=== PATIENT | female | born 1935 | race Caucasian/White ===

== ENCOUNTER 2016-11-30 12:31 | Inpatient (IN) | payer OTHER ==
[2016-11-30] VITALS (16 sets, daily range): BP systolic 115–193; BP diastolic 38–90; PULSE 49–67; TEMP 36.6–37; O2SAT 91–98; Ht 162.6 cm; Wt 77.1 kg
[~2016-11-30] VITALS: Ht 162.6 cm; Wt 77.1 kg
[~2016-11-30 12:31] MED LIST: ASPI81TA28 PO; CARV6.25 PO; CARV6.252 PO; CTP/1 PO; ESCI10TA17 PO; HYDR-4717 PO; ISOS20TA4 PO; LOSA1TAB38 PO; LSX20 PO; MULT-190 PO; NXM/40 PO; OMEG10007 PO; OXGN; ROSU20TA PO; SALI0.6510 NAE; TERA1CAP PO; VITATAB11 PO
[2016-11-30] MEDS ORDERED: HydrALAZINE HCL 20 MG/ML VIAL IV. STA ×2 (12:58→14:57)
[2016-11-30 13:26] LABS: BASO % 0.2 %; BASO ABS # 0.01 K/uL (0-0.2); COMPLETE YES; EOS % 5.3 %; HEMATOCRIT 35.7 % (37-47); IG% 0.2 %; LYMPH % 29.2 %; LYMPH ABS # 1.76 K/uL (1.2-3.4); MEAN CELL VOLUME 89.5 fL (80-100); MEAN CORPUSCULAR HEMOGLOBIN 28.1 pg (25-34); MEAN CORPUSCULAR HGB CONC 31.4 g/dl (32-36); MONO % 6.1 %; PLATELET COUNT 148 K/uL (130-400); RED BLOOD COUNT 3.99 M/uL (4.2-5.4); WHITE BLOOD COUNT 6.03 K/uL (4.8-10.8)
--- NOTE | 2016-11-30 13:36 | DIAGNOSTIC IMAGING REPORT ---
CT HEAD WITHOUT CONTRAST (CT) CLINICAL HISTORY: Generalized Weakness MEMORY DIFFICULTIES, CONFUSION. COMPARISON STUDY: 10/01/2013 TECHNIQUE: Axial CT of the brain is performed from the vertex to the skull base. IV contrast was not administered for this examination. CT DOSE: 614.27 mGy.cm FINDINGS: There is a 27 mm left parietal hypodensity involving both mathur and white matter. This statistically represents an acute/subacute infarct. A follow-up CT scan, or MRI is recommended for confirmation. There is no acute hemorrhage. There is no significant mass effect. There are subtle white matter hypodensities likely on a small vessel basis. There is no evidence of pathologic ventricular dilatation. There is no evidence of acute sinusitis IMPRESSION: 27 mm left parietal hypodensity involving both mathur and white matter. This statistically represents an acute/subacute infarct. A follow-up CT scan or MRI is recommended for confirmation. There is no acute hemorrhage. Electronically signed by: Bryan Alcala M.D. 11/30/2016 1:34 PM Dictated Date/Time: 11/30/2016 1:30 PM
[2016-11-30 13:41] LABS: URINE APPEARANCE CLEAR (CLEAR); URINE BILIRUBIN NEG (NEG); URINE COLOR YELLOW; URINE NITRITE NEG (NEG); URINE SPECIFIC GRAVITY 1.006 (1.000-1.030); UROBILINOGEN NEG (NEG); ZZUR CULT IF INDIC CLEAN CATCH NO
--- NOTE | 2016-11-30 13:43 | DIAGNOSTIC IMAGING REPORT ---
CHEST ONE VIEW PORTABLE CLINICAL HISTORY: Generalized Weakness CONFUSION COMPARISON STUDY: 05/26/2015 FINDINGS: The heart is enlarged. There is no overt failure. There is no focal pulmonary consolidation. There are no pleural effusions. There is a stable area of linear scarring within the right midlung zone.[ IMPRESSION: Cardiomegaly. No acute findings. Electronically signed by: Bryan lAcala M.D. 11/30/2016 1:40 PM Dictated Date/Time: 11/30/2016 1:39 PM
[2016-11-30 13:45] LABS: MANUAL MICROSCOPIC REQUIRED? NO; REVIEW REQ? NO
[2016-11-30 13:56] LABS: BUN/CREATININE RATIO 17.7 (10-20); CALCIUM 8.6 mg/dl (8.5-10.1); CREATININE 0.79 mg/dl (0.60-1.20); MAGNESIUM 2.1 mg/dl (1.8-2.4); PARTIAL THROMBOPLASTIN RATIO 1.1; POTASSIUM 3.5 mmol/L (3.5-5.1); PROTHROMBIN TIME (PATIENT) 11.2 SECONDS (9.0-12.0)
[2016-11-30 14:13] LABS: CKMB/CK RATIO 3.7 (0-3.0); PHOSPHORUS 2.8 mg/dl (2.5-4.9)
[2016-11-30] MEDS ORDERED: MELO7.5T5 PO (14:55)
[2016-11-30] MEDS ORDERED: LXP10 PO (14:55)
[2016-11-30] MEDS ORDERED: NiCARDipine IV 25 MG in SODIUM CHLORIDE 0.9% 250ML 240 ML IV PRN (15:45)
[2016-11-30] MEDS ORDERED: ACETAMINOPHEN 325 MG TAB PO PRN (16:00)
[2016-11-30] MEDS ORDERED: PHARMACIST DISCHARGE MED REC CONSULT PRN (16:00)
[2016-11-30] MEDS ORDERED: ONDANSETRON INJ 2 MG/ML 2 ML VIAL IV PRN (16:00)
--- NOTE | 2016-11-30 16:03 | EMERGENCY ROOM VISIT NOTE ---
History Report prepared by Alex: Shannan Bustos Under the Supervision of: Dr. Kenneth Steiner M.D. 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 The patient's daughter and state that the patient has been very confused and was not able to remember her birthday today. The patient's daughter states that the patient has been disoriented since she had a bad episode of chest pain secondary to arthritis 2 days ago. The patient denies any chest pain currently. This morning, the patient developed pain in her left cheek radiating into her left church. The patient denies ear pain and throat pain. The patient's states that the patient took Aleve this morning because he thought the patient' s symptoms were due to sinus congestion. She denies any recent urinary symptoms , but her states that she has a history of UTIs. The patient denies any recent falls or injuries. The patient's states that the patient has not had any recent medication changes. Source of History: patient, family (daughter), spouse/significant other ( ) Onset: 2 days ago Position: head Quality: other (confusion) Associated Symptoms: No chest pain, No urinary symptoms Note: left cheek pain radiating to left church, no ear pain, no throat pain Review of Systems See HPI for pertinent positives & negatives. A total of 10 systems reviewed and were otherwise negative. Past Medical & Surgical Medical Problems: (1) Arthritis (2) CAD (coronary artery disease) (3) CVA (cerebral vascular accident) (4) Depression (5) Diastolic dysfunction (6) Dyslipidemia (7) GERD (gastroesophageal reflux disease) (8) HTN (hypertension) (9) Hypertensive emergency (10) Pulmonary HTN (11) Pulmonary hypertension (12) Right radial fracture Surgical Problems: (1) Cystocele with rectocele (2) History of hysterectomy (3) S/P cholecystectomy (4) Status post cardiac catheterization (5) Status post coronary artery stent placement Family History FHx: diabetes FHx: gallbladder disease FHx: heart disease FHx: hypertension FHx: lung disease Social History Smoking Status: Never Smoker Alcohol Use: occasionally Marital Status: Occupation Status: retired Current/Historical Medications Scheduled Aspirin (Aspirin Ec), 81 MG PO BID Carvedilol (Coreg), 6.25 MG PO QAM Carvedilol (Coreg), 3.125 MG PO BID Clonidine Hcl (Catapres), 0.1 MG PO TID Escitalopram (Lexapro), 20 MG PO EVENING MEAL Esomeprazole Magnesium (Nexium), 40 MG PO QAM Fish Oil ([place]-3), 1,200 MG PO BID Furosemide (Furosemide), 20 MG PO QAM Hydralazine Hcl (Apresoline), 75 MG PO QID Isosorbide Mononitrate (Isosorbide Mononitrate), 30 MG PO QPM Losartan Potassium (Cozaar), 100 MG PO QPM Meloxicam (Mobic), 1 TAB PO DAILY Ocuvite Preservision (Ocuvite Preservision), 1 TAB PO DAILY Oxygen (Oxygen), 2 LITERS NA PRN Terazosin Hcl (Hytrin), 1 MG PO HS Vitamins W/ Lipotropics (Lipoflavonoid), 1 TAB PO 3XWK Scheduled PRN Saline ([place] Nasal [place]), 2 SPRAYS [place] DAILY PRN for DRYNESS, CONGESTION Allergies Coded Allergies: Iodine (Verified Allergy, Intermediate, HIVES, 11/30/16) Ciprofloxacin (Verified Allergy, Unknown, ., 11/30/16) Tramadol (Verified Allergy, Unknown, 0, 11/30/16) Physical Exam Vital Signs Date Time Temp Pulse Resp B/P Pulse Ox O2 Delivery O2 Flow Rate FiO2 11/30/16 15:07 64 19 248/84 94 Room Air 11/30/16 14:11 56 18 202/68 90 Room Air 11/30/16 14:04 51 11/30/16 13:57 51 18 229/80 93 Room Air 11/30/16 12:39 36.7 52 18 247/78 93 Room Air Physical Exam GENERAL: Patient is pleasantly confused appearing and in no acute distress. HEENT: No acute trauma, normocephalic atraumatic, mucous membranes moist, no nasal congestion, no scleral icterus. NECK: No stridor, no adenopathy, no meningismus, trachea is midline. LUNGS: No dyspnea. Clear to auscultation and equal bilaterally. No wheeze, no rhonchi. HEART: Regular rate and rhythm. No murmurs, rubs, gallops appreciated. ABDOMEN: Soft, nontender, bowel sounds positive, no masses appreciated, no peritonitis. BACK: No midline tenderness, no CVA tenderness EXTREMITIES: Normal motion all extremities, no cyanosis, no edema. NEUROLOGIC: Awake, answering questions, does not remember place nor time, no acute motor or sensory deficits, no focal weakness, cranial nerves grossly intact. SKIN: No rash, no jaundice, no diaphoresis. Medical Decision & Procedures ER Provider Diagnostic Interpretation: Radiology results and stated below per my review and radiologist interpretation: CHEST ONE VIEW PORTABLE IMPRESSION: Cardiomegaly. No acute findings. Electronically signed by: Bryan Alcala M.D. 11/30/2016 1:40 PM Dictated Date/Time: 11/30/2016 1:[address] HEAD WITHOUT CONTRAST (CT) IMPRESSION: 27 mm left parietal hypodensity involving both mathur and white matter. This statistically represents an acute/subacute infarct. A follow-up CT scan or MRI is recommended for confirmation. There is no acute hemorrhage. Electronically signed by: Bryan Alcala M.D. 11/30/2016 1:34 PM Dictated Date/Time: 11/30/2016 1:30 PM Laboratory Results 11/30/16 13:00 Red Blood Count 3.99, Mean Corpuscular Volume 89.5, Mean Corpuscular Hemoglobin 28.1, Mean Corpuscular Hemoglobin Concent 31.4, Mean Platelet Volume 10.0, Neutrophils (%) (Auto) 59.0, Lymphocytes (%) (Auto) 29.2, Monocytes (%) (Auto) 6.1, Eosinophils (%) (Auto) 5.3, Basophils (%) (Auto) 0.2, Neutrophils # (Auto) 3.56, Lymphocytes # (Auto) 1.76, Monocytes # (Auto) 0.37, Eosinophils # (Auto) 0.32, Basophils # (Auto) 0.01 11/30/16 13:00 Test 11/30/16 13:00 11/30/16 15:48 White Blood Count 6.03 K/uL (4.8-10.8) Red Blood Count 3.99 M/uL (4.2-5.4) Hemoglobin 11.2 g/dL (12.0-16.0) Hematocrit 35.7 % (37-47) Mean Corpuscular Volume 89.5 fL (80-100) Mean Corpuscular Hemoglobin 28.1 pg (25-34) Mean Corpuscular Hemoglobin Concent 31.4 g/dl (32-36) Platelet Count 148 K/uL (130-400) Mean Platelet Volume 10.0 fL (7.4-10.4) Neutrophils (%) (Auto) 59.0 % Lymphocytes (%) (Auto) 29.2 % Monocytes (%) (Auto) 6.1 % Eosinophils (%) (Auto) 5.3 % Basophils (%) (Auto) 0.2 % Neutrophils # (Auto) 3.56 K/uL (1.4-6.5) Lymphocytes # (Auto) 1.76 K/uL (1.2-3.4) Monocytes # (Auto) 0.37 K/uL (0.11-0.59) Eosinophils # (Auto) 0.32 K/uL (0-0.5) Basophils # (Auto) 0.01 K/uL (0-0.2) RDW Standard Deviation 56.4 fL (36.4-46.3) RDW Coefficient of Variation 17.1 % (11.5-14.5) Immature Granulocyte % (Auto) 0.2 % Immature Granulocyte # (Auto) 0.01 K/uL (0.00-0.02) Erythrocyte Sedimentation Rate 12 mm/hr (0-21) Prothrombin Time 11.2 SECONDS (9.0-12.0) Prothromb Time International Ratio 1.0 (0.9-1.1) Activated Partial Thromboplast Time 27.7 SECONDS (21.0-31.0) Partial Thromboplastin Ratio 1.1 Urine Color YELLOW Urine Appearance CLEAR (CLEAR) Urine pH 5.0 (4.5-7.5) Urine Specific [place] 1.006 (1.000-1.030) Urine Protein NEG (NEG) Urine Glucose (UA) NEG (NEG) Urine Ketones NEG (NEG) Urine Occult Blood NEG (NEG) Urine Nitrite NEG (NEG) Urine Bilirubin NEG (NEG) Urine Urobilinogen NEG (NEG) Urine Leukocyte Esterase TRACE (NEG) Urine WBC (Auto) 1-5 /hpf (0-5) Urine RBC (Auto) 0-4 /hpf (0-4) Urine Hyaline Casts (Auto) 0 /lpf (0-5) Urine Epithelial Cells (Auto) 5-10 /lpf (0-5) Urine Bacteria (Auto) NEG (NEG) Anion Gap 3.0 mmol/L (3-11) Est Creatinine Clear Calc Drug Dose 58.2 ml/min Estimated GFR () 80.8 Estimated GFR (Non- 69.7 BUN/Creatinine Ratio 17.7 (10-20) Calcium Level 8.6 mg/dl (8.5-10.1) Phosphorus Level 2.8 mg/dl (2.5-4.9) Magnesium Level 2.1 mg/dl (1.8-2.4) Total Bilirubin 0.4 mg/dl (0.2-1) Direct Bilirubin 0.1 mg/dl (0-0.2) Aspartate Amino Transf (AST/SGOT) 14 U/L (15-37) Alanine Aminotransferase (ALT/SGPT) 16 U/L (12-78) Alkaline Phosphatase 88 U/L (45-117) Total Creatine Kinase 41 U/L (26-192) Creatine Kinase MB 1.5 ng/ml (0.5-3.6) Creatine Kinase MB Ratio 3.7 (0-3.0) Troponin I 0.121 ng/ml (0-0.045) Total Protein 7.2 gm/dl (6.4-8.2) Albumin 3.8 gm/dl (3.4-5.0) Lipase 84 U/L (73-393) Laboratory results as reviewed by me. Medications Administered Medications (Trade) Dose Ordered Sig/Devin Route Start Time Stop Time Status Last Admin Dose Admin Hydralazine HCl (HydrALAZINE INJ) 10 mg NOW STAT IV. 11/30/16 12:58 11/30/16 12:59 DC 11/30/16 14:00 10 MG Hydralazine HCl (HydrALAZINE INJ) 10 mg NOW STAT IV. 11/30/16 14:57 11/30/16 15:02 DC 11/30/16 15:05 10 MG ECG Indication: altered mental status Rate (beats per minute): 58 Rhythm: sinus bradycardia Findings: no acute ischemic change, no ectopy ED Course 1253: The patient was evaluated in room A10. A complete history and physical exam was performed. 1258: Ordered Hydralazine HCl 10 mg IV 1402: Upon reevaluation, the patient is resting comfortably. Discussed results and treatment plan with the patient. The patient and her verbalized understanding and agreement with the treatment plan. The patient will be evaluated for further management. 1405: Discussed the patient's case with [place]. The patient will be evaluated for further treatment and disposition. Medical Decision Differential: Toxicological, Infectious, Stroke, SAH, Trauma, Electrolyte Abnormality, Hypoglycemia, Alcohol Intoxication, Drug Intoxication, Cardiac Abnormality, Sepsis, Meningitis/Encephalitis, Trauma, Excited Delirium, Serotonin Syndrome, Psychiatric, amongst other pathologies entertained. 81 yr old female with memory issues last 24 hours arrives with family for evaluation along with complaint left face pain. No neuro deficits and she is in minimal distress here. Quite Hypertensive thus 10mg IV Hydralazine ordered after evaluating here which after given dropped SBP from 240 to 200 which I feel is good for initial approach as wish to avoid dropping too quickly. CT head with evidence of sub-acute stroke though without other deficits and symptoms ongoing for last 24 hours she would not be TPA candidate and stroke alert not indicated. BP started increasing but at this point hospitalist already involved and another dose hydralazine ordered given initial improvement. Continued HTN thus hospitalist will manage nicardipine gtt. She has elevated trop which she recalls some chest pain 2 days ago. EKG without STEMI and no active chest pain. Suspect stroke/hypertensive emergency as main culprits. Consults Time Called: 1404 Consulting Physician: [place] Returned Call: 1405 Discussed the patient's case with [place]. The patient will be evaluated for further treatment and disposition. Impression Primary Impression: CVA (cerebral vascular accident) Additional Impression: Hypertension Scribe Attestation The scribe's documentation has been prepared under my direction and personally reviewed by me in its entirety. I confirm that the note above accurately reflects all work, treatment, procedures, and medical decision making performed by me. Departure Information Dispostion Being Evaluated By Hospitalist Referrals Sulman,Dustin A., D.O. (PCP) Patient Instructions My [facility] Stroke History Time Last Known Well 2 days ago Stroke t-PA Criteria Reviewed Does NOT meet criteria for t-PA Reason t-PA Not Given Treatment not indicated Problem Qualifiers Primary Impression: CVA (cerebral vascular accident) CVA mechanism: unspecified Qualified Codes: I63.9 - Cerebral infarction, unspecified Additional Impression: Hypertension Hypertension type: unspecified secondary hypertension Qualified Codes: I15.9 - Secondary hypertension, unspecified
[2016-11-30] MEDS ORDERED: CRS20 PO (16:08)
[2016-11-30] MEDS ORDERED: VNTHFA/IN INH (16:08)
[2016-11-30] MEDS: NiCARDipine IV 25 MG in SODIUM CHLORIDE 0.9% 250ML 240 ML IV PRN ×2 (16:13→19:40)
[2016-11-30] MEDS ORDERED: SODIUM CHLORIDE 0.65% NA SOLN 45 ML (OCEAN) NAE PRN (16:15)
[2016-11-30] MEDS ORDERED: ALBUTEROL HFA 8 GM INHALER INH PRN (16:15)
[2016-11-30] MEDS ORDERED: ASPIRIN 81 MG ECTAB PO STA (16:58)
[2016-11-30] MEDS ORDERED: CLOPIDOGREL BISULFATE 75 MG TAB PO STA (16:59)
--- NOTE | 2016-11-30 16:59 | History and Physical ---
History & Physical Date & Time of Service: Nov 30, 2016 at 16:12 Chief Complaint: Confusion, Pain In Lt Cheek, Memory Issues Primary Care Physician: Dustin Pierce D.O. History of Present Illness Source: patient, hospital records This is an 81 year old female with PMH of CAD s/p PCI stent to RCA, labile hypertension, dyslipidemia, remote history of TIA, and other problems listed below who presents to the ED for confusion, memory loss, and expressive aphasia. states symptoms started yesterday afternoon at which time patient appeared confused, with expressive aphasia, and walked into her . He sat her down and she slept for a few hours, she awoke and seemed normal, then went to bed. Then this morning around 7:30 am she was c/o left maxillary area pain with radiation to left jaw and left oriental orthodox. It is worse with jaw movement. She took Mucinex and Advil without relief. When daughter arrived at 8:30 she noticed patient had confusion (unable to get into her phone) , memory loss, and expressive aphasia and therefore brought patient to ER. At baseline patient is oriented x 3 without any memory loss. She ambulates unassisted and is independent with ADLs. On my exam patient recognizes her family but is unable to name the date or location. She states she knows the location but can't think of the name. She is not able to describe recent events. Daughter states 2 days ago patient had chest pain non-exertional similar to prior episodes attributed to costochondritis. There was no diaphoresis or SOB. She took Aleve and Percocet with relief. Not having chest pain today. Patient had a UTI 1 week ago treated with unknown antibiotic after being seen at [facility] [employer]. Dysuria is resolved. The patient denies fever, chills , nasal congestion, sore throat, dizziness, syncope, vision change, facial droop , swallowing difficulty, focal weakness or numbness, ataxia, cough, SOB, palpitations, abdominal pain, N/V/D, urinary frequency or urgency, calf pain, edema, recent fall or injury. Denies h/o abnormal bleeding. Past Medical/Surgical History Medical Problems: (1) Arthritis Status: Chronic (2) CAD (coronary artery disease) Permanent Comment: hx PCI stent to RCI cath 2004 - % RCA stenosis s/p intervention, 50% LAD stenosis dobutamine stress 05/01/15 - negative for ischemia Status: Chronic (3) Depression Status: Chronic (4) Diastolic dysfunction Permanent Comment: echo 04/1815 - grade II diastolic dysfunction, mild valvular disease Status: Chronic (5) Dyslipidemia Status: Chronic (6) GERD (gastroesophageal reflux disease) Status: Chronic (7) HTN (hypertension) Status: Chronic (8) Pulmonary HTN Permanent Comment: echo 05/01/15 - severe pulmonary HTN measured at 68mm Hg Status: Chronic (9) Right radial fracture Permanent Comment: s/p ORIF Status: Chronic (10) TIA (transient ischemic attack) Permanent Comment: 1978 Status: Chronic Surgical Problems: (1) Cystocele with rectocele Permanent Comment: s/p repair Status: Chronic (2) History of hysterectomy Status: Chronic (3) S/P cholecystectomy Status: Chronic (4) Status post cardiac catheterization Status: Chronic (5) Status post coronary artery stent placement Status: Chronic Family History FHx: diabetes FHx: gallbladder disease FHx: heart disease FHx: hypertension FHx: lung disease Social History Smoking Status: Never Smoker Alcohol Use: occasionally (1-2 drinks per week) Marital Status: Housing status: lives with significant other Occupational Status: retired Immunizations History of Influenza Vaccine: Yes Influenza Vaccine Date: May 12, 2014 History of Tetanus Vaccine?: Yes Tetanus Immunization Date: Oct 15, 2007 History of Pneumococcal: Yes Pneumococcal Date: Apr 21, 2000 History of Hepatitis B Vaccine: Unknown Multi-Drug Resistant Organisms History of MDRO: No Allergies Coded Allergies: Iodine (Verified Allergy, Intermediate, HIVES, 11/30/16) Ciprofloxacin (Verified Allergy, Unknown, ., 11/30/16) Tramadol (Verified Allergy, Unknown, 0, 11/30/16) Home Medications Scheduled Aspirin (Aspirin Ec), 81 MG PO BID Carvedilol (Coreg), 3.125 MG PO BID Escitalopram (Lexapro), 20 MG PO EVENING MEAL Esomeprazole Magnesium (Nexium), 40 MG PO QAM Fish Oil ([place]-3), 1,200 MG PO BID Furosemide (Furosemide), 20 MG PO QAM Hydralazine Hcl (Apresoline), 75 MG PO QID Isosorbide Mononitrate (Isosorbide Mononitrate), 30 MG PO DAILY Losartan Potassium (Cozaar), 100 MG PO QAM Meloxicam (Mobic), 1 TAB PO DAILY Ocuvite Preservision (Ocuvite Preservision), 1 TAB PO DAILY Oxygen (Oxygen), 2 LITERS NA HS Rosuvastatin Calcium (Crestor), 20 MG PO DAILY Terazosin Hcl (Hytrin), 1 MG PO HS Vitamins W/ Lipotropics (Lipoflavonoid), 1 TAB PO 3XWK Scheduled PRN Albuterol Hfa (Ventolin Hfa), 2 PUFFS INH Q4 PRN for Wheezing Clonidine Hcl (Catapres), 0.1 MG PO TID PRN for SBP >180 Saline ([place] Nasal [place]), 2 SPRAYS MEAGAN DAILY PRN for DRYNESS, CONGESTION Review of Systems Ten point ROS performed with pertinent positives and negatives noted in HPI. Physical Exam Vital Signs Date Time Temp Pulse Resp B/P Pulse Ox O2 Delivery O2 Flow Rate FiO2 11/30/16 14:11 56 18 202/68 90 Room Air 11/30/16 14:04 51 11/30/16 13:57 51 18 229/80 93 Room Air 11/30/16 12:39 36.7 52 18 247/78 93 Room Air General Appearance: WD/WN, no apparent distress, + pertinent finding (pleasant alert 81 year old female) Head: normocephalic, atraumatic Eyes: normal inspection, PERRL, EOMI, sclerae normal ENT: normal ENT inspection, hearing grossly normal, TMs normal, pharynx normal , + pertinent finding (tender to palpation left maxillary, frontal, and temporal area and left angle of mandible) Neck: supple, no JVD, no carotid bruits, trachea midline Respiratory/Chest: lungs clear, normal breath sounds, no respiratory distress Cardiovascular: regular rate, rhythm, no murmur Abdomen/GI: normal bowel sounds, non tender, soft Extremities/Musculoskelatal: no calf tenderness, no pedal edema Neurologic/Psych: 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 unable to state the location or date. unable to recall recent events. expressive aphasia. slow to name objects. finger to nose intact. no pronator drift. gait not assessed) Skin: normal color, warm/dry Diagnostics Laboratory Results Results Past 24 Hours Test 4/19/17 13:00 Range/Units White Blood Count 6.03 4.8-10.8 K/uL Red Blood Count 3.99 4.2-5.4 M/uL Hemoglobin 11.2 12.0-16.0 g/dL Hematocrit 35.7 37-47 % Mean Corpuscular Volume 89.5 80-100 fL Mean Corpuscular Hemoglobin 28.1 25-34 pg Mean Corpuscular Hemoglobin Concent 31.4 32-36 g/dl Platelet Count 148 130-400 K/uL Mean Platelet Volume 10.0 7.4-10.4 fL Neutrophils (%) (Auto) 59.0 % Lymphocytes (%) (Auto) 29.2 % Monocytes (%) (Auto) 6.1 % Eosinophils (%) (Auto) 5.3 % Basophils (%) (Auto) 0.2 % Neutrophils # (Auto) 3.56 1.4-6.5 K/uL Lymphocytes # (Auto) 1.76 1.2-3.4 K/uL Monocytes # (Auto) 0.37 0.11-0.59 K/uL Eosinophils # (Auto) 0.32 0-0.5 K/uL Basophils # (Auto) 0.01 0-0.2 K/uL RDW Standard Deviation 56.4 36.4-46.3 fL RDW Coefficient of Variation 17.1 11.5-14.5 % Immature Granulocyte % (Auto) 0.2 % Immature Granulocyte # (Auto) 0.01 0.00-0.02 K/uL Erythrocyte Sedimentation Rate 12 0-21 mm/hr Prothrombin Time 11.2 9.0-12.0 SECONDS Prothromb Time International Ratio 1.0 0.9-1.1 Activated Partial Thromboplast Time 27.7 21.0-31.0 SECONDS Partial Thromboplastin Ratio 1.1 Urine Color YELLOW Urine Appearance CLEAR CLEAR Urine pH 5.0 4.5-7.5 Urine Specific [place] 1.006 1.000-1.030 Urine Protein NEG NEG Urine Glucose (UA) NEG NEG Urine Ketones NEG NEG Urine Occult Blood NEG NEG Urine Nitrite NEG NEG Urine Bilirubin NEG NEG Urine Urobilinogen NEG NEG Urine Leukocyte Esterase TRACE NEG Urine WBC (Auto) 1-5 0-5 /hpf Urine RBC (Auto) 0-4 0-4 /hpf Urine Hyaline Casts (Auto) 0 0-5 /lpf Urine Epithelial Cells (Auto) 5-10 0-5 /lpf Urine Bacteria (Auto) NEG NEG Sodium Level 143 136-145 mmol/L Potassium Level 3.5 3.5-5.1 mmol/L Chloride Level 105 98-107 mmol/L Carbon Dioxide Level 35 21-32 mmol/L Anion Gap 3.0 3-11 mmol/L Blood Urea Nitrogen 14 7-18 mg/dl Creatinine 0.79 0.60-1.20 mg/dl Est Creatinine Clear Calc Drug Dose 58.2 ml/min Estimated GFR () 80.8 Estimated GFR (Non- 69.7 BUN/Creatinine Ratio 17.7 10-20 Random Glucose 95 70-99 mg/dl Calcium Level 8.6 8.5-10.1 mg/dl Phosphorus Level 2.8 2.5-4.9 mg/dl Magnesium Level 2.1 1.8-2.4 mg/dl Total Bilirubin 0.4 0.2-1 mg/dl Direct Bilirubin 0.1 0-0.2 mg/dl Aspartate Amino Transf (AST/SGOT) 14 15-37 U/L Alanine Aminotransferase (ALT/SGPT) 16 12-78 U/L Alkaline Phosphatase 88 45-117 U/L Total Creatine Kinase 41 26-192 U/L Creatine Kinase MB 1.5 0.5-3.6 ng/ml Creatine Kinase MB Ratio 3.7 0-3.0 Troponin I 0.121 0-0.045 ng/ml Total Protein 7.2 6.4-8.2 gm/dl Albumin 3.8 3.4-5.0 gm/dl Lipase 84 73-393 U/L Diagnostic Radiology CT HEAD WITHOUT CONTRAST (CT) CLINICAL HISTORY: Generalized Weakness MEMORY DIFFICULTIES, CONFUSION. COMPARISON STUDY: 10/01/2013 TECHNIQUE: Axial CT of the brain is performed from the vertex to the skull base. IV contrast was not administered for this examination. CT DOSE: 614.27 mGy.cm FINDINGS: There is a 27 mm left parietal hypodensity involving both mathur and white matter. This statistically represents an acute/subacute infarct. A follow-up CT scan, or MRI is recommended for confirmation. There is no acute hemorrhage. There is no significant mass effect. There are subtle white matter hypodensities likely on a small vessel basis. There is no evidence of pathologic ventricular dilatation. There is no evidence of acute sinusitis IMPRESSION: 27 mm left parietal hypodensity involving both mathur and white matter. This statistically represents an acute/subacute infarct. A follow-up CT scan or MRI is recommended for confirmation. There is no acute hemorrhage. EKG sinus bradycardia, rate 58 bpm, nonspecific T wave inversion in aVL, no significant change from prior EKG in May 2015 Impression Assessment and Plan CVA Presents with confusion, memory loss, expressive aphasia CT head shows 27 mm L parietal acute/subacute infarct Risk factors include hypertension, dyslipidemia, remote hx TIA Monitor in telemetry to r/o arrhythmia Check MRI brain with and without contrast, which will also assess for PRES syndrome Check MRA head and neck, echo w/ bubble study, monitor in telemetry to r/o arrhythmia Check fasting lipid panel Neurology consulted- Dr. No aware, appreciate input- advises continue home aspirin, add Plavix, BP control with goal SBP 150-170 and DBP 80-90 PT, OT, speech evaluations HYPERTENSIVE EMERGENCY BP severely elevated (220's systolic) despite total of 10 mg IV hydralazine in ER History of labile hypertension, family states it is worse during hospitalizations, at home if takes meds BP generally runs Missed am anti-hypertensive meds today Start on nicardipine drip Continue Lasix, isosorbide, carvedilol (with holding parameters), terazosin, hydralazine, losartan Hold home clonidine (takes 0.1 mg TID prn sbp >180) Close monitoring in ICU; Dr. Cortés aware MILDLY ELEVATED TROPONIN Troponin is 0.121 Possibly due to elevated BP; rule out ACS Denies chest pain today; had episode atypical CP 2 days ago Hx of CAD s/p RCA stent Aug 2014 Trend serial cardiac enzymes Continue aspirin, statin, beta amando, isosorbide HX DIASTOLIC DYSFUNCTION/ PULMONARY HTN Appears euvolemic Continue Lasix LEFT JAW PAIN Likely due to TMJ ESR is normal Try PRN acetaminophen RECENT UTI Seen at [facility], finished unknown abx with resolution of symptoms UA does not look infected today- trace leuk esterase and 5-10 epithelial cells NOCTURNAL HYPOXEMIA Continue home supplemental O2 2 liters nasal cannula HS DEPRESSION Continue Lexapro GERD Continue PPI DVT PROPHYLAXIS Lovenox SQ CODE STATUS Full code per attending's conversation with the patient DISPOSITION Follows with Dr. Pierce for primary care Patient seen in collaboration with Dr. Multani. Please see her addendum. I have seen and examined the patient and agree with the assessment and plan as above. The patient was having some word finding difficulty on exam but otherwise neuro exam was nonfocal. CN 2-12 were checked and smile was symmetric (initially appeared to be some facial droop). Pt and family deny any difficulty swallowing or ambulating (she does not use an assistive device at baseline) and there was no reported drooling, visual changes or headache. She does report some temporal pain which began today and is localized in the L TMJ with radiation to the temporal area. Again no visual changes, and she reports having this pain in the past. 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 Agree with Cardene drip for better control of BP post-CVA. She uses clonidine intermittently, so we may be seeing refractory HTN 2/2 rebound vs physiologic response in acute stroke vs a reflection of her noncompliance with taking her BP meds this morning. Cont with workup and plan as stated above. Rangel, DO Level of Care Critical Care Resuscitation Status FULL RESUSCITATION VTE Prophylaxis VTE Risk Assessment Done? Y/N: Yes Risk Level: Moderate Given or contraindicated: Enoxaparin (Lovenox)SQ
--- NOTE | 2016-11-30 17:27 | Critical Care Consultation ---
Critical Care Consultation Date of Consultation: Nov 30, 2016. Attending Physician: Kristal Phillips M.D. Reason for Consultation: Hypertensive urgency History of Present Illness this is an 81 yo f that is presenting to us with new neuro like symptoms alongside hypertensive urgency. The patient has been suffering from an "inability to grasp what is going on and I can't explain things but I know what it is." This started this morning according to the patient and the and daughter were concerned and brought her to the ED for evaluation. According to the the left sided facial droop is new but when the patient is asked she states that it is actually not new but " I don't know when this started." She denies any weakness/ numbness/ tingling/ presyncope/ syncope but does state that she has a headache. She placed her hand over her eye stating she had a headache and stated " yes I have had one all day but no one will do anything for it." She was unable to describe the headache at all. She has a history of hypertensive urgency and has been hospitalized multiple times for this. The last was in May 2015 for hypoxia but was actually brought to the ICU for control of respiratory status as well as a nicardipine drip. She is on multiple antihypertensives and is compliant with these medications. They include Clonidine, hydralazine, losartan and isosorbide. She also states she has had a stroke "years ago" but on review of past CT head there was no indication of an old stroke on any of them. On review of previous admissions a facial droop was never mentioned in the patient's physical examination. She was evaluated for secondary htn in 2010 with a MRA abdomen and revealed patent bilat renal arteries. Past Medical/Surgical History HTN HPL Impaired fasting glucose Depression Cholecystectomy Hypertensive urgency Family History FHx: diabetes FHx: gallbladder disease FHx: heart disease FHx: hypertension FHx: lung disease Social History Smoking Status: Never Smoker Smokeless Tobacco Use: No Alcohol Use: occasionally (1-2 drinks per week) Drug Use: none Marital Status: Housing Status: lives with family Occupation Status: retired Allergies Coded Allergies: Iodine (Verified Allergy, Intermediate, HIVES, 11/30/16) Ciprofloxacin (Verified Allergy, Unknown, ., 11/30/16) Tramadol (Verified Allergy, Unknown, 0, 11/30/16) Home Medications Scheduled Aspirin (Aspirin Ec), 81 MG PO BID Carvedilol (Coreg), 3.125 MG PO BID Escitalopram (Lexapro), 20 MG PO EVENING MEAL Esomeprazole Magnesium (Nexium), 40 MG PO QAM Fish Oil ([place]-3), 1,200 MG PO BID Furosemide (Furosemide), 20 MG PO QAM Hydralazine Hcl (Apresoline), 75 MG PO QID Isosorbide Mononitrate (Isosorbide Mononitrate), 30 MG PO DAILY Losartan Potassium (Cozaar), 100 MG PO QAM Meloxicam (Mobic), 1 TAB PO DAILY Ocuvite Preservision (Ocuvite Preservision), 1 TAB PO DAILY Oxygen (Oxygen), 2 LITERS NA HS Rosuvastatin Calcium (Crestor), 20 MG PO DAILY Terazosin Hcl (Hytrin), 1 MG PO HS Vitamins W/ Lipotropics (Lipoflavonoid), 1 TAB PO 3XWK Scheduled PRN Albuterol Hfa (Ventolin Hfa), 2 PUFFS INH Q4 PRN for Wheezing Clonidine Hcl (Catapres), 0.1 MG PO TID PRN for SBP >180 Saline ([place] Nasal Benavides), 2 SPRAYS MEAGAN DAILY PRN for DRYNESS, CONGESTION Current Inpatient Medications Current Inpatient Medications Medications (Trade) Dose Ordered Sig/Devin Route Start Time Stop Time Status Last Admin Dose Admin Nicardipine HCl/ Sodium Chloride (Cardene Iv/Nss 250ml) 250 ml @ 0 mls/hr Q0M PRN IV 11/30/16 15:45 12/30/16 15:44 11/30/16 16:13 50 MLS/HR Miscellaneous Information (Pharmacist Discharge Med Rec Consult) 1 ea UD PRN N/A 11/30/16 16:00 12/30/16 15:59 UNV Enoxaparin Sodium (Lovenox Inj) 40 mg Q24H SQ 11/30/16 16:00 12/30/16 15:59 UNV Acetaminophen (Tylenol Tab) 650 mg Q4H PRN PO 11/30/16 16:00 12/30/16 15:59 UNV Ondansetron HCl (Zofran Inj) 4 mg Q6H PRN IV 11/30/16 16:00 12/30/16 15:59 UNV Albuterol (Ventolin Hfa Inhaler) 2 puffs Q4 PRN INH 11/30/16 16:15 12/30/16 16:14 UNV Aspirin (Ecotrin Tab) 81 mg BID PO 11/30/16 21:00 12/30/16 20:59 UNV Carvedilol (Coreg Tab) 3.125 mg BID PO 11/30/16 21:00 12/30/16 20:59 UNV Escitalopram Oxalate (Lexapro Tab) 20 mg QPM PO 11/30/16 21:00 12/30/16 20:59 UNV Fish Oil ([place]-3 (Purified Fish Oil) Cap) 1,200,000 gm BID PO 11/30/16 21:00 12/30/16 20:59 UNV Furosemide (Lasix Tab) 20 mg QAM PO 12/01/16 09:00 12/31/16 08:59 UNV Hydralazine HCl (Apresoline Tab) 75 mg QID PO 11/30/16 17:00 12/30/16 16:59 UNV Isosorbide Mononitrate (Ismo Tab) 30 mg DAILY PO 12/01/16 09:00 12/31/16 08:59 UNV Losartan Potassium (coZAAR TAB) 100 mg QAM PO 12/01/16 09:00 12/31/16 08:59 UNV Multivitamins/ Minerals (Multivitamin W/ Minerals Tab) 1 tab DAILY PO 12/01/16 09:00 12/31/16 08:59 UNV Rosuvastatin Calcium (Crestor Tab) 20 mg DAILY PO 12/01/16 09:00 12/31/16 08:59 UNV Sodium Chloride ([place] Nasal Benavides) 2 sprays DAILY PRN MEAGAN 11/30/16 16:15 12/30/16 16:14 UNV Terazosin HCl (Hytrin Cap) 1 mg HS PO 11/30/16 21:00 12/30/16 20:59 UNV Non-Formulary Medication (Vitamins W/ Lipotropics (Lipoflavonoid)) 1 tab 3XWK PO 11/30/16 16:15 12/30/16 16:14 UNV Pantoprazole Sodium (Protonix Tab) 40 mg QAM PO 12/01/16 09:00 12/31/16 08:59 UNV Clopidogrel Bisulfate (plAVix TAB) 75 mg QAM PO 12/01/16 09:00 12/31/16 08:59 UNV Review of Systems Limited ROS because of expressive aphasia, as noted above Physical Exam Date Time Temp Pulse Resp B/P Pulse Ox O2 Delivery O2 Flow Rate FiO2 11/30/16 16:22 63 20 220/78 94 Room Air 11/30/16 15:07 64 19 248/84 94 Room Air 11/30/16 14:11 56 18 202/68 90 Room Air 11/30/16 14:04 51 11/30/16 13:57 51 18 229/80 93 Room Air 11/30/16 12:39 36.7 52 18 247/78 93 Room Air General Appearance: well-appearing, no apparent distress Head: normocephalic, atraumatic Eyes: PERRLA, EOMI, sclerae normal, conjunctivae normal ENT: other (ent inspection WNL, dentures) Neck: normal range of motion, trachea midline, supple Respiratory: breath sounds normal, clear to auscultation, no respiratory distress Cardiovasular: regular rate/rhythm, no murmur Abdomen: non tender, normal bowel sounds, no masses Back: normal inspection Upper Extremities: no edema, normal ROM Lower Extremities: no edema, normal ROM Pulses: dorsalis pedis (R) (2+), dorsalis pedis (L) (2+) Neuro: alert, oriented x 3, normal motor exam (except for left sided weakness) , normal sensation, normal speech (expressive aphasia), normal memory (question if patient confused/ affected memory or related to expressive aphasia) Reflexes: patellar (R) (2+), patellar (L) (2+) Babinski Testing: right (downgoing), left (downgoing) Psychiatric: normal affect Laboratory Results Last 24 Hours Test 11/30/16 13:00 White Blood Count 6.03 K/uL Red Blood Count 3.99 M/uL Hemoglobin 11.2 g/dL Hematocrit 35.7 % Mean Corpuscular Volume 89.5 fL Mean Corpuscular Hemoglobin 28.1 pg Mean Corpuscular Hemoglobin Concent 31.4 g/dl Platelet Count 148 K/uL Mean Platelet Volume 10.0 fL Neutrophils (%) (Auto) 59.0 % Lymphocytes (%) (Auto) 29.2 % Monocytes (%) (Auto) 6.1 % Eosinophils (%) (Auto) 5.3 % Basophils (%) (Auto) 0.2 % Neutrophils # (Auto) 3.56 K/uL Lymphocytes # (Auto) 1.76 K/uL Monocytes # (Auto) 0.37 K/uL Eosinophils # (Auto) 0.32 K/uL Basophils # (Auto) 0.01 K/uL RDW Standard Deviation 56.4 fL RDW Coefficient of Variation 17.1 % Immature Granulocyte % (Auto) 0.2 % Immature Granulocyte # (Auto) 0.01 K/uL Erythrocyte Sedimentation Rate 12 mm/hr Prothrombin Time 11.2 SECONDS Prothromb Time International Ratio 1.0 Activated Partial Thromboplast Time 27.7 SECONDS Partial Thromboplastin Ratio 1.1 Urine Color YELLOW Urine Appearance CLEAR Urine pH 5.0 Urine Specific [place] 1.006 Urine Protein NEG Urine Glucose (UA) NEG Urine Ketones NEG Urine Occult Blood NEG Urine Nitrite NEG Urine Bilirubin NEG Urine Urobilinogen NEG Urine Leukocyte Esterase TRACE Urine WBC (Auto) 1-5 /hpf Urine RBC (Auto) 0-4 /hpf Urine Hyaline Casts (Auto) 0 /lpf Urine Epithelial Cells (Auto) 5-10 /lpf Urine Bacteria (Auto) NEG Sodium Level 143 mmol/L Potassium Level 3.5 mmol/L Chloride Level 105 mmol/L Carbon Dioxide Level 35 mmol/L Anion Gap 3.0 mmol/L Blood Urea Nitrogen 14 mg/dl Creatinine 0.79 mg/dl Est Creatinine Clear Calc Drug Dose 58.2 ml/min Estimated GFR () 80.8 Estimated GFR (Non- 69.7 BUN/Creatinine Ratio 17.7 Random Glucose 95 mg/dl Calcium Level 8.6 mg/dl Phosphorus Level 2.8 mg/dl Magnesium Level 2.1 mg/dl Total Bilirubin 0.4 mg/dl Direct Bilirubin 0.1 mg/dl Aspartate Amino Transf (AST/SGOT) 14 U/L Alanine Aminotransferase (ALT/SGPT) 16 U/L Alkaline Phosphatase 88 U/L Total Creatine Kinase 41 U/L Creatine Kinase MB 1.5 ng/ml Creatine Kinase MB Ratio 3.7 Troponin I 0.121 ng/ml Total Protein 7.2 gm/dl Albumin 3.8 gm/dl Lipase 84 U/L Diagnostic Results CHEST ONE VIEW PORTABLE CLINICAL HISTORY: Generalized Weakness CONFUSION COMPARISON STUDY: 05/26/2015 FINDINGS: The heart is enlarged. There is no overt failure. There is no focal pulmonary consolidation. There are no pleural effusions. There is a stable area of linear scarring within the right midlung zone.[ IMPRESSION: Cardiomegaly. No acute findings. CT HEAD WITHOUT CONTRAST (CT) CLINICAL HISTORY: Generalized Weakness MEMORY DIFFICULTIES, CONFUSION. COMPARISON STUDY: 10/01/2013 TECHNIQUE: Axial CT of the brain is performed from the vertex to the skull base. IV contrast was not administered for this examination. CT DOSE: 614.27 mGy.cm FINDINGS: There is a 27 mm left parietal hypodensity involving both mathur and white matter. This statistically represents an acute/subacute infarct. A follow-up CT scan, or MRI is recommended for confirmation. There is no acute hemorrhage. There is no significant mass effect. There are subtle white matter hypodensities likely on a small vessel basis. There is no evidence of pathologic ventricular dilatation. There is no evidence of acute sinusitis IMPRESSION: 27 mm left parietal hypodensity involving both mathur and white matter. This statistically represents an acute/subacute infarct. A follow-up CT scan or MRI is recommended for confirmation. There is no acute hemorrhage. Assessment & Plan 1. Acute/ Subacute infarct left parietal region 2. metabolic encephalopathy secondary to stroke 3. Hypertensive urgency 4. Elevated Troponin- supply and demand vs infarct 5. GERD 6. HPL 7. Depression NVS - neurochecks q2h per stroke protocol - MRI/MRA head and neck in am - Plavix started, cont ASA - cont lexapro once not NPO CVS - Echo - Nicardipine drip for bp control - goal is 150-170 - Hydrazline, carvedilol, losartan, clonidine, isosorbide - clonidine held by primary team - trend troponin - Continue Rosuvastatin 20 mg - currently on high dose statin RVS - O2 per nursing protocol GI - NPO until clear by swallow study Gu - monitor I&O, daily weights ENDO - Will follow BSG AC/Hs - will trend BSG before starting any insulin as patient is not currently on any medications for DM - HBA1C FEN - continue to trend BMP DVT prophylaxis Resident Physician Supervision Note/Pile Operator I interviewed and examined the patient. Discussed with Dr. Contreras and agree with findings and plan as documented in the note. I have also reviewed documentation in the chart, labs, VS and imaging reports. Any exceptions or clarifications to Dr. Contreras's note are listed here: This is a patient with a history of HTN, TIA, migraine and hyperlipidemia who presented with confusion, L facial pain, NICOLE and expressive aphasia and was found to have an acute or subacute L parietal infarct. She can answer yes or no questions but cannot tell me the year or her last name. She has a slight left facial droop, but tongue is midline, strength is normal throughout for her age and sensation is grossly intact. Hydralazine was not effective in controlling her hypertensive urgency in the ED and was place on Nicardipine once in the ICU with improvement - goal SBP 150-170. MRI/MRA brain and neck are pending and she has received ASA and plavix after the primary service discussed her care with Neurology via phone. Nearly all of her outpatient antihypertensives have been reordered, however, she is NPO until formal speech/ swallowing study. She has no trouble speaking and I think she would probably be fine taking pills if needed but will use the nicardipine for the time being. Could add a clonidine patch as she take clonidine PRN at home. I will order morphine for pain as well as IV acetaminophen and hydralazine PRN. Echo is pending along with MRI/MRA, ST,PT,OT. and son were updated in detail at the bedside. Documented By: Helena Cortés Additional Copies To Dustin Pierce D.O.
--- NOTE | 2016-11-30 17:57 | PROGRESS NOTE ---
DATE: 11/30/2016 SUBJECTIVE: Annie Santos is 81 years old, knows Dr. Dustin Pierce and I discussed her case with Brie Wills today while she was in the ER waiting admission to the hospital. She presents with a 24-hour history of what has been termed aphasia and probably is, confusion and some left-sided head pain. She has known coronary artery disease, depression, diastolic dysfunction, dyslipidemia, GERD, pulmonary hypertension, has had a right radial fracture and has over the years number of TIAs and possible migrainous events for which I have seen her. Surgically, she has had a cystocele, hysterectomy, cholecystectomy, post-cardiac catheterization and coronary artery stent placement. She has had some recent duplex studies of the carotids which have not shown any significant stenoses. Upon presentation to the ER, she was markedly hypertensive at least in terms of systolic blood pressure with relatively normal diastolics and has some speech issues consistent with an aphasia, although we have not seen her officially from a neurologic point of view. No other symptoms were reported or noted. I recommended Brie Wills that she have an MRI and MRA of the intracranial vessels and that Plavix be added to her regimen. I also recommend that the blood pressure be dropped at least in to 150-170 systolic range, keeping diastolics in the 80s. At this point, she has not had MR imaging studies done. I have reviewed the CT scan and agree that there is likely a subacute infarction in the left parietal subcortical zone extending likley into the cortex and some suggestion of chronic low grade leukoencephalopathy She is in transit tt floor and Lizzie Chang will be seeing her tomorrow for our service at a time when more diagnostic information is available. Dr. Merino will be on service tomorrow and she will be seeing her in conjunction with Lizzie Chang. [facility]ITAL[facility]os
[2016-11-30] MEDS ORDERED: MoRPHine SULFATE 2 MG/ML CARP ONE (18:53)
[2016-11-30] MEDS: ENOXAPARIN 40 MG/0.4 ML SYR SQ SCH (19:41)
[2016-11-30] MEDS: OMEGA-3 (PURIFIED FISH OIL) 1 GM CAP PO SCH (19:41)
[2016-11-30] MEDS: ESCITALOPRAM OXALATE 20 MG TAB PO SCH (19:42)
[2016-11-30] MEDS: ASPIRIN 81 MG ECTAB PO SCH (19:43)
[2016-11-30] MEDS: CARVEDILOL 3.125 MG TAB PO SCH (19:43)
[2016-11-30] MEDS ORDERED: HydrALAZINE HCL 20 MG/ML VIAL IV. PRN (20:00)
[2016-11-30] MEDS ORDERED: MoRPHine SULFATE 2 MG/ML CARP IV PRN ×2 (20:00)
[2016-11-30] MEDS ORDERED: ACETAMINOPHEN IV 650 MG in EMPTY BAG 0 ML IV PRN (20:00)
[2016-11-30 20:08] LABS: CKMB/CK RATIO 4.3 (0-3.0)
[2016-11-30] MEDS ORDERED: SODIUM CHLORIDE 0.9% IV PRN ×2 (21:00)
[2016-11-30] MEDS ORDERED: MoRPHine SULFATE 2 MG/ML CARP IV ONE (21:00)
[2016-11-30] MEDS ORDERED: NICARDIPINE IV PRN ×2 (21:00)
[2016-12-01] VITALS (25 sets, daily range): BP systolic 124–194; BP diastolic 51–80; PULSE 45–76; TEMP 36.7–36.9; O2SAT 91–96
[2016-12-01 06:12] LABS: BASO % 0.2 %; BASO ABS # 0.01 K/uL (0-0.2); COMPLETE YES; HEMATOCRIT 35.5 % (37-47); LYMPH % 23.4 %; LYMPH ABS # 1.54 K/uL (1.2-3.4); MEAN CELL VOLUME 90.3 fL (80-100); MEAN CORPUSCULAR HEMOGLOBIN 28.2 pg (25-34); MEAN CORPUSCULAR HGB CONC 31.3 g/dl (32-36); MEAN PLATELET VOLUME 9.7 fL (7.4-10.4); NEUT % 64.4 %; PLATELET COUNT 137 K/uL (130-400); RED BLOOD COUNT 3.93 M/uL (4.2-5.4); WHITE BLOOD COUNT 6.57 K/uL (4.8-10.8)
[2016-12-01 06:49] LABS: BUN/CREATININE RATIO 16.4 (10-20); CALCIUM 8.4 mg/dl (8.5-10.1); CREATININE 0.59 mg/dl (0.60-1.20); POTASSIUM 3.7 mmol/L (3.5-5.1)
[2016-12-01 06:51] LABS: CHOLESTEROL/HDL RATIO 1.9
--- NOTE | 2016-12-01 07:15 | Clinical Documentation Query ---
OMARI Jean : CLINICAL DOCUMENTATION QUERY Patient is an 81 year old female admitted for evaluation and treatment of confusion, memory loss, and expressive aphasia subsequently determined to have suffered a left parietal acute/subacute CVA. Documentation includes "diastolic dysfunction". This cannot be assumed by the professional physician intensivist to mean diastolic CHF. Historical EMR documentation includes a diagnosis of chronic LV diastolic CHF. Patient is maintained on home regimen including Coreg, Clonidine, Lasix, Hydralazine, Imdur, Hytrin, and Losartan. Please clarify as suggested below as clinically appropriate. In your clinical opinion is this patient being managed for: ( x) Chronic diastolic CHF ( ) Other explanation of clinical findings (Please Explain) ( ) Unable to determine (Please Define) ( ) Need to Discuss ( ) Not Agree The medical record reflects the following clinical findings, treatment, and risk factors. Clinical Indicators: As above Treatment:Patient is maintained on home regimen including Coreg, Clonidine, Lasix, Hydralazine, Imdur, Hytrin, and Losartan Risk Factors: Age, hypertension, pulmonary hypertension Please clarify and document your clinical opinion in the progress notes and discharge summary. Terms such as "probable", "suspected", "likely", "questionable", "possible", or "still to be ruled out" are acceptable. IF IN AGREEMENT, YOU MUST DOCUMENT ABOVE DIAGNOSTIC STATEMENT IN DAILY PROGRESS NOTES AND DISCHARGE SUMMARY. This document is not part of the patient's record. Thank You, Roni Stewart, NOBLE [phone]
--- NOTE | 2016-12-01 07:16 | DIAGNOSTIC IMAGING REPORT ---
MR ANGIOGRAM OF THE NECK COMBO CLINICAL HISTORY: Strokelike symptoms. COMPARISON STUDY: Carotid artery ultrasound dated 12/17/2010. TECHNIQUE: Axial 3-D [id number] MR angiography of the neck is performed. Subsequently, following the IV administration of 8 cc of Gadavist coronal MR angiogram of the neck was performed to corroborate the findings. 3-D reformats are created and assessed. All measurements were calculated based on NASCET criteria. Subtraction imaging was utilized. FINDINGS: Visualized portions of the thoracic aorta are normal in caliber. The arch demonstrates standard 3-vessel anatomy. The subclavian arteries are widely patent bilaterally. The right common carotid artery is patent, as are the right internal and external carotid arteries. The left common carotid artery is patent, as are the left internal and external carotid arteries. The vertebral arteries are widely patent and codominant. The partially visualized intracranial vessels at the skull base are within normal limits. IMPRESSION: Unremarkable MR angiogram of the neck. Electronically signed by: Jose Guadalupe Owen M.D. 12/01/2016 7:14 AM Dictated Date/Time: 12/01/2016 7:11 AM
--- NOTE | 2016-12-01 07:19 | DIAGNOSTIC IMAGING REPORT ---
MR ANGIOGRAM OF THE BRAIN CLINICAL HISTORY: Change in mental status. Stroke like symptoms. COMPARISON STUDY: MRI of the brain performed concurrently on 12/01/2016. TECHNIQUE: 3-D [id number] MR angiography of the intracranial circulation is performed. 3-D tumble views are created and assessed. IV contrast was not administered for this examination. The examination is modestly degraded by motion artifact. FINDINGS: There is origin of the right posterior cerebral artery. The internal carotid arteries are widely patent bilaterally, as are the anterior and middle cerebral arteries. Mild atherosclerotic irregularity is identified in the middle cerebral arteries. The vertebrobasilar system and posterior cerebral arteries are widely patent. The vertebral arteries are codominant. There is no aneurysm, high-grade stenosis, or focal vessel cutoff seen throughout the intracranial circulation. IMPRESSION: Unremarkable MR angiogram of the brain. Electronically signed by: Jose Guadalupe Owen M.D. 12/01/2016 7:17 AM Dictated Date/Time: 12/01/2016 7:14 AM
[2016-12-01 07:45] LABS: ESTIMATED AVERAGE GLUCOSE 128 mg/dl; HA1C FLAG Normal (Normal)
--- NOTE | 2016-12-01 07:53 | DIAGNOSTIC IMAGING REPORT ---
MRI OF THE BRAIN WITHOUT AND WITH IV CONTRAST CLINICAL HISTORY: Stroke mental status change COMPARISON STUDY: No previous studies for comparison. TECHNIQUE: Utilizing a 1.5 Alem magnet and dedicated coil, multiplanar, multiecho imaging of the brain was performed pre and postcontrast administration. IV administration of 9 mL of Gadavist contrast was uneventful. FINDINGS: Diffusion-weighted images demonstrate acute infarcts of the left parietal occipital lobe as well as a punctate cortical infarct left central parietal lobe. Moderate chronic small vessel change. Ventricular system is midline. IMPRESSION: 1. 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 Moderate chronic small vessel change. Electronically signed by: Harry Blanchard M.D. 12/01/2016 7:50 AM Dictated Date/Time: 12/01/2016 7:48 AM
[2016-12-01] MEDS ORDERED: CLONIDINE HCL 0.1 MG TAB PO PRN (08:15)
[2016-12-01] MEDS: CARVEDILOL 3.125 MG TAB PO SCH ×3 (09:00→20:29)
[2016-12-01] MEDS ORDERED: PANTOprazole SOD 40 MG TAB PO SCH (09:00)
[2016-12-01] MEDS: OMEGA-3 (PURIFIED FISH OIL) 1 GM CAP PO SCH ×2 (09:09→20:32)
[2016-12-01] MEDS: CEROVITE ADV FORMULA TAB PO SCH (09:10)
[2016-12-01] MEDS: LOSARTAN POTASSIUM 50 MG TAB PO SCH (09:10)
[2016-12-01] MEDS: CLOPIDOGREL BISULFATE 75 MG TAB PO SCH (09:10)
[2016-12-01] MEDS: ISOSORBIDE MONONITRATE 20 MG TAB PO SCH (09:10)
[2016-12-01] MEDS: ASPIRIN 81 MG ECTAB PO SCH ×2 (09:10→20:28)
[2016-12-01] MEDS: ROSUVASTATIN CALCIUM 20 MG TAB PO SCH (09:11)
[2016-12-01] MEDS: FUROSEMIDE 20 MG TAB PO SCH (09:12)
--- NOTE | 2016-12-01 09:29 | Critical Care Progress Note ---
Critical Care Progress Note Date of Service Dec 01, 2016. ICU Day ICU Day Number: [address] Cortés Subjective Patient has ongoing expressive aphasia, questions that were asked last night about orientation resulted in inability to state the answer Her headache has actually resolved Has been weaned from her Nicardipine drip She denies any chest pain, SOB, abdominal pain, numbness/ tingling When discussing her O2 requirement she actually has O2 at home. She had a sleep study in 2011 and the patient had apneic episodes as well as drops in her O2 Sat. Since then she has been using O2 at night only, 2.0 L. She does not need it during the day. Objective General: ambulatory, not in acute distress Skin: no rashes noted, no suspicious lesions, no areas of inflammations/ lacerations/ erythema noted CVS: S1/ S2 noted, RRR, no rubs/ murmurs noted, no cyanosis RVS: Clear throughout bilaterally, not in acute respiratory distress, no wheezing/ rales/ crackles noted ENT: no erythema/ injection/ ulcerations noted in the pharynx, no lymphadenopathy, tongue is midline Neck: inspection WNL, full ROM of neck, no bruits noted ABD: BSx4, no pain/ tenderness on palpation MSK: inspection of all limbs WNL, motor and sensation intact in all limbs, no swelling/ pain on palpation of joints NVS: CN ii-xii WNL except for ongoing left facial droop and expressive aphasia, PERRL, EOMI, sensation intact in all extremities, DTR +2 Lymph: No lymphadenopathy palpable Assessment & Plan 1. 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 Expressive aphasia secondary to stroke 3. Hypertensive urgency- improved control 4. Elevated Troponin- supply and demand 5. GERD 6. HPL 7. Depression 8 Sleep apnea requiring O2 overnight- 2.0L NVS - neurochecks per stroke protocol - MRA head and neck were unremarkable - MRI revealed infarcts in left occipitoparietal and high left parietal region - as questioning embolic nature possible ALEJANDRO? - Plavix started, cont ASA - cont lexapro - consult neuro CVS - Echo- pending results - Nicardipine drip for bp control - once bp controlled without nicardipine consider downgrade - goal is 150-170 - Hydrazline, carvedilol, losartan, clonidine, isosorbide - clonidine continued - trend troponin - peak reached- reflective of supply and demand - Continue Rosuvastatin 20 mg - currently on high dose statin RVS - O2 per nursing protocol GI - NPO until clear by swallow study Gu - monitor I&O, daily weights ENDO - Will follow BSG AC/Hs - will trend BSG before starting any insulin as patient is not currently on any medications for DM - HBA1C - 6.1% FEN - continue to trend BMP DVT prophylaxis Lovenox Resident Physician Supervision Note/Supervisor [employer]er[employer] Attending I interviewed and examined the patient. Discussed with Dr. Contreras and agree with findings and plan as documented in the note. Any exceptions or clarifications are listed here: The patient's care was discussed in detail on multidisciplinary rounds. I have reviewed the VS, I/O, notes, meds, labs, candice and imaging data as well as other reports. There were no acute events overnight. The pain over her L face is improved but not entirely resolved and the L facial droop remains. She is speaking more today than last evening but the expressive aphasia is unchanged. She is taking a diet after speech eval but was not interested in eating lunch. She is off the nicardipine and has PRN clonidine and hydralazine ordered. SBP acceptable range of 150-170. Echo with mild L atrial enlargement and no arrhythmia on monitor. Awaiting neurology evaluation and opinion in whether this parietal infarct could have been embolic and continuing ASA, plavix presently. She is stable for transfer to telemetry from my standpoint. Please call with any questions or concerns. Documented By: Helena Cortés Consults & Procedures Consultants: Neuro Procedures: NA Data Medications: Current Inpatient Medications Medications (Trade) Dose Ordered Sig/Devin Route Start Time Stop Time Status Last Admin Dose Admin Miscellaneous Information (Pharmacist Discharge Med Rec Consult) 1 ea UD PRN N/A 11/30/16 16:00 12/30/16 15:59 Enoxaparin Sodium (Lovenox Inj) 40 mg Q24H SQ 11/30/16 20:00 12/30/16 19:59 11/30/16 19:41 40 MG Acetaminophen (Tylenol Tab) 650 mg Q4H PRN PO 11/30/16 16:00 12/30/16 15:59 11/30/16 17:55 650 MG Ondansetron HCl (Zofran Inj) 4 mg Q6H PRN IV 11/30/16 16:00 12/30/16 15:59 Albuterol (Ventolin Hfa Inhaler) 2 puffs Q4 PRN INH 11/30/16 16:15 12/30/16 16:14 Aspirin (Ecotrin Tab) 81 mg BID PO 11/30/16 21:00 12/30/16 20:59 12/01/16 09:10 81 MG Carvedilol (Coreg Tab) 3.125 mg BID PO 11/30/16 21:00 12/30/16 20:59 12/01/16 09:10 3.125 MG Escitalopram Oxalate (Lexapro Tab) 20 mg QPM PO 11/30/16 21:00 12/30/16 20:59 11/30/16 19:42 20 MG Fish Oil ([place]-3 (Purified Fish Oil) Cap) 1 gm BID PO 11/30/16 21:00 12/30/16 20:59 12/01/16 09:09 1 GM Furosemide (Lasix Tab) 20 mg QAM PO 12/01/16 09:00 12/31/16 08:59 12/01/16 09:12 20 MG Hydralazine HCl (Apresoline Tab) 75 mg QID PO 11/30/16 21:00 12/30/16 20:59 12/01/16 09:12 75 MG Isosorbide Mononitrate (Ismo Tab) 30 mg DAILY PO 12/01/16 09:00 12/31/16 08:59 12/01/16 09:10 30 MG Losartan Potassium (coZAAR TAB) 100 mg QAM PO 12/01/16 09:00 12/31/16 08:59 12/01/16 09:10 100 MG Multivitamins/ Minerals (Multivitamin W/ Minerals Tab) 1 tab DAILY PO 12/01/16 09:00 12/31/16 08:59 12/01/16 09:10 1 TAB Rosuvastatin Calcium (Crestor Tab) 20 mg DAILY PO 12/01/16 09:00 12/31/16 08:59 12/01/16 09:11 20 MG Sodium Chloride ([place] Nasal [place]) 2 sprays DAILY PRN MEAGAN 11/30/16 16:15 12/30/16 16:14 Terazosin HCl (Hytrin Cap) 1 mg HS PO 11/30/16 21:00 12/30/16 20:59 11/30/16 21:00 1 MG Miscellaneous Information (Order Awaiting Action) 1 ea QS N/A 12/01/16 00:00 12/31/16 00:00 Pantoprazole Sodium (Protonix Tab) 40 mg QAM PO 12/01/16 09:00 12/31/16 08:59 12/01/16 09:11 40 MG Clopidogrel Bisulfate (plAVix TAB) 75 mg QAM PO 12/01/16 09:00 12/31/16 08:59 12/01/16 09:10 75 MG Morphine Sulfate (MoRPHine SULFATE INJ) 1 mg Q4H PRN IV 11/30/16 20:00 12/14/16 19:59 Morphine Sulfate 2 mg 2 mg Q4H PRN IV 11/30/16 20:00 12/14/16 19:59 12/01/16 00:49 2 MG Acetaminophen/ Empty Bag (Ofirmev Iv/ Empty Iv Bag 100ml) 65 ml @ 260 mls/hr Q6H PRN IV 11/30/16 20:00 12/30/16 19:59 Hydralazine HCl 10 mg 10 mg Q6H PRN IV. 11/30/16 20:00 12/30/16 19:59 Nicardipine HCl/ Sodium Chloride (Cardene Iv/Nss 500ml) 500 ml @ 0 mls/hr Q0M PRN IV 11/30/16 21:00 12/30/16 20:59 Clonidine HCl (Catapres Tab) 0.1 mg Q8 PRN PO 12/01/16 08:15 12/31/16 08:14 I & O: 24-Hour Column 12/01/16 08:00 Intake Total 742 ml Output Total 1650 ml Balance -908 ml Vital Signs: Date Time Temp Pulse Resp B/P Pulse Ox O2 Delivery O2 Flow Rate FiO2 12/01/16 06:00 66 13 169/75 96 Nasal Cannula 2.0 12/01/16 04:00 Nasal Cannula 2.0 12/01/16 04:00 36.9 64 15 162/68 95 Nasal Cannula 2.0 12/01/16 02:01 54 16 149/51 92 Nasal Cannula 2.0 12/01/16 01:02 45 124/54 93 Nasal Cannula 3.0 12/01/16 00:47 55 150/66 94 Nasal Cannula 3.0 12/01/16 00:42 55 144/61 94 Nasal Cannula 3.0 12/01/16 00:37 52 139/61 94 Nasal Cannula 3.0 12/01/16 00:32 54 141/63 93 Nasal Cannula 3.0 12/01/16 00:27 55 137/63 94 Nasal Cannula 3.0 12/01/16 00:22 57 147/65 94 Nasal Cannula 3.0 12/01/16 00:14 60 156/65 95 Nasal Cannula 3.0 11/30/16 23:59 Nasal Cannula 2.0 11/30/16 23:45 49 16 122/44 92 11/30/16 22:15 49 19 116/38 91 11/30/16 22:01 52 17 115/39 91 11/30/16 21:16 57 14 126/46 92 11/30/16 21:00 60 14 127/43 94 11/30/16 20:01 36.6 61 20 155/90 94 11/30/16 20:00 97 2.0 11/30/16 18:30 64 16 160/59 94 Nasal Cannula 2.0 11/30/16 18:18 96 Nasal Cannula 2.0 11/30/16 18:15 63 18 174/63 95 Nasal Cannula 2.0 11/30/16 18:00 65 18 172/63 94 Nasal Cannula 2.0 11/30/16 17:45 64 18 163/83 95 11/30/16 17:30 66 20 181/61 96 Nasal Cannula 2.0 11/30/16 17:15 66 18 184/69 95 Nasal Cannula 2.0 11/30/16 17:00 37.0 66 20 184/69 96 Nasal Cannula 2.0 11/30/16 17:00 67 18 193/61 95 Nasal Cannula 2.0 11/30/16 16:26 37.0 62 18 184/76 98 Nasal Cannula 2.0 11/30/16 16:22 63 20 220/78 94 Room Air 11/30/16 15:07 64 19 248/84 94 Room Air 11/30/16 14:11 56 18 202/68 90 Room Air 11/30/16 14:04 51 11/30/16 13:57 51 18 229/80 93 Room Air 11/30/16 12:39 36.7 52 18 247/78 93 Room Air Laboratory Results: Last 24 Hours Test 11/30/16 13:00 11/30/16 19:25 12/01/16 01:36 12/01/16 02:13 White Blood Count 6.03 K/uL Red Blood Count 3.99 M/uL Hemoglobin 11.2 g/dL Hematocrit 35.7 % Mean Corpuscular Volume 89.5 fL Mean Corpuscular Hemoglobin 28.1 pg Mean Corpuscular Hemoglobin Concent 31.4 g/dl Platelet Count 148 K/uL Mean Platelet Volume 10.0 fL Neutrophils (%) (Auto) 59.0 % Lymphocytes (%) (Auto) 29.2 % Monocytes (%) (Auto) 6.1 % Eosinophils (%) (Auto) 5.3 % Basophils (%) (Auto) 0.2 % Neutrophils # (Auto) 3.56 K/uL Lymphocytes # (Auto) 1.76 K/uL Monocytes # (Auto) 0.37 K/uL Eosinophils # (Auto) 0.32 K/uL Basophils # (Auto) 0.01 K/uL RDW Standard Deviation 56.4 fL RDW Coefficient of Variation 17.1 % Immature Granulocyte % (Auto) 0.2 % Immature Granulocyte # (Auto) 0.01 K/uL Erythrocyte Sedimentation Rate 12 mm/hr Prothrombin Time 11.2 SECONDS Prothromb Time International Ratio 1.0 Activated Partial Thromboplast Time 27.7 SECONDS Partial Thromboplastin Ratio 1.1 Urine Color YELLOW Urine Appearance CLEAR Urine pH 5.0 Urine Specific [place] 1.006 Urine Protein NEG Urine Glucose (UA) NEG Urine Ketones NEG Urine Occult Blood NEG Urine Nitrite NEG Urine Bilirubin NEG Urine Urobilinogen NEG Urine Leukocyte Esterase TRACE Urine WBC (Auto) 1-5 /hpf Urine RBC (Auto) 0-4 /hpf Urine Hyaline Casts (Auto) 0 /lpf Urine Epithelial Cells (Auto) 5-10 /lpf Urine Bacteria (Auto) NEG Sodium Level 143 mmol/L Potassium Level 3.5 mmol/L Chloride Level 105 mmol/L Carbon Dioxide Level 35 mmol/L Anion Gap 3.0 mmol/L Blood Urea Nitrogen 14 mg/dl Creatinine 0.79 mg/dl Est Creatinine Clear Calc Drug Dose 58.2 ml/min Estimated GFR () 80.8 Estimated GFR (Non- 69.7 BUN/Creatinine Ratio 17.7 Random Glucose 95 mg/dl Estimated Average Glucose 128 mg/dl Hemoglobin A1c 6.1 % Calcium Level 8.6 mg/dl Phosphorus Level 2.8 mg/dl Magnesium Level 2.1 mg/dl Total Bilirubin 0.4 mg/dl Direct Bilirubin 0.1 mg/dl Aspartate Amino Transf (AST/SGOT) 14 U/L Alanine Aminotransferase (ALT/SGPT) 16 U/L Alkaline Phosphatase 88 U/L Total Creatine Kinase 41 U/L 35 U/L 34 U/L Creatine Kinase MB 1.5 ng/ml 1.5 ng/ml 1.7 ng/ml Creatine Kinase MB Ratio 3.7 4.3 5.0 Troponin I 0.121 ng/ml 0.160 ng/ml 0.112 ng/ml Total Protein 7.2 gm/dl Albumin 3.8 gm/dl Lipase 84 U/L Bedside Glucose 132 mg/dl Test 12/01/16 05:35 12/01/16 05:51 White Blood Count 6.57 K/uL Red Blood Count 3.93 M/uL Hemoglobin 11.1 g/dL Hematocrit 35.5 % Mean Corpuscular Volume 90.3 fL Mean Corpuscular Hemoglobin 28.2 pg Mean Corpuscular Hemoglobin Concent 31.3 g/dl Platelet Count 137 K/uL Mean Platelet Volume 9.7 fL Neutrophils (%) (Auto) 64.4 % Lymphocytes (%) (Auto) 23.4 % Monocytes (%) (Auto) 7.0 % Eosinophils (%) (Auto) 5.0 % Basophils (%) (Auto) 0.2 % Neutrophils # (Auto) 4.23 K/uL Lymphocytes # (Auto) 1.54 K/uL Monocytes # (Auto) 0.46 K/uL Eosinophils # (Auto) 0.33 K/uL Basophils # (Auto) 0.01 K/uL RDW Standard Deviation 57.5 fL RDW Coefficient of Variation 17.3 % Immature Granulocyte % (Auto) 0.0 % Immature Granulocyte # (Auto) 0.00 K/uL Sodium Level 148 mmol/L Potassium Level 3.7 mmol/L Chloride Level 108 mmol/L Carbon Dioxide Level 36 mmol/L Anion Gap 4.0 mmol/L Blood Urea Nitrogen 10 mg/dl Creatinine 0.59 mg/dl Est Creatinine Clear Calc Drug Dose 73.9 ml/min Estimated GFR () 98.9 Estimated GFR (Non- 85.4 BUN/Creatinine Ratio 16.4 Random Glucose 116 mg/dl Calcium Level 8.4 mg/dl Triglycerides Level 80 mg/dl Cholesterol Level 103 mg/dl HDL Cholesterol 53 mg/dl LDL Cholesterol, Calculated 34 mg/dl VLDL Cholesterol, Calculated 16 mg/dl Cholesterol/HDL Ratio 1.9 Bedside Glucose 107 mg/dl
--- NOTE | 2016-12-01 11:27 | ECHOCARDIOGRAM REPORT ---
*NOTICE TO RECEIVING [employer] AGENCY This information is strictly Confidential and protected under [place] law. [place] law prohibits you from making any further disclosure of this information unless further disclosure is expressly permitted by the written consent of the person to whom it pertains or is authorized by law. A general authorization for the release of medical or other information is not sufficient for this purpose. Hospital accepts no responsibility if the information is made available to any other person, INCLUDING THE PATIENT. Interpretation Summary * Name: CAT MARTINEZ Study Date: 12/01/2016 06:24 AM BP: 162/68 mmHg * Patient Location: [facility] HR: 64 * : 1935 (M/d/yyyy) Gender: Female Height: 66 in * Age: 81 yrs Ethnicity: CA Weight: 174 lb * Ordering Physician: Brie Wills * Performed By: Jael Lakhani * * Reason For Study: STROKE * BSA: 1.9 m2 * -- Conclusions -- * The left ventricle is grossly normal size. * There is severe concentric left ventricular hypertrophy. * Ejection Fraction = >70 %. * The right ventricular systolic function is normal. * The left atrium is moderately dilated. * The right atrium is moderately dilated. * Grade I diastolic dysfunction, (abnormal relaxation pattern). * There is mild to moderate mitral regurgitation. Procedure Details * A complete two-dimensional transthoracic echocardiogram was performed (2D, M-mode, Doppler and color flow Doppler). Left Ventricle * The left ventricle is grossly normal size. * There is severe concentric left ventricular hypertrophy. * Ejection Fraction = >70 %. * The left ventricular wall motion is normal. Right Ventricle * The right ventricle is not well visualized. * The right ventricle is grossly normal size. * The right ventricular systolic function is normal. Atria * The left atrium is moderately dilated. * The right atrium is moderately dilated. Mitral Valve * The mitral valve is grossly normal. * There is mild to moderate mitral regurgitation. Tricuspid Valve * The tricuspid valve is not well visualized. * Significant tricuspid regurgitation is absent. Aortic Valve * The aortic valve is normal in structure and function. Pulmonic Valve * The pulmonic valve is not well visualized. Great Vessels * The aortic root and proximal ascending aorta are normal sized. Pericardium/Pleural * There is no pericardial effusion. Left Ventricular Diastolic Function * Grade I diastolic dysfunction, (abnormal relaxation pattern). MMode 2D Measurements and Calculations IVSd 2.0 cm IVSs 2.7 cm LVIDd 4.5 cm LVIDs 2.4 cm LVPWd 1.8 cm LVPWs 2.7 cm IVS/LVPW 1.1 FS 45.9 % EDV(Teich) 93.4 ml ESV(Teich) 21.1 ml EF(Teich) 77.4 % EDV(cubed) 92.3 ml ESV(cubed) 14.6 ml EF(cubed) 84.2 % % IVS thick 39.0 % % LVPW thick 55.4 % LV mass(C)d 388.7 grams LV mass(C)dI 206.2 grams/m\S\2 LV mass(C)s 398.4 grams LV mass(C)sI 211.4 grams/m\S\2 SV(Teich) 72.3 ml SI(Teich) 38.3 ml/m\S\2 SV(cubed) 77.7 ml SI(cubed) 41.2 ml/m\S\2 ACS 1.9 cm LA dimension 4.3 cm asc Aorta Diam 3.3 cm LVOT diam 1.6 cm LVOT area 2.0 cm\S\2 LVAd ap4 22.9 cm\S\2 LVLd ap4 7.7 cm EDV(MOD-sp4) 57.4 ml EDV(sp4-el) 58.4 ml LVAs ap4 9.4 cm\S\2 LVLs ap4 6.1 cm ESV(MOD-sp4) 13.2 ml ESV(sp4-el) 12.1 ml EF(MOD-sp4) 77.0 % EF(sp4-el) 79.2 % LVAd ap2 23.0 cm\S\2 LVLd ap2 7.3 cm EDV(MOD-sp2) 63.9 ml EDV(sp2-el) 61.5 ml LVAs ap2 10.8 cm\S\2 LVLs ap2 6.5 cm ESV(MOD-sp2) 15.0 ml ESV(sp2-el) 15.4 ml EF(MOD-sp2) 76.5 % EF(sp2-el) 74.9 % LVLd %diff -4.96 % EDV(MOD-bp) 61.6 ml LVLs %diff 5.1 % ESV(MOD-bp) 14.2 ml EF(MOD-bp) 77.0 % SV(MOD-sp4) 44.1 ml SI(MOD-sp4) 23.4 ml/m\S\2 SV(MOD-sp2) 48.9 ml SI(MOD-sp2) 25.9 ml/m\S\2 SV(MOD-bp) 47.4 ml SI(MOD-bp) 25.2 ml/m\S\2 SV(sp4-el) 46.2 ml SI(sp4-el) 24.5 ml/m\S\2 SV(sp2-el) 46.1 ml SI(sp2-el) 24.4 ml/m\S\2 Doppler Measurements and Calculations MV E max higinio 101.9 cm/sec MV A max higinio 104.1 cm/sec MV E/A 0.98 MV dec time 0.31 sec Ao V2 max 170.8 cm/sec Ao max PG 11.7 mmHg Ao max PG (full) 4.0 mmHg LUIS A(V,A) 1.6 cm\S\2 LUIS A(V,D) 1.6 cm\S\2 LV V1 max PG 7.7 mmHg LV V1 max 138.6 cm/sec MR max higinio 542.0 cm/sec MR max PG 117.5 mmHg PA V2 max 112.7 cm/sec PA max PG 5.1 mmHg PI end-d higinio 153.0 cm/sec TR max higinio 334.3 cm/sec
--- NOTE | 2016-12-01 14:52 | Neurology Consultation ---
Neurology Consultation Date of Consultation: Dec 01, 2016. Attending Physician: Kristal Phillips M.D. Primary Care Physician: Dustin Pierce D.O. Reason for Consultation: confusion, pain in L cheek, expressive aphasia History of Present Illness Source: patient Annie is an 81 year old female who has a PMH of CAD s/p PCI stent to RCA, labile HTN, DL, previous TIA. She was brought to the ED after an episode of confusion, and expressive aphasia. Her states she was confused an she sat down for a few hours and he thought she seems normal. She took Mucinex and advil for some jaw pain. Her daughter arroved and notice she was confused and she was then brought to the ED for evaluation. She had no memory of the events. She is still unable to verbalize the name of the hospital or where she is. She knows she has high blood pressure but can't state any of the medications or if it has been controlled. She states her jaw is still different than the other side but she can't really say why but denies pain or numbness. denies CP, SOB, abdominal pain, weakness, one sided numbness tingling, N, V, swallowing difficulties, vision changes. Past Medical/Surgical History Medical Problems: (1) Hypertension Status: Acute Social History Smoking Status: Never smoker Smokeless Tobacco Use: No Alcohol Use: occasionally (1-2 drinks per week) Drug Use: none Marital Status: Housing Status: lives with family Occupation Status: retired Allergies Coded Allergies: Iodine (Verified Allergy, Intermediate, HIVES, 11/30/16) Ciprofloxacin (Verified Allergy, Unknown, ., 11/30/16) Tramadol (Verified Allergy, Unknown, 0, 11/30/16) Current Inpatient Medications Current Inpatient Medications Medications (Trade) Dose Ordered Sig/Devin Route Start Time Stop Time Status Last Admin Dose Admin Miscellaneous Information (Pharmacist Discharge Med Rec Consult) 1 ea UD PRN N/A 11/30/16 16:00 12/30/16 15:59 Enoxaparin Sodium (Lovenox Inj) 40 mg Q24H SQ 11/30/16 20:00 12/30/16 19:59 11/30/16 19:41 40 MG Acetaminophen (Tylenol Tab) 650 mg Q4H PRN PO 4/19/17 16:00 12/30/16 15:59 11/30/16 17:55 650 MG Ondansetron HCl (Zofran Inj) 4 mg Q6H PRN IV 11/30/16 16:00 12/30/16 15:59 Albuterol (Ventolin Hfa Inhaler) 2 puffs Q4 PRN INH 11/30/16 16:15 12/30/16 16:14 Aspirin (Ecotrin Tab) 81 mg BID PO 11/30/16 21:00 12/30/16 20:59 12/01/16 09:10 81 MG Carvedilol (Coreg Tab) 3.125 mg BID PO 11/30/16 21:00 12/30/16 20:59 11/30/16 19:43 3.125 MG Escitalopram Oxalate (Lexapro Tab) 20 mg QPM PO 11/30/16 21:00 12/30/16 20:59 11/30/16 19:42 20 MG Fish Oil (Brothers-3 (Purified Fish Oil) Cap) 1 gm BID PO 11/30/16 21:00 12/30/16 20:59 12/01/16 09:09 1 GM Furosemide (Lasix Tab) 20 mg QAM PO 12/01/16 09:00 12/31/16 08:59 12/01/16 09:12 20 MG Hydralazine HCl (Apresoline Tab) 75 mg QID PO 11/30/16 21:00 12/30/16 20:59 12/01/16 12:12 75 MG Isosorbide Mononitrate (Ismo Tab) 30 mg DAILY PO 12/01/16 09:00 12/31/16 08:59 12/01/16 09:10 30 MG Losartan Potassium (coZAAR TAB) 100 mg QAM PO 12/01/16 09:00 12/31/16 08:59 12/01/16 09:10 100 MG Multivitamins/ Minerals (Multivitamin W/ Minerals Tab) 1 tab DAILY PO 12/01/16 09:00 12/31/16 08:59 12/01/16 09:10 1 TAB Rosuvastatin Calcium (Crestor Tab) 20 mg DAILY PO 12/01/16 09:00 12/31/16 08:59 12/01/16 09:11 20 MG Sodium Chloride ([place] Nasal [place]) 2 sprays DAILY PRN MEAGAN 11/30/16 16:15 12/30/16 16:14 Terazosin HCl (Hytrin Cap) 1 mg HS PO 11/30/16 21:00 12/30/16 20:59 11/30/16 21:00 1 MG Miscellaneous Information (Order Awaiting Action) 1 ea QS N/A 12/01/16 00:00 12/31/16 00:00 Pantoprazole Sodium (Protonix Tab) 40 mg QAM PO 12/01/16 09:00 12/31/16 08:59 12/01/16 09:11 40 MG Clopidogrel Bisulfate (plAVix TAB) 75 mg QAM PO 12/01/16 09:00 12/31/16 08:59 12/01/16 09:10 75 MG Morphine Sulfate (MoRPHine SULFATE INJ) 1 mg Q4H PRN IV 11/30/16 20:00 12/14/16 19:59 Morphine Sulfate 2 mg 2 mg Q4H PRN IV 11/30/16 20:00 12/14/16 19:59 12/01/16 00:49 2 MG Acetaminophen/ Empty Bag (Ofirmev Iv/ Empty Iv Bag 100ml) 65 ml @ 260 mls/hr Q6H PRN IV 11/30/16 20:00 12/30/16 19:59 Hydralazine HCl 10 mg 10 mg Q6H PRN IV. 11/30/16 20:00 12/30/16 19:59 Nicardipine HCl/ Sodium Chloride (Cardene Iv/Nss 500ml) 500 ml @ 0 mls/hr Q0M PRN IV 11/30/16 21:00 12/30/16 20:59 Clonidine HCl (Catapres Tab) 0.1 mg Q8 PRN PO 12/01/16 08:15 12/31/16 08:14 Physical Exam Vital Signs (Past 24 Hrs): Date Time Temp Pulse Resp B/P Pulse Ox O2 Delivery O2 Flow Rate FiO2 12/01/16 14:00 65 19 177/57 94 Nasal Cannula 2.0 12/01/16 12:00 Nasal Cannula 2.0 12/01/16 12:00 36.8 70 20 169/57 93 Nasal Cannula 2.0 12/01/16 10:00 66 15 143/52 91 Nasal Cannula 2.0 12/01/16 08:02 63 18 188/61 96 Nasal Cannula 2.0 12/01/16 08:00 Nasal Cannula 2.0 12/01/16 08:00 61 19 183/63 95 Nasal Cannula 2.0 12/01/16 07:46 36.7 63 18 187/57 96 Nasal Cannula 2.0 12/01/16 06:00 66 13 169/75 96 Nasal Cannula 2.0 12/01/16 04:00 Nasal Cannula 2.0 12/01/16 04:00 36.9 64 15 162/68 95 Nasal Cannula 2.0 12/01/16 02:01 54 16 149/51 92 Nasal Cannula 2.0 12/01/16 01:02 45 124/54 93 Nasal Cannula 3.0 12/01/16 00:47 55 150/66 94 Nasal Cannula 3.0 12/01/16 00:42 55 144/61 94 Nasal Cannula 3.0 12/01/16 00:37 52 139/61 94 Nasal Cannula 3.0 12/01/16 00:32 54 141/63 93 Nasal Cannula 3.0 12/01/16 00:27 55 137/63 94 Nasal Cannula 3.0 12/01/16 00:22 57 147/65 94 Nasal Cannula 3.0 12/01/16 00:14 60 156/65 95 Nasal Cannula 3.0 11/30/16 23:59 Nasal Cannula 2.0 11/30/16 23:45 49 16 122/44 92 11/30/16 22:15 49 19 116/38 91 11/30/16 22:01 52 17 115/39 91 11/30/16 21:16 57 14 126/46 92 11/30/16 21:00 60 14 127/43 94 11/30/16 20:01 36.6 61 20 155/90 94 11/30/16 20:00 97 2.0 11/30/16 18:30 64 16 160/59 94 Nasal Cannula 2.0 11/30/16 18:18 96 Nasal Cannula 2.0 11/30/16 18:15 63 18 174/63 95 Nasal Cannula 2.0 11/30/16 18:00 65 18 172/63 94 Nasal Cannula 2.0 11/30/16 17:45 64 18 163/83 95 11/30/16 17:30 66 20 181/61 96 Nasal Cannula 2.0 11/30/16 17:15 66 18 184/69 95 Nasal Cannula 2.0 11/30/16 17:00 37.0 66 20 184/69 96 Nasal Cannula 2.0 11/30/16 17:00 67 18 193/61 95 Nasal Cannula 2.0 11/30/16 16:26 37.0 62 18 184/76 98 Nasal Cannula 2.0 11/30/16 16:22 63 20 220/78 94 Room Air 11/30/16 15:07 64 19 248/84 94 Room Air Physical Exam: Constitutional:appearance nourished, healthy and normal Ears, Nose, Mouth and Throat: mucous membranes moist, no injection and skin normal, eyes normal Cardiovascular: normal S-1 and S-2 and regular rate and rhythm Respiratory: clear to auscultation (CTA) and no rales, rhonchi or wheeze Musculoskeletal: no peripheral edema and good distal pulses Skin: no stigmata of neurocutaneous disease noted and normal and intact Eyes: extraocular muscles intact (EOMI) and pupils equal, round and reactive to light (PERRL),miotic NEUROLOGIC EXAMINATION: Mental status: Alert and interactive Oriented to person Speech will answer correctly if given choice of words such as where are you [facility] or hospital she will answer hospital, she is unable to stick out tongue, close eyes and point to the ceiling with her left hand. unable to repeat no ifs , ands or buts. she is unable to states any pain unless given choices. She does follow most commands correctly Cranial Nerves smile symmetric, tongue midline eye brow raise equal Reflexes: Deep tendon reflexes were symmetrical and graded 2/5. Plantar responses were flexor. Sensory: light touch, vibration, GT proprioception-all intact Coordination: finger to nose without bipass Gait/Stance: lying in bed but has been out of bed to the bathroom according to nursing was stable Motor: Negative for pronator drift of out stretched arms with eyes closed. 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, 5/5 bilaterally, hip flex patellar flex ext, plantar flex ext 5/5 bilaterally Laboratory Results Past 24 Hours: 12/01/16 05:35 Red Blood Count 3.93, Mean Corpuscular Volume 90.3, Mean Corpuscular Hemoglobin 28.2, Mean Corpuscular Hemoglobin Concent 31.3, Mean Platelet Volume 9.7, Neutrophils (%) (Auto) 64.4, Lymphocytes (%) (Auto) 23.4, Monocytes (%) (Auto) 7.0, Eosinophils (%) (Auto) 5.0, Basophils (%) (Auto) 0.2, Neutrophils # (Auto) 4.23, Lymphocytes # (Auto) 1.54, Monocytes # (Auto) 0.46, Eosinophils # (Auto) 0.33, Basophils # (Auto) 0.01 12/01/16 05:35 Test 12/01/16 01:36 12/01/16 05:35 12/01/16 05:51 Total Creatine Kinase 34 U/L (26-192) Creatine Kinase MB 1.7 ng/ml (0.5-3.6) Creatine Kinase MB Ratio 5.0 (0-3.0) Troponin I 0.112 ng/ml (0-0.045) White Blood Count 6.57 K/uL (4.8-10.8) Red Blood Count 3.93 M/uL (4.2-5.4) Hemoglobin 11.1 g/dL (12.0-16.0) Hematocrit 35.5 % (37-47) Mean Corpuscular Volume 90.3 fL (80-100) Mean Corpuscular Hemoglobin 28.2 pg (25-34) Mean Corpuscular Hemoglobin Concent 31.3 g/dl (32-36) Platelet Count 137 K/uL (130-400) Mean Platelet Volume 9.7 fL (7.4-10.4) Neutrophils (%) (Auto) 64.4 % Lymphocytes (%) (Auto) 23.4 % Monocytes (%) (Auto) 7.0 % Eosinophils (%) (Auto) 5.0 % Basophils (%) (Auto) 0.2 % Neutrophils # (Auto) 4.23 K/uL (1.4-6.5) Lymphocytes # (Auto) 1.54 K/uL (1.2-3.4) Monocytes # (Auto) 0.46 K/uL (0.11-0.59) Eosinophils # (Auto) 0.33 K/uL (0-0.5) Basophils # (Auto) 0.01 K/uL (0-0.2) RDW Standard Deviation 57.5 fL (36.4-46.3) RDW Coefficient of Variation 17.3 % (11.5-14.5) Immature Granulocyte % (Auto) 0.0 % Immature Granulocyte # (Auto) 0.00 K/uL (0.00-0.02) Anion Gap 4.0 mmol/L (3-11) Est Creatinine Clear Calc Drug Dose 73.9 ml/min Estimated GFR () 98.9 Estimated GFR (Non- 85.4 BUN/Creatinine Ratio 16.4 (10-20) Calcium Level 8.4 mg/dl (8.5-10.1) Triglycerides Level 80 mg/dl (0-150) Cholesterol Level 103 mg/dl (0-200) HDL Cholesterol 53 mg/dl LDL Cholesterol, Calculated 34 mg/dl VLDL Cholesterol, Calculated 16 mg/dl Cholesterol/HDL Ratio 1.9 Bedside Glucose 107 mg/dl (70-90) Date/Time Source Procedure Growth Status 11/30/16 16:55 Nasal MRSA DNA Surveillance Screen - Final Specimen Negative for MRSA by DNA Probe Complete Imaging CT head-: 27 mm left parietal hypodensity involving both mathur and white matter. This statistically represents an acute/subacute infarct. A follow-up CT scan or MRI is recommended for confirmation. There is no acute hemorrhage. TTE- * Ejection Fraction = >70 %. * The right ventricular systolic function is normal. * The left atrium is moderately dilated. * The right atrium is moderately dilated. * Grade I diastolic dysfunction, (abnormal relaxation pattern). * There is mild to moderate mitral regurgitation. * no bubble study done MRI brain with and without contrast- . 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 Moderate chronic small vessel change. MRA brain- Unremarkable MR angiogram of the brain. MRA neck- Unremarkable MR angiogram of the neck. 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 plavix 75 mg started and continue aspirin 81 mg will continue for 3 months and then stop aspirin continue plavix for a lifetime 2. TTE was not ordered with bubble study A ALEJANDRO was done 03/06/2014 and there was no ASD noted 3. blood pressure 150-170 systolic for now 4. optimize blood pressure control and cholesterol control 5. PT/OT speech for discharge needs 6. will likely need a ZIO or cardio net as outpatient to r/o arrhythmia 7. avoid severe drops in blood pressure if possible 8. further recommendations to follow I have seen and discussed above patient with Dr Lizzie Merino, neurology Pt seen and examined,. Sudden exp aphasia, MRI/A echo reviewed. Exam CN unremark , no field cut, facial is symmetrica, no dysarthria, symm strenghth. Mild exp aphasia. Gradual reduction in bp, risk mod. Asa and plavix. Cardionet as outpt AVILA Merino MD
--- NOTE | 2016-12-01 17:39 | Progress Note ---
Internal Med Progress Note Date of Service: Dec 01, 2016. Provider Documentation: SUBJECTIVE: has expressive aphasia , able to speak sentences with mild difficulty in articulation no weakness or paresthesia no headache or visual symptoms OBJECTIVE: Vital Signs-as noted below Exam: General-no sign of distress Eyes-sclera non icteric ENT-NAD Lungs-CTA Heart-regular S1/S2 Abdomen-soft, non tender Extremities-no lower ext edema Neuro-expressive aphasia , normal strength and sensation Lab data as noted below. ASSESSMENT & PLAN: ACUTE /SUBACUTE LEFT PARIETAL CVA Presents with confusion, memory loss, expressive aphasia CT head shows 27 mm L parietal acute/subacute infarct MRI brain with and without contrast: 1. 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 Moderate chronic small vessel change. MRA head and neck -Normal study Neurology consulted- appreciate input- pt is continued with aspirin, added Plavix, on statin BP control with goal SBP 150-170 and DBP 80-90 PT/OT, speech evaluations requested as Per PT/OT -can return home with home PT /home health appreciate input form speech therapy : recommend 1. Regular diet 2. Aspiration precautions, straws OK. Fully upright for meald and for 30 minutes after meals. 3. Would benefit from continued speech therapy upon discharge for aphasia. HYPERTENSIVE EMERGENCY on presentation BP wsa severely elevated (220's systolic) despite total of 10 mg IV hydralazine in ER History of labile hypertension, required ICU admission with IV nicardipine drip pt is continued Lasix, isosorbide, carvedilol (with holding parameters), terazosin, hydralazine, losartan BP improved weaned off Nicardipine gtt stable to be transferred out of ICU appreciate input form Dr. Cortés/ICU team MILDLY ELEVATED TROPONIN Troponin is 0.121 Possibly due to elevated BP/accelerated HTN /ACUTE vs sub acute CVA Denies chest pain today; had episode atypical CP 2 days ago Hx of CAD s/p RCA stent Aug 2014 ECHO shows no new wall motion abnormality The left ventricle is grossly normal size. There is severe concentric left ventricular hypertrophy. Ejection Fraction = >70 %. The right ventricular systolic function is normal. The left atrium is moderately dilated. The right atrium is moderately dilated. Grade I diastolic dysfunction, (abnormal relaxation pattern). Continue aspirin, statin, beta amando, isosorbide CHRONIC DIASTOLIC CHF Appears euvolemic; Cxray -normal study , stable cardiomegaly ECHO grade 1 diastolic dysfunction Pt is continued with home regimen of Lasix, Coreg, Losartan , Hytrin , Imdur , Hydralazine NOCTURNAL HYPOXEMIA Continue home supplemental O2 2 liters nasal cannula HS DEPRESSION Continue Lexapro GERD Continue PPI DVT PROPHYLAXIS Lovenox SQ CODE STATUS Full code DISPOSITION stable to transfer to PCU PT /OT eval prior to discharge Medicine follow up with Dr Dustin Pierce Vital Signs: Date Time Temp Pulse Resp B/P Pulse Ox O2 Delivery O2 Flow Rate FiO2 12/01/16 23:31 36.7 52 17 143/52 95 Nasal Cannula 2.0 12/01/16 19:23 36.9 62 18 166/61 96 Nasal Cannula 2.0 12/01/16 19:09 36.7 65 22 95 2.0 12/01/16 18:00 65 22 161/66 12/01/16 17:00 70 28 186/73 95 12/01/16 16:00 36.7 76 20 194/80 94 Nasal Cannula 2.0 12/01/16 16:00 Nasal Cannula 2.0 12/01/16 15:08 74 96 12/01/16 14:00 65 19 177/57 94 Nasal Cannula 2.0 12/01/16 12:00 Nasal Cannula 2.0 12/01/16 12:00 36.8 70 20 169/57 93 Nasal Cannula 2.0 12/01/16 10:00 66 15 143/52 91 Nasal Cannula 2.0 12/01/16 08:02 63 18 188/61 96 Nasal Cannula 2.0 12/01/16 08:00 Nasal Cannula 2.0 12/01/16 08:00 61 19 183/63 95 Nasal Cannula 2.0 12/01/16 07:46 36.7 63 18 187/57 96 Nasal Cannula 2.0 12/01/16 06:00 66 13 169/75 96 Nasal Cannula 2.0 12/01/16 04:00 Nasal Cannula 2.0 12/01/16 04:00 36.9 64 15 162/68 95 Nasal Cannula 2.0 Lab Results: Results Past 24 Hours Test 12/01/16 05:35 12/01/16 05:51 Range/Units White Blood Count 6.57 4.8-10.8 K/uL Red Blood Count 3.93 4.2-5.4 M/uL Hemoglobin 11.1 12.0-16.0 g/dL Hematocrit 35.5 37-47 % Mean Corpuscular Volume 90.3 80-100 fL Mean Corpuscular Hemoglobin 28.2 25-34 pg Mean Corpuscular Hemoglobin Concent 31.3 32-36 g/dl Platelet Count 137 130-400 K/uL Mean Platelet Volume 9.7 7.4-10.4 fL Neutrophils (%) (Auto) 64.4 % Lymphocytes (%) (Auto) 23.4 % Monocytes (%) (Auto) 7.0 % Eosinophils (%) (Auto) 5.0 % Basophils (%) (Auto) 0.2 % Neutrophils # (Auto) 4.23 1.4-6.5 K/uL Lymphocytes # (Auto) 1.54 1.2-3.4 K/uL Monocytes # (Auto) 0.46 0.11-0.59 K/uL Eosinophils # (Auto) 0.33 0-0.5 K/uL Basophils # (Auto) 0.01 0-0.2 K/uL RDW Standard Deviation 57.5 36.4-46.3 fL RDW Coefficient of Variation 17.3 11.5-14.5 % Immature Granulocyte % (Auto) 0.0 % Immature Granulocyte # (Auto) 0.00 0.00-0.02 K/uL Sodium Level 148 136-145 mmol/L Potassium Level 3.7 3.5-5.1 mmol/L Chloride Level 108 98-107 mmol/L Carbon Dioxide Level 36 21-32 mmol/L Anion Gap 4.0 3-11 mmol/L Blood Urea Nitrogen 10 7-18 mg/dl Creatinine 0.59 0.60-1.20 mg/dl Est Creatinine Clear Calc Drug Dose 73.9 ml/min Estimated GFR () 98.9 Estimated GFR (Non- 85.4 BUN/Creatinine Ratio 16.4 10-20 Random Glucose 116 70-99 mg/dl Calcium Level 8.4 8.5-10.1 mg/dl Triglycerides Level 80 0-150 mg/dl Cholesterol Level 103 0-200 mg/dl HDL Cholesterol 53 mg/dl LDL Cholesterol, Calculated 34 mg/dl VLDL Cholesterol, Calculated 16 mg/dl Cholesterol/HDL Ratio 1.9 Bedside Glucose 107 70-90 mg/dl
[2016-12-01] MEDS ORDERED: HydrALAZINE HCL 20 MG/ML VIAL IV. PRN (20:00)
[2016-12-01] MEDS: ENOXAPARIN 40 MG/0.4 ML SYR SQ SCH (20:27)
[2016-12-01] MEDS: ESCITALOPRAM OXALATE 20 MG TAB PO SCH (20:28)
[2016-12-02 04:18] VITALS: BP 172/61; PULSE 67; TEMP 36.9; O2SAT 93
[2016-12-02 06:44] LABS: BASO % 0.2 %; BASO ABS # 0.01 K/uL (0-0.2); COMPLETE YES; EOS % 5.4 %; HEMATOCRIT 36.1 % (37-47); IG% 0.2 %; LYMPH % 27.9 %; LYMPH ABS # 1.59 K/uL (1.2-3.4); MEAN CELL VOLUME 89.1 fL (80-100); MEAN CORPUSCULAR HEMOGLOBIN 27.7 pg (25-34); MEAN PLATELET VOLUME 9.7 fL (7.4-10.4); MONO % 8.2 %; NEUT % 58.1 %; PLATELET COUNT 149 K/uL (130-400); RED BLOOD COUNT 4.05 M/uL (4.2-5.4)
[2016-12-02 07:54] LABS: BLOOD UREA NITROGEN 15 mg/dl (7-18); BUN/CREATININE RATIO 19.1 (10-20); CALCIUM 8.8 mg/dl (8.5-10.1); CARBON DIOXIDE 32 mmol/L (21-32); CHLORIDE 106 mmol/L (98-107); CREATININE 0.76 mg/dl (0.60-1.20); GLUCOSE 97 mg/dl (70-99); SODIUM 144 mmol/L (136-145)
[2016-12-02 08:00] VITALS: BP 196/65; PULSE 63; TEMP 36.9; O2SAT 90
[2016-12-02] MEDS: LOSARTAN POTASSIUM 50 MG TAB PO SCH (08:27)
[2016-12-02] MEDS: CARVEDILOL 3.125 MG TAB PO SCH (08:28)
[2016-12-02] MEDS: FUROSEMIDE 20 MG TAB PO SCH (08:28)
[2016-12-02] MEDS: OMEGA-3 (PURIFIED FISH OIL) 1 GM CAP PO SCH (08:28)
[2016-12-02] MEDS: CEROVITE ADV FORMULA TAB PO SCH (08:29)
[2016-12-02] MEDS: ROSUVASTATIN CALCIUM 20 MG TAB PO SCH (08:29)
[2016-12-02] MEDS: ISOSORBIDE MONONITRATE 20 MG TAB PO SCH (08:29)
[2016-12-02] MEDS: CLOPIDOGREL BISULFATE 75 MG TAB PO SCH (08:29)
[2016-12-02] MEDS: ASPIRIN 81 MG ECTAB PO SCH (08:29)
[2016-12-02] MEDS ORDERED: PANTOprazole SOD 40 MG TAB PO SCH (09:00)
[2016-12-02] MEDS ORDERED: POTASSIUM CHLR 10 MEQ / WTR 10 MEQ in PREMIXED WATER 100 ML IV SCH (11:15)
[2016-12-02] MEDS ORDERED: CLONIDINE HCL 0.1 MG TAB PO ONE (12:00)
--- NOTE | 2016-12-02 12:10 | Progress Note ---
Subjective Date of Service: Dec 02, 2016. Subjective Pt evaluation today including: conversation w/ patient, conversation w/ family , physical exam, lab review, review of studies, review of inpatient medication list Saw/examined the patient in room 239-2 She is doing well, speaking appropriately At times has trouble finding words, but improving as per family No motor dysfunction/no sensory issues Problem List Medical Problems: (1) Hypertension Status: Acute Review of Systems Constitutional: No weakness Respiratory: No shortness of breath Cardiac: No chest pain Neurologic: + problem reported (aphasia), No balance problems, No memory loss, No numbness/tingling, No paralysis, No vertigo, No weakness Heme: No abnormal bleeding/bruising Medications Current Inpatient Medications Medications (Trade) Dose Ordered Sig/Devin Route Start Time Stop Time Status Last Admin Dose Admin Miscellaneous Information (Pharmacist Discharge Med Rec Consult) 1 ea UD PRN N/A 11/30/16 16:00 12/30/16 15:59 Enoxaparin Sodium (Lovenox Inj) 40 mg Q24H SQ 11/30/16 20:00 12/30/16 19:59 12/01/16 20:27 40 MG Acetaminophen (Tylenol Tab) 650 mg Q4H PRN PO 11/30/16 16:00 12/30/16 15:59 11/30/16 17:55 650 MG Ondansetron HCl (Zofran Inj) 4 mg Q6H PRN IV 11/30/16 16:00 12/30/16 15:59 Albuterol (Ventolin Hfa Inhaler) 2 puffs Q4 PRN INH 11/30/16 16:15 12/30/16 16:14 Aspirin (Ecotrin Tab) 81 mg BID PO 11/30/16 21:00 12/30/16 20:59 12/02/16 08:29 81 MG Carvedilol (Coreg Tab) 3.125 mg BID PO 11/30/16 21:00 12/30/16 20:59 12/02/16 08:28 3.125 MG Escitalopram Oxalate (Lexapro Tab) 20 mg QPM PO 11/30/16 21:00 12/30/16 20:59 12/01/16 20:28 20 MG Fish Oil ([place]-3 (Purified Fish Oil) Cap) 1 gm BID PO 11/30/16 21:00 12/30/16 20:59 12/02/16 08:28 1 GM Furosemide (Lasix Tab) 20 mg QAM PO 12/01/16 09:00 12/31/16 08:59 12/02/16 08:28 20 MG Hydralazine HCl (Apresoline Tab) 75 mg QID PO 11/30/16 21:00 12/30/16 20:59 12/02/16 08:28 75 MG Isosorbide Mononitrate (Ismo Tab) 30 mg DAILY PO 12/01/16 09:00 12/31/16 08:59 12/02/16 08:29 30 MG Losartan Potassium (coZAAR TAB) 100 mg QAM PO 12/01/16 09:00 12/31/16 08:59 12/02/16 08:27 100 MG Multivitamins/ Minerals (Multivitamin W/ Minerals Tab) 1 tab DAILY PO 12/01/16 09:00 12/31/16 08:59 12/02/16 08:29 1 TAB Rosuvastatin Calcium (Crestor Tab) 20 mg DAILY PO 12/01/16 09:00 12/31/16 08:59 12/02/16 08:29 20 MG Sodium Chloride ([place] Nasal [place]) 2 sprays DAILY PRN MEAGAN 11/30/16 16:15 12/30/16 16:14 Terazosin HCl (Hytrin Cap) 1 mg HS PO 11/30/16 21:00 12/30/16 20:59 12/01/16 20:33 1 MG Miscellaneous Information (Order Awaiting Action) 1 ea QS N/A 12/01/16 00:00 12/31/16 00:00 Clopidogrel Bisulfate (plAVix TAB) 75 mg QAM PO 12/01/16 09:00 12/31/16 08:59 12/02/16 08:29 75 MG Morphine Sulfate (MoRPHine SULFATE INJ) 1 mg Q4H PRN IV 11/30/16 20:00 12/14/16 19:59 Morphine Sulfate 2 mg 2 mg Q4H PRN IV 11/30/16 20:00 12/14/16 19:59 12/01/16 00:49 2 MG Nicardipine HCl/ Sodium Chloride (Cardene Iv/Nss 500ml) 500 ml @ 0 mls/hr Q0M PRN IV 11/30/16 21:00 12/30/16 20:59 Clonidine HCl (Catapres Tab) 0.1 mg Q8 PRN PO 12/01/16 08:15 12/01/16 17:14 0.1 MG Hydralazine HCl (HydrALAZINE INJ) 5 mg Q6H PRN IV. 12/01/16 20:00 12/31/16 19:59 12/02/16 05:09 5 MG Pantoprazole Sodium 40 mg 40 mg QAM PO 12/02/16 09:00 01/01/17 08:59 12/02/16 08:29 40 MG Potassium Chloride/Prmx (Kcl 10 Meq / Wtr/Premixed Water) 100 ml @ 100 mls/hr Q1H IV 12/02/16 11:15 12/02/16 15:14 Clonidine HCl (Catapres Tab) 0.1 mg NOW ONCE PO 12/02/16 11:15 12/02/16 11:16 UNV Objective Vital Signs Date Time Temp Pulse Resp B/P Pulse Ox O2 Delivery O2 Flow Rate FiO2 12/02/16 08:00 Room Air 12/02/16 08:00 36.9 63 18 196/65 90 Room Air 12/02/16 04:18 36.9 67 18 172/61 93 Nasal Cannula 2.0 12/01/16 23:31 36.7 52 17 143/52 95 Nasal Cannula 2.0 12/01/16 20:00 96 Nasal Cannula 2.0 12/01/16 19:23 36.9 62 18 166/61 96 Nasal Cannula 2.0 12/01/16 19:09 36.7 65 22 95 2.0 12/01/16 18:00 65 22 161/66 12/01/16 17:00 70 28 186/73 95 12/01/16 16:00 36.7 76 20 194/80 94 Nasal Cannula 2.0 12/01/16 16:00 Nasal Cannula 2.0 12/01/16 15:08 74 96 12/01/16 14:00 65 19 177/57 94 Nasal Cannula 2.0 12/01/16 12:00 Nasal Cannula 2.0 12/01/16 12:00 36.8 70 20 169/57 93 Nasal Cannula 2.0 Physical Exam General Appearance: no apparent distress Respiratory/Chest: lungs clear, normal breath sounds, no respiratory distress, no accessory muscle use Cardiovascular: regular rate, rhythm, no edema, no murmur Extremities: normal inspection, no pedal edema Neurologic/Psychiatric: oil sprayer II-XII nml as tested, no motor/sensory deficits, alert, normal mood/affect, oriented x 3, + aphasia (mild residual aphasia) Laboratory Results Last 24 Hours Test 12/02/16 06:15 12/02/16 08:10 12/02/16 08:50 White Blood Count 5.70 K/uL Red Blood Count 4.05 M/uL Hemoglobin 11.2 g/dL Hematocrit 36.1 % Mean Corpuscular Volume 89.1 fL Mean Corpuscular Hemoglobin 27.7 pg Mean Corpuscular Hemoglobin Concent 31.0 g/dl Platelet Count 149 K/uL Mean Platelet Volume 9.7 fL Neutrophils (%) (Auto) 58.1 % Lymphocytes (%) (Auto) 27.9 % Monocytes (%) (Auto) 8.2 % Eosinophils (%) (Auto) 5.4 % Basophils (%) (Auto) 0.2 % Neutrophils # (Auto) 3.31 K/uL Lymphocytes # (Auto) 1.59 K/uL Monocytes # (Auto) 0.47 K/uL Eosinophils # (Auto) 0.31 K/uL Basophils # (Auto) 0.01 K/uL RDW Standard Deviation 56.9 fL RDW Coefficient of Variation 17.3 % Immature Granulocyte % (Auto) 0.2 % Immature Granulocyte # (Auto) 0.01 K/uL Sodium Level 144 mmol/L Potassium Level mmol/L mmol/L 3.1 mmol/L Chloride Level 106 mmol/L Carbon Dioxide Level 32 mmol/L Anion Gap 6.0 mmol/L Blood Urea Nitrogen 15 mg/dl Creatinine 0.76 mg/dl Est Creatinine Clear Calc Drug Dose 57.4 ml/min Estimated GFR () 84.7 Estimated GFR (Non- 73.1 BUN/Creatinine Ratio 19.1 Random Glucose 97 mg/dl Calcium Level 8.8 mg/dl Assessment and Plan This is an 81 year old female with PMH of CAD s/p stenting, long-standing labile hypertension, HLD, possible hx. 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 appreciate neurology input patient started on aspirin, Plavix was added - continue dual antiplatelets for three months and then d/c aspirin will increase Crestor dose to 40mg blood pressure will be an issue due to her long-standing labile hypertension - for now, continue current medications outpatient Zio patch as per neurology - moderate dilatation of left atrium on echo PT/OT - home health speech therapy - continued therapy as outpatient for her expressive aphasia Hypertensive Emergency patient presented with SBP > 200 She was admitted to the ICU and was on a nicardipine drip this has been weaned off Her BP remains labile Echo = severe LVH, likely from long-standing uncontrolled HTN No renal artery stenosis as worked up in the past for now, her regimen includes: * Coreg - which we cannot increase due to bradycardia episodes * Hydralazine - max dose of 300mg/daily * Losartan - max dose of 100mg * Terazosin, Imdur, Lasix * Clonidine 0.1mg TID as needed May need to add CCB if it has not been added in the past? Clonidine patch may be needed if it can be covered If BP around 150-170, can discharge and have primary care adjust these medications as needed Elevated Troponin in the setting of CAD this elevation of her troponin levels is probably related to her hypertensive emergency as above she denies chest pain currently she has a hx. of stenting to the RCA will continue aspirin, Plavix for three months, then d/c aspirin, and continue Plavix for lifetime increase Crestor continue b-amando and ARB outpatient cardiology f/u outpatient Zio patch cardiac monitoring Chronic Diastolic CHF echo from today shows a grade 1 diastolic dysfunction currently euvolemic continue diuretics as home regimen Nocturnal Hypoxia nocturnal supplemental O2 Depression Continue Lexapro GERD Continue PPI DVT ppx Lovenox FULL CODE d/c home today (12/02) with home health if okay with neurology
[2016-12-02] MEDS ORDERED: PLV75 PO (12:12)
[2016-12-02] MEDS ORDERED: ROSU40TA PO (12:12)
[2016-12-02] MEDS ORDERED: POTASSIUM CHLORIDE 10 MEQ TABCR PO STA (12:26)
--- NOTE | 2016-12-02 13:04 | Neurology Progress Notes ---
Neurology Progress Note Date of Service Dec 02, 2016. Markus Valencia is an 81 year old female who has a PMH of CAD s/p PCI stent to RCA, labile HTN, DL, previous TIA. She was brought to the ED after an episode of confusion, and expressive aphasia. Her states she was confused an she sat down for a few hours and he thought she seems normal. She took Mucinex and advil for some jaw pain. Her daughter arroved and notice she was confused and she was then brought to the ED for evaluation. She had no memory of the events. She is still unable to verbalize the name of the hospital or where she is. She knows she has high blood pressure but can't state any of the medications or if it has been controlled. She states her jaw is still different than the other side but she can't really say why but denies pain or numbness. Today she is standing and walking to the bathroom. and daughters are in the room and they are anxious to take her home. They feel she is much improved since the initial event. denies CP, SOB, abdominal pain, weakness, one sided numbness tingling, N, V, swallowing difficulties, vision changes. Objective Date Time Temp Pulse Resp B/P Pulse Ox O2 Delivery O2 Flow Rate FiO2 12/02/16 08:00 Room Air 12/02/16 08:00 36.9 63 18 196/65 90 Room Air 12/02/16 04:18 36.9 67 18 172/61 93 Nasal Cannula 2.0 12/01/16 23:31 36.7 52 17 143/52 95 Nasal Cannula 2.0 12/01/16 20:00 96 Nasal Cannula 2.0 12/01/16 19:23 36.9 62 18 166/61 96 Nasal Cannula 2.0 12/01/16 19:09 36.7 65 22 95 2.0 12/01/16 18:00 65 22 161/66 12/01/16 17:00 70 28 186/73 95 12/01/16 16:00 36.7 76 20 194/80 94 Nasal Cannula 2.0 12/01/16 16:00 Nasal Cannula 2.0 12/01/16 15:08 74 96 12/01/16 14:00 65 19 177/57 94 Nasal Cannula 2.0 Last 24 Hours Test 12/02/16 06:15 12/02/16 08:10 12/02/16 08:50 White Blood Count 5.70 K/uL Red Blood Count 4.05 M/uL Hemoglobin 11.2 g/dL Hematocrit 36.1 % Mean Corpuscular Volume 89.1 fL Mean Corpuscular Hemoglobin 27.7 pg Mean Corpuscular Hemoglobin Concent 31.0 g/dl Platelet Count 149 K/uL Mean Platelet Volume 9.7 fL Neutrophils (%) (Auto) 58.1 % Lymphocytes (%) (Auto) 27.9 % Monocytes (%) (Auto) 8.2 % Eosinophils (%) (Auto) 5.4 % Basophils (%) (Auto) 0.2 % Neutrophils # (Auto) 3.31 K/uL Lymphocytes # (Auto) 1.59 K/uL Monocytes # (Auto) 0.47 K/uL Eosinophils # (Auto) 0.31 K/uL Basophils # (Auto) 0.01 K/uL RDW Standard Deviation 56.9 fL RDW Coefficient of Variation 17.3 % Immature Granulocyte % (Auto) 0.2 % Immature Granulocyte # (Auto) 0.01 K/uL Sodium Level 144 mmol/L Potassium Level mmol/L mmol/L 3.1 mmol/L Chloride Level 106 mmol/L Carbon Dioxide Level 32 mmol/L Anion Gap 6.0 mmol/L Blood Urea Nitrogen 15 mg/dl Creatinine 0.76 mg/dl Est Creatinine Clear Calc Drug Dose 57.4 ml/min Estimated GFR () 84.7 Estimated GFR (Non- 73.1 BUN/Creatinine Ratio 19.1 Random Glucose 97 mg/dl Calcium Level 8.8 mg/dl Imaging: no new imaging Exam: Physical Exam: Constitutional: appearance nourished, healthy and normal Ears, Nose, Mouth and Throat: mucous membranes moist, no injection and skin normal, eyes normal Cardiovascular: normal S-1 and S-2 and regular rate and rhythm Respiratory: clear to auscultation (CTA) and no rales, rhonchi or wheeze Musculoskeletal: no peripheral edema Skin: no stigmata of neurocutaneous disease noted and normal and intact Eyes: extraocular muscles intact (EOMI) and pupils equal, round and reactive to light (PERRL) NEUROLOGIC EXAMINATION: Mental status: Alert and interactive Oriented unable to say she is in the hospital but able to give correct answer if given [facility] and [facility] as options, knows both of her daughters name and husbands name. She is able to identify pen and write with it but unable to say phone when shown her cell phone but can say it is pink and given choose can give correct answer Oriented to person Speech fluent with no evidence of aphasia Cranial Nerves smile eye brow raise symmetric, tongue midline Sensory: light touch in tact Coordination: finger to nose without bi pass or tremor Gait/Stance: Posture normal. Gait normal: with steady with steps, base, turning, tandem gait. Motor: Negative for pronator drift of out stretched arms with eyes closed. Strength: hand non cdl driver biceps triceps deltoids bilaterally 5/5, hip flex plantar flex ext 5/ 5 bilaterally Current Inpatient Medications Medications (Trade) Dose Ordered Sig/Devin Route Start Time Stop Time Status Last Admin Dose Admin Miscellaneous Information (Pharmacist Discharge Med Rec Consult) 1 ea UD PRN N/A 11/30/16 16:00 12/30/16 15:59 Enoxaparin Sodium (Lovenox Inj) 40 mg Q24H SQ 11/30/16 20:00 12/30/16 19:59 12/01/16 20:27 40 MG Acetaminophen (Tylenol Tab) 650 mg Q4H PRN PO 11/30/16 16:00 12/30/16 15:59 11/30/16 17:55 650 MG Ondansetron HCl (Zofran Inj) 4 mg Q6H PRN IV 11/30/16 16:00 12/30/16 15:59 Albuterol (Ventolin Hfa Inhaler) 2 puffs Q4 PRN INH 11/30/16 16:15 12/30/16 16:14 Aspirin (Ecotrin Tab) 81 mg BID PO 11/30/16 21:00 12/30/16 20:59 12/02/16 08:29 81 MG Carvedilol (Coreg Tab) 3.125 mg BID PO 11/30/16 21:00 12/30/16 20:59 12/02/16 08:28 3.125 MG Escitalopram Oxalate (Lexapro Tab) 20 mg QPM PO 11/30/16 21:00 12/30/16 20:59 12/01/16 20:28 20 MG Fish Oil ([place]-3 (Purified Fish Oil) Cap) 1 gm BID PO 11/30/16 21:00 12/30/16 20:59 12/02/16 08:28 1 GM Furosemide (Lasix Tab) 20 mg QAM PO 12/01/16 09:00 12/31/16 08:59 12/02/16 08:28 20 MG Hydralazine HCl (Apresoline Tab) 75 mg QID PO 11/30/16 21:00 12/30/16 20:59 12/02/16 08:28 75 MG Isosorbide Mononitrate (Ismo Tab) 30 mg DAILY PO 12/01/16 09:00 12/31/16 08:59 12/02/16 08:29 30 MG Losartan Potassium (coZAAR TAB) 100 mg QAM PO 12/01/16 09:00 12/31/16 08:59 12/02/16 08:27 100 MG Multivitamins/ Minerals (Multivitamin W/ Minerals Tab) 1 tab DAILY PO 12/01/16 09:00 12/31/16 08:59 12/02/16 08:29 1 TAB Rosuvastatin Calcium (Crestor Tab) 20 mg DAILY PO 12/01/16 09:00 12/31/16 08:59 12/02/16 08:29 20 MG Sodium Chloride ([place] Nasal [place]) 2 sprays DAILY PRN MEAGAN 11/30/16 16:15 12/30/16 16:14 Terazosin HCl (Hytrin Cap) 1 mg HS PO 11/30/16 21:00 12/30/16 20:59 12/01/16 20:33 1 MG Miscellaneous Information (Order Awaiting Action) 1 ea QS N/A 12/01/16 00:00 12/31/16 00:00 Clopidogrel Bisulfate (plAVix TAB) 75 mg QAM PO 12/01/16 09:00 12/31/16 08:59 12/02/16 08:29 75 MG Morphine Sulfate (MoRPHine SULFATE INJ) 1 mg Q4H PRN IV 11/30/16 20:00 12/14/16 19:59 Morphine Sulfate 2 mg 2 mg Q4H PRN IV 11/30/16 20:00 12/14/16 19:59 12/01/16 00:49 2 MG Nicardipine HCl/ Sodium Chloride (Cardene Iv/Nss 500ml) 500 ml @ 0 mls/hr Q0M PRN IV 11/30/16:00 12/30/16 20:59 Clonidine HCl (Catapres Tab) 0.1 mg Q8 PRN PO 12/01/16 08:15 12/31/16 08:14 12/01/16 17:14 0.1 MG Hydralazine HCl (HydrALAZINE INJ) 5 mg Q6H PRN IV. 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 plavix 75 mg started and continue aspirin 81 mg will continue for 3 months and then stop aspirin continue plavix for a lifetime 2. TTE was not ordered with bubble study A ALEJANDRO was done 03/06/2014 and there was no ASD noted 3. blood pressure 150-170 systolic for now 4. optimize blood pressure control and cholesterol control 5. PT/OT speech for discharge needs 6. will need a cardio net for 4 weeks as outpatient to r/o arrhythmia 7. follow with neurology in 2-3 week Lizzie Chang PAC schedule 8. OK to discharge from neurology perspective I have seen and discussed above patient with Dr Lizzie Merino, neurology. Pt seen and examined with DEBBIE Longoria. Cardionet as outpt to eval for occult atrial fibrillation
[2016-12-02 13:28] VITALS: BP 182/63; PULSE 69
--- NOTE | 2016-12-02 14:45 | Discharge Instructions ---
Discharge Instructions Date of Service Dec 02, 2016. Admission Reason for Admission: Cva, Hypertensive Emergency Discharge Discharge Diagnosis / Problem: Acute CVA, Hypertensive Emergency Discharge Goals Goal(s): Decrease discomfort, Improve function, Diagnostic testing, Therapeutic intervention, Prevent Disease Progression Activity Recommendations Activity Limitations: resume your previous activity . Instructions / Follow-Up Instructions / Follow-Up Please follow-up with Dr. Pierce on December 06 @ 2:45PM Your dose of Crestor is changed from 20mg to 40mg You will be started on Plavix - continue aspirin + Plavix for three months, then you will be asked to stop aspirin and continue just Plavix Continue current blood pressure medications and adjust as outpatient for tighter control Due to drug-drug interaction - will stop Nexium - started on low dose Protonix - PCP should discuss possibly stopping this altogether Risk Factors for Stroke: You can reduce your chances of stroke by working with your medical provider to adopt a healthy lifestyle. Some specific ways to lower your chance of stroke are: * If you are a smoker, now is the time to stop smoking cigarettes * If you are diabetic, improve the control of your blood sugars * Avoid excessive amounts of alcohol * Control high blood pressure * Lose weight if you are overweight * Be sure to lead an active lifestyle * Eat a healthy diet low in salt, cholesterol and fat You should know about other risk factors for stroke that you are unable to control. These include: * Age 55 years or older * Male gender * Certain racial groups: , or / * Family History of Stroke, Mini stroke or Heart Attack * Sickle Cell Disease Follow Up: It is important for you to keep your follow up appointments with your medical provider. Current Hospital Diet Patient's current hospital diet: AHA Diet (Heart Healthy) Discharge Diet Recommended Diet: AHA Diet (Heart Healthy) Pending Studies Studies pending at discharge: no Laboratory Results Hemoglobin A1c Test 11/30/16 13:00 Range/Units Estimated Average Glucose 128 mg/dl Hemoglobin A1c 6.1 H 4.5-5.6 % Lipid Panel Test 12/01/16 05:35 Range/Units Triglycerides Level 80 0-150 mg/dl Cholesterol Level 103 0-200 mg/dl HDL Cholesterol 53 mg/dl Cholesterol/HDL Ratio 1.9 LDL Cholesterol, Calculated 34 mg/dl Medical Emergencies . Who to Call and When: Medical Emergencies: Call 911 immediately if you experience any of the following warning signs and symptoms of Stroke: * Sudden numbness or weakness of the face, arm or leg, especially on one side of the body * Sudden confusion, trouble speaking or understanding * Sudden trouble seeing in one or both eyes * Sudden trouble walking, dizziness, loss of balance or coordination * Sudden severe headache with no cause Do not delay calling 911 if you experience any warning signs or symptoms of a stroke. Delay in seeking medical attention may affect what treatments can be given to you. . Non-Emergent Contact Non-Emergency issues call your: Primary Care Provider, Neurologist . . "Provider Documentation" section prepared by Ludmila Everett. . Stroke Core Measures Reason no t-PA for Stroke: Treatment not indicated Reason no antithrom by day 2: Treatment provided - N/A Reason no antithrom at D/C: Treatment provided - N/A Reason no statin at D/C: Treatment provided - N/A Reason no anticoag w/a fib: Treatment not indicated VTE Core Measure Inpt VTE Proph given/why not?: Enoxaparin (Lovenox)SQ
--- NOTE | 2016-12-02 15:34 | Discharge Summary ---
Discharge Summary Date of Service Dec 02, 2016. Discharge Summary Admission Date: Nov 30, 2016 at 15:48 Discharge Date: Dec 02, 2016 Discharge Disposition: Home with services Principal Diagnosis: Acute Cortical Infarct Hypertensive Emergency Medication Reconciliation New Medications: Clopidogrel Bisulfate (Clopidogrel) 75 Mg Tab 75 MG PO QAM for 30 Days, #30 TAB 2 Refills Changed Medications: Rosuvastatin Calcium (Crestor) 40 Mg Tab 1 TAB PO DAILY for 30 Days, #30 TAB 5 Refills (Changed from: Rosuvastatin Calcium (Crestor) 20 Mg Tab 20 Mg PO DAILY) Continued Medications: Albuterol Hfa (Ventolin Hfa) 200 Puffs/58868 Mcg Aers 2 PUFFS INH Q4 PRN for Wheezing, #1 INHALER Aspirin (Aspirin Ec) 81 Mg Tab 81 MG PO BID Carvedilol (Coreg) 6.25 Mg Tab 3.125 MG PO BID, TAB Clonidine Hcl (Catapres) 0.1 Mg Tab 0.1 MG PO TID PRN for SBP >180, TAB Escitalopram (Lexapro) 10 Mg Tab 20 MG PO EVENING MEAL, TAB TAKE TWO 10MG TABLETS Esomeprazole Magnesium (Nexium) 40 Mg Cap 40 MG PO QAM, CAP TAKE ONE HOUR BEFORE THE FIRST MEAL OF THE DAY. Fish Oil ([place]-3) 1 Ea Cap 1200 MG PO BID, CAP Furosemide (Furosemide) 20 Mg Tab 20 MG PO QAM, #30 TAB 5 Refills Hydralazine Hcl (Apresoline) 50 Mg Tab 75 MG PO QID, TAB TAKE ONE AND A HALF OF A 50MG TABLET Isosorbide Mononitrate (Isosorbide Mononitrate) 20 Mg Tab 30 MG PO DAILY Losartan Potassium (Cozaar) 100 Mg Tab 100 MG PO QAM, TAB Meloxicam (Mobic) 7.5 Mg Tab 1 TAB PO DAILY, #30 Ocuvite Preservision (Ocuvite Preservision) 1 Tab Tab 1 TAB PO DAILY, TAB Oxygen (Oxygen) Gas 2 LITERS NA HS Saline ([place] Nasal [place]) 0.65 % Spr 2 SPRAYS MEAGAN DAILY PRN for DRYNESS, CONGESTION Terazosin Hcl (Hytrin) 1 Mg Cap 1 MG PO HS, CAP Vitamins W/ Lipotropics (Lipoflavonoid) 1 Tab Tab 1 TAB PO 3XWK Admission Information HPI (per Admitting provider): This is an 81 year old female with PMH of CAD s/p PCI stent to RCA, labile hypertension, dyslipidemia, remote history of TIA, and other problems listed below who presents to the ED for confusion, memory loss, and expressive aphasia. states symptoms started yesterday afternoon at which time patient appeared confused, with expressive aphasia, and walked into her . He sat her down and she slept for a few hours, she awoke and seemed normal, then went to bed. Then this morning around 7:30 am she was c/o left maxillary area pain with radiation to left jaw and left congregation. It is worse with jaw movement. She took Mucinex and Advil without relief. When daughter arrived at 8:30 she noticed patient had confusion (unable to get into her phone) , memory loss, and expressive aphasia and therefore brought patient to ER. At baseline patient is oriented x 3 without any memory loss. She ambulates unassisted and is independent with ADLs. On my exam patient recognizes her family but is unable to name the date or location. She states she knows the location but can't think of the name. She is not able to describe recent events. Daughter states 2 days ago patient had chest pain non-exertional similar to prior episodes attributed to costochondritis. There was no diaphoresis or SOB. She took Aleve and Percocet with relief. Not having chest pain today. Patient had a UTI 1 week ago treated with unknown antibiotic after being seen at [facility] [employer]. Dysuria is resolved. The patient denies fever, chills , nasal congestion, sore throat, dizziness, syncope, vision change, facial droop , swallowing difficulty, focal weakness or numbness, ataxia, cough, SOB, palpitations, abdominal pain, N/V/D, urinary frequency or urgency, calf pain, edema, recent fall or injury. Denies h/o abnormal bleeding. Physical Exam (per Admitting): General Appearance: WD/WN, no apparent distress, + pertinent finding ( pleasant alert 81 year old female) Head: normocephalic, atraumatic Eyes: normal inspection, PERRL, EOMI, sclerae normal ENT: normal ENT inspection, hearing grossly normal, TMs normal, pharynx normal, + pertinent finding (tender to palpation left maxillary, frontal, and temporal area and left angle of mandible) Neck: supple, no JVD, no carotid bruits, trachea midline Respiratory/Chest: lungs clear, normal breath sounds, no respiratory distress Cardiovascular: regular rate, rhythm, no murmur Abdomen/GI: normal bowel sounds, non tender, soft Extremities/Musculoskelatal: no calf tenderness, no pedal edema Neurologic/Psych: manufacturing technologist II-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 unable to state the location or date. unable to recall recent events. expressive aphasia. slow to name objects. finger to nose intact. no pronator drift. gait not assessed) Skin: normal color, warm/dry Hospital Course This is an 81 year old female with PMH of CAD s/p stenting, long-standing labile hypertension, HLD, possible hx. 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 appreciate neurology input patient started on aspirin, Plavix was added - continue dual antiplatelets for three months and then d/c aspirin will increase Crestor dose to 40mg blood pressure will be an issue due to her long-standing labile hypertension - for now, continue current medications outpatient Zio patch as per neurology - moderate dilatation of left atrium on echo PT/OT - home health speech therapy - continued therapy as outpatient for her expressive aphasia Hypertensive Emergency patient presented with SBP > 200 She was admitted to the ICU and was on a nicardipine drip this has been weaned off Her BP remains labile Echo = severe LVH, likely from long-standing uncontrolled HTN No renal artery stenosis as worked up in the past for now, her regimen includes: * Coreg - which we cannot increase due to bradycardia episodes * Hydralazine - max dose of 300mg/daily * Losartan - max dose of 100mg * Terazosin, Imdur, Lasix * Clonidine 0.1mg TID as needed May need to add CCB if it has not been added in the past? Clonidine patch may be needed if it can be covered If BP around 150-170, can discharge and have primary care adjust these medications as needed Elevated Troponin in the setting of CAD this elevation of her troponin levels is probably related to her hypertensive emergency as above she denies chest pain currently she has a hx. of stenting to the RCA will continue aspirin, Plavix for three months, then d/c aspirin, and continue Plavix for lifetime increase Crestor continue b-amando and ARB outpatient cardiology f/u outpatient Zio patch cardiac monitoring Chronic Diastolic CHF echo from today shows a grade 1 diastolic dysfunction currently euvolemic continue diuretics as home regimen Nocturnal Hypoxia nocturnal supplemental O2 Depression Continue Lexapro GERD Continue PPI DVT ppx Lovenox FULL CODE d/c home today (12/02) with home health if okay with neurology Total time spent on discharge = 45 minutes This includes examination of the patient, discharge planning, medication reconciliation, and communication with other providers. Discharge Instructions Please follow-up with Dr. Pierce on December 06 @ 2:45PM Your dose of Crestor is changed from 20mg to 40mg You will be started on Plavix - continue aspirin + Plavix for three months, then you will be asked to stop aspirin and continue just Plavix Continue current blood pressure medications and adjust as outpatient for tighter control Due to drug-drug interaction - will stop Nexium - started on low dose Protonix - PCP should discuss possibly stopping this altogether
[2016-12-02] MEDS ORDERED: PRT/20 PO (15:52)
[2016-12-02 15:58] VITALS: BP 154/66; PULSE 59; TEMP 36.7; O2SAT 92
[2016-12-02 16:01] VITALS: BP 154/66; PULSE 59; TEMP 36.7; O2SAT 92
--- NOTE | 2016-12-02 16:34 | Pharmacy Progress Note ---
Pharmacist Stroke Counseling Date of Service Dec 02, 2016. Scope Pharmacy has been consulted to provide medication discharge counseling for this patient admitted with ischemic stroke as per the Pharmacist Discharge Counseling for Stroke Patients Protocol. Medications on Discharge New Medications: Pantoprazole (Protonix) 20 Mg Tab 20 MG PO DAILY, #30 TAB Clopidogrel Bisulfate (Clopidogrel) 75 Mg Tab 75 MG PO QAM for 30 Days, #30 TAB 2 Refills Changed Medications: Rosuvastatin Calcium (Crestor) 40 Mg Tab 1 TAB PO DAILY for 30 Days, #30 TAB 5 Refills (Changed from: Rosuvastatin Calcium (Crestor) 20 Mg Tab 20 Mg PO DAILY) Continued Medications: Albuterol Hfa (Ventolin Hfa) 200 Puffs/08753 Mcg Aers 2 PUFFS INH Q4 PRN for Wheezing, #1 INHALER Aspirin (Aspirin Ec) 81 Mg Tab 81 MG PO BID Carvedilol (Coreg) 6.25 Mg Tab 3.125 MG PO BID, TAB Clonidine Hcl (Catapres) 0.1 Mg Tab 0.1 MG PO TID PRN for SBP >180, TAB Escitalopram (Lexapro) 10 Mg Tab 20 MG PO EVENING MEAL, TAB TAKE TWO 10MG TABLETS Fish Oil ([place]-3) 1 Ea Cap 1200 MG PO BID, CAP Furosemide (Furosemide) 20 Mg Tab 20 MG PO QAM, #30 TAB 5 Refills Hydralazine Hcl (Apresoline) 50 Mg Tab 75 MG PO QID, TAB TAKE ONE AND A HALF OF A 50MG TABLET Isosorbide Mononitrate (Isosorbide Mononitrate) 20 Mg Tab 30 MG PO DAILY Losartan Potassium (Cozaar) 100 Mg Tab 100 MG PO QAM, TAB Meloxicam (Mobic) 7.5 Mg Tab 1 TAB PO DAILY, #30 Ocuvite Preservision (Ocuvite Preservision) 1 Tab Tab 1 TAB PO DAILY, TAB Oxygen (Oxygen) Gas 2 LITERS NA HS Saline ([place] Nasal [place]) 0.65 % Spr 2 SPRAYS MEAGAN DAILY PRN for DRYNESS, CONGESTION Terazosin Hcl (Hytrin) 1 Mg Cap 1 MG PO HS, CAP Vitamins W/ Lipotropics (Lipoflavonoid) 1 Tab Tab 1 TAB PO 3XWK I spoke with patient, and daughter(?). Patient and are both knowledgeable about their medications, and patient sets up and takes own meds. Emphasized she will be on both Plavix and ASA for at least a few months, then her physician will decide which (or both) will be needed mcfp. She was on Protonix in hospital, but had been taking Nexium before. Dr. Everett changed back to Protonix due to drug interaction of clopidogrel with Nexium. Action The above medications, specifically ones for stroke treatment/prophylaxis, have been reviewed in detail with the patient and patient representatives prior to discharge. This includes indication, common adverse reactions, drug interactions, and medication administration. Medication counseling has been employed using the teach-back method to ensure understanding. Outcome The patient and patient representatives have demonstrated understanding of the medications. Please note, they are aware that the pharmacist will call them within 72 hours post-discharge to confirm that the appropriate medications are being taken and answer any further medication related questions the patient might have at that time. Contact information Individual to be contacted: Annie Santos Relationship to patient (if applicable):self Phone number: [phone] Best time to call: anytime Thank you for allowing pharmacy to be involved in the care of this patient. Please call [phone] or [phone] with any additional questions
--- NOTE | 2016-12-07 13:41 | Pharmacy Progress Note ---
Pharmacist Post D/C Phone Note The patient and/or patient delivery representative(s) were unable to be reached for a follow-up phone call within the 72 hour time frame. Discharge counseling pharmacist contact information has already been provided to the patient should questions arise. Thank you for allowing us to be involved in the care of this patient.
== END 2016-12-02 16:39 | disposition home health service (06) | DRG 65 ==
LOC: ENRESERVDT → ENRESERVTM → CANRESERV → C.EDB 12:34 → C.MSICU 15:48 → C.2T 12-01 19:11
PROVIDERS: ADMIT Hospitalist; ATTEND Family Medicine
DX: I63.9 Cerebral infarction, unspecified (principal); I16.1 Hypertensive emergency; I50.32 Chronic diastolic (congestive) heart failure; R47.01 Aphasia; G47.30 Sleep apnea, unspecified; I25.10 Atherosclerotic heart disease of native coronary artery without angina pectoris; E78.5 Hyperlipidemia, unspecified; F32.9 Major depressive disorder, single episode, unspecified; K21.9 Gastro-esophageal reflux disease without esophagitis; I51.89 Other ill-defined heart diseases; I27.2 Other secondary pulmonary hypertension; M26.622 Arthralgia of left temporomandibular joint; Z86.73 Personal history of transient ischemic attack (TIA), and cerebral infarction without residual deficits; Z87.440 Personal history of urinary (tract) infections; Z98.61 Coronary angioplasty status; Z99.81 Dependence on supplemental oxygen; Z79.1 Long term (current) use of non-steroidal anti-inflammatories (NSAID); Z79.82 Long term (current) use of aspirin; Z79.899 Other long term (current) drug therapy; Z88.1 Allergy status to other antibiotic agents; Z88.5 Allergy status to narcotic agent; Z83.3 Family history of diabetes mellitus; Z82.49 Family history of ischemic heart disease and other diseases of the circulatory system; Z83.6 Family history of other diseases of the respiratory system

== ENCOUNTER 2018-04-02 14:57 | Inpatient (IN) | payer OTHER ==
[~2018-04-02] VITALS: Ht 167.6 cm; Wt 77.7 kg
[~2018-04-02 14:57] MED LIST changes: -CARV6.25 PO; +MELO7.5T5 PO; -NXM/40 PO; +PLV75 PO; -ROSU20TA PO; +ROSU40TA PO; +VNTHFA/IN INH
[2018-04-02] MEDS ORDERED: ASPIRIN 324 MG CHEW PO STA (15:17)
--- NOTE | 2018-04-02 15:31 | EMERGENCY ROOM VISIT NOTE ---
History Report prepared by Alex: Kd Mcgill Under the Supervision of: Dr. Nitish Méndez M.D. First contact with patient: 15:10 Chief Complaint: CHEST PAIN Stated Complaint: CHEST PAIN, REFERRED BY DR. PIERCE History of Present Illness The patient is a 82 year old female who presents to the Emergency Room with complaints of intermittent SOB and constant burning chest pain beginning yesterday. The patient reports that her SOB is worsened with exertion. She states that her pain is located on both sides of the chest with no radiation to surrounding areas. She notes new swelling in her legs. The patient denies hematochezia, melena, sweating or nausea, but notes a dry cough and chills. She states that she missed a dose of hydralazine at noon today. She reports that she is also on Plavix. She denies a history of kidney or liver problems, lung disease, or blood clots. She denies a history of smoking. She notes that her currently symptoms do not feel like when she needed a stent. Source of History: patient Onset: yesterday Position: chest, other (lungs) Quality: burning (chest pain), other (SOB) Timing: constant (chest pain), intermittent (SOB) Modifying Factors (Worsening): exertion Associated Symptoms: + chills, + cough, No diaphoresis, No nausea, No melena , No hematochezia Review of Systems See HPI for pertinent positives and negatives. A total of ten systems were reviewed and were otherwise negative. Past Medical & Surgical Medical Problems: (1) Arthritis (2) CAD (coronary artery disease) (3) Chest pain (4) CVA (cerebral vascular accident) (5) Depression (6) Diastolic dysfunction (7) Dyslipidemia (8) GERD (gastroesophageal reflux disease) (9) HTN (hypertension) (10) Hypertensive emergency (11) Pulmonary HTN (12) Right radial fracture (13) TIA (transient ischemic attack) Surgical Problems: (1) Cystocele with rectocele (2) History of hysterectomy (3) S/P cholecystectomy (4) Status post cardiac catheterization (5) Status post coronary artery stent placement Family History FHx: diabetes FHx: gallbladder disease FHx: heart disease FHx: hypertension FHx: lung disease Social History Smoking Status: Never Smoker Alcohol Use: occasionally Drug Use: none Marital Status: Housing Status: lives with family Occupation Status: retired Current/Historical Medications Scheduled Aspirin (Aspirin Ec), 81 MG PO DAILY Carvedilol (Coreg), 3.125 MG PO BID Clopidogrel (Plavix), 75 MG PO DAILY Escitalopram (Lexapro), 20 MG PO EVENING MEAL Furosemide (Lasix), 20 MG PO DAILY Home O2 Therapy (Oxygen), 2 LITERS NA HS Hydralazine Hcl (Apresoline), 75 MG PO QID Isosorbide Mononitrate Ext Rel (Imdur Ext Rel), 30 MG PO QAM Losartan Potassium (Cozaar), 100 MG PO QAM Ocuvite Preservision (Ocuvite Preservision), 1 TAB PO DAILY Pantoprazole (Protonix), 40 MG PO DAILY Rosuvastatin Calcium (Crestor), 40 MG PO DAILY Terazosin Hcl (Hytrin), 1 MG PO HS Vitamins W/ Lipotropics (Lipoflavonoid), 1 TAB PO 3XWK Scheduled PRN Albuterol Hfa (Ventolin Hfa), 2 PUFFS INH Q4 PRN for Wheezing Clonidine Hcl (Catapres), 0.1 MG PO TID PRN for SBP >180 Meloxicam (Mobic), 7.5 MG PO DAILY PRN for Pain Allergies Coded Allergies: Iodine (Verified Allergy, Intermediate, HIVES, 11/30/16) Ciprofloxacin (Verified Allergy, Unknown, ., 11/30/16) Tramadol (Verified Allergy, Unknown, 0, 11/30/16) Physical Exam Vital Signs Date Time Temp Pulse Resp B/P (MAP) Pulse Ox O2 Delivery O2 Flow Rate FiO2 04/02/18 18:05 67 20 200/70 98 BiPAP 04/02/18 17:31 61 21 224/73 96 BiPAP 04/02/18 17:16 68 96 30 04/02/18 16:33 Nasal Cannula 3.0 04/02/18 16:13 65 22 220/103 93 Nasal Cannula 3.0 04/02/18 16:08 69 22 233/93 95 Nasal Cannula 3.0 04/02/18 15:23 73 04/02/18 15:22 92 Nasal Cannula 2.0 04/02/18 15:22 92 Nasal Cannula 2.0 04/02/18 15:07 36.7 83 18 239/72 87 Room Air Physical Exam GENERAL: Awake, alert, well-appearing, NAD HENT: Normocephalic, atraumatic. EYES: Normal conjunctiva. Sclera non-icteric. PERRL. No anisocoria. NECK: Supple. No nuchal rigidity. FROM. RESPIRATORY: Mild decreased BS throughout, associated crackles CARDIAC: RRR, no MRG ABDOMEN: Soft, NTND, BS+ MSK: No chest wall TTP, no LE edema. No calf pain. Negative Homans's sign. NEURO: GCS 15, CN 2-12 intact, moves all 4s on command SKIN: No rash or jaundice noted. Medical Decision & Procedures ER Provider Diagnostic Interpretation: Radiology results as stated below per my review and radiologist interpretation: CHEST ONE VIEW PORTABLE CLINICAL HISTORY: 82 years-old Female presenting with CHEST PAIN. TECHNIQUE: Portable upright AP view of the chest was obtained. COMPARISON: 11/30/2016. FINDINGS: Atherosclerosis of the aortic arch. Cardiac silhouette enlarged. Prominence of the bilateral rosetta. Pulmonary vascular prominence. Coarsened lung markings. Central and bibasilar predominant added density of the lungs. Trace bilateral pleural effusions not excluded. No pneumothorax. Degenerative changes of the thoracic spine. IMPRESSION: 1. Cardiomegaly with volume overload and possible developing pulmonary edema. 2. Prominence of the bilateral rosetta may be vascular in etiology though underlying lymphadenopathy is not excluded. Electronically signed by: Rupesh Huertas M.D. 04/02/2018 3:35 PM Laboratory Results Test 04/02/18 16:00 Immature Granulocyte % (Auto) 0.1 % White Blood Count 6.98 K/uL (4.8-10.8) Red Blood Count 3.80 M/uL (4.2-5.4) Hemoglobin 11.6 g/dL (12.0-16.0) Hematocrit 35.8 % (37-47) Mean Corpuscular Volume 94.2 fL (80-100) Mean Corpuscular Hemoglobin 30.5 pg (25-34) Mean Corpuscular Hemoglobin Concent 32.4 g/dl (32-36) Platelet Count 144 K/uL (130-400) Mean Platelet Volume 10.7 fL (7.4-10.4) Neutrophils (%) (Auto) 62.6 % Lymphocytes (%) (Auto) 21.3 % Monocytes (%) (Auto) 8.7 % Eosinophils (%) (Auto) 6.9 % Basophils (%) (Auto) 0.4 % Neutrophils # (Auto) 4.36 K/uL (1.4-6.5) Lymphocytes # (Auto) 1.49 K/uL (1.2-3.4) Monocytes # (Auto) 0.61 K/uL (0.11-0.59) Eosinophils # (Auto) 0.48 K/uL (0-0.5) Basophils # (Auto) 0.03 K/uL (0-0.2) Immature Granulocyte # (Auto) 0.01 K/uL (0.00-0.02) Prothrombin Time 11.4 SECONDS (9.0-12.0) Prothromb Time International Ratio 1.1 (0.9-1.1) Activated Partial Thromboplast Time 31.3 SECONDS (21.0-31.0) Partial Thromboplastin Ratio 1.2 Total Bilirubin 0.6 mg/dl (0.2-1) Direct Bilirubin 0.2 mg/dl (0-0.2) Aspartate Amino Transf (AST/SGOT) 25 U/L (15-37) Alanine Aminotransferase (ALT/SGPT) 19 U/L (12-78) Alkaline Phosphatase 81 U/L (45-117) Pro-B-Type Natriuretic Peptide 921 pg/ml (0-1800) Total Protein 8.1 gm/dl (6.4-8.2) Albumin 3.5 gm/dl (3.4-5.0) Lipase 81 U/L (73-393) Laboratory results reviewed by me Medications Administered Medications (Trade) Dose Ordered Sig/Devin Route Start Time Stop Time Status Last Admin Dose Admin Nitroglycerin (Nitrostat Tab) 0.4 mg Q5M PRN SL 04/02/18 15:30 04/02/18 20:14 DC 04/02/18 16:21 0.4 MG Aspirin (Aspirin Chew) 243 mg NOW STAT PO 04/02/18 15:17 04/02/18 15:19 DC 04/02/18 16:07 243 MG Hydralazine HCl (Apresoline Tab) 75 mg NOW STAT PO 04/02/18 15:17 04/02/18 15:19 DC 04/02/18 16:07 75 MG Clonidine HCl (Catapres Tab) 0.1 mg NOW ONCE PO 04/02/18 16:30 04/02/18 16:31 DC 04/02/18 16:22 0.1 MG Hydralazine HCl (HydrALAZINE INJ) 10 mg NOW STAT IV. 04/02/18 17:04 04/02/18 17:06 DC 04/02/18 17:27 10 MG Furosemide 20 mg/ Syringe 2 ml @ 4 mls/min ONE ONCE IV 04/02/18 17:15 04/02/18 17:16 DC 04/02/18 17:15 4 MLS/MIN Polyethylene (Miralax Powder Packet) 17 gm DAILY PRN PO 04/02/18 18:30 05/02/18 18:29 04/03/18 07:29 17 GM ECG Per My Interpretation Indication: chest pain, SOB/dyspnea Rate (beats per minute): 83 Rhythm: normal sinus Findings: other (normal interval and axis. Mild depression in lateral leads with possible TWI.) ED Course 151: The patient was evaluated in room B10. A complete history and physical exam was performed. 1704: I updated with the patient. She states her chest pain is currently improved, but still feels short of breath. A bedside ultrasound was performed, showing: Decreased EF. Enlarged heart. No pericardial effusion. IVC is flat. B- lines noted. 1718: I consulted Court Fuentes PA-C: [facility] Hospitalist. She will reevaluate the patient for hospitalization. Medical Decision Nursing notes reviewed. Ancillary studies and prior records reviewed. The patient is a 82 year old WF w/ PMHx CVA, HTN, pulm HTN who presents to the Emergency Room with complaints of intermittent SOB and constant burning chest pain beginning yesterday. Differential diagnosis: Etiologies such as cardiac ischemia, aortic dissection, pulmonary embolism, pneumonia, pneumothorax, musculoskeletal, infections, pericarditis, myocarditis , esophageal rupture, gastrointestinal, as well as others were entertained. Patient was seen and evaluated the bedside. Patient was complaining of some shortness of breath and associated chest pain. The patient does have exertional dyspnea. The patient does have significant hypertension. The patient did not take her midday dose of hydralazine. Patient does have some mild decreased breath sounds but no overt lower extremity edema. Patient did blood work completed along with a chest x-ray BNP troponin EKG. Patient's EKG does show some lateral depressions. The patient's troponin is not elevated but detectable. BNP is not very elevated. I did do a bedside ultrasound which shows that the patient does have B-lines enlarged heart slightly depressed EF without any pericardial effusion. The patient's IVC is fairly flat. The patient had already received p.o. hydralazine and nitroglycerin. She also did receive her home dose of clonidine. Patient's chest pain much improved but still short of breath. I believe that she will likely requires additional afterload reduction. Patient was given a dose of IV Lasix as well as IV hydralazine. The patient was also placed on BiPAP but I believe this will significantly improve her shortness of breath. This may also help with her blood pressure. I did speak with the on-call hospitalist who agreed to further evaluate and treat the patient. The patient was not placed on a drip at this time. I did convey that the patient also seem to have a flat IVC and this may not have true volume overload but the majority of this is likely related to her hypertension which requires further maintenance and titration. Medication Reconcilliation Current Medication List: was personally reviewed by me Blood Pressure Screening Patient's blood pressure: Elevated blood pressure referred to hospitalist Consults Time Called: 1711 Consulting Physician: Court Fuentes PA-C: [facility] Hospitalist Returned Call: [phone] I consulted Court Fuentes PA-C: [facility] Hospitalist. She will reevaluate the patient for hospitalization. Impression Primary Impression: Hypertensive emergency Additional Impressions: Chest pain SOB (shortness of breath) CHF (congestive heart failure) Critical Care I have personally spent greater than 56 minutes of critical care time in the direct management of this patient. This includes bedside care, interpretation of diagnostic studies, and testing, discussion with consultants, patient, and family members, and other required patient management activities. This 56 minutes is in excess of all separately billable procedures. Scribe Attestation The scribe's documentation has been prepared under my direction and personally reviewed by me in its entirety. I confirm that the note above accurately reflects all work, treatment, procedures, and medical decision making performed by me. Departure Information Dispostion Being Evaluated By Hospitalist Referrals Dustin Pierce D.O. (PCP) Patient Instructions My [facility] Problem Qualifiers Additional Impressions: Chest pain Chest pain type: unspecified Qualified Codes: R07.9 - Chest pain, unspecified CHF (congestive heart failure) Heart failure type: unspecified Heart failure chronicity: acute on chronic Qualified Codes: I50.9 - Heart failure, unspecified
--- NOTE | 2018-04-02 15:37 | DIAGNOSTIC IMAGING REPORT ---
CHEST ONE VIEW PORTABLE CLINICAL HISTORY: 82 years-old Female presenting with CHEST PAIN. TECHNIQUE: Portable upright AP view of the chest was obtained. COMPARISON: 11/30/2016. FINDINGS: Atherosclerosis of the aortic arch. Cardiac silhouette enlarged. Prominence of the bilateral rosetta. Pulmonary vascular prominence. Coarsened lung markings. Central and bibasilar predominant added density of the lungs. Trace bilateral pleural effusions not excluded. No pneumothorax. Degenerative changes of the thoracic spine. IMPRESSION: 1. Cardiomegaly with volume overload and possible developing pulmonary edema. 2. Prominence of the bilateral rosetta may be vascular in etiology though underlying lymphadenopathy is not excluded. Electronically signed by: Rupesh Huertas M.D. 04/02/2018 3:35 PM Dictated Date/Time: 04/02/2018 3:34 PM
[2018-04-02] MEDS: NITROGLYCERIN 0.4 MG SL PER TAB CHARGE SL PRN ×3 (16:06→16:21)
[2018-04-02 16:15] LABS: BASO % 0.4 %; BASO ABS # 0.03 K/uL (0-0.2); EOS % 6.9 %; EOS ABS # 0.48 K/uL (0-0.5); HEMATOCRIT 35.8 % (37-47); HEMOGLOBIN 11.6 g/dL (12.0-16.0); IG# 0.01 K/uL (0.00-0.02); LYMPH % 21.3 %; LYMPH ABS # 1.49 K/uL (1.2-3.4); MEAN CELL VOLUME 94.2 fL (80-100); MEAN CORPUSCULAR HEMOGLOBIN 30.5 pg (25-34); MEAN CORPUSCULAR HGB CONC 32.4 g/dl (32-36); MEAN PLATELET VOLUME 10.7 fL (7.4-10.4); MONO % 8.7 %; MONO ABS # 0.61 K/uL (0.11-0.59); NEUT % 62.6 %; NEUT ABS # 4.36 K/uL (1.4-6.5); PLATELET COUNT 144 K/uL (130-400); RED CELL DISTRIBUTION WIDTH CV 14.6 % (11.5-14.5); RED CELL DISTRIBUTION WIDTH SD 49.7 fL (36.4-46.3); WHITE BLOOD COUNT 6.98 K/uL (4.8-10.8)
[2018-04-02 16:25] LABS: INR 1.1 (0.9-1.1); PTT PATIENT 31.3 SECONDS (21.0-31.0)
[2018-04-02] MEDS ORDERED: CLOP1TAB15 PO (16:25)
[2018-04-02] MEDS ORDERED: FURO-85 PO (16:27)
[2018-04-02] MEDS ORDERED: CLONIDINE HCL 0.1 MG TAB PO ONE (16:30)
[2018-04-02] MEDS ORDERED: ISOS30TA3 PO (16:35)
[2018-04-02] MEDS ORDERED: ROSU40TA PO (16:40)
[2018-04-02 16:57] LABS: POTASSIUM 3.7 mmol/L (3.5-5.1)
[2018-04-02] MEDS ORDERED: HydrALAZINE HCL 20 MG/ML VIAL IV. STA (17:04)
[2018-04-02 17:09] LABS: ALBUMIN 3.5 gm/dl (3.4-5.0); CALCIUM 8.9 mg/dl (8.5-10.1); CREATININE 0.76 mg/dl (0.60-1.20); TOTAL PROTEIN 8.1 gm/dl (6.4-8.2)
[2018-04-02] MEDS ORDERED: FUROSEMIDE INJ 20 MG in SYRINGE 0 ML IV ONE (17:15)
[2018-04-02 17:16] VITALS: PULSE 68; O2SAT 96
[2018-04-02] MEDS ORDERED: FUROSEMIDE 40 MG/4 ML VIAL ONE (17:25)
[2018-04-02] MEDS ORDERED: PANT40TA PO (18:11)
[2018-04-02] MEDS ORDERED: ACETAMINOPHEN 325 MG TAB PO PRN (18:30)
[2018-04-02] MEDS ORDERED: ALBUTEROL HFA 8 GM INHALER INH PRN (18:45)
[2018-04-02 19:45] VITALS: BP_SYST 205; BP_SYST 213; BP_DIAS 65; BP_DIAS 67; PULSE 77; TEMP 36.7; O2SAT 93; Ht 167.6 cm; Wt 77.7 kg
[2018-04-02 20:20] VITALS: BP 168/85; PULSE 55
--- NOTE | 2018-04-02 20:51 | History and Physical ---
History & Physical Date & Time of Service: Apr 02, 2018 at 18:22 Chief Complaint: Chest Pain, Referred By Dr. Pierce Primary Care Physician: Dustin Pierce D.O. History of Present Illness Source: patient, spouse, clinic records, hospital records Pt is 82 y/o F with PMH labile hypertension, CAD s/p stent RCA in 2004, HLD, chronic diastolic CHF, CVA in 2017, GERD, IBS, depression presented to ER with complaint of constant aching chest pain and exertional shortness of breath x 3 days. Becoming SOB with few steps with palpations, then improves with sitting. Patient states last week noticed increased lower extremity edema, she since has been trying to keep legs elevated and wearing compression stockings and taking her 20 mg Lasix daily and reports noticed some improvement of edema over the weekend. Patient states sleeps chronically elevated has not noticed increased orthopnea. She reports that she weighs herself daily and has not noticed any significant weight changes. Today missed her noon dose of hydralazine. Otherwise denies any missed medications. She takes her BP at least once a day, reports morning SBP 110-120's and increases throughout the day to SBP 170's. Patient reports uses oxygen 2 L at at bedtime. Reports chronic upper and low back pain and denies any recent worsening. Denies fever/chills, diaphoresis, N/V /D/C, NICOLE, dizziness, syncope, vision changes, neck pain, cough, sore throat, choking, rhinorrhea, abdominal pain, paresthesias, increased weakness, extremity weakness, rashes, urinary symptoms. Today in ER her BP R arm: 200/70. BP L arm: 199/77 Past Medical/Surgical History Medical Problems: (1) Arthritis Status: Chronic (2) CAD (coronary artery disease) Permanent Comment: hx PCI stent to RCI cath 2004 - % RCA stenosis s/p intervention, 50% LAD stenosis dobutamine stress 05/01/15 - negative for ischemia Status: Chronic (3) CVA (cerebral vascular accident) Status: Chronic (4) Depression Status: Chronic (5) Diastolic dysfunction Permanent Comment: echo 04/1815 - grade II diastolic dysfunction, mild valvular disease Status: Chronic (6) Dyslipidemia Status: Chronic (7) GERD (gastroesophageal reflux disease) Status: Chronic (8) HTN (hypertension) Status: Chronic (9) Pulmonary HTN Permanent Comment: echo 05/01/15 - severe pulmonary HTN measured at 68mm Hg Status: Chronic (10) Right radial fracture Permanent Comment: s/p ORIF Status: Chronic (11) TIA (transient ischemic attack) Permanent Comment: 1977 Status: Chronic Surgical Problems: (1) Cystocele with rectocele Permanent Comment: s/p repair Status: Chronic (2) History of hysterectomy Status: Chronic (3) S/P cholecystectomy Status: Chronic (4) Status post cardiac catheterization Status: Chronic (5) Status post coronary artery stent placement Status: Chronic Family History FHx: diabetes FHx: gallbladder disease FHx: heart disease FHx: hypertension FHx: lung disease Social History Smoking Status: Never Smoker Smokeless Tobacco Use: No Alcohol Use: none Drug Use: none Marital Status: Housing status: lives with significant other Occupational Status: retired Immunizations History of Influenza Vaccine: Yes Influenza Vaccine Date: May 12, 2014 History of Tetanus Vaccine?: Yes Tetanus Immunization Date: Oct 15, 2007 History of Pneumococcal: Yes Pneumococcal Date: Apr 21, 2000 History of Hepatitis B Vaccine: Unknown Allergies Coded Allergies: Iodine (Verified Allergy, Intermediate, HIVES, 11/30/16) Ciprofloxacin (Verified Allergy, Unknown, ., 11/30/16) Tramadol (Verified Allergy, Unknown, 0, 11/30/16) Home Medications Scheduled Aspirin (Aspirin Ec), 81 MG PO DAILY Carvedilol (Coreg), 3.125 MG PO BID Clopidogrel (Plavix), 75 MG PO DAILY Escitalopram (Lexapro), 20 MG PO EVENING MEAL Furosemide (Lasix), 20 MG PO DAILY Home O2 Therapy (Oxygen), 2 LITERS NA HS Hydralazine Hcl (Apresoline), 75 MG PO QID Isosorbide Mononitrate Ext Rel (Imdur Ext Rel), 30 MG PO QAM Losartan Potassium (Cozaar), 100 MG PO QAM Ocuvite Preservision (Ocuvite Preservision), 1 TAB PO DAILY Pantoprazole (Protonix), 40 MG PO DAILY Rosuvastatin Calcium (Crestor), 40 MG PO DAILY Terazosin Hcl (Hytrin), 1 MG PO HS Vitamins W/ Lipotropics (Lipoflavonoid), 1 TAB PO 3XWK Scheduled PRN Albuterol Hfa (Ventolin Hfa), 2 PUFFS INH Q4 PRN for Wheezing Clonidine Hcl (Catapres), 0.1 MG PO TID PRN for SBP >180 Meloxicam (Mobic), 7.5 MG PO DAILY PRN for Pain Review of Systems See HPI for pertinent positives & negatives. All other systems reviewed and were otherwise negative Physical Exam Vital Signs Date Time Temp Pulse Resp B/P (MAP) Pulse Ox O2 Delivery O2 Flow Rate FiO2 04/02/18 17:31 61 21 224/73 96 BiPAP 04/02/18 17:16 68 96 30 04/02/18 16:33 Nasal Cannula 3.0 04/02/18 16:13 65 22 220/103 93 Nasal Cannula 3.0 04/02/18 16:08 69 22 233/93 95 Nasal Cannula 3.0 04/02/18 15:23 73 04/02/18 15:22 92 Nasal Cannula 2.0 04/02/18 15:22 92 Nasal Cannula 2.0 04/02/18 15:07 36.7 83 18 239/72 87 Room Air General Appearance: WD/WN, + pertinent finding (currently with bipap on and does not appear to be in any respiratory distress) Head: normocephalic, atraumatic Eyes: normal inspection, sclerae normal ENT: hearing grossly normal, + pertinent finding (mucous membranes moist) Neck: supple, trachea midline Respiratory/Chest: + crackles (bases), + pertinent finding (currently with bipap on and does not appear to be in any respiratory distress, no accessory muscle use) Cardiovascular: regular rate, rhythm, + systolic murmur Abdomen/GI: normal bowel sounds, non tender, soft Extremities/Musculoskelatal: normal capillary refill, non-tender, + pedal edema (2+ pretibial pitting edema BLE) Neurologic/Psych: alert, normal mood/affect, oriented x 3 Skin: warm/dry Diagnostics Laboratory Results Results Past 24 Hours Test 04/02/18 16:00 Range/Units White Blood Count 6.98 4.8-10.8 K/uL Red Blood Count 3.80 4.2-5.4 M/uL Hemoglobin 11.6 12.0-16.0 g/dL Hematocrit 35.8 37-47 % Mean Corpuscular Volume 94.2 80-100 fL Mean Corpuscular Hemoglobin 30.5 25-34 pg Mean Corpuscular Hemoglobin Concent 32.4 32-36 g/dl Platelet Count 144 130-400 K/uL Mean Platelet Volume 10.7 7.4-10.4 fL Neutrophils (%) (Auto) 62.6 % Lymphocytes (%) (Auto) 21.3 % Monocytes (%) (Auto) 8.7 % Eosinophils (%) (Auto) 6.9 % Basophils (%) (Auto) 0.4 % Neutrophils # (Auto) 4.36 1.4-6.5 K/uL Lymphocytes # (Auto) 1.49 1.2-3.4 K/uL Monocytes # (Auto) 0.61 0.11-0.59 K/uL Eosinophils # (Auto) 0.48 0-0.5 K/uL Basophils # (Auto) 0.03 0-0.2 K/uL RDW Standard Deviation 49.7 36.4-46.3 fL RDW Coefficient of Variation 14.6 11.5-14.5 % Immature Granulocyte % (Auto) 0.1 % Immature Granulocyte # (Auto) 0.01 0.00-0.02 K/uL Prothrombin Time 11.4 9.0-12.0 SECONDS Prothromb Time International Ratio 1.1 0.9-1.1 Activated Partial Thromboplast Time 31.3 21.0-31.0 SECONDS Partial Thromboplastin Ratio 1.2 Sodium Level 141 136-145 mmol/L Potassium Level 3.7 3.5-5.1 mmol/L Chloride Level 103 98-107 mmol/L Carbon Dioxide Level 30 21-32 mmol/L Anion Gap 8.0 3-11 mmol/L Blood Urea Nitrogen 14 7-18 mg/dl Creatinine 0.76 0.60-1.20 mg/dl Est Creatinine Clear Calc Drug Dose 59.5 ml/min Estimated GFR () 84.1 Estimated GFR (Non- 72.5 BUN/Creatinine Ratio 18.5 10-20 Random Glucose 114 70-99 mg/dl Calcium Level 8.9 8.5-10.1 mg/dl Total Bilirubin 0.6 0.2-1 mg/dl Direct Bilirubin 0.2 0-0.2 mg/dl Aspartate Amino Transf (AST/SGOT) 25 15-37 U/L Alanine Aminotransferase (ALT/SGPT) 19 12-78 U/L Alkaline Phosphatase 81 45-117 U/L Troponin I 0.028 0-0.045 ng/ml Pro-B-Type Natriuretic Peptide 921 0-1800 pg/ml Total Protein 8.1 6.4-8.2 gm/dl Albumin 3.5 3.4-5.0 gm/dl Lipase 81 73-393 U/L Diagnostic Radiology CXR: IMPRESSION: 1. Cardiomegaly with volume overload and possible developing pulmonary edema. 2. Prominence of the bilateral rosetta may be vascular in etiology though underlying lymphadenopathy is not excluded. EKG EKG: sinus rhythm, rate 83, t wave flattening V1, ST depression lateral Impression Assessment and Plan Pt is 82 y/o F with PMH labile hypertension, CAD s/p stent RCA in 2004, HLD, chronic diastolic CHF, CVA in 2016, GERD, IBS, depression presented to ER with complaint of constant aching chest pain and exertional shortness of breath x 3 days HTN EMERGENCY CHEST PAIN R/O ACS - risk factors: hx CAD, HTN, HLD FLUID OVERLOAD/HYPOXIA H/O LABILE HTN In ER patient given her routine dose hydralazine 75 mg p.o., aspirin 325 mg, metronidazole 3, clonidine, hydralazine 10 mg IV, Lasix 20 mg IV and BP went from 239/72 down to 200/70 in right arm and 199/77 and left arm. Initial pulse 83 down to 60. Patient was hypoxic at 87% on room air, up to 93% on 3 L NC and then was placed on BiPAP. After nitro patient with resolution of CP. After Lasix patient starting to diurese and is having less shortness of breath. Initial troponin: 0.028. BNP: 921, CXR: Cardiomegaly with volume overload -Hx echo 09/2017: EF: 55-59%, grade 1 diastolic dysfunction, moderate mitral regurgitation, mild tricuspid regurgitation, mild pulmonary regurgitation -BP down to 186/75 -Patient off BiPAP and sating well on room air at 95% -Admit telemetry -monitor I&O's, daily weight -Nitro paste, and hold pt's imdur for now -Lasix 20 mg IV twice daily -Supplemental oxygen per protocol -Continue patient's home carvedilol, clonidine, hydralazine, losartan, terazosin -trend troponin -Continue statin, Plavix, aspirin -Cardiology consult -Defer echo at this time to cardiology recommendations -monitor electrolytes H/O NOCTURNAL HYPOXIA -Continue oxygen 2 L at bedtime H/O CVA No residual effects. Denies headache, dizziness, vision changes, weakness. No focal deficits on exam -Continue aspirin, Plavix HLD -Continue statin GERD -Continue PPI DEPRESSION -Continue escitalopram DVT Prophylaxis -heparin SQ Admit tele Full Code as per discussion with pt Follows with Dr Pierce for routine care Pt was seen with Dr Moreira. See addendum Resuscitation Status VTE Prophylaxis Will order VTE Prophylaxis: Yes Note ATTENDING ADDENDUM Record reviewed. Patient interviewed and examined. Care coordinated with Court Rose PA-C. Please refer to her documentation for patient's history. Briefly, 82 YO F with history of CAD, labile hypertension, and other problems. Presented to ED with CP, SOB, elevated BP's. EXAM: General- no distress Lungs- clear to auscultation; no respiratory distress Cardiovascular- RRR; III/ systolic murmur at base and LSB; + S4, no S3; + JVD ; 1+ pretibial edema Abdomen- + bowel sounds, soft, nontender Extremities- no cyanosis; no calf tenderness Neuro- alert, oriented Skin- warm & dry DATA: Troponin 0.028. Other lab studies as noted. Chest x-ray reviewed and demonstrated cardiomegaly, pulmonary edema. EKG performed at 15:05 reviewed and demonstrated NSR at 80 / minute, LVH, NSSTTWA's. ASSESSMENT AND PLAN: CHEST PAIN Known CAD. Check serial cardiac markers. Continue aspirin, clopidogrel, carvedilol, nitrates, statin. HYPERTENSIVE URGENCY History labile hypertension. BP's improved. Continue carvedilol, losartan, hydralazine, nitrates, terazosin, clonidine. Follow and titrate Rx. CHF Last echo Sep 2017 demonstrated LVEF 55-59%, grade I diastolic dysfunction. Probable acute on chronic left ventricular diastolic heart failure. Received IV furosemide in ED. Continue furosemide 20 mg IV BID. ? recheck echo- will defer to Cardiology. Please refer to DEBBIE Fuentes's documentation for discussion of other issues. Quirino Moreira MD . Additional Copies To Dustin Pierce D.O.
[2018-04-02] MEDS: CARVEDILOL 3.125 MG TAB PO SCH (21:00)
[2018-04-02] MEDS: NITROGLYCERIN 2% OINTMENT 30GM TUBE EXT SCH (21:09)
[2018-04-02] MEDS: OXYCODONE/ACETAMINOPHEN 5-325 TAB PO PRN (21:09)
[2018-04-02] MEDS: ESCITALOPRAM OXALATE 10 MG TAB PO SCH (21:10)
[2018-04-02] MEDS: HEPARIN SOD 5000 UNIT/0.5 ML CARP SQ SCH (21:15)
[2018-04-02 23:14] VITALS: BP 158/64; PULSE 63; TEMP 36.8; O2SAT 93
[2018-04-03] VITALS (8 sets, daily range): BP systolic 111–194; BP diastolic 49–68; PULSE 52–67; TEMP 36.6–36.9; O2SAT 90–96
[2018-04-03] MEDS: NITROGLYCERIN 2% OINTMENT 30GM TUBE EXT SCH ×4 (04:08→22:21)
[2018-04-03 04:38] LABS: HEMOGLOBIN 10.8 g/dL (12.0-16.0); MEAN CELL VOLUME 94.4 fL (80-100); MEAN CORPUSCULAR HGB CONC 31.8 g/dl (32-36); MEAN PLATELET VOLUME 10.2 fL (7.4-10.4); PLATELET COUNT 132 K/uL (130-400); RED CELL DISTRIBUTION WIDTH CV 14.7 % (11.5-14.5); RED CELL DISTRIBUTION WIDTH SD 50.5 fL (36.4-46.3); WHITE BLOOD COUNT 6.41 K/uL (4.8-10.8)
[2018-04-03 04:57] LABS: CALCIUM 8.5 mg/dl (8.5-10.1); CREATININE 0.68 mg/dl (0.60-1.20); POTASSIUM 3.6 mmol/L (3.5-5.1)
[2018-04-03] MEDS: HEPARIN SOD 5000 UNIT/0.5 ML CARP SQ SCH ×3 (06:06→22:00)
[2018-04-03] MEDS: OXYCODONE/ACETAMINOPHEN 5-325 TAB PO PRN ×3 (07:28→21:01)
[2018-04-03] MEDS: POLYETHYLENE (MIRALAX) 17 GM PACK PO PRN (07:29)
[2018-04-03] MEDS: CLONIDINE HCL 0.1 MG TAB PO PRN ×2 (07:29→15:44)
[2018-04-03] MEDS: ASPIRIN 81 MG ECTAB PO SCH (07:31)
[2018-04-03] MEDS: CARVEDILOL 3.125 MG TAB PO SCH ×2 (07:32→19:46)
[2018-04-03] MEDS: POTASSIUM CHLORIDE 20 MEQ TABCR PO SCH (07:32)
[2018-04-03] MEDS: CLOPIDOGREL BISULFATE 75 MG TAB PO SCH (07:33)
[2018-04-03] MEDS: ISOSORBIDE MONONITRATE 30 MG TABCR PO SCH (07:33)
[2018-04-03] MEDS: LOSARTAN POTASSIUM 50 MG TAB PO SCH (07:34)
[2018-04-03] MEDS: PANTOprazole SOD 40 MG TAB PO SCH (07:34)
[2018-04-03] MEDS: CEROVITE ADV FORMULA TAB PO SCH (07:34)
[2018-04-03] MEDS: FUROSEMIDE INJ 20 MG in SYRINGE 0 ML IV SCH ×2 (07:35→15:44)
[2018-04-03] MEDS: ROSUVASTATIN CALCIUM 20 MG TAB PO SCH (07:35)
--- NOTE | 2018-04-03 10:28 | Clinical Documentation Query ---
CLINICAL DOCUMENTATION QUERY Dr. GOMEZ, In your clinical opinion is this patient being managed for: ( X) Chronic kidney disease, stage 2 ( ) Not Agree ( ) Other explanation of clinical findings (No explanation is considered a No Response) ( ) Unable to determine ( ) Need to Discuss (Phone CDS or qliq) (No discussion is considered a No Response) The medical record reflects the following clinical findings, treatment, and risk factors. Clinical Indicators: 82 yo female presenting with probable acute on chronic diastolic CHF. Review of historical GFR revealed a range of 69.7-84.6. Treatment: Monitor PRP's, treat comorbid conditions Risk Factors: age, CAD, CVA, HTN, pulmonary HTN, chronic diastolic CHF Please clarify and document your clinical opinion in the progress notes and discharge summary. Terms such as "probable", "suspected", "likely", "questionable", "possible", or "still to be ruled out" are acceptable. IF IN AGREEMENT, YOU MUST DOCUMENT ABOVE DIAGNOSTIC STATEMENT IN DAILY PROGRESS NOTES AND DISCHARGE SUMMARY. This document is not part of the patient's record. Thank You, Dionna Darby RN [phone]
--- NOTE | 2018-04-03 11:21 | Cardiology Consultation ---
Cardiology Consultation Date of Consultation: Apr 03, 2018 Requesting Physician: Court Fuentes PA-C/Dr. Moreira Attending [employer] Consultant: Fan (Harry Johnson PA-C) History of Present Illness Mrs. Santos is a very pleasant yet medically complex 82 year old female who is being seen at the request of Court Fuentes PA-C/Dr. Moreira. Reasons for consultation include hypertension and chest pain. The patient was in her usual state of health until . She notes making peach preserves. During this event, and more so after said activity, she experienced acute on chronic back and acute on chronic chest pain then observed uncontrolled blood pressure readings on home monitoring. She also notes ongoing postherpetic neuralgia pain and increased stressors at home, Adriel with his own extensive medical issues. She eventually presented to the ER with chest pain, back pain, increased dyspnea x 3 days and increased lower extremity edema. The chest pain is substernal and radiates outwards bilaterally; it is definitely reproduced with palpation of the chest. Blood pressure on presentation to the ER was 239/ 72. She was given 75 mg of oral hydralazine as she missed her normal dose of said medication, 10 mg of IV hydralazine, nitro paste, 0.1 mg of Clonodine, 20 mg of IV furosemide, and 81 mg of Aspirin. EKG on presentation revealed normal sinus rhythm at 83 bpm with no acute changes. Troponin negative 3. Pro-B- Natriuretic Peptide was normal at 921 pg/mL. Follow-up EKG performed this morning reveals sinus bradycardia with premature atrial complexes and left ventricular hypertrophy. Continuous telemetry monitoring reveals sinus/sinus bradycardia in the 50's and 60's with occasional premature ectopic beats. This morning she feels improved in regards to dyspnea and fluid retention. She received a Percocet at 07:28 this morning; there has been significant improvement in her blood pressure thereafrer, down to 111/49 at 09:23 AM. (Harry Johnson PA-C) Past Medical/Surgical History Problem List: Ischemic heart disease S/P PCI stent to RCA. August 2004 cardiac catheterization demonstrating a 90% RCA stenosis status post intervention and a 50% LAD stenosis Normal renal arteries at the time of August 2004 cardiac catheterization. Recurrent chest and jaw discomfort, non cardiac, possibly related to cervical arthritis and discogenic disease. Hyperlipidemia. Longstanding labile hypertension. Diastolic congestive heart failure History of TIA, CVA in November 2016 Mitral regurgitation GERD. Gastritis. History of GI bleeding. Polyarteritis. Depression Cholecystectomy. Total hysterectomy. Cystocele and vaginal repair. (Haryr Johnson PA-C) Family History Mother with bladder cancer. Father with NV at 52. Sister had a brain tumor. Another sister had lung CVA. Brother with CVA, CHF. (Harry Johnson PA-C) FHx: diabetes FHx: gallbladder disease FHx: heart disease FHx: hypertension FHx: lung disease (Riccardo Chavira D.O.) Social History Nonsmoker. No alcohol. No drugs. to Adriel, 3 grown children (one local) . Retired. (Harry Johnson PA-C) Review Of Systems Complete Review of Systems is as stated above, negative, or noncontributory. (Harry Johnson PA-C) Allergies Coded Allergies: Iodine (Verified Allergy, Intermediate, HIVES, 11/30/16) Ciprofloxacin (Verified Allergy, Unknown, ., 11/30/16) Tramadol (Verified Allergy, Unknown, 0, 11/30/16) Medications Reported Home Medications Medications Dose Route/Sig Max Daily Dose Days Date Category Dose Instructions Protonix (Pantoprazole Sodium) 40 Mg Tab 40 Mg PO DAILY 04/02/18 Reported Crestor (Rosuvastatin Calcium) 40 Mg Tab 40 Mg PO DAILY 04/02/18 Reported Imdur Ext Rel (Isosorbide Mononitrate) 30 Mg Ertab 30 Mg PO QAM 04/02/18 Reported Lasix (Furosemide) 20 Mg Tab 20 Mg PO DAILY 04/02/18 Reported Plavix (Clopidogrel Bisulfate) 75 Mg Tab 75 Mg PO DAILY 04/02/18 Reported Ventolin Hfa (Albuterol) 200 Puffs/97376 Mcg Aers 2 Puffs INH Q4 PRN 11/30/16 Reported Mobic (Meloxicam) 7.5 Mg Tab 7.5 Mg PO DAILY PRN 11/30/16 Reported Lipoflavonoid (Vitamins W/ Lipotropics) 1 Tab Tab 1 Tab PO 3XWK 05/26/15 Reported TAKE ON MONDAY/MONDAY/MONDAY. Coreg (Carvedilol) 6.25 Mg Tab 3.125 Mg PO BID 05/26/15 Reported Hytrin (Terazosin Hcl) 1 Mg Cap 1 Mg PO HS 05/26/15 Reported Cozaar (Losartan Potassium) 100 Mg Tab 100 Mg PO QAM 10/01/13 Reported Lexapro (Escitalopram Oxalate) 10 Mg Tab 20 Mg PO EVENING MEAL 09/27/13 Reported TAKE TWO 10MG TABLETS Aspirin Ec (Aspirin) 81 Mg Tab 81 Mg PO DAILY 09/27/13 Reported Oxygen Gas 2 Liters NA HS 09/23/13 Reported Catapres (Clonidine Hcl) 0.1 Mg Tab 0.1 Mg PO TID PRN 09/23/13 Reported pt takes TID Ocuvite Preservision (Multivitamins/Minerals) 1 Tab Tab 1 Tab PO DAILY 09/23/13 Reported Apresoline (Hydralazine Hcl) 50 Mg Tab 75 Mg PO QID 09/23/13 Reported TAKE ONE AND A HALF OF A 50MG TABLET (Harry Johnson PA-C) Physical Exam Vital Signs (Last 8hrs): Last 8 Hrs Date Time Temp Pulse Resp B/P (MAP) Pulse Ox O2 Delivery O2 Flow Rate FiO2 04/03/18 09:23 66 111/49 (69) 94 04/03/18 08:00 Nasal Cannula 2.0 04/03/18 07:08 36.9 67 20 186/68 (107) 93 Nasal Cannula 2.0 194/64 (107) 04/03/18 03:58 36.7 64 17 166/64 (98) 95 Nasal Cannula 2.0 General: Alert and Oriented x3. NAD. HEENT: Normocephalic Atraumatic. PER, EOMI, conjunctiva and sclera clear Neck: No JVD. No HJD. Bilateral carotid bruits. Respiratory: Breath sounds clear to auscultation bilaterally. No w/r/r. Cardiovascular: Regular at 52 bpm. Soft apical systolic murmur. No diastolic murmur. No rub. Chest: Chest discomfort is reproduced with palpation of the chest. Abdomen: +BS. No abdominal bruits. Soft. Nontender. Extremities: Trace edema. No clubbing. No cyanosis. Distal pulses 1-2/4 bilaterally. Neuro: No focal deficits. Psychiatric: Normal affect. (Harry Johnson PA-C) Data Last 24 Hours Test 04/02/18 16:00 04/02/18 22:01 04/03/18 04:09 White Blood Count 6.98 K/uL 6.41 K/uL Red Blood Count 3.80 M/uL 3.60 M/uL Hemoglobin 11.6 g/dL 10.8 g/dL Hematocrit 35.8 % 34.0 % Mean Corpuscular Volume 94.2 fL 94.4 fL Mean Corpuscular Hemoglobin 30.5 pg 30.0 pg Mean Corpuscular Hemoglobin Concent 32.4 g/dl 31.8 g/dl Platelet Count 144 K/uL 132 K/uL Mean Platelet Volume 10.7 fL 10.2 fL Neutrophils (%) (Auto) 62.6 % Lymphocytes (%) (Auto) 21.3 % Monocytes (%) (Auto) 8.7 % Eosinophils (%) (Auto) 6.9 % Basophils (%) (Auto) 0.4 % Neutrophils # (Auto) 4.36 K/uL Lymphocytes # (Auto) 1.49 K/uL Monocytes # (Auto) 0.61 K/uL Eosinophils # (Auto) 0.48 K/uL Basophils # (Auto) 0.03 K/uL RDW Standard Deviation 49.7 fL 50.5 fL RDW Coefficient of Variation 14.6 % 14.7 % Immature Granulocyte % (Auto) 0.1 % Immature Granulocyte # (Auto) 0.01 K/uL Prothrombin Time 11.4 SECONDS Prothromb Time International Ratio 1.1 Activated Partial Thromboplast Time 31.3 SECONDS Partial Thromboplastin Ratio 1.2 Sodium Level 141 mmol/L 140 mmol/L Potassium Level 3.7 mmol/L 3.6 mmol/L Chloride Level 103 mmol/L 104 mmol/L Carbon Dioxide Level 30 mmol/L 31 mmol/L Anion Gap 8.0 mmol/L 5.0 mmol/L Blood Urea Nitrogen 14 mg/dl 14 mg/dl Creatinine 0.76 mg/dl 0.68 mg/dl Est Creatinine Clear Calc Drug Dose 59.5 ml/min 65.9 ml/min Estimated GFR () 84.1 93.8 Estimated GFR (Non- 72.5 80.9 BUN/Creatinine Ratio 18.5 21.4 Random Glucose 114 mg/dl 105 mg/dl Calcium Level 8.9 mg/dl 8.5 mg/dl Total Bilirubin 0.6 mg/dl Direct Bilirubin 0.2 mg/dl Aspartate Amino Transf (AST/SGOT) 25 U/L Alanine Aminotransferase (ALT/SGPT) 19 U/L Alkaline Phosphatase 81 U/L Troponin I 0.028 ng/ml 0.042 ng/ml 0.040 ng/ml Pro-B-Type Natriuretic Peptide 921 pg/ml Total Protein 8.1 gm/dl Albumin 3.5 gm/dl Lipase 81 U/L Nucleated RBC Absolute Count (auto) 0.00 K/uL Nucleated Red Blood Cells % 0.0 % Magnesium Level 2.0 mg/dl Admission CXR, as per Dr. Huertas, revealed cardiomegaly with volume overload and possible developing pulmonary edema. Prominence of the bilateral rosetta noted with underlying lymphadenopathy not excluded. EKG's: See above. Telemetry: See above. (Harry Johnson PA-C) Assessment & Plan ASSESSMENT: 1. Presentation with chest discomfort and acute on chronic dyspnea felt to be multifactorial in etiology 2. Hypertensive emergency. Blood pressure has significantly improved, down to 111/49 this morning, after diuresis and two hours after administration of Percocet. 3. Musculoskeletal chest discomfort seemingly aggravated by making peach preserves. Reproducible with palpation of the chest pain. EKG's without acute change. Troponin negative. 4. Acute decompensated diastolic congestive heart failure. Considerably improved following two doses of 20 mg IV furosemide. RECOMMENDATIONS: 1. Update resting echocardiography to assess LV systolic function and current valvular status. 2. Hold IV furosemide AFTER the second dose today. 3. There is room to increase isosorbide and terazosin if needed for additional blood pressure control 4. Note: Bradycardia will not allow for titration of Carvedilol. (Harry Johnson PA-C) Cardiology attending: Pt seen and examined, agree with findings and assessment as per Harry Shukla. BP now normalized with pain control. Chest pain appears to be musculoskeletal, would cont pain control. Cont outpatient antihypertensives, may increase as outlined for elevated BP. Echo pending. (Riccardo Chavira D.O.)
--- NOTE | 2018-04-03 13:55 | Progress Note ---
Medicine Progress Note Date & Time of Visit: Apr 03, 2018 at 13:49. Subjective seen resting in bed, comfortable states she feels improved compared to yesterday chest pain free no active dyspnea, headache, dizziness no other symptoms Objective Last 8 Hrs Date Time Temp Pulse Resp B/P (MAP) Pulse Ox O2 Delivery O2 Flow Rate FiO2 04/03/18 11:42 36.6 52 18 130/50 (76) 96 04/03/18 09:23 66 111/49 (69) 94 04/03/18 08:00 Nasal Cannula 2.0 04/03/18 07:08 36.9 67 20 186/68 (107) 93 Nasal Cannula 2.0 194/64 (107) Physical Exam: General- oriented x 3, not in distress, speaks in sentences with no effort Head- atraumatic Eyes- anicteric ENT- oropharynx clear Neck- no JVD Lungs- clear breath sounds bilaterally, no rales/wheezes Heart- regular rhythm; no murmur, normal rate Abdomen- normal bowel sounds, soft, nontender Extremities- no pretibial edema, no calf tenderness; peripheral pulses intact Neuro- alert, oriented x 3; no gross focal deficits Skin- warm & dry Laboratory Results: Last 24 Hours Test 04/02/18 16:00 04/02/18 22:01 04/03/18 04:09 White Blood Count 6.98 K/uL 6.41 K/uL Red Blood Count 3.80 M/uL 3.60 M/uL Hemoglobin 11.6 g/dL 10.8 g/dL Hematocrit 35.8 % 34.0 % Mean Corpuscular Volume 94.2 fL 94.4 fL Mean Corpuscular Hemoglobin 30.5 pg 30.0 pg Mean Corpuscular Hemoglobin Concent 32.4 g/dl 31.8 g/dl Platelet Count 144 K/uL 132 K/uL Mean Platelet Volume 10.7 fL 10.2 fL Neutrophils (%) (Auto) 62.6 % Lymphocytes (%) (Auto) 21.3 % Monocytes (%) (Auto) 8.7 % Eosinophils (%) (Auto) 6.9 % Basophils (%) (Auto) 0.4 % Neutrophils # (Auto) 4.36 K/uL Lymphocytes # (Auto) 1.49 K/uL Monocytes # (Auto) 0.61 K/uL Eosinophils # (Auto) 0.48 K/uL Basophils # (Auto) 0.03 K/uL RDW Standard Deviation 49.7 fL 50.5 fL RDW Coefficient of Variation 14.6 % 14.7 % Immature Granulocyte % (Auto) 0.1 % Immature Granulocyte # (Auto) 0.01 K/uL Prothrombin Time 11.4 SECONDS Prothromb Time International Ratio 1.1 Activated Partial Thromboplast Time 31.3 SECONDS Partial Thromboplastin Ratio 1.2 Sodium Level 141 mmol/L 140 mmol/L Potassium Level 3.7 mmol/L 3.6 mmol/L Chloride Level 103 mmol/L 104 mmol/L Carbon Dioxide Level 30 mmol/L 31 mmol/L Anion Gap 8.0 mmol/L 5.0 mmol/L Blood Urea Nitrogen 14 mg/dl 14 mg/dl Creatinine 0.76 mg/dl 0.68 mg/dl Est Creatinine Clear Calc Drug Dose 59.5 ml/min 65.9 ml/min Estimated GFR () 84.1 93.8 Estimated GFR (Non- 72.5 80.9 BUN/Creatinine Ratio 18.5 21.4 Random Glucose 114 mg/dl 105 mg/dl Calcium Level 8.9 mg/dl 8.5 mg/dl Total Bilirubin 0.6 mg/dl Direct Bilirubin 0.2 mg/dl Aspartate Amino Transf (AST/SGOT) 25 U/L Alanine Aminotransferase (ALT/SGPT) 19 U/L Alkaline Phosphatase 81 U/L Troponin I 0.028 ng/ml 0.042 ng/ml 0.040 ng/ml Pro-B-Type Natriuretic Peptide 921 pg/ml Total Protein 8.1 gm/dl Albumin 3.5 gm/dl Lipase 81 U/L Nucleated RBC Absolute Count (auto) 0.00 K/uL Nucleated Red Blood Cells % 0.0 % Magnesium Level 2.0 mg/dl Assessment & Plan Pt is 82 y/o F with PMH labile hypertension, CAD s/p stent RCA in 2004, HLD, chronic diastolic CHF, CVA in 2017, GERD, IBS, depression presented to ER with complaint of constant aching chest pain and exertional shortness of breath x 3 days CHEST PAIN, ACUTE CORONARY SYNDROME RULED OUT HISTORY OF CORONARY ARTERY DISEASE troponin x 3: negative EKG: no acute ischemia Echo: pending Cardiology consulted likely secondary to Hypertensive Urgency HYPERTENSIVE URGENCY ACUTE ON CHRONIC DIASTOLIC CONGESTIVE HEARTY FAILURE - currently on Lasix 20mg IV BID diuresing well -Continue patient's home carvedilol, clonidine, hydralazine, losartan, terazosin - Cardiology consulted may increase ISMN or Terazosin as needed H/O NOCTURNAL HYPOXIA -Continue oxygen 2 L at bedtime H/O CVA No residual effects. Denies headache, dizziness, vision changes, weakness. No focal deficits on exam -Continue aspirin, Plavix HLD -Continue statin GERD -Continue PPI DEPRESSION -Continue escitalopram DVT Prophylaxis -heparin SQ Disposition lives at home with anticipate d/c home when medically stable Current Inpatient Medications: Current Inpatient Medications Medications (Trade) Dose Ordered Sig/Devin Route Start Time Stop Time Status Last Admin Dose Admin Nitroglycerin (Nitroglycerin 2% Oint) 1 inch Q6H EXT 04/02/18 22:00 05/02/18 21:59 04/03/18 09:24 1 INCH Heparin Sodium (Porcine) (Heparin Sq 5000 Unit/0.5ml) 5,000 unit Q8 SQ 04/02/18 22:00 05/02/18 21:59 04/03/18 06:06 5,000 UNIT Acetaminophen (Tylenol Tab) 650 mg Q4H PRN PO 04/02/18 18:30 05/02/18 18:29 Polyethylene (Miralax Powder Packet) 17 gm DAILY PRN PO 04/02/18 18:30 05/02/18 18:29 04/03/18 07:29 17 GM Albuterol (Ventolin Hfa Inhaler) 2 puffs Q4H PRN INH 04/02/18 18:45 05/02/18 18:44 Aspirin (Ecotrin Tab) 81 mg DAILY PO 04/03/18 09:00 05/03/18 08:59 04/03/18 07:31 81 MG Carvedilol (Coreg Tab) 3.125 mg BID PO 04/02/18 21:00 05/02/18 20:59 04/03/18 07:32 3.125 MG Clonidine HCl (Catapres Tab) 0.1 mg TID PRN PO 04/02/18 20:30 05/02/18 20:29 04/03/18 07:29 0.1 MG Clopidogrel Bisulfate (plAVix TAB) 75 mg DAILY PO 04/03/18 09:00 05/03/18 08:59 04/03/18 07:33 75 MG Escitalopram Oxalate (Lexapro Tab) 20 mg PM PO 04/02/18 21:00 05/02/18 20:59 04/02/18 21:10 20 MG Hydralazine HCl (Apresoline Tab) 75 mg QID PO 04/02/18 21:00 05/02/18 20:59 04/03/18 13:29 75 MG Isosorbide Mononitrate (Imdur Ext Rel Tab) 30 mg QAM PO 04/03/18 09:00 05/03/18 08:59 04/03/18 07:33 30 MG Losartan Potassium (coZAAR TAB) 100 mg QAM PO 04/03/18 09:00 05/03/18 08:59 04/03/18 07:34 100 MG Multivitamins/ Minerals (Multivitamin W/ Minerals Tab) 1 tab DAILY PO 04/03/18 09:00 05/03/18 08:59 04/03/18 07:34 1 TAB Pantoprazole Sodium (Protonix Tab) 40 mg DAILY PO 04/03/18 09:00 05/03/18 08:59 04/03/18 07:34 40 MG Rosuvastatin Calcium (Crestor Tab) 40 mg DAILY PO 04/03/18 09:00 05/03/18 08:59 04/03/18 07:35 40 MG Terazosin HCl (Hytrin Cap) 1 mg HS PO 04/02/18 21:00 05/02/18 20:59 04/02/18 21:12 1 MG Furosemide 20 mg/ Syringe 2 ml @ 4 mls/min BID17 IV 04/03/18 09:00 05/03/18 08:59 Future Hold 04/03/18 07:35 4 MLS/MIN Oxycodone/ Acetaminophen (Percocet 5-325mg Tab) 1 tab Q6H PRN PO 04/02/18 20:30 04/16/18 20:29 04/03/18 07:28 1 TAB Potassium Chloride (Klor-Con Tab) 20 meq QAM PO 04/03/18 09:00 05/03/18 08:59 04/03/18 07:32 20 MEQ
--- NOTE | 2018-04-03 15:56 | ECHOCARDIOGRAM REPORT ---
*NOTICE TO RECEIVING REPUBLICAN AGENCY This information is strictly Confidential and protected under [place] law. [place] law prohibits you from making any further disclosure of this information unless further disclosure is expressly permitted by the written consent of the person to whom it pertains or is authorized by law. A general authorization for the release of medical or other information is not sufficient for this purpose. Hospital accepts no responsibility if the information is made available to any other person, INCLUDING THE PATIENT. Interpretation Summary * Name: CAT MARTINEZ Study Date: 04/03/2018 12:44 PM BP: 130/50 mmHg * Patient Location: C.2T\S\S230\S\1 HR: 47 * : 1935 (M/d/yyyy) Gender: Female Height: 65 in * Age: 82 yrs Ethnicity: [place] Weight: 169 lb * Ordering Physician: Harry Johnson * Referring Physician: Dustin Pierce D.O. * Performed By: Otilia David RDCS * * Reason For Study: Chest Pain * BSA: 1.8 m2 * -- Conclusions -- * No significant change compared to previous study of 12/01/16. * Normal LV chamber size with severe concentric LVH. * Hyperdynamic LV systolic function, EF >70%. * No segmental left ventricular wall motion abnormalities are noted. * Grade III diastolic dysfunction. * Moderate mitral regurgitation. * Mild tricuspid regurgitation. * Moderate biatrial enlargement. Procedure Details * A complete two-dimensional transthoracic echocardiogram was performed (2D, M-mode, Doppler and color flow Doppler). Left Ventricle * The left ventricle is normal in size. * There is severe concentric left ventricular hypertrophy. * Ejection Fraction = 65-70%. * Left ventricular systolic function is normal. * No segmental left ventricular wall motion abnormalities are noted. * The left ventricular wall motion is normal. Right Ventricle * The right ventricular cavity size is normal (basal dimension <4.2 cm in right ventricular apical 4-chamber view). * The right ventricular systolic function is normal as assessed by tricuspid annular plane systolic excursion (TAPSE) (normal >1.5 cm). Atria * The left atrium is moderately dilated. * The right atrium is moderately dilated. * No ASD detected; PFO is not assessed. * The interatrial septum bows toward right atrium consistent with elevated left atrial pressure. Mitral Valve * The mitral valve anatomy is normal. * There is no mitral valve stenosis. * There is moderate mitral regurgitation. Tricuspid Valve * The tricuspid valve anatomy is normal. * There is no tricuspid stenosis. * There is mild tricuspid regurgitation. Aortic Valve * The aortic valve is normal in structure and function. Pulmonic Valve * The pulmonary valve is not well seen, but the Doppler examination is normal without significant regurgitation or stenosis. Great Vessels * The aortic root is normal size. Pericardium/Pleural * There is no pericardial effusion. Left Ventricular Diastolic Function * Diastolic dysfunction, Grade III (restrictive pattern), consistent with markedly increased left atrial pressure. MMode 2D Measurements and Calculations IVSd 1.7 cm IVSs 2.3 cm LVIDd 4.8 cm LVIDs 2.9 cm LVPWd 1.7 cm LVPWs 2.2 cm IVS/LVPW 0.99 FS 40.3 % EDV(Teich) 106.7 ml ESV(Teich) 31.0 ml EF(Teich) 70.9 % EDV(cubed) 109.5 ml ESV(cubed) 23.3 ml EF(cubed) 78.7 % % IVS thick 37.5 % % LVPW thick 30.5 % LV mass(C)d 353.2 grams LV mass(C)dI 191.8 grams/m\S\2 LV mass(C)s 306.5 grams LV mass(C)sI 166.5 grams/m\S\2 SV(Teich) 75.6 ml SI(Teich) 41.1 ml/m\S\2 SV(cubed) 86.2 ml SI(cubed) 46.8 ml/m\S\2 Ao root diam 3.2 cm Ao root area 8.1 cm\S\2 ACS 2.0 cm LA dimension 4.7 cm LA/Ao 1.5 LVAd ap4 30.1 cm\S\2 LVLd ap4 8.6 cm EDV(MOD-sp4) 94.0 ml EDV(sp4-el) 89.0 ml LVAs ap4 16.9 cm\S\2 LVLs ap4 6.9 cm ESV(MOD-sp4) 38.3 ml ESV(sp4-el) 35.2 ml EF(MOD-sp4) 59.2 % EF(sp4-el) 60.5 % LVAd ap2 28.2 cm\S\2 LVLd ap2 8.3 cm EDV(MOD-sp2) 85.3 ml EDV(sp2-el) 80.9 ml LVAs ap2 12.3 cm\S\2 LVLs ap2 6.5 cm ESV(MOD-sp2) 23.0 ml ESV(sp2-el) 19.8 ml EF(MOD-sp2) 73.1 % EF(sp2-el) 75.5 % LVLd %diff -3.43 % EDV(MOD-bp) 90.9 ml LVLs %diff -6.66 % ESV(MOD-bp) 29.5 ml EF(MOD-bp) 67.5 % SV(MOD-sp4) 55.7 ml SI(MOD-sp4) 30.2 ml/m\S\2 SV(MOD-sp2) 62.3 ml SI(MOD-sp2) 33.9 ml/m\S\2 SV(MOD-bp) 61.4 ml SI(MOD-bp) 33.3 ml/m\S\2 SV(sp4-el) 53.8 ml SI(sp4-el) 29.2 ml/m\S\2 SV(sp2-el) 61.1 ml SI(sp2-el) 33.2 ml/m\S\2 Doppler Measurements and Calculations MV E max higinio 142.1 cm/sec MV A max higinio 56.8 cm/sec MV E/A 2.5 MV dec time 0.22 sec Ao V2 max 168.9 cm/sec Ao max PG 11.4 mmHg Ao max PG (full) 2.0 mmHg LV V1 max PG 9.4 mmHg LV V1 max 153.7 cm/sec MR max higinio 558.2 cm/sec MR max PG 124.7 mmHg MR mean higinio 398.6 cm/sec MR mean PG 73.0 mmHg MR VTI 168.4 cm MR PISA 3.2 cm\S\2 MR PISA radius 0.72 cm PA V2 max 115.3 cm/sec PA max PG 5.3 mmHg PI max higinio 257.3 cm/sec PI max PG 26.5 mmHg PI dec slope 388.7 cm/sec\S\2 PI P1/2t 193.9 msec TR max higinio 322.6 cm/sec
[2018-04-03] MEDS: ESCITALOPRAM OXALATE 10 MG TAB PO SCH (19:48)
[2018-04-04 03:28] VITALS: BP 158/56; PULSE 65; TEMP 36.7; O2SAT 93
[2018-04-04] MEDS: NITROGLYCERIN 2% OINTMENT 30GM TUBE EXT SCH ×2 (05:33→10:00)
[2018-04-04] MEDS: HEPARIN SOD 5000 UNIT/0.5 ML CARP SQ SCH ×2 (05:33→14:00)
[2018-04-04 06:53] VITALS: BP 183/50; PULSE 65; TEMP 36.8; O2SAT 91
[2018-04-04] MEDS: OXYCODONE/ACETAMINOPHEN 5-325 TAB PO PRN (08:15)
[2018-04-04] MEDS: CARVEDILOL 3.125 MG TAB PO SCH (08:25)
[2018-04-04] MEDS: CLOPIDOGREL BISULFATE 75 MG TAB PO SCH (08:25)
[2018-04-04] MEDS: PANTOprazole SOD 40 MG TAB PO SCH (08:25)
[2018-04-04] MEDS: ASPIRIN 81 MG ECTAB PO SCH (08:25)
[2018-04-04] MEDS: POLYETHYLENE (MIRALAX) 17 GM PACK PO PRN (08:25)
[2018-04-04] MEDS: POTASSIUM CHLORIDE 20 MEQ TABCR PO SCH (08:25)
[2018-04-04] MEDS: ROSUVASTATIN CALCIUM 20 MG TAB PO SCH (08:26)
[2018-04-04] MEDS: CEROVITE ADV FORMULA TAB PO SCH (08:26)
[2018-04-04] MEDS: ISOSORBIDE MONONITRATE 30 MG TABCR PO SCH (08:26)
[2018-04-04] MEDS: LOSARTAN POTASSIUM 50 MG TAB PO SCH (08:26)
--- NOTE | 2018-04-04 09:28 | Cardiology Follow-Up ---
Subjective General Date of Service: Apr 04, 2018. Chief Complaint: Hypertensive urgency Pt evaluation today including: conversation w/ patient, physical exam, chart review, lab review, review of studies, review of inpatient medication list History of Present Illness Patient seen and examined. Feeling better overall. Blood pressure remains elevated. Typically takes Clonidine 0.1 mg in the morning, at supper, and bedtime. EKG this morning reveals sinus rhythm at 64 bpm with marked sinus arrhythmia, LVH, possible old anterior infarct. Telemetry: Currently sinus at 66 bpm. Atrial ectopy noted with short runs of atrial tachycardia. Bradycardia into the 40's overnight. April 03, 2018 TTE Interpretation Summary ([facility], Dr. Chavira): No significant change compared to previous study of 12/01/16. Normal LV chamber size with severe concentric LVH. Hyperdynamic LV systolic function, EF >70%. No segmental left ventricular wall motion abnormalities are noted. Grade III diastolic dysfunction. Moderate mitral regurgitation. Mild tricuspid regurgitation. Moderate biatrial enlargement. Allergies Coded Allergies: Iodine (Verified Allergy, Intermediate, HIVES, 11/30/16) Ciprofloxacin (Verified Allergy, Unknown, ., 11/30/16) Tramadol (Verified Allergy, Unknown, 0, 11/30/16) Social History Hx Tobacco Use In Past Year?: No Hx Alcohol Use - Type And Amou: No Hx Substance Use - Type And Am: Yes Problem List Medical Problems: (1) Hypertension Status: Acute Physical Exam Vital Signs Last Vital Signs Documentation Date Time Temp Pulse Resp B/P (MAP) Pulse Ox O2 Delivery O2 Flow Rate FiO2 04/04/18 06:53 36.8 65 20 183/50 (94) 91 Nasal Cannula 2.0 04/02/18 17:16 30 Physical Exam Constitutional: Level of Distress: NAD Psychiatric: Mental Status: active & alert Orientation: to time, to place, to person Memory: recent memory normal, remote memory normal Head: normocephalic, atraumatic Eyes: Pupils: PERRLA Neck: pertinent finding (No overt JVD) Lungs: Auscultation: no wheezing, no rhonchi, deminished air movement, decreased breath sounds, rales/crackles on the left Cardiovascular: Heart Auscultation: no rubs, II/ YAMIL, irregular rate rhythm Abdomen: Bowel Sounds: normal Inspection & Palpation: soft Liver: non-tender Extremities: no cyanosis, no edema, no clubbing Neurologic: Cranial Nerves: grossly intact Assessment and Plan Assessment and Plan Hypertensive urgency. Rebound hypertension. BP remains uncontrolled. Atypical, musculoskeletal, chest discomfort. Resolved. Acute decompensated diastolic congestive heart failure. Resolved. RECOMMENDATIONS: 1. Resume home dose of Clonidine, 0.1 mg three times per day. 2. Discontinue IV furosemide 3. Resume oral furosemide at 20 mg/day 4. Basic metabolic panel and chest x-ray this morning. 5. Bradycardia will not allow for titration of Carvedilol. 6. There is room to increase isosorbide and terazosin if needed down the road. Cardiology attending: Pt seen and examined, agree with findings and assessment as per Harry Shukla. Musculoskeletal chest pain now resolved and bp well controlled with resumption of home regimen. Ok to d/c to home from cardiac standpoint.
[2018-04-04] MEDS: CLONIDINE HCL 0.1 MG TAB PO SCH ×2 (09:49→12:57)
[2018-04-04 09:51] VITALS: BP 157/54; PULSE 64; O2SAT 91
[2018-04-04] MEDS ORDERED: FUROSEMIDE 20 MG TAB PO SCH (10:00)
[2018-04-04 10:15] LABS: CREATININE 0.83 mg/dl (0.60-1.20); POTASSIUM 3.9 mmol/L (3.5-5.1)
--- NOTE | 2018-04-04 10:25 | DIAGNOSTIC IMAGING REPORT ---
CHEST 2 VIEWS ROUTINE CLINICAL HISTORY: left basilar rales COMPARISON STUDY: April 02, 2018 FINDINGS: The heart remains enlarged. There is improving pulmonary vascular congestion. There is no focal pulmonary consolidation. No significant pleural effusions are visualized.[ IMPRESSION: Cardiomegaly and improving pulmonary vascular congestion. No evidence of focal pulmonary consolidation Electronically signed by: Bryan Alcala M.D. 04/04/2018 10:23 AM Dictated Date/Time: 04/04/2018 10:23 AM
[2018-04-04 10:39] VITALS: BP 157/54; PULSE 69
[2018-04-04 11:34] VITALS: BP 123/64; PULSE 59; TEMP 36.4; O2SAT 97
--- NOTE | 2018-04-04 12:11 | Progress Note ---
Medicine Progress Note Date & Time of Visit: Apr 04, 2018 at 12:01. Subjective seen resting in bed, sitting up comfortable states she feels much better overall denies chest pain, dyspnea, dizziness, palpitations no other symptoms Objective Last 8 Hrs Date Time Temp Pulse Resp B/P (MAP) Pulse Ox O2 Delivery O2 Flow Rate FiO2 04/04/18 10:39 69 04/04/18 09:51 64 16 157/54 (88) 91 Room Air 04/04/18 08:00 Nasal Cannula 2.0 04/04/18 06:53 36.8 65 20 183/50 (94) 91 Nasal Cannula 2.0 Physical Exam: General- oriented x 3, not in distress, speaks in sentences with no effort Lungs- clear breath sounds bilaterally Heart- regular rhythm; no murmur, normal rate Abdomen- normal bowel sounds, soft, nontender Extremities- no pretibial edema, no calf tenderness Neuro- alert, oriented x 3; no gross focal deficits Skin- warm & dry Laboratory Results: Last 24 Hours Test 04/04/18 09:42 Sodium Level 137 mmol/L Potassium Level 3.9 mmol/L Chloride Level 101 mmol/L Carbon Dioxide Level 32 mmol/L Anion Gap 4.0 mmol/L Blood Urea Nitrogen 18 mg/dl Creatinine 0.83 mg/dl Est Creatinine Clear Calc Drug Dose 54.0 ml/min Estimated GFR () 75.6 Estimated GFR (Non- 65.2 BUN/Creatinine Ratio 21.2 Random Glucose 168 mg/dl Calcium Level 9.0 mg/dl Assessment & Plan Pt is 82 y/o F with PMH labile hypertension, CAD s/p stent RCA in 2004, HLD, chronic diastolic CHF, CVA in 2017, GERD, IBS, depression presented to ER with complaint of constant aching chest pain and exertional shortness of breath x 3 days CHEST PAIN, ACUTE CORONARY SYNDROME RULED OUT HISTORY OF CORONARY ARTERY DISEASE troponin x 3: negative EKG: no acute ischemia Echo: -- Conclusions -- * No significant change compared to previous study of 12/01/16. * Normal LV chamber size with severe concentric LVH. * Hyperdynamic LV systolic function, EF >70%. * No segmental left ventricular wall motion abnormalities are noted. * Grade III diastolic dysfunction. * Moderate mitral regurgitation. * Mild tricuspid regurgitation. * Moderate biatrial enlargement. Cardiology consulted- Dr. Chavira and DEBBIE Acuñao felt to be Musculoskeletal follow up with [facility] [employer] as scheduled HYPERTENSIVE URGENCY ACUTE ON CHRONIC DIASTOLIC CONGESTIVE HEARTY FAILURE - given Lasix 20mg IV BID diuresed well -Continue patient's home carvedilol, clonidine, hydralazine, losartan, terazosin - Cardiology consulted may increase ISMN or Terazosin as needed H/O NOCTURNAL HYPOXIA -Continue oxygen 2 L at bedtime H/O CVA No residual effects. Denies headache, dizziness, vision changes, weakness. No focal deficits on exam -Continue aspirin, Plavix HLD -Continue statin GERD -Continue PPI DEPRESSION -Continue escitalopram DVT Prophylaxis -heparin SQ Disposition d/c home ff up with PCP Dr. Abreu Monday04/09/18 at 1045 am. ff up with Cardio as scheduled Current Inpatient Medications: Current Inpatient Medications Medications (Trade) Dose Ordered Sig/Devin Route Start Time Stop Time Status Last Admin Dose Admin Nitroglycerin (Nitroglycerin 2% Oint) 1 inch Q6H EXT 04/02/18 22:00 05/02/18 21:59 04/04/18 05:33 1 INCH Heparin Sodium (Porcine) (Heparin Sq 5000 Unit/0.5ml) 5,000 unit Q8 SQ 04/02/18 22:00 05/02/18 21:59 04/03/18 06:06 5,000 UNIT Acetaminophen (Tylenol Tab) 650 mg Q4H PRN PO 04/02/18 18:30 05/02/18 18:29 Polyethylene (Miralax Powder Packet) 17 gm DAILY PRN PO 04/02/18 18:30 05/02/18 18:29 04/04/18 08:25 17 GM Albuterol (Ventolin Hfa Inhaler) 2 puffs Q4H PRN INH 04/02/18 18:45 05/02/18 18:44 Aspirin (Ecotrin Tab) 81 mg DAILY PO 04/03/18 09:00 05/03/18 08:59 04/04/18 08:25 81 MG Carvedilol (Coreg Tab) 3.125 mg BID PO 04/02/18 21:00 05/02/18 20:59 04/04/18 08:25 3.125 MG Clopidogrel Bisulfate (plAVix TAB) 75 mg DAILY PO 04/03/18 09:00 05/03/18 08:59 04/04/18 08:25 75 MG Escitalopram Oxalate (Lexapro Tab) 20 mg PM PO 04/02/18 21:00 05/02/18 20:59 04/03/18 19:48 20 MG Hydralazine HCl (Apresoline Tab) 75 mg QID PO 04/02/18 21:00 05/02/18 20:59 04/04/18 08:26 75 MG Isosorbide Mononitrate (Imdur Ext Rel Tab) 30 mg QAM PO 04/03/18 09:00 05/03/18 08:59 04/04/18 08:26 30 MG Losartan Potassium (coZAAR TAB) 100 mg QAM PO 04/03/18 09:00 05/03/18 08:59 04/04/18 08:26 100 MG Multivitamins/ Minerals (Multivitamin W/ Minerals Tab) 1 tab DAILY PO 04/03/18 09:00 05/03/18 08:59 04/04/18 08:26 1 TAB Pantoprazole Sodium (Protonix Tab) 40 mg DAILY PO 04/03/18 09:00 05/03/18 08:59 04/04/18 08:25 40 MG Rosuvastatin Calcium (Crestor Tab) 40 mg DAILY PO 04/03/18 09:00 05/03/18 08:59 04/04/18 08:26 40 MG Terazosin HCl (Hytrin Cap) 1 mg HS PO 04/02/18 21:00 05/02/18 20:59 04/03/18 19:48 1 MG Oxycodone/ Acetaminophen (Percocet 5-325mg Tab) 1 tab Q6H PRN PO 04/02/18 20:30 04/16/18 20:29 04/04/18 08:15 1 TAB Potassium Chloride (Klor-Con Tab) 20 meq QAM PO 04/03/18 09:00 05/03/18 08:59 04/04/18 08:25 20 MEQ Clonidine HCl (Catapres Tab) 0.1 mg TID PO 04/04/18 10:00 05/02/18 20:29 04/04/18 09:49 0.1 MG Furosemide (Lasix Tab) 20 mg QAM PO 04/04/18 10:00 05/04/18 09:59 04/04/18 09:48 20 MG
--- NOTE | 2018-04-04 12:20 | Discharge Instructions ---
Discharge Instructions Date of Service Apr 04, 2018. Admission Reason for Admission: Chest Pain Discharge Discharge Diagnosis / Problem: CHEST PAIN Discharge Goals Goal(s): Diagnostic testing, Therapeutic intervention Activity Recommendations Activity Limitations: as noted below (NO HEAVY EXERTION UNTIL RE-EVALUATE BY PRIMARY CARE PHYSICIAN) Lifting Limitations: until after follow-up appointment Exercise/Sports Limitations: until after follow-up appointment Driving or Machine Use: NO DRIVING UNTIL RE-EVALUATED BY PRIMARY CARE PHYSICIAN . Instructions / Follow-Up Instructions / Follow-Up CONTINUE YOUR USUAL MEDICATIONS. LIMIT YOUR TOTAL FLUID INTAKE TO NOT MORE THAN 2 LITERS/DAY AND SALT INTAKE TO NOT MORE THAN 2G/DAY. CALL PRIMARY CARE PHYSICIAN OR RETURN TO ER IMMEDIATELY IF WITH RECURRENCE OF SYMPTOMS. FOLLOW UP WITH PRIMARY CARE PHYSICIAN DR. LEWIS (ASSOCIATE OF DR. WIGGINS) ON MONDAY APRIL 09, 2018 AT 1045 AM. FOLLOW UP WITH BED LASTER SCHEDULED. Call your Primary Care doctor if any of the following symptoms or problems start or get worse: * Shortness of breath or difficulty breathing * Wake up at night short of breath * Chest pain * Cough * Swelling of your hands, feet, or legs * More fatigued or tired with your normal activity * Palpitations - sudden fast heart beats WEIGHT * Weigh yourself every morning after using the bathroom. * Use the same scale. * Wear the same amount of clothing. * Write your weight down on a chart. * Call your Primary Care doctor if you gain more than 2-3 pounds in 1-2 days. MEDICATIONS * Use this discharge instruction sheet for medication instructions. * Take your medications at the time your doctor ordered. * Do not skip a dose of your medicines. * If you miss a dose of medicine, take it as soon as possible, but DO NOT DOUBLE A DOSE. * Read your medicine information when you get home. * Know all of the side effects of your medicine. If in doubt, ask your pharmacist * Call your Primary Care doctor's office if you have any side effects. * Be sure all of your doctors know what medicine and herbs you take (including cold, flu, and herbal medicine). Take the following with you to your follow-up doctor appointments: * Weight Chart * Medication List * List of questions Do not drink excessive alcohol, beer or wine. Current Hospital Diet Patient's current hospital diet: AHA Diet (Heart Healthy), Low Sodium Diet (2gm Na) Discharge Diet Recommended Diet: AHA Diet (Heart Healthy), Low Sodium Diet (2gm Na) Fluid Restriction: 2000 ml (8 cups) Procedures Procedures Performed: ECHOCARDIOGRAM Pending Studies Studies pending at discharge: no Medical Emergencies . Who to Call and When: Call 911 or go to the Emergency Room if: * If at any time you feel your situation is an emergency * You have tightness or pain in your chest that does not go away with rest or Nitroglycerin * You are very short of breath even with rest . Non-Emergent Contact Non-Emergency issues call your: Primary Care Provider, Transformer Assembler Call Non-Emergent contact if: you have a fever, your pain is not controlled, you have any medication questions . . "Provider Documentation" section prepared by Nilesh Noel. .
--- NOTE | 2018-04-04 12:37 | Discharge Summary ---
Discharge Summary Date of Service Apr 04, 2018. Discharge Summary Admission Date: Apr 02, 2018 at 18:30 Discharge Date: Apr 04, 2018 Discharge Disposition: Home Principal Diagnosis: CHEST PAIN, ACUTE CORONARY SYNDROME RULED OUT; HYPERTENSIVE URGENCY Secondary Diagnoses/Problems: Please refer to hospital course below. Procedures: ECHOCARDIOGRAM: -- Conclusions -- * No significant change compared to previous study of 12/01/16. * Normal LV chamber size with severe concentric LVH. * Hyperdynamic LV systolic function, EF >70%. * No segmental left ventricular wall motion abnormalities are noted. * Grade III diastolic dysfunction. * Moderate mitral regurgitation. * Mild tricuspid regurgitation. * Moderate biatrial enlargement. CXR: CHEST 2 VIEWS ROUTINE CLINICAL HISTORY: left basilar rales COMPARISON STUDY: April 02, 2018 FINDINGS: The heart remains enlarged. There is improving pulmonary vascular congestion. There is no focal pulmonary consolidation. No significant pleural effusions are visualized.[ IMPRESSION: Cardiomegaly and improving pulmonary vascular congestion. No evidence of focal pulmonary consolidation Electronically signed by: Bryan Alcala M.D. 04/04/2018 10:23 AM Consultations: ASSEMBLY MANAGER DR. DE LEON/DEBBIE NAIR Pending Studies/Follow-Up: PLEASE REFER TO HOSPITAL COURSE BELOW. Medication Reconciliation Continued Medications: Albuterol Hfa (Ventolin Hfa) 200 Puffs/90227 Mcg Aers 2 PUFFS INH Q4 PRN for Wheezing, #1 INHALER Aspirin (Aspirin Ec) 81 Mg Tab 81 MG PO DAILY Carvedilol (Coreg) 6.25 Mg Tab 3.125 MG PO BID, TAB Clonidine Hcl (Catapres) 0.1 Mg Tab 0.1 MG PO TID PRN for SBP >180, TAB pt takes TID Clopidogrel (Plavix) 75 Mg Tab 75 MG PO DAILY, TAB Escitalopram (Lexapro) 10 Mg Tab 20 MG PO EVENING MEAL, TAB TAKE TWO 10MG TABLETS Furosemide (Lasix) 20 Mg Tab 20 MG PO DAILY, TAB Home O2 Therapy (Oxygen) Gas 2 LITERS NA HS Hydralazine Hcl (Apresoline) 50 Mg Tab 75 MG PO QID, TAB TAKE ONE AND A HALF OF A 50MG TABLET Isosorbide Mononitrate Ext Rel (Imdur Ext Rel) 30 Mg Ertab 30 MG PO QAM, TAB Losartan Potassium (Cozaar) 100 Mg Tab 100 MG PO QAM, TAB Meloxicam (Mobic) 7.5 Mg Tab 7.5 MG PO DAILY PRN for Pain Ocuvite Preservision (Ocuvite Preservision) 1 Tab Tab 1 TAB PO DAILY, TAB Pantoprazole (Protonix) 40 Mg Tab 40 MG PO DAILY, #30 TAB Rosuvastatin Calcium (Crestor) 40 Mg Tab 40 MG PO DAILY, TAB Terazosin Hcl (Hytrin) 1 Mg Cap 1 MG PO HS, CAP Vitamins W/ Lipotropics (Lipoflavonoid) 1 Tab Tab 1 TAB PO 3XWK TAKE ON MONDAY/MONDAY/MONDAY. Admission Information HPI (per Admitting provider): Pt is 82 y/o F with PMH labile hypertension, CAD s/p stent RCA in 2004, HLD, chronic diastolic CHF, CVA in 2017, GERD, IBS, depression presented to ER with complaint of constant aching chest pain and exertional shortness of breath x 3 days. Becoming SOB with few steps with palpations, then improves with sitting. Patient states last week noticed increased lower extremity edema, she since has been trying to keep legs elevated and wearing compression stockings and taking her 20 mg Lasix daily and reports noticed some improvement of edema over the weekend. Patient states sleeps chronically elevated has not noticed increased orthopnea. She reports that she weighs herself daily and has not noticed any significant weight changes. Today missed her noon dose of hydralazine. Otherwise denies any missed medications. She takes her BP at least once a day, reports morning SBP 110-120's and increases throughout the day to SBP 170's. Patient reports uses oxygen 2 L at at bedtime. Reports chronic upper and low back pain and denies any recent worsening. Denies fever/chills, diaphoresis, N/V /D/C, NICOLE, dizziness, syncope, vision changes, neck pain, cough, sore throat, choking, rhinorrhea, abdominal pain, paresthesias, increased weakness, extremity weakness, rashes, urinary symptoms. Today in ER her BP R arm: 200/70. BP L arm: 199/77 Physical Exam (per Admitting): General Appearance: WD/WN, + pertinent finding (currently with bipap on and does not appear to be in any respiratory distress) Head: normocephalic, atraumatic Eyes: normal inspection, sclerae normal ENT: hearing grossly normal, + pertinent finding (mucous membranes moist) Neck: supple, trachea midline Respiratory/Chest: + crackles (bases), + pertinent finding (currently with bipap on and does not appear to be in any respiratory distress, no accessory muscle use) Cardiovascular: regular rate, rhythm, + systolic murmur Abdomen/GI: normal bowel sounds, non tender, soft Extremities/Musculoskelatal: normal capillary refill, non-tender, + pedal edema (2+ pretibial pitting edema BLE) Neurologic/Psych: alert, normal mood/affect, oriented x 3 Skin: warm/dry Hospital Course Pt is 82 y/o F with PMH labile hypertension, CAD s/p stent RCA in 2004, HLD, chronic diastolic CHF, CVA in 2017, GERD, IBS, depression presented to ER with complaint of constant aching chest pain and exertional shortness of breath x 3 days CHEST PAIN, ACUTE CORONARY SYNDROME RULED OUT HISTORY OF CORONARY ARTERY DISEASE troponin x 3: negative EKG: no acute ischemia Echo: -- Conclusions -- * No significant change compared to previous study of 12/01/16. * Normal LV chamber size with severe concentric LVH. * Hyperdynamic LV systolic function, EF >70%. * No segmental left ventricular wall motion abnormalities are noted. * Grade III diastolic dysfunction. * Moderate mitral regurgitation. * Mild tricuspid regurgitation. * Moderate biatrial enlargement. Cardiology consulted- Dr. De Leon and DEBBIE Nair felt to be Musculoskeletal follow up with [employer] as scheduled HYPERTENSIVE URGENCY ACUTE ON CHRONIC DIASTOLIC CONGESTIVE HEARTY FAILURE - given Lasix 20mg IV BID diuresed well -Continue patient's home carvedilol, clonidine, hydralazine, losartan, terazosin - Cardiology consulted may increase ISMN or Terazosin as needed H/O NOCTURNAL HYPOXIA -Continue oxygen 2 L at bedtime H/O CVA No residual effects. Denies headache, dizziness, vision changes, weakness. No focal deficits on exam -Continue aspirin, Plavix HLD -Continue statin GERD -Continue PPI DEPRESSION -Continue escitalopram CKD 2 outpatient ff up Disposition d/c home ff up with PCP Dr. Lewis Monday04/09/18 at 1045 am. ff up with Cardio as scheduled Total time spent on discharge = 30 MINUTES This includes examination of the patient, discharge planning, medication reconciliation, and communication with other providers. Discharge Instructions Discharge Instructions Date of Service Apr 04, 2018. Admission Reason for Admission: Chest Pain Discharge Discharge Diagnosis / Problem: CHEST PAIN Discharge Goals Goal(s): Diagnostic testing, Therapeutic intervention Activity Recommendations Activity Limitations: as noted below (NO HEAVY EXERTION UNTIL RE-EVALUATE BY PRIMARY CARE PHYSICIAN) Lifting Limitations: until after follow-up appointment Exercise/Sports Limitations: until after follow-up appointment Driving or Machine Use: NO DRIVING UNTIL RE-EVALUATED BY PRIMARY CARE PHYSICIAN . Instructions / Follow-Up Instructions / Follow-Up CONTINUE YOUR USUAL MEDICATIONS. LIMIT YOUR TOTAL FLUID INTAKE TO NOT MORE THAN 2 LITERS/DAY AND SALT INTAKE TO NOT MORE THAN 2G/DAY. CALL PRIMARY CARE PHYSICIAN OR RETURN TO ER IMMEDIATELY IF WITH RECURRENCE OF SYMPTOMS. FOLLOW UP WITH PRIMARY CARE PHYSICIAN DR. LEWIS (ASSOCIATE OF DR. WIGGINS) ON MONDAY APRIL 09, 2018 AT 1045 AM. FOLLOW UP WITH ASSEMBLY MANAGER SCHEDULED. Call your Primary Care doctor if any of the following symptoms or problems start or get worse: * Shortness of breath or difficulty breathing * Wake up at night short of breath * Chest pain * Cough * Swelling of your hands, feet, or legs * More fatigued or tired with your normal activity * Palpitations - sudden fast heart beats WEIGHT * Weigh yourself every morning after using the bathroom. * Use the same scale. * Wear the same amount of clothing. * Write your weight down on a chart. * Call your Primary Care doctor if you gain more than 2-3 pounds in 1-2 days. MEDICATIONS * Use this discharge instruction sheet for medication instructions. * Take your medications at the time your doctor ordered. * Do not skip a dose of your medicines. * If you miss a dose of medicine, take it as soon as possible, but DO NOT DOUBLE A DOSE. * Read your medicine information when you get home. * Know all of the side effects of your medicine. If in doubt, ask your pharmacist * Call your Primary Care doctor's office if you have any side effects. * Be sure all of your doctors know what medicine and herbs you take (including cold, flu, and herbal medicine). Take the following with you to your follow-up doctor appointments: * Weight Chart * Medication List * List of questions Do not drink excessive alcohol, beer or wine. Current Hospital Diet Patient's current hospital diet: AHA Diet (Heart Healthy), Low Sodium Diet (2gm Na) Discharge Diet Recommended Diet: AHA Diet (Heart Healthy), Low Sodium Diet (2gm Na) Fluid Restriction: 2000 ml (8 cups) Procedures Procedures Performed: ECHOCARDIOGRAM Pending Studies Studies pending at discharge: no Medical Emergencies . Who to Call and When: Call 911 or go to the Emergency Room if: * If at any time you feel your situation is an emergency * You have tightness or pain in your chest that does not go away with rest or Nitroglycerin * You are very short of breath even with rest . Non-Emergent Contact Non-Emergency issues call your: Primary Care Provider, [employer] Call Non-Emergent contact if: you have a fever, your pain is not controlled, you have any medication questions . . "Provider Documentation" section prepared by Nilesh Noel.
[2018-04-04 13:02] VITALS: BP 123/64; PULSE 59; TEMP 36.4; O2SAT 97
== END 2018-04-04 14:50 | disposition home or self-care (01) | DRG 291 ==
LOC: C.EDB 14:58 → C.2T 18:30 → ENRESERV 18:47
PROVIDERS: ADMIT Hospitalist; ATTEND Internal Medicine
DX: I13.0 Hypertensive heart and chronic kidney disease with heart failure and stage 1 through stage 4 chronic kidney disease, or unspecified chronic kidney disease (principal); I50.33 Acute on chronic diastolic (congestive) heart failure; I16.0 Hypertensive urgency; N18.2 Chronic kidney disease, stage 2 (mild); R07.89 Other chest pain; I25.10 Atherosclerotic heart disease of native coronary artery without angina pectoris; I27.20 Pulmonary hypertension, unspecified; E87.5 Hyperkalemia; K21.9 Gastro-esophageal reflux disease without esophagitis; F32.9 Major depressive disorder, single episode, unspecified; Z51.81 Encounter for therapeutic drug level monitoring; Z79.899 Other long term (current) drug therapy; Z79.02 Long term (current) use of antithrombotics/antiplatelets; Z95.5 Presence of coronary angioplasty implant and graft; Z86.73 Personal history of transient ischemic attack (TIA), and cerebral infarction without residual deficits; Z88.1 Allergy status to other antibiotic agents; Z88.5 Allergy status to narcotic agent; Z88.8 Allergy status to other drugs, medicaments and biological substances; Z82.49 Family history of ischemic heart disease and other diseases of the circulatory system; Z83.3 Family history of diabetes mellitus; Z80.52 Family history of malignant neoplasm of bladder

== ENCOUNTER 2021-10-01 12:30 | Inpatient (IN) ==
--- NOTE | 2021-10-01 14:19 | Emergency Department Note ---
Impression & Plan Acute hypoxemic respiratory failure, Acute exacerbation of chronic obstructive pulmonary disease ED Provider Note NAME: CAT MARTINEZ AGE: 86 SEX: F : 1935 ARRIVES VIA: Walk-In INFORMANT: Patient, ED PROVIDER(S): Nitish Méndez MD Chief Complaint: Shortness of breath HPI: Patient presents due to concern for shortness of breath and hypoxemia as referral from urgent care as they noted her oxygen to be low. The patient has been known history of PCI with a MATEUSZ to the mid LAD. Patient also does have associated hypertension hyperlipidemia diastolic CHF and pulmonary hypertension. Patient typically does wear 2 L of O2 at nighttime but not during the day. The patient has had progressively worsening shortness of breath. Patient does have a history of A. fib Eliquis was held back in 2018 secondary to a GI bleed. Patient is on aspirin and Plavix. Patient has had a cough but it is nonproductive. The patient does have chronic leg swelling and does take a diuretic. The patient does follow with Harry Johnson with cardiology. The patient is vaccinated for COVID-19 including booster. The patient does have shortness of breath at rest which she states is relatively chronic in nature. The patient does use a Ventolin inhaler as needed and has had increasing frequency use. Patient is a non-smoker. ROS: See HPI for pertinent positives and negatives. A total of 10 systems were reviewed and otherwise negative. Past medical history: See below Surgical history: See below Social history: See below Physical Exam: GENERAL: NAD, wearing glasses, wearing a mask, non-toxic. EYE EXAM: Normal conjunctiva. PERRL, no anisocoria and EOM's grossly intact w/o pain. OROPHARYNX: Moist mucus membranes. Grossly normal dentition. NECK: Supple, no nuchal rigidity, no adenopathy, non-tender. No signs of meningismus. LUNGS: Wheezes throughout with occasional crackles. Normal chest wall mechanics. HEART: NSR, no MRG. ABDOMEN: Abdomen soft, non-tender, normo-active bowel sounds, no masses, no rebound or guarding. BACK: No CVA TTP. SKIN: No rashes and no bruising. UPPER EXTREMITIES: Upper extremities are grossly normal. LOWER EXTREMITIES: Grossly normal, no edema. NEURO EXAM: A&O x3, cranial nerves II-XII grossly intact, normal speech, moves all 4 extremities on command w/o issue. Good finger to nose, no drift, no sensory deficits. Differential diagnoses: Reactive airway disease, pneumonia, pneumothorax, COPD, CHF, infections, cardiac ischemia, pulmonary embolism, musculoskeletal, gastroin testinal, as well as other pathologies. Course: Patient was seen and evaluated the bedside. Full history physical exam was performed. EKG interpreted by me Normal sinus rhythm, rate of 72, normal intervals, normal axis, no obvious ST elevations. Imaging Studies: See Below Cardiac monitoring: An order was placed for continuous cardiac monitoring. The monitor shows a rate of 67 with sinus rhythm. MDM: Patient seen due to concern for shortness of breath and progressively worsening dyspnea on exertion. The patient does have diffuse wheezing throughout with associated crackles. Blood work was obtained and the patient was treated symptomatically with nebs, steroids, and magnesium. BulbPatient's blood work shows a normal white count of 5 with mild anemia 10.6. Patient's platelet count is unremarkable. Kidney function mild hypokalemia. The patient does have mild hypercarbia with a PCO2 of 57. Given the patient's new oxygen requirement as the patient does not wear oxygen at all times and the associated COPD exacerbation believe the patient would benefit from treatment and admission at this time. I did speak with the on-call hospitalist Dr. Chaudhry and the patient was admitted to the medicine service. Critical Care: I have personally spent 35 minutes of critical care time in direct management of this patient. This includes bedside care, interpretation of diagnostic studies, and testing, discussion with consultants, patient, and family members, and other require inpatient management activities. This 35 minutes is in excess of all separately billable procedures. Past Med/Surg History Medical History (Updated 10/01/21 @ 17:40 by Troy Chaudhry MD) Anxiety Arthritis Atrial fibrillation pt unsure of diagnosis CAD (coronary artery disease) "hx PCI stent to RCI cath 2004 - 90% RCA stenosis s/p intervention, 50% LAD stenosis Cath 04/2018 with PCI MATEUSZ to Mid LAD -Dr. Darby CHF (congestive heart failure) Chronic diastolic CHF (congestive heart failure) Echo 09/2017 The qualitative LV ejection fraction is 55-59% (normal). The LV wall thickness is moderately increased (concentric). The left atrium is severely enlarged. The left ventricular diastolic function is mildly abnormal (grade I). Moderate mitral regurgitation is present. Mild tricuspid regurgitation is present. There is mild pulmonary regurgitation. Normal IVC size and collapsability with sniff indicates a normal right atrial pressure of 3 mmHg. The estimated pulmonary artery systolic pressure is 55mm Hg. COPD (chronic obstructive pulmonary disease) CVA (cerebral vascular accident) 2015--no deficits Depression Diastolic dysfunction "echo 04/1815 - grade II diastolic dysfunction, mild valvular disease" Echo 09/2017 The qualitative LV ejection fraction is 55-59% (normal). The LV wall thickness is moderately increased (concentric). The left atrium is severely enlarged. The left ventricular diastolic function is mildly abnormal (grade I). Moderate mitral regurgitation is present. Mild tricuspid regurgitation is present. There is mild pulmonary regurgitation. Normal IVC size and collapsability with sniff indicates a normal right atrial pressure of 3 mmHg. The estimated pulmonary artery systolic pressure is 55mm Hg. Dyslipidemia Exertional dyspnea GERD (gastroesophageal reflux disease) High cholesterol History of bleeding ulcers History of gastric ulcer HTN (hypertension) Hypoxia On home oxygen therapy 2L N/C at night Pulmonary HTN "echo 05/01/15 - severe pulmonary HTN measured at 68mm Hg " TIA (transient ischemic attack) "1977" Surgical History Cystocele with rectocele "s/p repair" History of breast biopsy History of colonoscopy History of esophagogastroduodenoscopy (EGD) 06/2019 [facility] History of hysterectomy ANIL BSO History of open reduction and internal fixation (ORIF) procedure Right radial fx History of tooth extraction all teeth removed S/P cholecystectomy Status post cardiac catheterization Status post coronary artery stent placement 05/04/[address] [facility] follows with Dr. Johnson Family History Brother Family history of diabetes mellitus Sister Family history of diabetes mellitus Social History Smoking Status: Never smoker Second Hand Exposure: Yes ( smoked); Hx Alcohol Use: Yes Alcohol type: hard liquor Hx Substance Use: No Preferred Language: Emirati Communication Ability: Effective Financial Center Manager Required: No Beliefs That Will Affect Care: None marital status: Current Living Situation: Alone current occupational status: retired How many Children do You have: 1 Feels Safe at Home: Yes Assistive Devices: Denture - Upper, Denture - Lower, Glasses and Oxygen - at Night Allergies Allergies Allergy/AdvReac Type Severity Reaction Status Date / Time iodine Allergy Intermediate HIVES Verified 10/01/21 17:28 shellfish derived Allergy Intermediate Hives Verified 10/01/21 17:28 CHALO Inhibitors Allergy Mild Cough Verified 10/01/21 17:28 hydrochlorothiazide Allergy Mild gout Verified 10/01/21 17:28 tramadol Allergy Mild Rash Verified 10/01/21 17:28 Cipro Allergy Unknown . Verified 11/30/16 14:56 ciprofloxacin Allergy Unknown . Verified 10/01/21 17:28 Home Meds Home Medications Medication Instructions Recorded Confirmed albuterol sulfate 90 mcg/actuation 2 puff INHALATION Q4H PRN 05/02/18 10/01/21 aerosol inhaler aspirin 81 mg tablet,delayed 81 mg PO QAM 05/02/18 10/01/21 release carvedilol 3.125 mg tablet 3.125 mg PO DAILY 05/02/18 10/01/21 clonidine HCl 0.1 mg tablet 0.1 mg PO TID PRN 05/02/18 10/01/21 (Catapres) clopidogrel 75 mg tablet (Plavix) 1 tab PO QAM 05/02/18 10/01/21 escitalopram oxalate 10 mg tablet 10 mg PO QPM 05/02/18 10/01/21 (Lexapro) hydralazine 50 mg tablet 75 mg PO QID 05/02/18 10/01/21 losartan 100 mg tablet 100 mg PO QAM 05/02/18 10/01/21 rosuvastatin 40 mg tablet 40 mg PO QAM 05/02/18 10/01/21 vit C,E,zinc,copper-ihbez9e 250 1 cap PO QAM 05/02/18 10/01/21 mg-lutein 5 mg-zeaxanthin 1 mg capsule (Ocuvite Adult 50 Plus) acetaminophen 500 mg tablet 500 mg PO Q6H PRN 05/21/18 10/01/21 (Tylenol Extra Strength) amlodipine 2.5 mg tablet 2.5 mg PO QAM 18 10/01/21 polyethylene glycol 3350 17 gram 17 g PO QAM PRN 05/21/18 10/01/21 oral powder packet (Miralax) guaifenesin 600 mg tablet, 600 mg PO Q12H PRN 07/10/18 10/01/21 extended release 12 hr (Mucinex) potassium chloride 10 mEq 20 meq PO Q OTHER DAY 07/10/18 10/01/21 tablet,extended release azelastine 137 mcg (0.1 %) nasal 1 spray INTRANASAL BID 10/01/21 10/01/21 spray aerosol denosumab 60 mg/mL subcutaneous 0 mg SUBCUT YEARLY 10/01/21 10/01/21 syringe (Prolia) dicyclomine 10 mg capsule 10 mg PO DIRECTED PRN 10/01/21 10/01/21 docusate sodium 100 mg capsule 200 mg PO HS 10/01/21 10/01/21 (Colace) furosemide 40 mg tablet 40 mg PO DAILY 10/01/21 10/01/21 isosorbide mononitrate 30 mg 30 mg PO DAILY 10/01/21 10/01/21 tablet,extended release 24 hr potassium chloride 10 mEq 30 meq PO Q OTHER DAY 10/01/21 10/01/21 tablet,extended release Results & Data (ED) Vital Signs Vital Signs - 24 hr 10/01/21 12:43 10/01/21 12:46 10/01/21 14:54 Temperature 36.6 C Temperature Source Temporal Artery Scan Pulse Rate 72 Pulse Rate [Finger] 66 Respiratory Rate 22 20 Respiratory Effort / Characteristics Non-Labored Non-Labored Spontaneous Respiratory Depth Normal Blood Pressure 161/63 H Blood Pressure Mean 95 Pulse Oximetry 87 L 95 Oxygen Delivery Method Room Air Nasal Cannula Nasal Cannula Oxygen Flow Rate 2 Sepsis Recent Fever Within 48 Hours No Sepsis New/Unexplained Change in Mental Status No Sepsis Action Taken by Nursing No Action Required Oxygen Flow Rate - Titration 3 Pulse Oximetry Post Tiitration 92 10/01/21 15:01 Temperature Temperature Source Pulse Rate Pulse Rate [Finger] Respiratory Rate Respiratory Effort / Characteristics Respiratory Depth Blood Pressure Blood Pressure Mean Pulse Oximetry 95 Oxygen Delivery Method Nasal Cannula Oxygen Flow Rate 2 Sepsis Recent Fever Within 48 Hours Sepsis New/Unexplained Change in Mental Status Sepsis Action Taken by Nursing Oxygen Flow Rate - Titration Pulse Oximetry Post Tiitration Home Medications Current Medication List: was personally reviewed by me Laboratory Data Attestation: I reviewed the patient's lab results. Result diagrams: 10/01/21 15:02 10/01/21 15:02 Lab Results 10/01/21 10/01/21 10/01/21 Range/Units 15:02 15:02 15:02 WBC 5.82 (4.8-10.8) K/uL RBC 3.58 L (4.2-5.4) M/uL Hgb 10.6 L (12.0-16.0) g/dL Hct 34.1 L (37-47) % MCV 95.3 (80-100) fL MCH 29.6 (25-34) pg MCHC 31.1 L (32-36) g/dL RDW Std Deviation 59.3 H (36.4-46.3) fL RDW Coeff of Luz 17.0 H (11.5-14.5) % Plt Count 155 (130-400) K/uL MPV 10.1 (7.4-10.4) fL Immature Gran % (Auto) 0.2 % Neut % (Auto) 72.0 % Lymph % (Auto) 19.2 % [place] % (Auto) 5.8 % Eos % (Auto) 2.6 % Baso % (Auto) 0.2 % Neut # (Auto) 4.19 (1.4-6.5) K/uL Lymph # (Auto) 1.12 L (1.2-3.4) K/uL [place] # (Auto) 0.34 (0.11-0.59) K/uL Eos # (Auto) 0.15 (0-0.5) K/uL Baso # (Auto) 0.01 (0-0.2) K/uL Immature Gran # (Auto) 0.01 (0.00-0.02) K/uL PT 10.5 (9.0-12.0) Seconds INR 1.0 (0.9-1.1) APTT 30.3 (21.0-31.0) Seconds PTT Ratio 1.2 VBG pH (7.36-7.41) VBG pCO2 (38-50) mmHg VBG pO2 mmHg VBG HCO3 mmol/L VBG O2 Saturation % VBG Base Excess mEq/L Barometric Pressure mm/Hg Sodium 139 (136-145) mmol/L Potassium 3.4 L (3.5-5.1) mmol/L Chloride 103 (98-107) mmol/L Carbon Dioxide 29 (21-32) mmol/L Anion Gap 7 (3-11) BUN 16 (6-23) mg/dl Creatinine 1.15 (0.6-1.2) mg/dl Est Cr Clr Drug Dosing 36.0 ml/min Est GFR ( Amer) 49.5 ml/min Est GFR (Non-Af Amer) 42.7 ml/min BUN/Creatinine Ratio 13.9 (10-20) Glucose 96 (70-99(Fasting)) mg/dl Calcium 8.8 (8.5-10.1) mg/dl Magnesium 2.1 (1.7-2.4) mg/dl Total Bilirubin 0.5 (0.2-1.0) mg/dl AST 25 (13-39) U/L ALT 13 (7-52) U/L Alkaline Phosphatase 70 (34-104) U/L Total Protein 7.5 (6.0-8.3) gm/dl Albumin 3.9 (3.4-5.0) gm/dl Globulin 3.6 (2.5-4.0) gm/dl Albumin/Globulin Ratio 1.1 (0.9-2) Influ A Molecular Assay (Negative) Influ B Molecular Assay (Negative) SARS-CoV-2, RNA, NAAT (NEGATIVE) 10/01/21 10/01/21 10/01/21 Range/Units 15:02 15:02 15:46 WBC (4.8-10.8) K/uL RBC (4.2-5.4) M/uL Hgb (12.0-16.0) g/dL Hct (37-47) % MCV (80-100) fL MCH (25-34) pg MCHC (32-36) g/dL RDW Std Deviation (36.4-46.3) fL RDW Coeff of Luz (11.5-14.5) % Plt Count (130-400) K/uL MPV (7.4-10.4) fL Immature Gran % (Auto) % Neut % (Auto) % Lymph % (Auto) % [place] % (Auto) % Eos % (Auto) % Baso % (Auto) % Neut # (Auto) (1.4-6.5) K/uL Lymph # (Auto) (1.2-3.4) K/uL [place] # (Auto) (0.11-0.59) K/uL Eos # (Auto) (0-0.5) K/uL Baso # (Auto) (0-0.2) K/uL Immature Gran # (Auto) (0.00-0.02) K/uL PT (9.0-12.0) Seconds INR (0.9-1.1) APTT (21.0-31.0) Seconds PTT Ratio VBG pH 7.34 L (7.36-7.41) VBG pCO2 57 H (38-50) mmHg VBG pO2 34 mmHg VBG HCO3 30 mmol/L VBG O2 Saturation < 60.0 % VBG Base Excess 3.2 mEq/L Barometric Pressure 731.9 mm/Hg Sodium (136-145) mmol/L Potassium (3.5-5.1) mmol/L Chloride (98-107) mmol/L Carbon Dioxide (21-32) mmol/L Anion Gap (3-11) BUN (6-23) mg/dl Creatinine (0.6-1.2) mg/dl Est Cr Clr Drug Dosing ml/min Est GFR ( Amer) ml/min Est GFR (Non-Af Amer) ml/min BUN/Creatinine Ratio (10-20) Glucose (70-99(Fasting)) mg/dl Calcium (8.5-10.1) mg/dl Magnesium (1.7-2.4) mg/dl Total Bilirubin (0.2-1.0) mg/dl AST (13-39) U/L ALT (7-52) U/L Alkaline Phosphatase (34-104) U/L Total Protein (6.0-8.3) gm/dl Albumin (3.4-5.0) gm/dl Globulin (2.5-4.0) gm/dl Albumin/Globulin Ratio (0.9-2) Influ A Molecular Assay Negative (Negative) Influ B Molecular Assay Negative (Negative) SARS-CoV-2, RNA, NAAT NEGATIVE (NEGATIVE) Administered Medications Discontinued Medications Albuterol (Albut/Ipratrop 3mg/0.5mg Neb 3 Ml Vial) 12 ml INH ONE STA Stop: 10/01/21 14:32 Last Admin: 10/01/21 14:51 Dose: 12 ml Documented by: [id number] Magnesium Sulfate/Dextrose (Magnesium Sulfate / D5w) 1 gm in 100 mls @ 100 mls/hr IV NOW STA Stop: 10/01/21 15:31 Last Admin: 10/01/21 15:18 Dose: 100 mls/hr Documented by: [id number] Methylprednisolone (Methylprednisolone 125 Mg/2 Ml Vial) 60 mg IV NOW STA Stop: 10/01/21 14:32 Last Admin: 10/01/21 15:18 Dose: 60 mg Documented by: [id number] Imaging Data Radiologist's Impression: Chest X-Ray 10/01/21 12:46 XR chest 1V portable CLINICAL HISTORY: SOB TECHNIQUE: Single frontal radiograph of the chest was obtained. Comparison: Comparison is made to chest one view 05/22/2018 FINDINGS: No lines and tubes are seen. Cardiomegaly is noted. There is prominence and cephalization of the vasculature with Navid B lines seen. No evidence of pleural effusion or pneumothorax. IMPRESSION: Moderate pulmonary edema. ACT 112: Negative or not required by law. Electronically signed by: Stalin Champion M.D. 10/01/2021 2:54 PM Discharge Plan Visit Data Chief Complaint: Shortness of Breath/Dyspnea Stated Complaint: COUGH, TROUBLE BREATHING ED Provider: Nitish Méndez Discharge Problem: Acute hypoxemic respiratory failure, Acute exacerbation of chronic obstructive pulmonary disease Forms Stand Alone Forms: My [facility] Agent [employer] Prescriptions Prescriptions: No Action potassium chloride 10 mEq Tablet Extended Release 20 meq PO Q OTHER DAY RF: 0 guaifenesin [Mucinex] 600 mg Tablet Extended Release 12hr 600 mg PO Q12H PRN (Reason: Cold Symptoms) RF: 0 clonidine HCl [Catapres] 0.1 mg Tablet 0.1 mg PO TID PRN (Reason: Hypertension) RF: 0 clopidogrel [Plavix] 75 mg Tablet 1 tab PO QAM RF: 0 aspirin 81 mg Tablet,Delayed Release (Dr/Ec) 81 mg PO QAM RF: 0 carvedilol 3.125 mg Tablet 3.125 mg PO DAILY RF: 0 hydralazine 50 mg Tablet 75 mg PO QID RF: 0 albuterol sulfate 90 mcg/actuation Hfa Aerosol Inhaler 2 puff INHALATION Q4H PRN (Reason: Shortness Of Breath Or Wheezing) RF: 0 losartan 100 mg Tablet 100 mg PO QAM RF: 0 escitalopram oxalate [Lexapro] 10 mg Tablet 10 mg PO QPM RF: 0 rosuvastatin 40 mg Tablet 40 mg PO QAM RF: 0 Ocuvite Adult 50 Plus 250-5-1 mg Capsule 1 cap PO QAM RF: 0 polyethylene glycol 3350 [Miralax] 17 gram Powder In Packet 17 g PO QAM PRN (Reason: Constipation) RF: 0 acetaminophen [Tylenol Extra Strength] 500 mg Tablet 500 mg PO Q6H PRN (Reason: Pain) RF: 0 amlodipine 2.5 mg Tablet 2.5 mg PO QAM RF: 0 azelastine 137 mcg (0.1 %) aerosol,spray 1 spray INTRANASAL BID RF: 0 dicyclomine 10 mg capsule 10 mg PO DIRECTED PRN (Reason: abd cramps) RF: 0 furosemide 40 mg tablet 40 mg PO DAILY RF: 0 isosorbide mononitrate 30 mg tablet extended release 24 hr 30 mg PO DAILY RF: 0 potassium chloride 10 mEq tablet extended release 30 meq PO Q OTHER DAY RF: 0 docusate sodium [Colace] 100 mg Capsule 200 mg PO HS RF: 0 Prolia 60 mg/mL Syringe 0 mg SUBCUT YEARLY RF: 0 Referrals Referrals: Josh Kuhn DO [Primary Care Provider] -
[2021-10-01] MEDS ORDERED: methylPREDNISolone 125 MG/2 ML VIAL IV STA (14:31)
[2021-10-01] MEDS ORDERED: ALBUT/IPRATROP 3MG/0.5MG NEB 3 ML VIAL INH STA (14:31)
[2021-10-01] MEDS ORDERED: MAGNESIUM SULFATE / D5W 1 GM/100 ML BAG IV STA (14:32)
--- NOTE | 2021-10-01 14:56 | XRay Report ---
XR chest 1V portable CLINICAL HISTORY: SOB TECHNIQUE: Single frontal radiograph of the chest was obtained. Comparison: Comparison is made to chest one view 05/22/2018 FINDINGS: No lines and tubes are seen. Cardiomegaly is noted. There is prominence and cephalization of the vasc ulature with Navid B lines seen. No evidence of pleural effusion or pneumothorax. IMPRESSION: Moderate pulmonary edema. ACT 112: Negative or not required by law. Electronically signed by: Stalin Champion M.D. 10/01/2021 2:54 PM
[2021-10-01 15:32] LABS: Basophils # (auto) 0.01 K/uL (0-0.2); Basophils % (auto) 0.2 %; Eosinophils # (auto) 0.15 K/uL (0-0.5); Eosinophils % (auto) 2.6 %; Hematocrit (blood only) 34.1 % (37-47); Hemoglobin 10.6 g/dL (12.0-16.0); Immature Granulocytes # (auto) 0.01 K/uL (0.00-0.02); Immature Granulocytes % (auto) 0.2 %; Lymphocytes # (auto) 1.12 K/uL (1.2-3.4); Lymphocytes % (auto) 19.2 %; Mean Corpuscular Hemoglobin 29.6 pg (25-34); Mean Corpuscular Hgb Conc 31.1 g/dL (32-36); Mean Corpuscular Volume 95.3 fL (80-100); Mean Platelet Volume 10.1 fL (7.4-10.4); Monocytes # (auto) 0.34 K/uL (0.11-0.59); Monocytes % (auto) 5.8 %; Neutrophils # (auto) 4.19 K/uL (1.4-6.5); Platelet Count 155 K/uL (130-400); RDW Standard Deviation 59.3 fL (36.4-46.3); Red Blood Count 3.58 M/uL (4.2-5.4); White Blood Count 5.82 K/uL (4.8-10.8)
[2021-10-01 15:42] LABS: Partial Thromboplastin Ratio 1.2; Partial Thromboplastin Time 30.3 Seconds (21.0-31.0); Prothrombin Time 10.5 Seconds (9.0-12.0)
[2021-10-01 15:49] LABS: Influenza A virus by PCR Negative (Negative); Influenza B virus by PCR Negative (Negative)
[2021-10-01 15:55] LABS: Alanine Aminotransferase 13 U/L (7-52); Albumin Globulin Ratio 1.1 (0.9-2); Albumin Level 3.9 gm/dl (3.4-5.0); Alkaline Phosphatase 70 U/L (34-104); Anion Gap 7 (3-11); Aspartate Aminotransferase 25 U/L (13-39); BUN Creatinine Ratio 13.9 (10-20); Bilirubin,Total 0.5 mg/dl (0.2-1.0); Blood Urea Nitrogen 16 mg/dl (6-23); Calcium 8.8 mg/dl (8.5-10.1); Carbon Dioxide 29 mmol/L (21-32); Chloride 103 mmol/L (98-107); Est GFR (African American) 49.5 ml/min; Est GFR (Non-African American) 42.7 ml/min; Globulin 3.6 gm/dl (2.5-4.0); Glucose 96 mg/dl (70-99(Fasting)); Magnesium 2.1 mg/dl (1.7-2.4); Potassium 3.4 mmol/L (3.5-5.1); Sodium 139 mmol/L (136-145); Total Protein 7.5 gm/dl (6.0-8.3)
[2021-10-01 16:16] LABS: Base Excess VBG 3.2 mEq/L; HCO3 VBG 30 mmol/L; PCO2 VBG 57 mmHg (38-50); PO2 VBG 34 mmHg; pH VBG 7.34 (7.36-7.41)
[2021-10-01 16:25] LABS: Oxygen Saturation VBG < 60.0 %
[2021-10-01] MEDS ORDERED: POTASSIUM CHLORIDE CRTAB 20 MEQ TABCR PO STA (16:41)
--- NOTE | 2021-10-01 17:13 | Electrocardiogram Report ---
Test Reason : Blood Pressure : / mmHG Vent. Rate : 072 BPM Atrial Rate : 072 BPM P-R Int : 168 ms QRS Dur : 104 ms QT Int : 418 ms P-R-T Axes : 119 024 096 degrees QTc Int : 457 ms Poor data quality, interpretation may be adversely affected Normal sinus rhythm Septal infarct , age undetermined Abnormal ECG When compared with ECG of 23-MAY-2018 06:44, Premature ventricular complexes are no longer Present Premature atrial complexes are no longer Present T wave inversion no longer evident in Anterior leads Confirmed by Reggie Jimenez ([id number]) on 10/01/2021 5:13:05 PM Referred By: Confirmed By:Reggie Jimenez
[2021-10-01 17:37] LABS: Troponin I < 0.03 ng/ml (0-0.04)
--- NOTE | 2021-10-01 17:52 | History & Physical Report ---
Date of Service October 01, 2021 Assessment & Plan (1) COPD with exacerbation: (2) Diastolic CHF, acute on chronic: (3) Hypokalemia: (4) Valvular heart disease: (5) Severe pulmonary hypertension: Plan: 86 year old female with COPD, diastolic CHF, severe pulmonary hypertension and valvular heart disease presented to the ED for convenient care for hypoxia, shortness of breath and dysuria. Acute exacerbation of COPD- mild. bilateral faint wheezes and basilar crackles. on 2L NC in ED. feeling better after nebs and steroids in the ED. Will start on duonebs, pulmicort/formeterol, prednisone and doxycycline. Wean down oxygen. She only uses 2 L of NC at night at home. Ambulatory pulse oximetry prior to discharge. Acute on chronic mild exacerbation of diastolic CHF with valvular regurgitation and severe pulmonary hypertension- CXR with central vascular congestion but no reported weight gain, edema, orthopnea or PND. BNP elevated to 396. will give 1 dose of lasix today. Follow up on urine output, I and Os and daily weight. Consider additional iv lasix in am if needed. Potassium repleted. Recheck in am. Echo with E% 65-69% with grade 1 diastolic function with moderate MR, moderate TR and severe pulmonary HTN. less utility of repeating echo at this point. Follows up with OP cardiology Hypokalemia- repleted. recheck in am. continue supplementation with ongoing diuresis. H/o ischemic CAD s/p remote PCI of RCA and PCI of LAD 2017- no chest pain or tightness. EKG with no acute changes. UTI- Dysuria +, UA with positive nitrate and bacteria but normal WBC. No leucocytosis. Will start on rocephin D1/3 pending urine culture results. DVT prophyalxis: sc lovenox Disposition: Medsurg. Contact:Updated friend at bedside History of Present Illness Chief Complaint: shortness of breath, urinary symptoms Primary Care Provider: Josh Kuhn DO 86 year old female with history of COPD, chronic diastolic CHF with valvular regurgitation, severe pulmonary hypertension and other medical problems as below presented to the ED for [facility] for hypoxia at room air (84%). Patient thought she had UTI and hence went there where she was hypoxic at room air and sent to ED for evaluation. She says she has been having shortness of breath for the past week along with wheezing and dry cough and had required more of her rescue inhaler. Denies any orthopnea, PND or weight gain. Uses 1 pillow at night. No fever, chills, nausea, vomiting. No sick contacts. Also has dysuria for past week. Uses 2 L NC at night regularly but does not require during day time. In the ED, she was hypoxic to 87% and placed on 2 L NC. she was given nebs and steroid with improvement in her symptoms. She was feeling better during my encounter. Allergies Allergy/AdvReac Type Severity Reaction Status Date / Time iodine Allergy Intermediate HIVES Verified 10/01/21 17:28 shellfish derived Allergy Intermediate Hives Verified 10/01/21 17:28 CHALO Inhibitors Allergy Mild Cough Verified 10/01/21 17:28 hydrochlorothiazide Allergy Mild gout Verified 10/01/21 17:28 tramadol Allergy Mild Rash Verified 10/01/21 17:28 Cipro Allergy Unknown . Verified 11/30/16 14:56 ciprofloxacin Allergy Unknown . Verified 10/01/21 17:28 Home Medications Medication Instructions Recorded Confirmed Type albuterol sulfate 90 mcg/actuation 2 puff INHALATION Q4H PRN 05/02/18 10/01/21 History aerosol inhaler aspirin 81 mg tablet,delayed 81 mg PO QAM 05/02/18 10/01/21 History release carvedilol 3.125 mg tablet 3.125 mg PO DAILY 05/02/18 10/01/21 History clonidine HCl 0.1 mg tablet 0.1 mg PO TID PRN 05/02/18 10/01/21 History (Catapres) clopidogrel 75 mg tablet (Plavix) 1 tab PO QAM 05/02/18 10/01/21 History escitalopram oxalate 10 mg tablet 10 mg PO QPM 05/02/18 10/01/21 History (Lexapro) hydralazine 50 mg tablet 75 mg PO QID 05/02/18 10/01/21 History losartan 100 mg tablet 100 mg PO QAM 05/02/18 10/01/21 History rosuvastatin 40 mg tablet 40 mg PO QAM 05/02/18 10/01/21 History vit C,E,zinc,copper-izfcu4t 250 1 cap PO QAM 05/02/18 10/01/21 History mg-lutein 5 mg-zeaxanthin 1 mg capsule (Ocuvite Adult 50 Plus) acetaminophen 500 mg tablet 500 mg PO Q6H PRN 05/21/18 10/01/21 History (Tylenol Extra Strength) amlodipine 2.5 mg tablet 2.5 mg PO QAM 05/21/18 10/01/21 History polyethylene glycol 3350 17 gram 17 g PO QAM PRN 05/21/18 10/01/21 History oral powder packet (Miralax) guaifenesin 600 mg tablet, 600 mg PO Q12H PRN 07/10/18 10/01/21 History extended release 12 hr (Mucinex) potassium chloride 10 mEq 20 meq PO Q OTHER DAY 07/10/18 10/01/21 History tablet,extended release azelastine 137 mcg (0.1 %) nasal 1 spray INTRANASAL BID 10/01/21 10/01/21 History spray aerosol denosumab 60 mg/mL subcutaneous 0 mg SUBCUT YEARLY 10/01/21 10/01/21 History syringe (Prolia) dicyclomine 10 mg capsule 10 mg PO DIRECTED PRN 10/01/21 10/01/21 History docusate sodium 100 mg capsule 200 mg PO HS 10/01/21 10/01/21 History (Colace) furosemide 40 mg tablet 40 mg PO DAILY 10/01/21 10/01/21 History isosorbide mononitrate 30 mg 30 mg PO DAILY 10/01/21 10/01/21 History tablet,extended release 24 hr potassium chloride 10 mEq 30 meq PO Q OTHER DAY 10/01/21 10/01/21 History tablet,extended release Past Med/Surg History Medical History (Updated 10/01/21 @ 17:40 by Troy Chaudhry MD) Anxiety Arthritis Atrial fibrillation pt unsure of diagnosis CAD (coronary artery disease) "hx PCI stent to RCI cath 2004 - 90% RCA stenosis s/p intervention, 50% LAD stenosis Cath 04/2018 with PCI MATEUSZ to Mid LAD -Dr. Darby CHF (congestive heart failure) Chronic diastolic CHF (congestive heart failure) Echo 09/2017 The qualitative LV ejection fraction is 55-59% (normal). The LV wall thickness is moderately increased (concentric). The left atrium is severely enlarged. The left ventricular diastolic function is mildly abnormal (grade I). Moderate mitral regurgitation is present. Mild tricuspid regurgitation is present. There is mild pulmonary regurgitation. Normal IVC size and collapsability with sniff indicates a normal right atrial pressure of 3 mmHg. The estimated pulmonary artery systolic pressure is 55mm Hg. COPD (chronic obstructive pulmonary disease) CVA (cerebral vascular accident) 2015--no deficits Depression Diastolic dysfunction "echo 04/1815 - grade II diastolic dysfunction, mild valvular disease" Echo 09/2017 The qualitative LV ejection fraction is 55-59% (normal). The LV wall thickness is moderately increased (concentric). The left atrium is severely enlarged. The left ventricular diastolic function is mildly abnormal (grade I). Moderate mitral regurgitation is present. Mild tricuspid regurgitation is present. There is mild pulmonary regurgitation. Normal IVC size and collapsability with sniff indicates a normal right atrial pressure of 3 mmHg. The estimated pulmonary artery systolic pressure is 55mm Hg. Dyslipidemia Exertional dyspnea GERD (gastroesophageal reflux disease) High cholesterol History of bleeding ulcers History of gastric ulcer HTN (hypertension) Hypoxia On home oxygen therapy 2L N/C at night Pulmonary HTN "echo 05/01/15 - severe pulmonary HTN measured at 68mm Hg " TIA (transient ischemic attack) "1977" Surgical History Cystocele with rectocele "s/p repair" History of breast biopsy History of colonoscopy History of esophagogastroduodenoscopy (EGD) 06/2019 [facility] History of hysterectomy ANIL BSO History of open reduction and internal fixation (ORIF) procedure Right radial fx History of tooth extraction all teeth removed S/P cholecystectomy Status post cardiac catheterization Status post coronary artery stent placement 05/04/18 @ [facility] follows with Dr. Johnson Family History Brother Family history of diabetes mellitus Sister Family history of diabetes mellitus Social History Smoking Status: Never smoker Second Hand Exposure: Yes ( smoked); Hx Alcohol Use: Yes Alcohol type: hard liquor Hx Substance Use: No Preferred Language: Italian Communication Ability: Effective Daycare Manager Required: No Beliefs That Will Affect Care: None marital status: Current Living Situation: Alone current occupational status: retired How many Children do You have: 1 Feels Safe at Home: Yes Assistive Devices: Denture - Upper, Denture - Lower, Glasses and Oxygen - at Night Review of Systems Review of Systems: All systems reviewed & are unremarkable except as noted in HPI & below Physical Exam Physical Exam: General: Lying comfortably in bed, not in acute distress, on 2L NC HEENT: EOMI, ARLEEN, MMM Chest: Fair breath sounds bilaterally with bilateral faint wheezes and basilar crackles CVS: Regular rate and rhythm, normal heart sounds, no murmur Abdomen: Soft, non tender, not distended, normal bowel sounds Neuro: Awake, alert, oriented, conversing well, non focal Extremities: No cyanosis, clubbing or edema Results & Data Results & Data ([facility]) Vital Signs (Past 12 Hours) Vital Signs Temp Pulse Pulse Resp BP Pulse Ox 10/01/21 15:01 95 10/01/21 14:54 66 20 95 10/01/21 12:43 36.6 C 72 22 161/63 H 87 L Code Status & VTE Plan VTE Prophylaxis Plan VTE Prophylaxis will be ordered: Yes
[2021-10-01 19:02] LABS: Appearance Urine Clear (Clear); Bacteria Urine Automated 3+ (Negative); Bilirubin Urine Negative (Negative); Blood Urine Negative (Negative); Cast Urine Automated 0 /lpf (0-5); Color Urine Yellow; Glucose Urine UA Negative (Negative); Ketones Urine Negative (Negative); Leukocyte Esterase Urine Negative (Negative); Nitrite Urine Positive (Negative); Protein Urine Trace (Negative); RBC Urine Automated 0-4 /hpf (0-4); Specific Gravity Urine 1.008 (1.000-1.030); Urobilinogen Urine Negative (Negative)
[2021-10-01] MEDS ORDERED: FUROSEMIDE 40 MG/4 ML VIAL IV ONE ×2 (19:52→22:57)
[2021-10-01] MEDS ORDERED: ALBUT/IPRATROP 3MG/0.5MG NEB 3 ML VIAL NEB PRN (19:52)
[2021-10-01] MEDS ORDERED: cloNIDine HCL 0.1 MG TAB PO PRN (19:52)
[2021-10-01] MEDS: BUDESONIDE 0.5 MG/2 ML VIAL (PULMICORT) NEB SCH (20:38)
[2021-10-01] MEDS: ALBUT/IPRATROP 3MG/0.5MG NEB 3 ML VIAL INH SCH (20:38)
[2021-10-01] MEDS: FORMOTEROL 20 MCG/2 ML VIAL NEB SCH (20:38)
[2021-10-01] MEDS: POTASSIUM CHLORIDE 10 MEQ TABCR PO SCH (21:13)
[2021-10-01] MEDS: hydrALAZINE HCL 25 MG TAB PO SCH (21:14)
[2021-10-01] MEDS: ESCITALOPRAM OXALATE 10 MG TAB PO SCH (21:14)
[2021-10-01] MEDS: ENOXAPARIN INJ 40 MG/0.4 ML SYR SQ SCH (21:14)
[2021-10-01] MEDS: cefTRIAXone SODIUM 1,000 MG in DEXTROSE 5% 50 ML IV SCH (21:15)
[2021-10-01] MEDS: DOXYCYCLINE HYCLATE 100 MG CAP PO SCH (21:48)
[2021-10-02] MEDS: ALBUT/IPRATROP 3MG/0.5MG NEB 3 ML VIAL INH SCH ×2 (01:24→07:31)
[2021-10-02 06:00] LABS: Eosinophils # (auto) 0.01 K/uL (0-0.5); Eosinophils % (auto) 0.2 %; Hematocrit (blood only) 31.5 % (37-47); Immature Granulocytes # (auto) 0.02 K/uL (0.00-0.02); Immature Granulocytes % (auto) 0.3 %; Lymphocytes # (auto) 0.69 K/uL (1.2-3.4); Lymphocytes % (auto) 10.7 %; Mean Corpuscular Hemoglobin 30.1 pg (25-34); Mean Corpuscular Hgb Conc 31.7 g/dL (32-36); Mean Corpuscular Volume 94.9 fL (80-100); Mean Platelet Volume 10.2 fL (7.4-10.4); Monocytes # (auto) 0.28 K/uL (0.11-0.59); Monocytes % (auto) 4.3 %; Neutrophils # (auto) 5.44 K/uL (1.4-6.5); Neutrophils % (auto) 84.5 %; Platelet Count 155 K/uL (130-400); RDW Standard Deviation 58.4 fL (36.4-46.3); Red Blood Count 3.32 M/uL (4.2-5.4); White Blood Count 6.44 K/uL (4.8-10.8)
[2021-10-02 06:31] LABS: BUN Creatinine Ratio 15.6 (10-20); Calcium 8.1 mg/dl (8.5-10.1); Creatinine Clr Calc Pharmacy 37.9 ml/min; Est GFR (African American) 52.9 ml/min; Est GFR (Non-African American) 45.6 ml/min; Magnesium 2.2 mg/dl (1.7-2.4); Potassium 3.7 mmol/L (3.5-5.1)
[2021-10-02] MEDS: FORMOTEROL 20 MCG/2 ML VIAL NEB SCH ×2 (07:31→19:30)
[2021-10-02] MEDS: BUDESONIDE 0.5 MG/2 ML VIAL (PULMICORT) NEB SCH ×2 (07:31→19:30)
[2021-10-02] MEDS: hydrALAZINE HCL 25 MG TAB PO SCH ×4 (08:49→19:48)
[2021-10-02] MEDS: predniSONE 20 MG TAB PO SCH (08:50)
[2021-10-02] MEDS: ROSUVASTATIN CALCIUM 20 MG TAB PO SCH (08:50)
[2021-10-02] MEDS: carvediloL 3.125 MG TAB PO SCH (08:51)
[2021-10-02] MEDS: FUROSEMIDE 40 MG TAB PO SCH (08:51)
[2021-10-02] MEDS: LOSARTAN POTASSIUM 50 MG TAB PO SCH (08:51)
[2021-10-02] MEDS: CLOPIDOGREL BISULFATE 75 MG TAB PO SCH (08:52)
[2021-10-02] MEDS: POTASSIUM CHLORIDE 10 MEQ TABCR PO SCH (08:52)
[2021-10-02] MEDS: CEROVITE ADV FORMULA TAB PO SCH (08:52)
[2021-10-02] MEDS: DOXYCYCLINE HYCLATE 100 MG CAP PO SCH ×2 (08:52→19:48)
[2021-10-02] MEDS: ASPIRIN 81 MG ECTAB PO SCH (08:53)
[2021-10-02] MEDS ORDERED: ALBUT/IPRATROP 3MG/0.5MG NEB 3 ML VIAL INH PRN (09:44)
--- NOTE | 2021-10-02 12:04 | XRay Report ---
SINGLE VIEW CHEST CLINICAL HISTORY: Follow-up congestive heart failure. FINDINGS: An AP, portable, upright chest radiograph is compared to study dated 10/01/2021. The heart i s enlarged noting atherosclerotic calcification of the thoracic aorta. There is mild pulmonary vascul ar congestion. Atelectasis is noted at the lung bases. No large pleural effusion or pneumothorax is s een. The skeletal structures are osteopenic. The bony thorax is grossly intact. IMPRESSION: 1. Cardiomegaly with mild pulmonary vascular congestion. 2. No airspace consolidation or large pleural effusion is identified. ACT 112: Negative or not required by law. Electronically signed by: Jose Guadalupe Owen M.D. 10/02/2021 12:03 PM
[2021-10-02] MEDS ORDERED: FUROSEMIDE 40 MG/4 ML VIAL IV ONE (16:00)
--- NOTE | 2021-10-02 19:01 | Hospitalist Progress Note ---
Date of Service October 02, 2021 Assessment & Plan (1) COPD with exacerbation: (2) Diastolic CHF, acute on chronic: (3) Hypokalemia: (4) Valvular heart disease: (5) Severe pulmonary hypertension: Plan: Per admitting physician's notes with addendum: 86 year old female with COPD, diastolic CHF, severe pulmonary hypertension and valvular heart disease presented to the ED for convenient care for hypoxia, shortness of breath and dysuria. Acute exacerbation of COPD- mild. bilateral faint wheezes and basilar crackles. on 2L NC in ED. feeling better after nebs and steroids in the ED. Will start on duonebs, pulmicort/formeterol, prednisone and doxycycline. Wean down oxygen. She only uses 2 L of NC at night at home. Ambulatory pulse oximetry prior to discharge. 10/02 Weaned off oxygen Continue nebs, prednisone, doxycycline Acute on chronic mild exacerbation of diastolic CHF with valvular regurgitation and severe pulmonary hypertension- CXR with central vascular congestion but no reported weight gain, edema, orthopnea or PND. BNP elevated to 396. will give 1 dose of lasix today. Follow up on urine output, I and Os and daily weight. Consider additional iv lasix in am if needed. Potassium repleted. Recheck in am. Echo with E% 65-69% with grade 1 diastolic function with moderate MR, moderate TR and severe pulmonary HTN. less utility of repeating echo at this point. Follows up with OP cardiology 10/02 Lasix 40 mg IV ordered for today Monitor diuresis Hypokalemia- Resolved H/o ischemic CAD s/p remote PCI of RCA and PCI of LAD 2017 - no chest pain or tightness. EKG with no acute changes. UTI - Dysuria +, UA with positive nitrate and bacteria but normal WBC. No leucocytosis. -Urine culture: Gram-negative bacilli Continue ceftriaxone DVT prophylaxis: sc lovenox Disposition: Pending Anticipate discharge to home when medically stable Admission and Anticipated Discharge Date Admission Date: October 01, 2021 Subjective Follow-up for acute bronchitis, COPD exacerbation,acute CHF exacerbation, etc. Seen resting in bed, comfortable, on room air States she feels improved compared to yesterday Breathing is better, less cough No chest pain, dizziness, nausea, palpitations No leg pain No fevers or chills No other symptoms Review of Systems Review of Systems: all noted and negative except for above Physical Exam Physical Exam: General- oriented x 3, not in distress, speaks in sentences with no effort or accessory muscle use Head- atraumatic Eyes- PERRL, EOMI, anicteric ENT- oropharynx clear Neck- supple, no JVD, no adenopathy, no thyromegaly; carotids +2/2, no bruits appreciated Lungs-mild rales at the bases, no wheezing Heart- normal rate, regular rhythm; no murmur, no gallop, no rub appreciated Abdomen- normal bowel sounds, nondistended, soft, nontender, no masses or hepatosplenomegaly Extremities- no pretibial edema, no calf tenderness; peripheral pulses intact Neuro- alert, oriented x 3; CN 2-12 grossly intact; motor 5/5 bilaterally;sensation 100% on all extremities; no other gross focal neurologic deficits Skin- warm & dry Results & Data Results & Data ([facility]) Vital Signs (Past 12 Hours) Vital Signs Temp Pulse Resp BP Pulse Ox 10/02/21 15:51 36.8 C 70 16 132/60 91 10/02/21 12:19 130/65 10/02/21 08:54 73 156/67 H 10/02/21 07:34 71 17 96 all noted and reviewed including below
[2021-10-02] MEDS: ENOXAPARIN INJ 40 MG/0.4 ML SYR SQ SCH (19:48)
[2021-10-02] MEDS: cefTRIAXone SODIUM 1,000 MG in DEXTROSE 5% 50 ML IV SCH (19:48)
[2021-10-02] MEDS: ESCITALOPRAM OXALATE 10 MG TAB PO SCH (19:48)
[2021-10-03] MEDS: BUDESONIDE 0.5 MG/2 ML VIAL (PULMICORT) NEB SCH (07:16)
[2021-10-03] MEDS: FORMOTEROL 20 MCG/2 ML VIAL NEB SCH (07:16)
[2021-10-03] MEDS: ROSUVASTATIN CALCIUM 20 MG TAB PO SCH (09:10)
[2021-10-03] MEDS: ASPIRIN 81 MG ECTAB PO SCH (09:10)
[2021-10-03] MEDS: LOSARTAN POTASSIUM 50 MG TAB PO SCH (09:10)
[2021-10-03] MEDS: predniSONE 20 MG TAB PO SCH (09:10)
[2021-10-03] MEDS: DOXYCYCLINE HYCLATE 100 MG CAP PO SCH (09:10)
[2021-10-03] MEDS: CLOPIDOGREL BISULFATE 75 MG TAB PO SCH (09:11)
[2021-10-03] MEDS: CEROVITE ADV FORMULA TAB PO SCH (09:11)
[2021-10-03] MEDS: FUROSEMIDE 40 MG TAB PO SCH (09:11)
[2021-10-03] MEDS: hydrALAZINE HCL 25 MG TAB PO SCH ×2 (09:12→13:43)
[2021-10-03] MEDS: carvediloL 3.125 MG TAB PO SCH (09:13)
[2021-10-03] MEDS: POTASSIUM CHLORIDE 10 MEQ TABCR PO SCH (09:20)
[2021-10-03 09:21] LABS: BUN Creatinine Ratio 19.8 (10-20); Calcium 8.4 mg/dl (8.5-10.1); Creatinine Clr Calc Pharmacy 34.2 ml/min; Est GFR (African American) 46.6 ml/min; Est GFR (Non-African American) 40.2 ml/min; Magnesium 2.2 mg/dl (1.7-2.4); Potassium 3.2 mmol/L (3.5-5.1)
--- NOTE | 2021-10-03 14:45 | Hospitalist Progress Note ---
Date of Service October 03, 2021 Assessment & Plan (1) COPD with exacerbation: (2) Diastolic CHF, acute on chronic: (3) Hypokalemia: (4) Valvular heart disease: (5) Severe pulmonary hypertension: Plan: Per admitting physician's notes with addendum: 86 year old female with COPD, diastolic CHF, severe pulmonary hypertension and valvular heart disease presented to the ED for convenient care for hypoxia, shortness of breath and dysuria. Acute exacerbation of COPD, secondary to Acute Bronchitis admission notes: "mild. bilateral faint wheezes and basilar crackles. on 2L NC in ED. feeling better after nebs and steroids in the ED. Will start on duonebs, pulmicort/formeterol, prednisone and doxycycline. Wean down oxygen. She only uses 2 L of NC at night at home." 10/03 Weaned off oxygen states she feels better overall given nebs q6h, prednisone, doxycycline discharge plan: Doxycycline 100mg BID x 5 more days Prednisone 20mg x 2 days, then 10mg x 2 days then STOP will require 2 L of O2 while ambulating per 2 step exercise test Acute on chronic mild exacerbation of diastolic CHF with valvular regurgitation and severe pulmonary hypertension- CXR with central vascular congestion but no reported weight gain, edema, orthopnea or PND. BNP elevated to 396. will give 1 dose of lasix today. Follow up on urine output, I and Os and daily weight. Consider additional iv lasix in am if needed. Potassium repleted. Recheck in am. Echo with E% 65-69% with grade 1 diastolic function with moderate MR, moderate TR and severe pulmonary HTN. less utility of repeating echo at this point. Follows up with OP cardiology 10/03 given IV Lasix improved repeat CXR: improving, mild pulmonary vascular congestion discharge plan: increase Lasix 40mg BID x 2 days then resume usual Lasix 40mg po daily repeat basic metabolic profile on ff up with PCP this week Hypokalemia 3.2 continue usual PO K at home repeat basic metabolic profile on ff up with PCP this week H/o ischemic CAD s/p remote PCI of RCA and PCI of LAD 2017 - no chest pain or tightness. EKG with no acute changes. UTI- E coli - Dysuria +, UA with positive nitrate and bacteria but normal WBC. No leucocytosis. -Urine culture: E coli given Ceftriaxone IV x 2 days, finish Cefdinir x 1 day upon discharge no urinary symptoms on discharge Disposition d/c home patient declined home health services ff up with PCP this coming week Admission and Anticipated Discharge Date Admission Date: October 01, 2021 Subjective ff up for acute bronchitis, CHF exacerbation, etc seen resting in bed, comfortable her daughter Tiffany is at the bedside visiting on room air in good spirits states she feels much better overall breathing much improved has intermittent cough no chest pain, palpitations, dizziness no other symptoms states she is ready and would like to be discharged today Review of Systems Review of Systems: all noted and negative except for above Physical Exam Physical Exam: General- oriented x 3, not in distress, speaks in sentences with no effort or accessory muscle use Eyes- anicteric Neck- no JVD Lungs- faint rales at the bases no wheezing good air entry bilaterally Heart- normal rate, regular rhythm; no murmurs Abdomen- normal bowel sounds, nondistended, soft, nontender Extremities- trace pretibial edema, no calf tenderness Neuro- alert, oriented x 3; no gross focal neurologic deficits Skin- warm & dry Results & Data Results & Data ([facility]) Vital Signs (Past 12 Hours) Vital Signs Temp Pulse Resp BP Pulse Ox 10/03/21 10:49 93 10/03/21 08:19 36.6 C 51 L 16 159/71 H 100 10/03/21 07:19 67 18 91 all noted and reviewed including below
--- NOTE | 2021-10-03 15:27 | Discharge Summary ---
Date of Service October 03, 2021 Admission HPI Per Admitting Provider 86 year old female with history of COPD, chronic diastolic CHF with valvular regurgitation, severe pulmonary hypertension and other medical problems as below presented to the ED for [facility] for hypoxia at room air (84%). Patient thought she had UTI and hence went there where she was hypoxic at room air and sent to ED for evaluation. She says she has been having shortness of breath for the past week along with wheezing and dry cough and had required more of her rescue inhaler. Denies any orthopnea, PND or weight gain. Uses 1 pillow at night. No fever, chills, nausea, vomiting. No sick contacts. Also has dysuria for past week. Uses 2 L NC at night regularly but does not require during day time. In the ED, she was hypoxic to 87% and placed on 2 L NC. she was given nebs and steroid with improvement in her symptoms. She was feeling better during my encounter. Admission Exam (Per Admitting) Constitutional General: Lying comfortably in bed, not in acute distress, on 2L NC HEENT: EOMI, ARLEEN, MMM Chest: Fair breath sounds bilaterally with bilateral faint wheezes and basilar crackles CVS: Regular rate and rhythm, normal heart sounds, no murmur Abdomen: Soft, non tender, not distended, normal bowel sounds Neuro: Awake, alert, oriented, conversing well, non focal Extremities: No cyanosis, clubbing or edema Discharge Data Consultations 10/01/21 16:31 ED Decision to Admit Stat Procedures Performed XR chest 1V portable CLINICAL HISTORY: SOB TECHNIQUE: Single frontal radiograph of the chest was obtained. Comparison: Comparison is made to chest one view 05/22/2018 FINDINGS: No lines and tubes are seen. Cardiomegaly is noted. There is prominence and cephalization of the vasculature with Navid B lines seen. No evidence of pleural effusion or pneumothorax. IMPRESSION: Moderate pulmonary edema. ACT 112: Negative or not required by law. Electronically signed by: Stalin Champion M.D. 10/01/2021 2:54 PM SINGLE VIEW CHEST CLINICAL HISTORY: Follow-up congestive heart failure. FINDINGS: An AP, portable, upright chest radiograph is compared to study dated 10/01/2021. The heart is enlarged noting atherosclerotic calcification of the thoracic aorta. There is mild pulmonary vascular congestion. Atelectasis is noted at the lung bases. No large pleural effusion or pneumothorax is seen. The skeletal structures are osteopenic. The bony thorax is grossly intact. IMPRESSION: 1. Cardiomegaly with mild pulmonary vascular congestion. 2. No airspace consolidation or large pleural effusion is identified. ACT 112: Negative or not required by law. Electronically signed by: Jose Guadalupe Owen M.D. 10/02/2021 12:03 PM Hospital Course (1) COPD with exacerbation: (2) Diastolic CHF, acute on chronic: (3) Hypokalemia: (4) Valvular heart disease: (5) Severe pulmonary hypertension: Per admitting physician's notes with addendum: 86 year old female with COPD, diastolic CHF, severe pulmonary hypertension and valvular heart disease presented to the ED for convenient care for hypoxia, shortness of breath and dysuria. Acute exacerbation of COPD, secondary to Acute Bronchitis admission notes: "mild. bilateral faint wheezes and basilar crackles. on 2L NC in ED. feeling better after nebs and steroids in the ED. Will start on duonebs, pulmicort/formeterol, prednisone and doxycycline. Wean down oxygen. She only uses 2 L of NC at night at home." 10/03 given nebs q6h, prednisone, doxycycline Weaned off oxygen states she feels better overall discharge plan: Doxycycline 100mg BID x 5 more days Prednisone 20mg x 2 days, then 10mg x 2 days then STOP will require 2 L of O2 while ambulating per 2 step exercise test Acute on chronic mild exacerbation of diastolic CHF with valvular regurgitation and severe pulmonary hypertension - admission notes: CXR with central vascular congestion but no reported weight gain, edema, orthopnea or PND. BNP elevated to 396. will give 1 dose of lasix today. Follow up on urine output, I and Os and daily weight. Consider additional iv lasix in am if needed. Potassium repleted. Recheck in am. Echo with E% 65-69% with grade 1 diastolic function with moderate MR, moderate TR and severe pulmonary HTN. less utility of repeating echo at this point. 10/03 given IV Lasix improved repeat CXR: improving, mild pulmonary vascular congestion discharge plan: increase Lasix 40mg BID x 2 days then resume usual Lasix 40mg po daily repeat basic metabolic profile on ff up with PCP this week Hypokalemia 3.2 continue usual PO K at home repeat basic metabolic profile on ff up with PCP this week H/o ischemic CAD s/p remote PCI of RCA and PCI of LAD 2017 - no chest pain or tightness. EKG with no acute changes. UTI- E coli - Dysuria +, UA with positive nitrate and bacteria but normal WBC. No leucocytosis. -Urine culture: E coli given Ceftriaxone IV x 2 days, finish Cefdinir x 1 day upon discharge no urinary symptoms on discharge Disposition d/c home patient declined home health services ff up with PCP this coming week
[2021-10-03] MEDS ORDERED: CEFDINIR 300 MG CAP PO SCH (21:00)
== END 2021-10-03 16:17 | disposition home or self-care (01) | DRG 291 ==
LOC: ED 12:30 → SUATTDRO 17:14 → EDINP 17:14 → 3N 21:07

== ENCOUNTER 2022-01-14 15:24 | Inpatient (IN) ==
[2022-01-14 16:54] LABS: INR 1.1 (0.9-1.1); Partial Thromboplastin Ratio 0.9; Partial Thromboplastin Time 23.4 Seconds (21.0-31.0); Prothrombin Time 11.2 Seconds (9.0-12.0)
[2022-01-14] MEDS ORDERED: METOPROLOL TARTRATE 1 MG/ML VIAL IV STA (17:02)
--- NOTE | 2022-01-14 17:04 | XRay Report ---
SINGLE VIEW CHEST CLINICAL HISTORY: Fatigue. FINDINGS: An AP, portable, upright chest radiograph is compared to study dated 10/02/2021. Correlation is made with chest CT dated 05/02/2018. The examination is degraded by portable technique and patient rotation. The heart is enlarged noting atherosclerotic calcification of the thoracic aorta. A pearce ry artery stent is noted. The pulmonary vasculature is noncongested. Chronic interstitial thickening is similar to previous. Atelectasis is noted at the lung bases. The lungs and pleural spaces are othe rwise clear. No pneumothorax is seen. The skeletal structures are osteopenic. The bony thorax is loyda sly intact. IMPRESSION: Cardiomegaly with no acute cardiopulmonary abnormality. ACT 112: Negative or not required by law. Electronically signed by: Jose Guadalupe Owen M.D. 01/14/2022 5:02 PM
[2022-01-14 17:05] LABS: Albumin Globulin Ratio 1.4 (0.9-2); Bilirubin,Total 0.5 mg/dl (0.2-1.0); Calcium 9.3 mg/dl (8.5-10.1); Creatinine Clr Calc Pharmacy 24.6 ml/min; Est GFR (African American) 30.7 ml/min; Est GFR (Non-African American) 26.5 ml/min; Globulin 2.9 gm/dl (2.5-4.0); Total Protein 6.9 gm/dl (6.0-8.3)
[2022-01-14 17:14] LABS: Troponin I High Sensitivity 11.7 pg/ml (0-14)
[2022-01-14 17:36] LABS: Hematocrit (blood only) 31.6 % (37-47); Hemoglobin 9.8 g/dL (12.0-16.0); Mean Corpuscular Hemoglobin 29.4 pg (25-34); Mean Corpuscular Volume 94.9 fL (80-100); RDW Coefficient of Variation 16.5 % (11.5-14.5); RDW Standard Deviation 57.7 fL (36.4-46.3); Red Blood Count 3.33 M/uL (4.2-5.4); White Blood Count 12.75 K/uL (4.8-10.8)
[2022-01-14 17:40] LABS: Mean Platelet Volume 9.3 fL (7.4-10.4); Platelet Count 190 K/uL (130-400)
[2022-01-14 17:41] LABS: Basophils # (auto) 0.01 K/uL (0-0.2); Basophils % (auto) 0.1 %; Immature Granulocytes # (auto) 0.06 K/uL (0.00-0.02); Immature Granulocytes % (auto) 0.5 %; Lymphocytes # (auto) 1.19 K/uL (1.2-3.4); Lymphocytes % (auto) 9.3 %; Monocytes # (auto) 0.31 K/uL (0.11-0.59); Monocytes % (auto) 2.4 %; Neutrophils # (auto) 11.18 K/uL (1.4-6.5); Neutrophils % (auto) 87.7 %; Platelet Estimate Normal (Normal)
--- NOTE | 2022-01-14 17:41 | Emergency Department Note ---
Impression & Plan Exertional dyspnea, Diastolic CHF, acute on chronic, FANY (acute kidney injury), Weakness, Atrial fibrillation with rapid ventricular response ED Provider Note Provider: Edwin Cisneros MD DATE OF SERVICE: 01/14/2022 CHIEF COMPLAINT: Her by his doctor for fatigue and left chest pain HISTORY OF PRESENT ILLNESS: Patient is a 86-year-old female history of COPD, diastolic CHF with valvular regurgitation, pulmonary hypertension presenting here referred by her doctor for evaluation of some increased fatigue as well some left chest pain radiating to her back on specific questioning. States has been a bit unsteady but has not fallen. States a little bit of swelling in the legs. States has had some palpitations at times. Not on blood thinners due to history of GI bleed. Denies any dark or bloody stools. Evidently referred from sports coordinator office as about 3 weeks ago had a hemoglobin of 8 that was downtrending and has not followed up on. Denies any abdominal pain. Patient does endorse some dyspnea on exertion walking around. REVIEW OF SYSTEMS: A total of 10 review of systems was obtained and negative except as stated above in the HPI. PAST MEDICAL HISTORY: As noted above MEDICATIONS: Reviewed home medication list SOCIAL HISTORY: Lives at home by herself PHYSICAL EXAM: GENERAL: alert and oriented in no acute distress on stretcher although slightly fatigued appearing Head: normocephalic and atraumatic EYES: No injection, discharge or icterus. NECK: Trachea midline. ENT: Mucous membranes pink and moist. LUNGS: Airway patent. No retractions. Breath sounds clear with diminished bases HEART: Irregular regular tachycardic rate and rhythm. No chest wall tenderness ABDOMEN: Soft and non-tender, without guarding or rebound. SKIN: Acyanotic, warm, dry, without rashes EXTREMITIES: Without significant tenderness 1+ lower extremity edema NEUROLOGICAL: No focal deficits. No aphasia. No facial droop or slurred speech. Normal strength and tone in the extremities. Sensation to gross touch normal. EK bpm atrial fibrillation with rapid ventricular response. No acute ST segment elevation with some questionable lateral ST changes. QTc 387. CONTINUOUS CARDIAC MONITORING: was ordered and showed a heart rate of 80s-110s bpm in atrial fibrillation Patient's laboratory studies and imaging reviewed. Differential includes Infection, dehydration, metabolic abnormality, hypo/hyperglycemia, electrolyte disturbance, anemia, hypoxia, cardiac sources, intracerebral event, toxicologic, neurologic, as well as other pathologies. IMPRESSION/MEDICAL DECISION MAKING: EKG shows some rapid A. fib. When getting into the room on the monitor her heart rates been in the 90s to 1 teens and given a small dose of metoprolol. X- ray without significant fluid edema noted although she has some mild swelling of the legs. Given her extensive history question if the A. fib is causing some increased fatigue and weakness. Today she was actually slightly improved hemoglobin 9.8 but a mild leukocytosis of 12.7. Renal function worse today at 1.71. No troponin elevation. Again patient does not really complain significantly of chest discomfort unless directly asked multiple times. Leave likely she is suffering from weakness and fatigue related to the A. fib. On anticoagulated due to her history of GI bleed. No evidence of significant liver dysfunction or thyroid abnormality. Some mild fluid overload given a dose of Lasix. Did take Lasix earlier today. Some perhaps mild FANY again. Discussed with patient and given this we will monitor overnight in the hospital. Hospitalist contacted. DIAGNOSIS: Atrial fibrillation with rapid ventricular response, weakness, fluid overload, FANY DISPOSITION: Hospitalist will evaluate Patient was agreeable with this plan. Past Med/Surg History Medical History (Updated 01/14/22 @ 23:14 by Edwin Cisneros M.D.) Anxiety Arthritis Atrial fibrillation CAD (coronary artery disease) "hx PCI stent to RCI cath 2004 - 90% RCA stenosis s/p intervention, 50% LAD stenosis Cath 04/2018 with PCI MATEUSZ to Mid LAD -Dr. Darby CHF (congestive heart failure) Chronic diastolic CHF (congestive heart failure) Echo 09/2017 The qualitative LV ejection fraction is 55-59% (normal). The LV wall thickness is moderately increased (concentric). The left atrium is severely enlarged. The left ventricular diastolic function is mildly abnormal (grade I). Moderate mitral regurgitation is present. Mild tricuspid regurgitation is present. There is mild pulmonary regurgitation. Normal IVC size and collapsability with sniff indicates a normal right atrial pressure of 3 mmHg. The estimated pulmonary artery systolic pressure is 55mm Hg. COPD (chronic obstructive pulmonary disease) CVA (cerebral vascular accident) 2015--no deficits Depression Diastolic dysfunction "echo 04/1815 - grade II diastolic dysfunction, mild valvular disease" Echo 09/2017 The qualitative LV ejection fraction is 55-59% (normal). The LV wall thickness is moderately increased (concentric). The left atrium is severely enlarged. The left ventricular diastolic function is mildly abnormal (grade I). Moderate mitral regurgitation is present. Mild tricuspid regurgitation is present. There is mild pulmonary regurgitation. Normal IVC size and collapsability with sniff indicates a normal right atrial pressure of 3 mmHg. The estimated pulmonary artery systolic pressure is 55mm Hg. Dyslipidemia Exertional dyspnea GERD (gastroesophageal reflux disease) High cholesterol History of bleeding ulcers History of gastric ulcer HTN (hypertension) Hypoxia Nocturnal hypoxia On home oxygen therapy 2L N/C at night Pulmonary HTN "echo 05/01/15 - severe pulmonary HTN measured at 68mm Hg " TIA (transient ischemic attack) "1977" Surgical History Cystocele with rectocele "s/p repair" History of breast biopsy History of colonoscopy History of esophagogastroduodenoscopy (EGD) 06/2019 [facility] History of hysterectomy ANIL BSO History of open reduction and internal fixation (ORIF) procedure Right radial fx History of tooth extraction all teeth removed S/P cholecystectomy Status post cardiac catheterization Status post coronary artery stent placement 05/04/18 @ [facility] follows with Dr. Johnson Family History Brother Family history of diabetes mellitus Sister Family history of diabetes mellitus Social History Smoking Status: Never smoker Second Hand Exposure: Yes; Hx Alcohol Use: Yes Alcohol type: wine and hard liquor Alcohol Intake Frequency: 2-4 x/Month Hx Substance Use: No Preferred Language: [place] Communication Ability: Effective Legal Executive Required: No Beliefs That Will Affect Care: Voodoo Voodoo Beliefs: Religious marital status: Current Living Situation: Alone current occupational status: retired How many Children do You have: 1 Other Information That Helps Us Care for You: No Feels Safe at Home: Yes Safety Concerns: Feels Safe At This Time Assistive Devices: Denture - Upper, Denture - Lower and Glasses Allergies Allergies Allergy/AdvReac Type Severity Reaction Status Date / Time iodine Allergy Intermediate HIVES Verified 01/14/22 18:38 shellfish derived Allergy Intermediate Hives Verified 06/03/22 18:38 CHALO Inhibitors Allergy Mild Cough Verified 01/14/22 18:38 hydrochlorothiazide Allergy Mild gout Verified 01/14/22 18:38 tramadol Allergy Mild Rash Verified 01/14/22 18:38 Cipro Allergy Unknown . Verified 11/30/16 14:56 ciprofloxacin Allergy Unknown . Verified 01/14/22 18:38 Home Meds Home Medications Medication Instructions Recorded Confirmed albuterol sulfate 90 mcg/actuation 2 puff INHALATION Q4H PRN 05/02/18 01/14/22 aerosol inhaler aspirin 81 mg tablet,delayed 81 mg PO PM 05/02/18 01/14/22 release carvedilol 3.125 mg tablet 3.125 mg PO DAILY 05/02/18 01/14/22 escitalopram oxalate 10 mg tablet 10 mg PO QPM 05/02/18 01/14/22 (Lexapro) hydralazine 50 mg tablet 75 mg PO QID 05/02/18 01/14/22 losartan 100 mg tablet 100 mg PO QAM 05/02/18 01/14/22 rosuvastatin 40 mg tablet 40 mg PO QAM 05/02/18 01/14/22 vit C,E,zinc,copper-qgakn4l 250 1 cap PO QAM 05/02/18 01/14/22 mg-lutein 5 mg-zeaxanthin 1 mg capsule (Ocuvite Adult 50 Plus) acetaminophen 500 mg tablet 500 mg PO Q6H PRN 05/21/18 01/14/22 (Tylenol Extra Strength) amlodipine 2.5 mg tablet 2.5 mg PO QAM 05/21/18 01/14/22 polyethylene glycol 3350 17 gram 17 g PO QAM PRN 05/21/18 01/14/22 oral powder packet (Miralax) potassium chloride 10 mEq 20 meq PO DAILY 07/10/18 01/14/22 tablet,extended release azelastine 137 mcg (0.1 %) nasal 1 spray INTRANASAL BID 10/01/21 01/14/22 spray aerosol denosumab 60 mg/mL subcutaneous 0 mg SUBCUT YEARLY 10/01/21 01/14/22 syringe (Prolia) docusate sodium 100 mg capsule 200 mg PO HS 10/01/21 01/14/22 (Colace) isosorbide mononitrate 30 mg 30 mg PO DAILY 10/01/21 01/14/22 tablet,extended release 24 hr cetirizine 5 mg tablet 5 mg PO DAILY PRN 01/14/22 01/14/22 clonidine HCl 0.1 mg tablet 0.1 mg PO TID PRN 01/14/22 01/14/22 clopidogrel 75 mg tablet 75 mg PO DAILY 01/14/22 01/14/22 furosemide 40 mg tablet 40 mg PO DAILY 01/14/22 01/14/22 nitroglycerin 0.4 mg sublingual 0.4 mg SUBLINGUAL UD 01/14/22 01/14/22 tablet pantoprazole 40 mg tablet,delayed 40 mg PO DAILY 01/14/22 01/14/22 release prednisone 20 mg tablet 60 mg PO DAILY 01/14/22 01/14/22 tiotropium bromide 2.5 2 puff INHALATION QAM 01/14/22 01/14/22 mcg/actuation mist for inhalation (Spiriva Respimat) Previous Rx's Medication Instructions Recorded guaifenesin 600 mg tablet, 600 mg PO Q12H 5 Days #10 tab 10/03/21 extended release 12 hr (Mucinex) Results & Data (ED) Vital Signs Vital Signs - 24 hr 01/14/22 15:31 01/14/22 17:18 01/14/22 17:21 Temperature 36.7 C Temperature Source Oral Pulse Rate 102 H Pulse Rate [Apical] 91 H Pulse Rhythm [Apical] Irregular Respiratory Rate 20 22 Respiratory Effort / Characteristics Non-Labored Non-Labored Respiratory Depth Normal Blood Pressure 139/54 L Blood Pressure [Left Arm] 111/52 L Blood Pressure Mean 82 Blood Pressure Mean [Left Arm] 71 Pulse Oximetry 95 95 93 Oxygen Delivery Method Room Air Room Air Room Air Sepsis Recent Fever Within 48 Hours No Sepsis New/Unexplained Change in Mental Status N/A Sepsis Action Taken by Nursing No Action Required 01/14/22 17:23 01/14/22 18:02 Temperature Temperature Source Pulse Rate 90 Pulse Rate [Apical] 75 Pulse Rhythm [Apical] Irregular Respiratory Rate 17 Respiratory Effort / Characteristics Non-Labored Respiratory Depth Blood Pressure Blood Pressure [Left Arm] 103/65 Blood Pressure Mean Blood Pressure Mean [Left Arm] 77 Pulse Oximetry 97 Oxygen Delivery Method Room Air Sepsis Recent Fever Within 48 Hours Sepsis New/Unexplained Change in Mental Status Sepsis Action Taken by Nursing Laboratory Data Result diagrams: 01/14/22 16:06 01/14/22 16:06 Lab Results 01/14/22 01/14/22 01/14/22 Range/Units 16:06 16:06 16:06 WBC 12.75 H (4.8-10.8) K/uL RBC 3.33 L (4.2-5.4) M/uL Hgb 9.8 L (12.0-16.0) g/dL Hct 31.6 L (37-47) % MCV 94.9 (80-100) fL MCH 29.4 (25-34) pg MCHC 31.0 L (32-36) g/dL RDW Std Deviation 57.7 H (36.4-46.3) fL RDW Coeff of Luz 16.5 H (11.5-14.5) % Plt Count 190 (130-400) K/uL MPV 9.3 (7.4-10.4) fL Immature Gran % (Auto) 0.5 % Neut % (Auto) 87.7 % Lymph % (Auto) 9.3 % Coos % (Auto) 2.4 % Eos % (Auto) 0.0 % Baso % (Auto) 0.1 % Neut # (Auto) 11.18 H (1.4-6.5) K/uL Lymph # (Auto) 1.19 L (1.2-3.4) K/uL Coos # (Auto) 0.31 (0.11-0.59) K/uL Eos # (Auto) 0.00 (0-0.5) K/uL Baso # (Auto) 0.01 (0-0.2) K/uL Immature Gran # (Auto) 0.06 H (0.00-0.02) K/uL Platelet Estimate Normal (Normal) PT 11.2 (9.0-12.0) Seconds INR 1.1 (0.9-1.1) APTT 23.4 (21.0-31.0) Seconds PTT Ratio 0.9 Sodium 137 (136-145) mmol/L Potassium 4.0 (3.5-5.1) mmol/L Chloride 97 L (98-107) mmol/L Carbon Dioxide 28 (21-32) mmol/L Anion Gap 12 H (3-11) BUN 53 H (6-23) mg/dl Creatinine 1.71 H (0.6-1.2) mg/dl Est Cr Clr Drug Dosing 24.6 ml/min Est GFR ( Amer) 30.7 ml/min Est GFR (Non-Af Amer) 26.5 ml/min BUN/Creatinine Ratio 31.0 H (10-20) Glucose 298 H (70-99(Fasting)) mg/dl Calcium 9.3 (8.5-10.1) mg/dl Magnesium (1.7-2.4) mg/dl Total Bilirubin 0.5 (0.2-1.0) mg/dl AST 19 (13-39) U/L ALT 18 (7-52) U/L Alkaline Phosphatase 79 (34-104) U/L Troponin I High Sens 11.7 (0-14) pg/ml B-Natriuretic Peptide (0-100) pg/ml Total Protein 6.9 (6.0-8.3) gm/dl Albumin 4.0 (3.4-5.0) gm/dl Globulin 2.9 (2.5-4.0) gm/dl Albumin/Globulin Ratio 1.4 (0.9-2) TSH (0.300-4.500) uIu/ml SARS-CoV-2, RNA, NAAT (NEGATIVE) 01/14/22 01/14/22 01/14/22 Range/Units 16:06 16:06 16:07 WBC (4.8-10.8) K/uL RBC (4.2-5.4) M/uL Hgb (12.0-16.0) g/dL Hct (37-47) % MCV (80-100) fL MCH (25-34) pg MCHC (32-36) g/dL RDW Std Deviation (36.4-46.3) fL RDW Coeff of Luz (11.5-14.5) % Plt Count (130-400) K/uL MPV (7.4-10.4) fL Immature Gran % (Auto) % Neut % (Auto) % Lymph % (Auto) % Coos % (Auto) % Eos % (Auto) % Baso % (Auto) % Neut # (Auto) (1.4-6.5) K/uL Lymph # (Auto) (1.2-3.4) K/uL Coos # (Auto) (0.11-0.59) K/uL Eos # (Auto) (0-0.5) K/uL Baso # (Auto) (0-0.2) K/uL Immature Gran # (Auto) (0.00-0.02) K/uL Platelet Estimate (Normal) PT (9.0-12.0) Seconds INR (0.9-1.1) APTT (21.0-31.0) Seconds PTT Ratio Sodium (136-145) mmol/L Potassium (3.5-5.1) mmol/L Chloride (98-107) mmol/L Carbon Dioxide (21-32) mmol/L Anion Gap (3-11) BUN (6-23) mg/dl Creatinine (0.6-1.2) mg/dl Est Cr Clr Drug Dosing ml/min Est GFR ( Amer) ml/min Est GFR (Non-Af Amer) ml/min BUN/Creatinine Ratio (10-20) Glucose (70-99(Fasting)) mg/dl Calcium (8.5-10.1) mg/dl Magnesium 2.3 (1.7-2.4) mg/dl Total Bilirubin (0.2-1.0) mg/dl AST (13-39) U/L ALT (7-52) U/L Alkaline Phosphatase (34-104) U/L Troponin I High Sens (0-14) pg/ml B-Natriuretic Peptide 811 H (0-100) pg/ml Total Protein (6.0-8.3) gm/dl Albumin (3.4-5.0) gm/dl Globulin (2.5-4.0) gm/dl Albumin/Globulin Ratio (0.9-2) TSH 0.667 (0.300-4.500) uIu/ml SARS-CoV-2, RNA, NAAT (NEGATIVE) 01/14/22 Range/Units 17:28 WBC (4.8-10.8) K/uL RBC (4.2-5.4) M/uL Hgb (12.0-16.0) g/dL Hct (37-47) % MCV (80-100) fL MCH (25-34) pg MCHC (32-36) g/dL RDW Std Deviation (36.4-46.3) fL RDW Coeff of Luz (11.5-14.5) % Plt Count (130-400) K/uL MPV (7.4-10.4) fL Immature Gran % (Auto) % Neut % (Auto) % Lymph % (Auto) % Coos % (Auto) % Eos % (Auto) % Baso % (Auto) % Neut # (Auto) (1.4-6.5) K/uL Lymph # (Auto) (1.2-3.4) K/uL Coos # (Auto) (0.11-0.59) K/uL Eos # (Auto) (0-0.5) K/uL Baso # (Auto) (0-0.2) K/uL Immature Gran # (Auto) (0.00-0.02) K/uL Platelet Estimate (Normal) PT (9.0-12.0) Seconds INR (0.9-1.1) APTT (21.0-31.0) Seconds PTT Ratio Sodium (136-145) mmol/L Potassium (3.5-5.1) mmol/L Chloride (98-107) mmol/L Carbon Dioxide (21-32) mmol/L Anion Gap (3-11) BUN (6-23) mg/dl Creatinine (0.6-1.2) mg/dl Est Cr Clr Drug Dosing ml/min Est GFR ( Amer) ml/min Est GFR (Non-Af Amer) ml/min BUN/Creatinine Ratio (10-20) Glucose (70-99(Fasting)) mg/dl Calcium (8.5-10.1) mg/dl Magnesium (1.7-2.4) mg/dl Total Bilirubin (0.2-1.0) mg/dl AST (13-39) U/L ALT (7-52) U/L Alkaline Phosphatase (34-104) U/L Troponin I High Sens (0-14) pg/ml B-Natriuretic Peptide (0-100) pg/ml Total Protein (6.0-8.3) gm/dl Albumin (3.4-5.0) gm/dl Globulin (2.5-4.0) gm/dl Albumin/Globulin Ratio (0.9-2) TSH (0.300-4.500) uIu/ml SARS-CoV-2, RNA, NAAT NEGATIVE (NEGATIVE) Administered Medications Aspirin (Aspirin 81 Mg Ectab) 81 mg PO PM JEIMY Stop: 02/13/22 20:59 Last Admin: 01/14/22 21:51 Dose: 81 mg Documented by: [id number] Azelastine HCl (Azelastine Hcl 0.1% Nasal 200 Sprays/27,400 Mcg Btl) 1 sprays MEAGAN BID JEIMY Stop: 02/13/22 20:59 Last Admin: 01/14/22 21:50 Dose: Not Given Documented by: [id number] Docusate Sodium (Docusate Sodium 100 Mg Cap) 200 mg PO HS JEIMY Stop: 02/13/22 20:59 Last Admin: 01/14/22 21:50 Dose: Not Given Documented by: [id number] Escitalopram Oxalate (Escitalopram Oxalate 10 Mg Tab) 10 mg PO QPM JEIMY Stop: 02/13/22 20:59 Last Admin: 01/14/22 21:51 Dose: 10 mg Documented by: [id number] Furosemide (Furosemide 40 Mg/4 Ml Vial) 40 mg IV DAILY JEIMY Stop: 02/13/22 20:49 Last Admin: 01/14/22 21:49 Dose: 40 mg Documented by: [id number] Heparin Sodium (Porcine) (Heparin Sod 5,000 Unit/0.5 Ml Vial) 5,000 units SQ Q12 JEIMY Stop: 02/13/22 20:59 Last Admin: 01/14/22 21:49 Dose: 5,000 units Documented by: [id number] Hydralazine HCl (Hydralazine Hcl 25 Mg Tab) 75 mg PO QID JEIMY Stop: 02/13/22 20:59 Last Admin: 01/14/22 21:50 Dose: 75 mg Documented by: [id number] Insulin Aspart (Insulin Aspart Per Unit) 0 units SC ACHS JEIMY Stop: 02/13/22 20:59 Last Admin: 01/14/22 21:52 Dose: 6 units Documented by: [id number] Cosigned by: [id number] Discontinued Medications Furosemide (Furosemide 20 Mg Tab) 20 mg PO ONCE ONE Stop: 01/14/22 18:17 Last Admin: 01/14/22 19:01 Dose: 20 mg Documented by: [id number] Metoprolol Tartrate (Metoprolol Tartrate 1 Mg/Ml Vial) 5 mg IV NOW STA Stop: 01/14/22 17:03 Last Admin: 01/14/22 17:23 Dose: 5 mg Documented by: [id number] Imaging Data Radiologist's Impression: Chest X-Ray 01/14/22 16:03 SINGLE VIEW CHEST CLINICAL HISTORY: Fatigue. FINDINGS: An AP, portable, upright chest radiograph is compared to study dated 10/02/2021. Correlation is made with chest CT dated 05/02/2018. The examination is degraded by portable technique and patient rotation. The heart is enlarged noting atherosclerotic calcification of the thoracic aorta. A coronary artery s tent is noted. The pulmonary vasculature is noncongested. Chronic interstitial thickening is similar to previous. Atelectasis is noted at the lung bases. The lungs and pleural spaces are otherwise clear. No pneumothorax is seen. The skeletal structures are osteopenic. The bony thorax is grossly intact. IMPRESSION: Cardiomegaly with no acute cardiopulmonary abnormality. ACT 112: Negative or not required by law. Electronically signed by: Jose Guadalupe Owen M.D. 01/14/2022 5:02 PM Discharge Plan Visit Data Chief Complaint: Cardiac Assessment Stated Complaint: HEART ASSESSMENT ED Provider: Edwin Cisneros Discharge Problem: Exertional dyspnea, Diastolic CHF, acute on chronic, FANY (acute kidney injury), Weakness, Atrial fibrillation with rapid ventricular response Patient Disposition: Admitted As Inpatient Discharge Instructions Interventions: ED Discharge Assessment Last Done: 01/14/22 20:28
[2022-01-14] MEDS ORDERED: FUROSEMIDE 20 MG TAB PO ONE (18:16)
--- NOTE | 2022-01-14 19:16 | History & Physical Report ---
Date of Service January 14, 2022 Assessment & Plan (1) Atrial fibrillation: Plan: Patient is 86 y/o F with PMH CAD, HTN, dyslipidemia, atrial fibrillation not on anticoagulation, COPD, nocturnal hypoxia, chronic diastolic heart failure, chronic anemia presented to ER from cardiology office for exertional SOB x several weeks, increased BLE edema. Denies palpitations, chest pain In ER found to be in afib RVR rate 106 and given 5mg IV Lopressor with rate down in 80's.. TSH: 0.6. Initial troponin: 11.7 Continue carvedilol Lopressor as needed tachycardia Trend troponin Cardiology consult (2) Acute on chronic diastolic (congestive) heart failure: Plan: Increased exertional shortness of breath, increased BLE edema past several weeks. Outpatient notes 10 pound weight gain in the past 5 weeks History echo 2018: EF >70%, severe concentric LVH, grade 3 diastolic dysfunction In ER given Lasix 20 mg p.o. BNP pending Monitor I's and O's, daily weight, low-sodium diet Lasix 40 mg IV daily Monitor BMP Continue home potassium supplement Echo Cardiology consult (3) Hyperglycemia: Plan: Random glucose 298. No known history of diabetes. Patient has been on prednisone A1c in a.m. NovoLog sliding scale per protocol (4) FANY (acute kidney injury): Plan: Cr: 1.7. Baseline~1.3 Monitor renal functions Avoid nephrotoxic agents when possible If no improvement consider nephrology consult (5) Weakness: Plan: Generalized weakness May be secondary to acute on chronic CHF, afib rvr. Anemia at baseline Denies urinary symptoms, UA pending PT/OT eval fall precautions (6) Temporal arteritis: Plan: Left temporal region discomfort has been ongoing. Being treated outpatient for temporal arteritis for the past 6 weeks with prednisone 60 mg daily Continue prednisone Has temporal artery biopsy planned for general surgery outpatient (7) CAD (coronary artery disease): Plan: Continue aspirin, Plavix, rosuvastatin, carvedilol, isosorbide (8) HTN (hypertension): Plan: Continue amlodipine, hydralazine, losartan, isosorbide Hold as needed clonidine and monitor BP (9) Chronic anemia: Plan: Hgb: 9.8. Baseline~10 Monitor H&H (10) COPD (chronic obstructive pulmonary disease): Plan: No signs acute exacerbation Continue home inhalers (11) Nocturnal hypoxia: Plan: Continue 2 L O2 at bedtime DVT Prophylaxis Heparin SQ Full Code as per discussion with pt Follows with Dr Kuhn for routine care Pt was seen and care coordinated with Dr Gates. See addendum History of Present Illness Chief Complaint: Weakness Primary Care Provider: Josh Kuhn DO Patient is 86 y/o F with PMH CAD, HTN, dyslipidemia, atrial fibrillation not on anticoagulation, COPD, nocturnal hypoxia, chronic diastolic heart failure, chronic anemia presented to ER from cardiology office for exertional SOB. Patient reports for past several weeks has been having generalized weakness and fatigue. Also having increased SOB with walking past couple of weeks as well as increased bilateral leg swelling. Denies chest pain. Reports has been on predn isone 60mg daily for 1.5 months for temporal arteritis. Is to have upcoming biopsy. Still having discomfort over left temporal area. She reports been eating a lot since on prednisone and thinks gained some weight. Outpatient cardiology note reports 10 pound weight gain over past 5 weeks. She reports some nonproductive cough that she feels is baseline for her and chronic COPD. Sleeps reclined chronically, denies PND. Denies falls, fever/chills, diaphoresis, N/V/D/C, other NICOLE, dizziness, syncope, vision changes, neck pain, palpitations, sore throat, choking, otalgia, rhinorrhea, abdominal pain, paresthesias, extremity erythema, rashes, urinary symptoms. In ER found to be in afib RVR rate 106 and given 5mg IV Lopressor with rate down in 80's. Also given lasix 20mg po. Allergies Allergy/AdvReac Type Severity Reaction Status Date / Time iodine Allergy Intermediate HIVES Verified 01/14/22 18:38 shellfish derived Allergy Intermediate Hives Verified 01/14/22 18:38 CHALO Inhibitors Allergy Mild Cough Verified 01/14/22 18:38 hydrochlorothiazide Allergy Mild gout Verified 01/14/22 18:38 tramadol Allergy Mild Rash Verified 01/14/22 18:38 Cipro Allergy Unknown . Verified 11/30/16 14:56 ciprofloxacin Allergy Unknown . Verified 01/14/22 18:38 Home Medications Medication Instructions Recorded Confirmed Type albuterol sulfate 90 mcg/actuation 2 puff INHALATION Q4H PRN 05/02/18 01/14/22 History aerosol inhaler aspirin 81 mg tablet,delayed 81 mg PO PM 05/02/18 01/14/22 History release carvedilol 3.125 mg tablet 3.125 mg PO DAILY 05/02/18 01/14/22 History escitalopram oxalate 10 mg tablet 10 mg PO QPM 05/02/18 01/14/22 History (Lexapro) hydralazine 50 mg tablet 75 mg PO QID 05/02/18 01/14/22 History losartan 100 mg tablet 100 mg PO QAM 05/02/18 01/14/22 History rosuvastatin 40 mg tablet 40 mg PO QAM 05/02/18 01/14/22 History vit C,E,zinc,copper-gpxrb6s 250 1 cap PO QAM 05/02/18 01/14/22 History mg-lutein 5 mg-zeaxanthin 1 mg capsule (Ocuvite Adult 50 Plus) acetaminophen 500 mg tablet 500 mg PO Q6H PRN 05/21/18 01/14/22 History (Tylenol Extra Strength) amlodipine 2.5 mg tablet 2.5 mg PO QAM 05/21/18 01/14/22 History polyethylene glycol 3350 17 gram 17 g PO QAM PRN 05/21/18 01/14/22 History oral powder packet (Miralax) potassium chloride 10 mEq 20 meq PO DAILY 07/10/18 01/14/22 History tablet,extended release azelastine 137 mcg (0.1 %) nasal 1 spray INTRANASAL BID 10/01/21 01/14/22 History spray aerosol denosumab 60 mg/mL subcutaneous 0 mg SUBCUT YEARLY 10/01/21 01/14/22 History syringe (Prolia) docusate sodium 100 mg capsule 200 mg PO HS 10/01/21 01/14/22 History (Colace) isosorbide mononitrate 30 mg 30 mg PO DAILY 10/01/21 01/14/22 History tablet,extended release 24 hr guaifenesin 600 mg tablet, 600 mg PO Q12H 5 Days #10 tab 10/03/21 01/14/22 Rx extended release 12 hr (Mucinex) cetirizine 5 mg tablet 5 mg PO DAILY PRN 01/14/22 01/14/22 History clonidine HCl 0.1 mg tablet 0.1 mg PO TID PRN 01/14/22 01/14/22 History clopidogrel 75 mg tablet 75 mg PO DAILY 01/14/22 01/14/22 History furosemide 40 mg tablet 40 mg PO DAILY 01/14/22 01/14/22 History nitroglycerin 0.4 mg sublingual 0.4 mg SUBLINGUAL UD 01/14/22 01/14/22 History tablet pantoprazole 40 mg tablet,delayed 40 mg PO DAILY 01/14/22 01/14/22 History release prednisone 20 mg tablet 60 mg PO DAILY 01/14/22 01/14/22 History tiotropium bromide 2.5 2 puff INHALATION QAM 01/14/22 01/14/22 History mcg/actuation mist for inhalation (Spiriva Respimat) Past Med/Surg History Medical History (Updated 01/14/22 @ 20:13 by Court Fuentes PA-C) Anxiety Arthritis Atrial fibrillation CAD (coronary artery disease) "hx PCI stent to RCI cath 2004 - 90% RCA stenosis s/p intervention, 50% LAD stenosis Cath 04/2018 with PCI MATEUSZ to Mid LAD -Dr. Darby CHF (congestive heart failure) Chronic diastolic CHF (congestive heart failure) Echo 09/2017 The qualitative LV ejection fraction is 55-59% (normal). The LV wall thickness is moderately increased (concentric). The left atrium is severely enlarged. The left ventricular diastolic function is mildly abnormal (grade I). Moderate mitral regurgitation is present. Mild tricuspid regurgitation is present. There is mild pulmonary regurgitation. Normal IVC size and collapsability with sniff indicates a normal right atrial pressure of 3 mmHg. The estimated pulmonary artery systolic pressure is 55mm Hg. COPD (chronic obstructive pulmonary disease) CVA (cerebral vascular accident) 2015--no deficits Depression Diastolic dysfunction "echo 04/1815 - grade II diastolic dysfunction, mild valvular disease" Echo 09/2017 The qualitative LV ejection fraction is 55-59% (normal). The LV wall thickness is moderately increased (concentric). The left atrium is severely enlarged. The left ventricular diastolic function is mildly abnormal (grade I). Moderate mitral regurgitation is present. Mild tricuspid regurgitation is present. There is mild pulmonary regurgitation. Normal IVC size and collapsability with sniff indicates a normal right atrial pressure of 3 mmHg. The estimated pulmonary artery systolic pressure is 55mm Hg. Dyslipidemia Exertional dyspnea GERD (gastroesophageal reflux disease) High cholesterol History of bleeding ulcers History of gastric ulcer HTN (hypertension) Hypoxia Nocturnal hypoxia On home oxygen therapy 2L N/C at night Pulmonary HTN "echo 05/01/15 - severe pulmonary HTN measured at 68mm Hg " TIA (transient ischemic attack) "1977" Surgical History Cystocele with rectocele "s/p repair" History of breast biopsy History of colonoscopy History of esophagogastroduodenoscopy (EGD) 06/2019 [facility] History of hysterectomy ANIL BSO History of open reduction and internal fixation (ORIF) procedure Right radial fx History of tooth extraction all teeth removed S/P cholecystectomy Status post cardiac catheterization Status post coronary artery stent placement 05/04/18 @ [facility] follows with Dr. Johnson Family History Brother Family history of diabetes mellitus Sister Family history of diabetes mellitus Social History Smoking Status: Never smoker Second Hand Exposure: Yes; Hx Alcohol Use: Yes Alcohol type: hard liquor Alcohol Intake Frequency: 2-4 x/Month Hx Substance Use: No Preferred Language: Azeri Communication Ability: Effective Boss Dyer Required: No Beliefs That Will Affect Care: None marital status: Current Living Situation: Alone current occupational status: retired How many Children do You have: 1 Feels Safe at Home: Yes Assistive Devices: Oxygen - at Night and Walker Review of Systems Review of Systems: All systems reviewed & are unremarkable except as noted in HPI & below Physical Exam Physical Exam: Per Dr Gates Results & Data Results & Data ([facility]) Vital Signs (Past 12 Hours) Vital Signs Temp Pulse Pulse Resp BP BP Pulse Ox 01/14/22 18:02 75 17 103/65 97 01/14/22 17:23 90 01/14/22 17:21 91 H 22 111/52 L 93 01/14/22 17:18 95 01/14/22 15:31 36.7 C 102 H 20 139/54 L 95 Laboratory Results Short CBC 01/14/22 Range/Units 16:06 WBC 12.75 H (4.8-10.8) K/uL Hgb 9.8 L (12.0-16.0) g/dL Hct 31.6 L (37-47) % Plt Count 190 (130-400) K/uL BMP 01/14/22 16:06 Sodium 137 Potassium 4.0 Chloride 97 L Carbon Dioxide 28 BUN 53 H Creatinine 1.71 H Glucose 298 H Calcium 9.3 Liver Function 01/14/22 Range/Units 16:06 Total Bilirubin 0.5 (0.2-1.0) mg/dl AST 19 (13-39) U/L ALT 18 (7-52) U/L Alkaline Phosphatase 79 (34-104) U/L Albumin 4.0 (3.4-5.0) gm/dl Diagnostic Findings Chest X-Ray 01/14/22 16:03 SINGLE VIEW CHEST CLINICAL HISTORY: Fatigue. FINDINGS: An AP, portable, upright chest radiograph is compared to study dated 10/02/2021. Correlation is made with chest CT dated 05/02/2018. The examination is degraded by portable technique and patient rotation. The heart is enlarged noting atherosclerotic calcification of the thoracic aorta. A coronary artery stent is noted. The pulmonary vasculature is noncongested. Chronic interstitial thickening is similar to previous. Atelectasis is noted at the lung bases. The lungs and pleural spaces are otherwise clear. No pneumothorax is seen. The skeletal structures are osteopenic. The bony thorax is grossly intact. IMPRESSION: Cardiomegaly with no acute cardiopulmonary abnormality. ACT 112: Negative or not required by law. Electronically signed by: Jose Guadalupe Owen M.D. 01/14/2022 5:02 PM Supervising Physician Co-Signing Physician Notes Date of Service: January 14, 2022 History and physical exam performed by me. History notable for 86-year-old woman with history of diastolic heart failure, COPD, CKD 3, paroxysmal A. fib who was sent in from cardiology office where she went for evaluation. Reports increasing weakness, worsening dyspnea especially with exertion, orthopnea, leg swelling reports some weight gain. Reports left-sided temporal pain for which she was being on prednisone and being evaluated for possible temporal arteritis. Denies chest pain On exam, General: Well nourished, well hydrated, no acute distress and not ill appearing Eyes: PERRL, conjunctivae normal, not pale, anicteric sclerae, EOM intact bilaterally ENMT: External ear and nose normal, oropharynx normal Respiratory: Normal respiratory effort, no respiratory distress, lungs clear to auscultation, no crackles and no wheezes Cardiovascular: Pulse is irregularly irregular, S1 S2 Gastrointestinal (Abdomen): Abdomen is not distended, soft, non-tender to palpation, no guarding, no palpable hepatosplenomegaly, normal bowel sounds Musculoskeletal: No cyanosis or clubbing, all extremities motor strength 5/5, +bilateral pedal edema Neurologic: Alert and oriented x 3, No focal weakness, sensation grossly intact Psychiatric: Alert and oriented x 3, euthymic affect, no depressed affect Labs notable for WBC of 12,000, hemoglobin of 9.8, creatinine of 1.71, glucose of 298. Acute on chronic diastolic heart failure A. fib with RVR. Heart rate was in the 100-110ss on presentation he got a dose of Lopressor IV IV Lasix Cardiology consult Old echo reviewed. Defer to cardiology if another echo is needed. Continue prednisone. Hyperglycemia likely due to prednisone Monitor blood glucose and manage appropriately Check A1c. ISS Has chronic anemia. Hb is at baseline Cr has been 1.3-1.5 in the past 3 months. Cr is 1.7 today. Monitor Agree with other plans as detailed by Court Fuentes PA-C
--- NOTE | 2022-01-14 19:46 | Communication Note ---
Date of Service: January 14, 2022 History and physical exam performed by me. History notable for 86-year-old woman with history of diastolic heart failure, COPD, CKD 3, paroxysmal A. fib who was sent in from cardiology office where she went for evaluation. Reports increasing weakness, worsening dyspnea especially with exertion, orthopnea, leg swelling reports some weight gain. Reports left-sided temporal pain for which she was being on prednisone and being evaluated for possible temporal arteritis. Denies chest pain On exam, General: Well nourished, well hydrated, no acute distress and not ill appearing Eyes: PERRL, conjunctivae normal, not pale, anicteric sclerae, EOM intact bilaterally ENMT: External ear and nose normal, oropharynx normal Respiratory: Normal respiratory effort, no respiratory distress, lungs clear to auscultation, no crackles and no wheezes Cardiovascular: Pulse is irregularly irregular, S1 S2 Gastrointestinal (Abdomen): Abdomen is not distended, soft, non-tender to palpation, no guarding, no palpable hepatosplenomegaly, normal bowel sounds Musculoskeletal: No cyanosis or clubbing, all extremities motor strength 5/5, +bilateral pedal edema Neurologic: Alert and oriented x 3, No focal weakness, sensation grossly intact Psychiatric: Alert and oriented x 3, euthymic affect, no depressed affect Labs notable for WBC of 12,000, hemoglobin of 9.8, creatinine of 1.71, glucose of 298. Acute on chronic diastolic heart failure A. fib with RVR. Heart rate was in the 100-110ss on presentation he got a dose of Lopressor IV IV Lasix Cardiology consult Old echo reviewed. Defer to cardiology if another echo is needed. Continue prednisone. Hyperglycemia likely due to prednisone Monitor blood glucose and manage appropriately Check A1c. ISS Has chronic anemia. Hb is at baseline Cr has been 1.3-1.5 in the past 3 months. Cr is 1.7 today. Monitor Agree with other plans as detailed by Court Fuentes PA-C
[2022-01-14 20:33] LABS: Appearance Urine Clear (Clear); Bacteria Urine Automated 4+ (Negative); Bilirubin Urine Negative (Negative); Blood Urine Negative (Negative); Color Urine Yellow; Epithelial Cell Urine Auto 0-5 /lpf (0-5); Glucose Urine UA Trace (Negative); Ketones Urine Negative (Negative); Leukocyte Esterase Urine Negative (Negative); Nitrite Urine Negative (Negative); Protein Urine 1+ (Negative); RBC Urine Automated 0-4 /hpf (0-4); Specific Gravity Urine 1.012 (1.000-1.030); Urobilinogen Urine Negative (Negative); pH Urine 5.5 (4.5-7.5)
[2022-01-14] MEDS ORDERED: POLYETHYLENE (MIRALAX) 17 GM PACK PO PRN (20:50)
[2022-01-14] MEDS ORDERED: METOPROLOL TARTRATE 1 MG/ML VIAL IV PRN (20:50)
[2022-01-14] MEDS ORDERED: ALBUTEROL HFA 8 GM INHALER INH PRN (20:50)
[2022-01-14] MEDS ORDERED: ACETAMINOPHEN 325 MG TAB PO PRN (20:50)
[2022-01-14] MEDS ORDERED: GLUCAGON FOR INJ 1 MG VIAL SQ PRN (20:50)
[2022-01-14] MEDS ORDERED: GLUCOSE 40% GEL 15 GM TUBE PO PRN (20:50)
[2022-01-14] MEDS ORDERED: DEXTROSE 50% 50 ML SYRINGE IV PRN (20:50)
[2022-01-14] MEDS ORDERED: NITROGLYCERIN SL 0.4 MG/TAB TAB SL PRN (20:50)
[2022-01-14] MEDS ORDERED: GLUCOSE 10 TABS/TUBE PO PRN (20:50)
[2022-01-14] MEDS ORDERED: CETIRIZINE HCL 10 MG TABLET PO PRN (20:50)
[2022-01-14] MEDS ORDERED: CARBOHYDRATES FOR HYPOGLYCEMIA PO PRN (20:50)
[2022-01-14] MEDS: HEPARIN SOD 5,000 UNIT/0.5 ML VIAL SQ SCH (21:49)
[2022-01-14] MEDS: FUROSEMIDE 40 MG/4 ML VIAL IV SCH (21:49)
[2022-01-14] MEDS: hydrALAZINE HCL 25 MG TAB PO SCH (21:50)
[2022-01-14] MEDS: DOCUSATE SODIUM 100 MG CAP PO SCH (21:50)
[2022-01-14] MEDS: AZELASTINE HCL 0.1% NASAL 200 SPRAYS/27,400 MCG BTL NAE SCH (21:50)
[2022-01-14] MEDS: ESCITALOPRAM OXALATE 10 MG TAB PO SCH (21:51)
[2022-01-14] MEDS: ASPIRIN 81 MG ECTAB PO SCH (21:51)
[2022-01-14] MEDS: INSULIN ASPART PER UNIT SC SCH (21:52)
[2022-01-15 04:30] LABS: Hematocrit (blood only) 31.6 % (37-47); Mean Corpuscular Hemoglobin 29.9 pg (25-34); Mean Corpuscular Hgb Conc 31.6 g/dL (32-36); Mean Corpuscular Volume 94.6 fL (80-100); Mean Platelet Volume 9.4 fL (7.4-10.4); Platelet Count 172 K/uL (130-400); RDW Coefficient of Variation 16.4 % (11.5-14.5); RDW Standard Deviation 56.4 fL (36.4-46.3); Red Blood Count 3.34 M/uL (4.2-5.4); White Blood Count 10.11 K/uL (4.8-10.8)
[2022-01-15 04:58] LABS: Troponin I High Sensitivity 13.5 pg/ml (0-14)
[2022-01-15 04:59] LABS: BUN Creatinine Ratio 35.2 (10-20); Calcium 9.1 mg/dl (8.5-10.1); Creatinine Clr Calc Pharmacy 25.9 ml/min; Est GFR (African American) 32.7 ml/min; Est GFR (Non-African American) 28.2 ml/min; Potassium 4.1 mmol/L (3.5-5.1)
[2022-01-15 07:05] LABS: Estimated Average Glucose 151 mg/dl; Hemoglobin A1C 6.9 % (4.5-5.6)
--- NOTE | 2022-01-15 07:55 | Cardiology Consultation ---
Date of Consultation January 15, 2022 Assessment & Plan (1) Weakness: (2) Acute on chronic diastolic (congestive) heart failure: (3) Atrial fibrillation with rapid ventricular response: (4) COPD (chronic obstructive pulmonary disease): (5) Chronic anemia: (6) CKD (chronic kidney disease): 86-year-old female presents with weakness and lack of stamina. Acute on chronic diastolic heart failure noted on admission which has improved with IV diuretic therapy. Recurrent atrial fibrillation with rapid ventricular response noted. She is not anticoagulated due to history of GI bleeding and chronic anemia. Heart rates appear reasonable at this time. Volume status improved overnight with 1600 cc diuresis. Creatinine trending upward to 1.67, however, near baseline of 1.5. I suspect symptoms including volume overload, recurrent A. fib, and elevated blood pressure related to prescription of high-dose corticosteroid for treatment of temporal arteritis. Recommend titration of carvedilol to 6.25 mg twice daily. Hold amlodipine to allow for titration of beta-amando therapy. Rate control strategy recommended at this time. Hold diuretic therapy with repeat BMP in a.m. 01/16/2022. Chronic anemia appears stable. No indication for transfusion currently. History of Present Illness Reason for Consultation: Atrial fibrillation, CHF Requesting Physician: Court Fuentes PA-C Attending Physician: Gael Matthews MD History of Present Illness Complex 86-year-old female admitted from the cardiology clinic due to progressive fatigue, symptomatic anemia, and congestive heart failure.Preserved LV systolic function per most recent echocardiogram. Chronically treated with 40 mg Lasix daily in addition to Aldactone in the outpatient setting. Received 20 mg of intravenous furosemide in the ER with 1600 cc diuresis.Baseline serum creatinine 1.5, creatinine 1.62 today. Feeling better this morning. Edema markedly improved. Hemoglobin near baseline. Denies orthopnea or PND. Generally feels fatigued with lack of stamina. No chest discomfort or heaviness. 10lb weight gain over the past 5 weeks. Patient treated with high-dose prednisone for temporal arteritis over the past 6 weeks. Telemetry reveals atrial fibrillation in the 70s-80s. Cardiovascular problem list copied from the [employer] medical record: 1. Ischemic heart disease 1. Status post remote PCI of the RCA, 2. Status post May 04, 2018 PCI the mid LAD with a 3.5 x 22 Lorton drug- eluting stent and plain old balloon angioplasty of the ostium of the 2nd diagonal branch. FFR of the ramus was noted to be moderate, nonobstructive (0.85). 2. Paroxysmal atrial fibrillation. Risks of anticoagulation greater than the benefit. 3. Hospitalization in May 2018 with bright red blood per rectum, probable lower GI bleeding. Status post transfusion of 3 units pRBC's. Colonoscopy not performed. EGD with a gastric ulcer with no stigmata of acute bleeding and erosive gastropathy. Eliquis discontinued. 4. Longstanding labile hypertension. 5. Chronic resting bradycardia. 6. Mitral regurgitation 7. Diastolic congestive heart failure 8. Hyperlipidemia. 9. History of CVA in November 2016 10. GERD. 11. Gastritis. 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 13. Chronic back pain 14. Depression 15. Cholecystectomy. 16. Total hysterectomy. 17. Cystocele and vaginal repair. 18. Hospitalization at [facility] in September 2021. Initially presenting to urgent care due to concern for recurrent UTI. She was hypoxic (84%), wheezing, with a dry cough. Referred to [facility] where she was admitted with a E. Coli UTI, acute on chronic obstructive pulmonary disease exacerbation, and acute on chronic diastolic heart failure exacerbation. Hypokalemia observed. Patient notably felt better after nebulizer treatment and administration of steroids in the ER. Patient discharged on doxycycline, prednisone, supplemental oxygen (2 liters/minute via nasal cannula when ambulating) and an additional 40 mg of furosemide x2 days Allergies Allergy/AdvReac Type Severity Reaction Status Date / Time iodine Allergy Intermediate HIVES Verified 01/14/22 18:38 shellfish derived Allergy Intermediate Hives Verified 01/14/22 18:38 CHALO Inhibitors Allergy Mild Cough Verified 01/14/22 18:38 hydrochlorothiazide Allergy Mild gout Verified 01/14/22 18:38 tramadol Allergy Mild Rash Verified 01/14/22 18:38 Cipro Allergy Unknown . Verified 11/30/16 14:56 ciprofloxacin Allergy Unknown . Verified 01/14/22 18:38 Home Medications Medication Instructions Recorded Confirmed Type albuterol sulfate 90 mcg/actuation 2 puff INHALATION Q4H PRN 05/02/18 01/14/22 History aerosol inhaler aspirin 81 mg tablet,delayed 81 mg PO PM 05/02/18 01/14/22 History release carvedilol 3.125 mg tablet 3.125 mg PO DAILY 05/02/18 01/14/22 History escitalopram oxalate 10 mg tablet 10 mg PO QPM 05/02/18 01/14/22 History (Lexapro) hydralazine 50 mg tablet 75 mg PO QID 05/02/18 01/14/22 History losartan 100 mg tablet 100 mg PO QAM 05/02/18 01/14/22 History rosuvastatin 40 mg tablet 40 mg PO QAM 05/02/18 01/14/22 History vit C,E,zinc,copper-pcblr5c 250 1 cap PO QAM 05/02/18 01/14/22 History mg-lutein 5 mg-zeaxanthin 1 mg capsule (Ocuvite Adult 50 Plus) acetaminophen 500 mg tablet 500 mg PO Q6H PRN 05/21/18 01/14/22 History (Tylenol Extra Strength) amlodipine 2.5 mg tablet 2.5 mg PO QAM 05/21/18 01/14/22 History polyethylene glycol 3350 17 gram 17 g PO QAM PRN 05/21/18 01/14/22 History oral powder packet (Miralax) potassium chloride 10 mEq 20 meq PO DAILY 07/10/18 01/14/22 History tablet,extended release azelastine 137 mcg (0.1 %) nasal 1 spray INTRANASAL BID 10/01/21 01/14/22 History spray aerosol denosumab 60 mg/mL subcutaneous 0 mg SUBCUT YEARLY 10/01/21 01/14/22 History syringe (Prolia) docusate sodium 100 mg capsule 200 mg PO HS 10/01/21 01/14/22 History (Colace) isosorbide mononitrate 30 mg 30 mg PO DAILY 10/01/21 01/14/22 History tablet,extended release 24 hr guaifenesin 600 mg tablet, 600 mg PO Q12H 5 Days #10 tab 10/03/21 01/14/22 Rx extended release 12 hr (Mucinex) cetirizine 5 mg tablet 5 mg PO DAILY PRN 01/14/22 01/14/22 History clonidine HCl 0.1 mg tablet 0.1 mg PO TID PRN 01/14/22 01/14/22 History clopidogrel 75 mg tablet 75 mg PO DAILY 01/14/22 01/14/22 History furosemide 40 mg tablet 40 mg PO DAILY 01/14/22 01/14/22 History nitroglycerin 0.4 mg sublingual 0.4 mg SUBLINGUAL UD 01/14/22 01/14/22 History tablet pantoprazole 40 mg tablet,delayed 40 mg PO DAILY 01/14/22 01/14/22 History release prednisone 20 mg tablet 60 mg PO DAILY 01/14/22 01/14/22 History tiotropium bromide 2.5 2 puff INHALATION QAM 01/14/22 01/14/22 History mcg/actuation mist for inhalation (Spiriva Respimat) Patient History Medical History Anxiety Arthritis Atrial fibrillation CAD (coronary artery disease) "hx PCI stent to RCI cath 2004 - 90% RCA stenosis s/p intervention, 50% LAD stenosis Cath 04/2018 with PCI MATEUSZ to Mid LAD -Dr. Darby CHF (congestive heart failure) Chronic diastolic CHF (congestive heart failure) Echo 09/2017 The qualitative LV ejection fraction is 55-59% (normal). The LV wall thickness is moderately increased (concentric). The left atrium is severely enlarged. The left ventricular diastolic function is mildly abnormal (grade I). Moderate mitral regurgitation is present. Mild tricuspid regurgitation is present. There is mild pulmonary regurgitation. Normal IVC size and collapsability with sniff indicates a normal right atrial pressure of 3 mmHg. The estimated pulmonary artery systolic pressure is 55mm Hg. COPD (chronic obstructive pulmonary disease) CVA (cerebral vascular accident) 2015--no deficits Depression Diastolic dysfunction "echo 04/1815 - grade II diastolic dysfunction, mild valvular disease" Echo 09/2017 The qualitative LV ejection fraction is 55-59% (normal). The LV wall thickness is moderately increased (concentric). The left atrium is severely enlarged. The left ventricular diastolic function is mildly abnormal (grade I). Moderate mitral regurgitation is present. Mild tricuspid regurgitation is present. There is mild pulmonary regurgitation. Normal IVC size and collapsability with sniff indicates a normal right atrial pressure of 3 mmHg. The estimated pulmonary artery systolic pressure is 55mm Hg. Dyslipidemia Exertional dyspnea GERD (gastroesophageal reflux disease) High cholesterol History of bleeding ulcers History of gastric ulcer HTN (hypertension) Hypoxia Nocturnal hypoxia On home oxygen therapy 2L N/C at night Pulmonary HTN "echo 05/01/15 - severe pulmonary HTN measured at 68mm Hg " TIA (transient ischemic attack) "1977" Surgical History Cystocele with rectocele "s/p repair" History of breast biopsy History of colonoscopy History of esophagogastroduodenoscopy (EGD) 06/2019 [facility] History of hysterectomy ANIL BSO History of open reduction and internal fixation (ORIF) procedure Right radial fx History of tooth extraction all teeth removed S/P cholecystectomy Status post cardiac catheterization Status post coronary artery stent placement 05/04/18 @ [facility] follows with Dr. Johnson Family History Brother Family history of diabetes mellitus Sister Family history of diabetes mellitus Social History Smoking Status: Never smoker Second Hand Exposure: Yes; Hx Alcohol Use: Yes Alcohol type: wine and hard liquor Alcohol Intake Frequency: 2-4 x/Month Hx Substance Use: No Preferred Language: Azeri Communication Ability: Effective Manager Civil Required: No Beliefs That Will Affect Care: Church Church Beliefs: Catholic marital status: / Current Living Situation: Alone current occupational status: retired How many Children do You have: 1 Other Information That Helps Us Care for You: No Feels Safe at Home: Yes Safety Concerns: Feels Safe At This Time Assistive Devices: Oxygen - at Night Review of Systems Review of Systems: All systems reviewed & are unremarkable except as noted in Subjective Physical Exam Constitutional: well developed, well nourished and + obese Respiratory: normal respiratory effort; no respiratory distress, no labored breathing and no retractions Auscultation: no crackles, no rales, no rhonchi and no wheezes Cardiovascular: Rate/Rhythm: + irregularly irregular Heart Sounds: normal S1 and normal S2; no murmur Vessels: radial pulses present; no JVD and no carotid bruit Extremities: + edema (Trace bilateral pedal and ankle edema) Gastrointestinal (Abdomen): Inspection/Auscultation: abdomen normal to ins pection and normal bowel sounds; abdomen not distended Percussion/Palpation: abdomen soft; abdomen nontender and no guarding Neurologic: CN's II-XI intact bilaterally and moves all extremities; no focal motor deficits Motor/Sensory: no tremor Psychiatric: A+Ox3, euthymic affect Results & Data ([facility]) Vital Signs (Past 12 Hours) Vital Signs Temp Pulse Resp BP BP Pulse Ox 01/15/22 02:48 36.5 C 90 18 161/71 H 94 01/14/22 23:27 36.7 C 86 18 123/69 93 01/14/22 20:53 36.4 C L 83 16 125/73 96 01/14/22 20:00 76 16 109/66 95
[2022-01-15] MEDS: INSULIN ASPART PER UNIT SC SCH ×4 (08:10→21:13)
[2022-01-15] MEDS: AZELASTINE HCL 0.1% NASAL 200 SPRAYS/27,400 MCG BTL NAE SCH ×2 (08:37→21:03)
[2022-01-15] MEDS: CLOPIDOGREL BISULFATE 75 MG TAB PO SCH (08:38)
[2022-01-15] MEDS: FUROSEMIDE 40 MG/4 ML VIAL IV SCH (08:39)
[2022-01-15] MEDS: HEPARIN SOD 5,000 UNIT/0.5 ML VIAL SQ SCH ×2 (08:39→21:04)
[2022-01-15] MEDS: hydrALAZINE HCL 25 MG TAB PO SCH ×4 (08:39→21:03)
[2022-01-15] MEDS: ISOSORBIDE MONO EXTENDED REL 30 MG TABCR PO SCH (08:40)
[2022-01-15] MEDS: PANTOprazole 40 MG TAB PO SCH (08:41)
[2022-01-15] MEDS: POTASSIUM CHLORIDE CRTAB 20 MEQ TABCR PO SCH (08:41)
[2022-01-15] MEDS: MULTIVITAMIN TAB PO SCH (08:41)
[2022-01-15] MEDS: predniSONE 20 MG TAB PO SCH (08:42)
[2022-01-15] MEDS: ROSUVASTATIN CALCIUM 20 MG TAB PO SCH (08:42)
[2022-01-15] MEDS: UMECLIDINIUM BROMIDE 62.5MCG/BLISTER 7 PUFFS/INHALER INH SCH (08:43)
[2022-01-15] MEDS ORDERED: LOSARTAN POTASSIUM 50 MG TAB PO SCH (09:00)
[2022-01-15] MEDS ORDERED: amLODIPine BESYLATE 5 MG TAB PO SCH (09:00)
[2022-01-15] MEDS ORDERED: carvediloL 3.125 MG TAB PO SCH (09:00)
[2022-01-15] MEDS: cefTRIAXone SODIUM 2,000 MG in DEXTROSE 5% 50 ML IV SCH (11:32)
--- NOTE | 2022-01-15 14:57 | Hospitalist Progress Note ---
Date of Service January 15, 2022 Assessment & Plan (1) Atrial fibrillation: Plan: Patient is an 86 yr female with H/O CAD, HTN, dyslipidemia, atrial fibrillation not on anticoagulation, COPD, nocturnal hypoxia, chronic diastolic heart failure, chronic anemia presented to ER from cardiology office for exertional SOB x several weeks, increased BLE edema. Acute on chronic diastolic heart failure Valvular Hear disease --CXR:Cardiomegaly with no acute cardiopulmonary abnormality. --ECHO: EF 65 to 70%. Mild concentric LVH. Left atrium is moderately dilated. Moderate to severe mitral regurgitation. Moderate tricuspid regurgitation. Monitor volume status Continue IV diuresis Monitor renal function, electrolytes I's and O's, daily weight Appreciate cardiology input Atrial fibrillation RVR Currently rate controlled Carvedilol increased to 6.5 mg twice a day Not on anticoagulation due to history of GI bleed, chronic anemia Cardiology on board Urinary tract infection Urine culture pending Empirically started on Rocephin (2) Acute on chronic diastolic (congestive) heart failure: Plan: Management as above (3) Hyperglycemia: Plan: Diabetes Mellitus Type II New Diagnosis HbA1C: 6.9 Steroids could have contributed NovoLog sliding scale per protocol No tight glycemic control needed given advanced age (4) FANY (acute kidney injury): Plan: Baseline~1.3 Cr: 1.6 Monitor renal functions Avoid nephrotoxic agents when possible (5) Weakness: Plan: Generalized weakness Likely due to comorbidities PT/OT eval fall precautions (6) Temporal arteritis: Plan: Started on steroids as outpatient for temporal arteritis for the past 6 weeks with prednisone 60 mg daily Continue prednisone Has temporal artery biopsy planned for general surgery outpatient (7) CAD (coronary artery disease): Plan: Continue aspirin, Plavix, rosuvastatin, carvedilol, isosorbide (8) HTN (hypertension): Plan: Continue carvedilol, hydralazine, isosorbide Hold losartan due to FANY Held Amlodipine, PRN Clonidine as well Monitor BP (9) Chronic anemia: Plan: Hgb Baseline~10 Monitor H&H (10) COPD (chronic obstructive pulmonary disease): Plan: No signs acute exacerbation Continue home inhalers (11) Nocturnal hypoxia: Plan: Continue 2 L O2 at bedtime DVT Px Heparin SQ Code Status Full Code Follows with Dr Kuhn for routine care Admission and Anticipated Discharge Date Admission Date: January 14, 2022 Subjective Patient is seen and examined at bedside States having dyspnea Also reports having lower abdominal discomfort Denies chest pain, dizziness, nausea, hematuria, dysuria Updated patient's daughter over the phone Review of Systems Review of Systems: All systems reviewed & are unremarkable except as noted in Subjective Physical Exam Physical Exam: Physical Exam: Vitals signs as noted above General Appearance:Moderately built and nourished, no apparent distress Head: normocephalic, Atraumatic Eyes: normal inspection, EOMI Neck: supple, Trachea midline Respiratory/Chest: Normal breath sounds, CTA, No accessory muscle use Cardiovascular: Irregularly irregular, No murmur Abdomen/GI:Soft, Non tender, Bowel sounds present Extremities/Musculoskeletal:normal inspection, B/L LE edema Neurologic/Psych:AAOX3, grossly no focal neurological deficits Skin: normal color, warm Results & Data Results & Data ([facility]) Vital Signs (Past 12 Hours) Vital Signs Temp Pulse Resp BP BP Pulse Ox 01/15/22 13:22 37.1 C 90 18 109/53 L 93 01/15/22 08:22 36.6 C 82 20 138/72 93 Laboratory Results Short CBC 01/14/22 01/15/22 Range/Units 16:06 03:59 WBC 12.75 H 10.11 (4.8-10.8) K/uL Hgb 9.8 L 10.0 L (12.0-16.0) g/dL Hct 31.6 L 31.6 L (37-47) % Plt Count 190 172 (130-400) K/uL BMP 01/14/22 01/15/22 16:06 03:59 Sodium 137 138 Potassium 4.0 4.1 Chloride 97 L 97 L Carbon Dioxide 28 35 H BUN 53 H 57 H Creatinine 1.71 H 1.62 H Glucose 298 H 86 Calcium 9.3 9.1 Liver Function 01/14/22 Range/Units 16:06 Total Bilirubin 0.5 (0.2-1.0) mg/dl AST 19 (13-39) U/L ALT 18 (7-52) U/L Alkaline Phosphatase 79 (34-104) U/L Albumin 4.0 (3.4-5.0) gm/dl Urine 01/14/22 Range/Units 20:15 Urine Color Yellow Urine Appearance Clear (Clear) Urine pH 5.5 (4.5-7.5) Ur Specific [place] 1.012 (1.000-1.030) Urine Protein 1+ H (Negative) Urine Glucose (UA) Trace H (Negative)
[2022-01-15] MEDS: carvediloL 6.25 MG TAB PO SCH (17:16)
[2022-01-15] MEDS: ESCITALOPRAM OXALATE 10 MG TAB PO SCH (21:03)
[2022-01-15] MEDS: ASPIRIN 81 MG ECTAB PO SCH (21:03)
[2022-01-15] MEDS: DOCUSATE SODIUM 100 MG CAP PO SCH (21:03)
[2022-01-16 06:41] LABS: Hemoglobin 10.4 g/dL (12.0-16.0); Mean Corpuscular Hemoglobin 30.1 pg (25-34); Mean Corpuscular Hgb Conc 31.5 g/dL (32-36); Mean Corpuscular Volume 95.7 fL (80-100); Mean Platelet Volume 9.5 fL (7.4-10.4); Platelet Count 181 K/uL (130-400); RDW Coefficient of Variation 16.2 % (11.5-14.5); RDW Standard Deviation 56.7 fL (36.4-46.3); Red Blood Count 3.45 M/uL (4.2-5.4); White Blood Count 9.93 K/uL (4.8-10.8)
[2022-01-16 07:05] LABS: Creatinine Clr Calc Pharmacy 25.7 ml/min; Est GFR (Non-African American) 28.5 ml/min; Magnesium 2.5 mg/dl (1.7-2.4); Potassium 3.6 mmol/L (3.5-5.1)
--- NOTE | 2022-01-16 08:08 | Electrocardiogram Report ---
Test Reason : Blood Pressure : / mmHG Vent. Rate : 115 BPM Atrial Rate : 115 BPM P-R Int : 000 ms QRS Dur : 108 ms QT Int : 280 ms P-R-T Axes : 000 005 138 degrees QTc Int : 387 ms Atrial flutter with rapid ventricular response Septal infarct (cited on or before 01-OCT-2021) Abnormal ECG When compared with ECG of 01-OCT-2021 13:55, Atrial flutter has replaced Sinus rhythm Vent. rate has increased BY 43 BPM Confirmed by Reggie Jimenez ([id number]) on 01/16/2022 8:07:38 AM Referred By: REFERRED SELF Confirmed By:Reggie Jimenez
[2022-01-16] MEDS: INSULIN ASPART PER UNIT SC SCH ×2 (08:14→12:01)
[2022-01-16] MEDS: carvediloL 6.25 MG TAB PO SCH (08:16)
[2022-01-16] MEDS: CLOPIDOGREL BISULFATE 75 MG TAB PO SCH (08:17)
[2022-01-16] MEDS: HEPARIN SOD 5,000 UNIT/0.5 ML VIAL SQ SCH (08:17)
[2022-01-16] MEDS: hydrALAZINE HCL 25 MG TAB PO SCH ×2 (08:17→12:03)
[2022-01-16] MEDS: AZELASTINE HCL 0.1% NASAL 200 SPRAYS/27,400 MCG BTL NAE SCH (08:17)
[2022-01-16] MEDS: ISOSORBIDE MONO EXTENDED REL 30 MG TABCR PO SCH (08:18)
[2022-01-16] MEDS: MULTIVITAMIN TAB PO SCH (08:19)
[2022-01-16] MEDS: PANTOprazole 40 MG TAB PO SCH (08:19)
[2022-01-16] MEDS: POTASSIUM CHLORIDE CRTAB 20 MEQ TABCR PO SCH (08:19)
[2022-01-16] MEDS: ROSUVASTATIN CALCIUM 20 MG TAB PO SCH (08:20)
[2022-01-16] MEDS: predniSONE 20 MG TAB PO SCH (08:20)
[2022-01-16] MEDS: UMECLIDINIUM BROMIDE 62.5MCG/BLISTER 7 PUFFS/INHALER INH SCH (08:21)
--- NOTE | 2022-01-16 08:32 | Electrocardiogram Report ---
Test Reason : Blood Pressure : / mmHG Vent. Rate : 089 BPM Atrial Rate : 101 BPM P-R Int : 000 ms QRS Dur : 110 ms QT Int : 406 ms P-R-T Axes : 000 026 165 degrees QTc Int : 493 ms Poor data quality, interpretation may be adversely affected Atrial fibrillation Septal infarct (cited on or before 01-OCT-2021) Abnormal ECG When compared with ECG of 14-JAN-2022 15:41, (unconfirmed) HR has decreased Confirmed by Reggie Jimenez ([id number]) on 01/16/2022 8:32:27 AM Referred By: REFERRED SELF Confirmed By:Reggie Jimenez
[2022-01-16] MEDS ORDERED: POTASSIUM CHLORIDE CRTAB 20 MEQ TABCR PO ONE (09:15)
[2022-01-16] MEDS: cefTRIAXone SODIUM 2,000 MG in DEXTROSE 5% 50 ML IV SCH (10:23)
--- NOTE | 2022-01-16 11:21 | Cardiology Progress Note ---
Date of Service January 16, 2022 Assessment & Plan (1) Acute on chronic diastolic (congestive) heart failure: (2) Mitral regurgitation: (3) Atrial fibrillation with rapid ventricular response: (4) COPD (chronic obstructive pulmonary disease): (5) Chronic anemia: (6) CKD (chronic kidney disease): Plan: Clinically improved with IV diuretic therapy. Patient may transition back to oral furosemide 40 mg daily with an additional dose of 40 mg in the afternoon on Monday, Monday, and Monday. Echocardiogram demonstrating moderate to severe mitral regurgitation without evidence of pulmonary hypertension. Recommend outpatient follow-up. She is not anticoagulated due to history of GI bleeding and chronic anemia. Continue rate control strategy at this time. Continue carvedilol 6.25 mg twice daily as titrated during hospitalization. Amlodipine may remain on hold at this time. Continue other cardiovascular medications as previously ordered. Patient is stable for discharge from a cardiovascular perspective. Close cardiology follow-up in 1 week recommended. Admission and Anticipated Discharge Date Admission Date: January 14, 2022 Subjective Patient seen examined the bedside. Feeling better from a cardiovascular perspective. Fluid balance -3570 cc overnight. Requesting discharge if possible. Blood pressure and heart rate improved. Telemetry demonstrates atrial fibrillation with rate ranging from 70-80s BPM. Amlodipine discontinued yesterday to allow for titration of carvedilol to 6.25mg twice daily. Echocardiogram demonstrates preserved LV systolic function with moderate to severe mitral regurgitation. Borderline mild pulmonary hypertension. Review of Systems 2 Review of Systems: All systems reviewed & are unremarkable except as noted in Subjective Physical Exam Constitutional: well developed, well nourished and + obese Respiratory: normal respiratory effort; no respiratory distress, no labored breathing and no retractions Auscultation: no crackles, no rales, no rhonchi and no wheezes Cardiovascular: Rate/Rhythm: + irregularly irregular Heart Sounds: normal S1 and normal S2; no murmur Vessels: radial pulses present; no JVD and no carotid bruit Extremities: + edema (Trace bilateral pedal and ankle edema) Gastrointestinal (Abdomen): Inspection/Auscultation: abdomen normal to inspection and normal bowel sounds; abdomen not distended Percussion/Palpation: abdomen soft; abdomen nontender and no guarding Neurologic: CN's II-XI intact bilaterally and moves all extremities; no focal motor deficits Motor/Sensory: no tremor Psychiatric: A+Ox3, euthymic affect Results & Data ([facility]) Vital Signs (Past 12 Hours) Vital Signs Temp Pulse Resp BP BP Pulse Ox 01/16/22 07:00 36.5 C 76 18 131/69 91 01/16/22 03:58 36.3 C L 92 H 18 138/72 97 01/15/22 23:24 36.6 C 85 18 126/63 93
[2022-01-16] MEDS ORDERED: FUROSEMIDE 40 MG TAB PO ONE (12:31)
--- NOTE | 2022-01-16 13:00 | Hospitalist Progress Note ---
Date of Service January 16, 2022 Assessment & Plan (1) Atrial fibrillation: Plan: Patient is an 86 yr female with H/O CAD, HTN, dyslipidemia, atrial fibrillation not on anticoagulation, COPD, nocturnal hypoxia, chronic diastolic heart failure, chronic anemia presented to ER from cardiology office for exertional SOB x several weeks, increased BLE edema. Acute on chronic diastolic heart failure Valvular Hear disease --CXR:Cardiomegaly with no acute cardiopulmonary abnormality. --ECHO: EF 65 to 70%. Mild concentric LVH. Left atrium is moderately dilated. Moderate to severe mitral regurgitation. Moderate tricuspid regurgitation. Monitor volume status IV Lasix >>>PO lasix 40mg daily and additional dose of 40 mg in the afternoon on Monday, Monday, and Monday. Monitor renal function, electrolytes I's and O's, daily weight Appreciate cardiology input Needs follow-up with cardiology upon discharge Atrial fibrillation RVR Currently rate controlled Carvedilol increased to 6.5 mg twice a day Not on anticoagulation due to history of GI bleed, chronic anemia Cardiology on board Urinary tract infection Urine culture: Citrobacter Continue Rocephin Day #2 (2) Acute on chronic diastolic (congestive) heart failure: Plan: Management as above (3) Hyperglycemia: Plan: Diabetes Mellitus Type II New Diagnosis HbA1C: 6.9 Steroids could have contributed NovoLog sliding scale per protocol No tight glycemic control needed given advanced age (4) FANY (acute kidney injury): Plan: Baseline~1.3 Cr: 1.6 Monitor renal functions Avoid nephrotoxic agents when possible (5) Weakness: Plan: Generalized weakness Likely due to comorbidities PT/OT eval fall precautions (6) Temporal arteritis: Plan: Started on steroids as outpatient for temporal arteritis for the past 6 weeks with prednisone 60 mg daily Continue prednisone Has temporal artery biopsy planned for general surgery outpatient (7) CAD (coronary artery disease): Plan: Continue aspirin, Plavix, rosuvastatin, carvedilol, isosorbide (8) HTN (hypertension): Plan: Continue carvedilol, hydralazine, isosorbide Hold losartan due to FANY Held Amlodipine, PRN Clonidine as well Monitor BP (9) Chronic anemia: Plan: Hgb Baseline~10 Monitor H&H (10) COPD (chronic obstructive pulmonary disease): Plan: No signs acute exacerbation Continue home inhalers (11) Nocturnal hypoxia: Plan: Continue 2 L O2 at bedtime DVT Px Heparin SQ Code Status Full Code Follows with Dr Kuhn for routine care Admission and Anticipated Discharge Date Admission Date: January 14, 2022 Subjective Patient is seen and examined at bedside States feeling well No new complaints Dyspnea resolved Denies chest pain, dizziness, nausea, hematuria, dysuria Eager to get discharged Review of Systems Review of Systems: All systems reviewed & are unremarkable except as noted in Subjective Physical Exam Physical Exam: Physical Exam: Vitals signs as noted above General Appearance:Moderately built and nourished, no apparent distress Head: normocephalic, Atraumatic Eyes: normal inspection, EOMI Neck: supple, Trachea midline Respiratory/Chest: Normal breath sounds, CTA, No accessory muscle use Cardiovascular: Irregularly irregular, No murmur Abdomen/GI:Soft, Non tender, Bowel sounds present Extremities/Musculoskeletal:normal inspection, B/L LE edema Neurologic/Psych:AAOX3, grossly no focal neurological deficits Skin: normal color, warm Results & Data Results & Data ([facility]) Vital Signs (Past 12 Hours) Vital Signs Temp Pulse Resp BP Pulse Ox 01/16/22 11:49 36.9 C 84 20 101/56 L 95 01/16/22 07:00 36.5 C 76 18 131/69 91 01/16/22 03:58 36.3 C L 92 H 18 138/72 97 Laboratory Results Short CBC 01/16/22 Range/Units 05:53 WBC 9.93 (4.8-10.8) K/uL Hgb 10.4 L (12.0-16.0) g/dL Hct 33.0 L (37-47) % Plt Count 181 (130-400) K/uL BMP 01/16/22 05:53 Sodium 138 Potassium 3.6 Chloride 97 L Carbon Dioxide 34 H BUN 58 H Creatinine 1.61 H Glucose 125 H Calcium 9.0
--- NOTE | 2022-01-16 13:47 | Discharge Summary ---
Date of Service January 16, 2022 Admission HPI Per Admitting Provider Patient is 86 y/o F with PMH CAD, HTN, dyslipidemia, atrial fibrillation not on anticoagulation, COPD, nocturnal hypoxia, chronic diastolic heart failure, chronic anemia presented to ER from cardiology office for exertional SOB. Patient reports for past several weeks has been having generalized weakness and fatigue. Also having increased SOB with walking past couple of weeks as well as increased bilateral leg swelling. Denies chest pain. Reports has been on prednisone 60mg daily for 1.5 months for temporal arteritis. Is to have upcoming biopsy. Still having discomfort over left temporal area. She reports been eating a lot since on prednisone and thinks gained some weight. Outpatient cardiology note reports 10 pound weight gain over past 5 weeks. She reports some nonproductive cough that she feels is baseline for her and chronic COPD. Sleeps reclined chronically, denies PND. Denies falls, fever/chills, diaphoresis, N/V/D/C, other NICOLE, dizziness, syncope, vision changes, neck pain, palpitations, sore throat, choking, otalgia, rhinorrhea, abdominal pain, paresthesias, extremity erythema, rashes, urinary symptoms. In ER found to be in afib RVR rate 106 and given 5mg IV Lopressor with rate down in 80's. Also given lasix 20mg po. Admission Exam Per Admitting Provider On exam, General: Well nourished, well hydrated, no acute distress and not ill appearing Eyes: PERRL, conjunctivae normal, not pale, anicteric sclerae, EOM intact bilaterally ENMT: External ear and nose normal, oropharynx normal Respiratory: Normal respiratory effort, no respiratory distress, lungs clear to auscultation, no crackles and no wheezes Cardiovascular: Pulse is irregularly irregular, S1 S2 Gastrointestinal (Abdomen): Abdomen is not distended, soft, non-tender to palpation, no guarding, no palpable hepatosplenomegaly, normal bowel sounds Musculoskeletal: No cyanosis or clubbing, all extremities motor strength 5/5, +bilateral pedal edema Neurologic: Alert and oriented x 3, No focal weakness, sensation grossly intact Psychiatric: Alert and oriented x 3, euthymic affect, no depressed affect Principal Diagnosis Acute on chronic diastolic heart failure Atrial fibrillation Urinary tract infection Diabetes Mellitus Acute Kidney Injury Discharge Data Allergies Allergy/AdvReac Type Severity Reaction Status Date / Time iodine Allergy Intermediate HIVES Verified 01/14/22 18:38 shellfish derived Allergy Intermediate Hives Verified 01/14/22 18:38 CHALO Inhibitors Allergy Mild Cough Verified 01/14/22 18:38 hydrochlorothiazide Allergy Mild gout Verified 01/14/22 18:38 tramadol Allergy Mild Rash Verified 01/14/22 18:38 Cipro Allergy Unknown . Verified 11/30/16 14:56 ciprofloxacin Allergy Unknown . Verified 01/14/22 18:38 Consultations 01/14/22 18:43 ED Decision to Admit Stat 01/15/22 07:00 Consult Cardiology Routine Hospital Course (1) Atrial fibrillation: Patient is an 86 yr female with H/O CAD, HTN, dyslipidemia, atrial fibrillation not on anticoagulation, COPD, nocturnal hypoxia, chronic diastolic heart failure, chronic anemia presented to ER from cardiology office for exertional SOB x several weeks, increased BLE edema. Acute on chronic diastolic heart failure Valvular Hear disease --CXR:Cardiomegaly with no acute cardiopulmonary abnormality. --ECHO: EF 65 to 70%. Mild concentric LVH. Left atrium is moderately dilated. Moderate to severe mitral regurgitation. Moderate tricuspid regurgitation. Monitor volume status IV Lasix >>>PO lasix 40mg daily and additional dose of 40 mg in the afternoon on Monday, Monday, and Monday. Monitor renal function, electrolytes I's and O's, daily weight Appreciate cardiology input Needs follow-up with cardiology upon discharge Atrial fibrillation RVR Currently rate controlled Carvedilol increased to 6.5 mg twice a day Not on anticoagulation due to history of GI bleed, chronic anemia Cardiology on board Urinary tract infection Urine culture: Citrobacter Continue Rocephin Day #2 (2) Acute on chronic diastolic (congestive) heart failure: Management as above (3) Hyperglycemia: Diabetes Mellitus Type II New Diagnosis HbA1C: 6.9 Steroids could have contributed NovoLog sliding scale per protocol No tight glycemic control needed given advanced age (4) FANY (acute kidney injury): Baseline~1.3 Cr: 1.6 Monitor renal functions Avoid nephrotoxic agents when possible (5) Weakness: Generalized weakness Likely due to comorbidities PT/OT eval fall precautions (6) Temporal arteritis: Started on steroids as outpatient for temporal arteritis for the past 6 weeks with prednisone 60 mg daily Continue prednisone Has temporal artery biopsy planned for general surgery outpatient (7) CAD (coronary artery disease): Continue aspirin, Plavix, rosuvastatin, carvedilol, isosorbide (8) HTN (hypertension): Continue carvedilol, hydralazine, isosorbide Hold losartan due to FANY Held Amlodipine, PRN Clonidine as well Monitor BP (9) Chronic anemia: Hgb Baseline~10 Monitor H&H (10) COPD (chronic obstructive pulmonary disease): No signs acute exacerbation Continue home inhalers (11) Nocturnal hypoxia: Continue 2 L O2 at bedtime DVT Px Heparin SQ Code Status Full Code Follows with Dr Kuhn for routine care Total Time Total Time Spent Total Time Spent (In Minutes): 50 minutes Discharge Plan Discharge Items Patient Disposition: Home - Self-Care Reason For Visit: AFIB Discharge Diagnosis: Acute on chronic diastolic heart failure Atrial fibrillation Urinary tract infection Diabetes Mellitus Acute Kidney Injury Activity: Per Instructions section Exercise/Sports: Gradually increase as tolerated 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 Josh Kuhn in 1 week as advised Follow-up with your home health provider in 1 week as advised. ---Get Blood Test (Basic Metabolic panel) in 1 week and follow up with your physician to monitor your kidney Function ---Complete the antibiotic course (cefdinir 300 mg once daily) for 3 more days for urinary tract infection. Start taking from 01/17/22 --- Your home health provider recommended to continue taking furosemide 40 mg daily and in addition take extra 40 mg in the afternoon on Monday, Monday and Fridays only. Other medication changes: 1)-- Your carvedilol is increased to 6.25mg twice a day 2)--Your Amlodipine, Clonidine is discontinued 3)--you were started on Januvia 25 mg daily for diabetes mellitus. 4) --Your Hydralazine is decreased to 50mg four times a day 5) --Hold taking Losartan until follow up with your physician and improvement of your kidney function -- Monitor your blood pressure regularly. If your blood pressure is either too low (Less than 120/80) or high (greater than 160/90), please discuss with your physician for further adjustment of your medications. Seek immediate medical attention if your symptoms reoccur or worsen Please take all medications as instructed on discharge list below. Please call if you have any questions or problems. You can reach a [facility] hospitalist on duty at [facility] 24 hours a day by calling [phone] Call your Primary Care doctor if any of the following symptoms or problems start or get worse: * Shortness of breath or difficulty breathing * Wake up at night short of breath * Chest pain * Cough * Swelling of your hands, feet, or legs * More fatigued or tired with your normal activity * Palpitations - sudden fast heart beats WEIGHT * Weigh yourself every morning after using the bathroom. * Use the same scale. * Wear the same amount of clothing. * Write your weight down on a chart. * Call your Primary Care doctor if you gain more than 2-3 pounds in 1-2 days. MEDICATIONS * Use this discharge instruction sheet for medication instructions. * Take your medications at the time your doctor ordered. * Do not skip a dose of your medicines. * If you miss a dose of medicine, take it as soon as possible, but DO NOT DOUBLE A DOSE. * Read your medicine information when you get home. * Know all of the side effects of your medicine. If in doubt, ask your pharmacist * Call your Primary Care doctor's office if you have any side effects. * Be sure all of your doctors know what medicine and herbs you take (including cold, flu, and herbal medicine). Take the following with you to your follow-up doctor appointments: * Weight Chart * Medication List * List of questions Do not drink excessive alcohol, beer or wine. Pending Studies at Discharge: No Stand-Alone Forms: My [facility] [employer], Smoking Cessation Medications and DC Order Prescriptions: New carvedilol 6.25 mg Tablet 6.25 mg PO BIDM Qty: 60 RF: 1 cefdinir 300 mg capsule 300 mg PO .daily Qty: 3 RF: 0 Januvia 25 mg tablet 25 mg PO DAILY Qty: 30 RF: 0 Continued potassium chloride 10 mEq Tablet Extended Release 20 meq PO DAILY RF: 0 aspirin 81 mg Tablet,Delayed Release (Dr/Ec) 81 mg PO PM RF: 0 albuterol sulfate 90 mcg/actuation Hfa Aerosol Inhaler 2 puff INHALATION Q4H PRN (Reason: Shortness Of Breath Or Wheezing) RF: 0 escitalopram oxalate [Lexapro] 10 mg Tablet 10 mg PO QPM RF: 0 rosuvastatin 40 mg Tablet 40 mg PO QAM RF: 0 Ocuvite Adult 50 Plus 250-5-1 mg Capsule 1 cap PO QAM RF: 0 polyethylene glycol 3350 [Miralax] 17 gram Powder In Packet 17 g PO QAM PRN (Reason: Constipation) RF: 0 acetaminophen [Tylenol Extra Strength] 500 mg Tablet 500 mg PO Q6H PRN (Reason: Pain) RF: 0 azelastine 137 mcg (0.1 %) aerosol,spray 1 spray INTRANASAL BID RF: 0 isosorbide mononitrate 30 mg tablet extended release 24 hr 30 mg PO DAILY RF: 0 docusate sodium [Colace] 100 mg Capsule 200 mg PO HS RF: 0 Prolia 60 mg/mL Syringe 0 mg SUBCUT YEARLY RF: 0 guaifenesin [Mucinex] 600 mg Tablet Extended Release 12hr 600 mg PO Q12H 5 Days Qty: 10 RF: 0 pantoprazole 40 mg tablet,delayed release (DR/EC) 40 mg PO DAILY RF: 0 Spiriva Respimat 2.5 mcg/actuation mist 2 puff INHALATION QAM RF: 0 cetirizine 5 mg Tablet 5 mg PO DAILY PRN (Reason: Congestion) RF: 0 prednisone 20 mg tablet 60 mg PO DAILY RF: 0 nitroglycerin 0.4 mg tablet, sublingual 0.4 mg sublingual UD RF: 0 clopidogrel 75 mg tablet 75 mg PO DAILY RF: 0 Changed furosemide 40 mg tablet 40 mg PO DAILY Qty: 60 RF: 0 hydralazine 50 mg Tablet 50 mg PO QID Qty: 0 RF: 0 Discontinued carvedilol 3.125 mg Tablet 3.125 mg PO DAILY RF: 0 losartan 100 mg Tablet 100 mg PO QAM RF: 0 amlodipine 2.5 mg Tablet 2.5 mg PO QAM RF: 0 clonidine HCl 0.1 mg tablet 0.1 mg PO TID PRN (Reason: Hypertension) RF: 0 Discharge Orders: Discharge Order (Routine); Ordered 01/16/22 Ordered By: Gael K. Vangala Krames/Other Patient Handouts: A1C Admission Data Admit Date/Time: 01/14/22 19:21 Attending Provider: Gael Matthews Admit Provider: Marjorie Gates I. Primary Care Provider: Josh Kuhn Other Providers: Marjorie Gates I. ; Ramos Rodney
[2022-01-17] MEDS ORDERED: FUROSEMIDE 40 MG TAB PO SCH (09:00)
== END 2022-01-16 15:05 | disposition home or self-care (01) | DRG 291 ==
LOC: ED 15:24 → SUATTDRO 19:21 → 2S 19:21

== ENCOUNTER 2022-01-22 20:36 | Observation (INO) ==
[2022-01-22] MEDS ORDERED: SODIUM CHLORIDE 0.9% 250 ML IV ONE (21:31)
--- NOTE | 2022-01-22 21:36 | Emergency Department Note ---
History of Present Illness General Chief complaint: Dizziness Stated complaint: DIZZINESS Time Seen by Provider: 01/22/22 21:21 Source: patient and family (Son who was at the bedside) Mode of arrival: ambulatory Limitations: no limitations History of Present Illness This patient is an 86-year-old female comes in complaining of weakness and dizziness. She notices at 9:00 this morning she is he was okay yesterday she did denies any spinning but just that she could not get out of a chair. She is being worked up for temporal arteritis and scheduled for biopsy she has some swelling along her left forehead. She feels like her vision in left eye comes and goes no fever chills no dysuria hematuria. No ear pain or ringing no headache neck pain or stiffness no fever. No chest pain she does have shortness of breath at times but has COPD and wears oxygen at night denies any shortness of breath now. She recently was started on a heavy dose of steroids because of presumed temporal arteritis her blood sugar went greater than 400 and she was put on medication for this. She has been urinating a lot but is also on Lasix. No dysuria. Denies numbness or weakness. NoBlood or melena stool Home Medications Medication Instructions Recorded Confirmed Type albuterol sulfate 90 mcg/actuation 2 puff INHALATION Q4H PRN 05/02/18 01/21/22 History aerosol inhaler aspirin 81 mg tablet,delayed 81 mg PO PM 05/02/18 01/21/22 History release escitalopram oxalate 10 mg tablet 10 mg PO QPM 05/02/18 01/21/22 History (Lexapro) rosuvastatin 40 mg tablet 40 mg PO QAM 05/02/18 01/21/22 History vit C,E,zinc,copper-[id number] 250 1 cap PO QAM 05/02/18 01/21/22 History mg-lutein 5 mg-zeaxanthin 1 mg capsule (Ocuvite Adult 50 Plus) acetaminophen 500 mg tablet 500 mg PO Q6H PRN 05/21/18 01/21/22 History (Tylenol Extra Strength) polyethylene glycol 3350 17 gram 17 g PO QAM PRN 05/21/18 01/21/22 History oral powder packet (Miralax) potassium chloride 10 mEq 20 meq PO QAM 07/10/18 01/21/22 History tablet,extended release azelastine 137 mcg (0.1 %) nasal 1 spray INTRANASAL BID 10/01/21 01/21/22 History spray aerosol denosumab 60 mg/mL subcutaneous 60 mg SUBCUT YEARLY 10/01/21 01/21/22 History syringe (Prolia) docusate sodium 100 mg capsule 200 mg PO HS 10/01/21 01/21/22 History (Colace) isosorbide mononitrate 30 mg 30 mg PO QAM 10/01/21 01/21/22 History tablet,extended release 24 hr cetirizine 5 mg tablet 5 mg PO QAM PRN 01/14/22 01/21/22 History clopidogrel 75 mg tablet 75 mg PO QAM 01/14/22 01/21/22 History nitroglycerin 0.4 mg sublingual 0.4 mg SUBLINGUAL UD 01/14/22 01/21/22 History tablet pantoprazole 40 mg tablet,delayed 40 mg PO QAM 01/14/22 01/21/22 History release prednisone 20 mg tablet 20 mg PO QAM 01/14/22 01/22/22 History tiotropium bromide 2.5 2 puff INHALATION QAM 01/14/22 01/21/22 History mcg/actuation mist for inhalation (Spiriva Respimat) carvedilol 6.25 mg tablet 6.25 mg PO BIDM #60 tab 01/16/22 01/22/22 Rx hydralazine 50 mg tablet 50 mg PO QID #0 tab 01/16/22 01/21/22 Rx furosemide 40 mg tablet 40 mg PO 3XWK 01/21/22 01/21/22 History sitagliptin 25 mg tablet (Januvia) 25 mg PO QAM 01/21/22 01/22/22 History Allergies Allergy/AdvReac Type Severity Reaction Status Date / Time iodine Allergy Intermediate HIVES Verified 01/21/22 09:38 shellfish derived Allergy Intermediate Hives Verified 01/21/22 09:38 CHALO Inhibitors Allergy Mild Cough Verified 01/21/22 09:38 hydrochlorothiazide Allergy Mild gout Verified 01/21/22 09:38 latex Allergy Mild rash Verified 01/21/22 11:14 tramadol Allergy Mild Rash Verified 01/21/22 09:38 ciprofloxacin Allergy Unknown unknown, Verified 01/21/22 09:38 pt can not remember Past Med/Surg History Medical History Anemia H&H: 01/2022 Anxiety Atrial fibrillation with RVR--not anticoagulated d/t hx GI bleed, hospitalized 01/14/22 requiring IV Lopressor and diuresis, follows with [facility] cardio CAD (coronary artery disease) "hx PCI stent to RCI cath 2004 - 90% RCA stenosis s/p intervention, 50% LAD stenosis Cath 04/2018 with PCI MATEUSZ to Mid LAD -Dr. Darby Chronic diastolic CHF (congestive heart failure) EF 65-70% on 01/2022 echo; acute exacerbation 01/14/22 in setting of afib with RVR requiring IV Lopressor and diuresis, follows with [facility] cardio CKD (chronic kidney disease), stage III FANY 01/14/22--Cr 1.6 COPD (chronic obstructive pulmonary disease) CVA (cerebral vascular accident) 2015--no deficits Depression Dyslipidemia Exertional dyspnea pt states this is a current diagnosis---inhaler daily and prn GERD (gastroesophageal reflux disease) History of gastric ulcer requiring transfusion-2017 Labile hypertension Nocturnal hypoxia On home oxygen therapy 2L N/C at night Pulmonary HTN 37 mmHg 01/15/22; h/o severe pulmonary HTN-most recently 09/2021 in setting of CHF exacerbation TIA (transient ischemic attack) "1977" Surgical History Cystocele with rectocele "s/p repair" History of breast biopsy History of colonoscopy History of esophagogastroduodenoscopy (EGD) History of hysterectomy ANIL BSO History of open reduction and internal fixation (ORIF) procedure Right radial fx History of tooth extraction all teeth removed S/P cholecystectomy Status post cardiac catheterization (~04/2018) @ [facility] with 1 stent placed Status post coronary artery stent placement 05/04/18 @ [facility] follows with Dr. 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 Beliefs That Will Affect Care: Voodoo Voodoo Beliefs: Denominational marital status: / Current Living Situation: Alone current occupational status: retired How many Children do You have: 1 Feels Safe at Home: Yes Assistive Devices: Denture - Upper, Denture - Lower, Glasses and Oxygen - at Night Review of Systems A total of 10 systems reviewed and were otherwise negative Physical Exam Vital Signs Vital Signs - 24 hr 01/22/22 20:28 01/22/22 20:41 01/22/22 20:57 Temperature 37.2 C Temperature Source Oral Pulse Rate 86 Pulse Rhythm Irregular Respiratory Rate 23 Respiratory Effort / Characteristics Non-Labored Non-Labored Respiratory Depth Normal Normal Blood Pressure 110/60 Blood Pressure Mean 76 Pulse Oximetry 94 98 95 Oxygen Delivery Method Room Air Room Air Room Air Sepsis Recent Fever Within 48 Hours No Sepsis New/Unexplained Change in Mental Status No Sepsis Action Taken by Nursing No Action Required General: Well developed well nourished older female who appears in no acute distress, breathing comfortably on room air. Normal speech HEENT: Normal cephalic atraumatic. Swelling and tenderness along the left temporal artery but no redness or warmth or fluctuance. Pupils are equal round and reactive to light. Extraocular movements are intact. Oropharynx is pink with moist mucous membranes. No swelling of the mouth lips or tongue. Neck: Supple with a midline trachea. No meningeal signs or stiffness, no JVD or bruits. No Stridor. Chest: Clear to auscultation bilaterally. No wheezes or rhonchi. No increased work of breathing. Heart: Regular rate and rhythm without murmurs or gallops. Abdomen: Soft nontender, nondistended without rebound guarding or rigidity. Extremities: No cyanosis clubbing or edema. No calf tenderness or assymetry Spine/Back. Non tender to palpation. No CVA tenderness Skin: Good turgor without rashes. Neurologic exam: Cranial nerves two through 12 are intact. Motor and sensation are intact and symmetrical throughout. Course Administered Medications Discontinued Medications Sodium Chloride (Nss) 250 mls @ 999 mls/hr IV .Q16M ONE Stop: 01/22/22 21:46 Last Admin: 01/22/22 22:50 Dose: 999 mls/hr Documented by: [id number] Medical Decision Making Differential Diagnosis Central neurologic process, arrhythmia, anemia, infection, dehydration, trauma, temporal arteritis, CVA, electrolyte or metabolic abnormality Medical Records Attestation: I reviewed the patient's medical records. Home Medications Current Medication List: was personally reviewed by me Laboratory Data Attestation: I reviewed the patient's lab results. Result diagrams: 01/22/22 20:50 01/22/22 22:07 Lab Results 01/22/22 01/22/22 01/22/22 Range/Units 20:50 20:50 20:50 WBC 7.75 (4.8-10.8) K/uL RBC 3.39 L (4.2-5.4) M/uL Hgb 10.2 L (12.0-16.0) g/dL Hct 31.9 L (37-47) % MCV 94.1 (80-100) fL MCH 30.1 (25-34) pg MCHC 32.0 (32-36) g/dL RDW Std Deviation 57.0 H (36.4-46.3) fL RDW Coeff of Luz 16.6 H (11.5-14.5) % Plt Count 157 (130-400) K/uL MPV 10.0 (7.4-10.4) fL Immature Gran % (Auto) 0.4 % Neut % (Auto) 80.6 % Lymph % (Auto) 15.0 % Kimble % (Auto) 3.9 % Eos % (Auto) 0.0 % Baso % (Auto) 0.1 % Neut # (Auto) 6.25 (1.4-6.5) K/uL Lymph # (Auto) 1.16 L (1.2-3.4) K/uL Kimble # (Auto) 0.30 (0.11-0.59) K/uL Eos # (Auto) 0.00 (0-0.5) K/uL Baso # (Auto) 0.01 (0-0.2) K/uL Immature Gran # (Auto) 0.03 H (0.00-0.02) K/uL PT 11.2 (9.0-12.0) Seconds INR 1.1 (0.9-1.1) APTT 22.5 (21.0-31.0) Seconds PTT Ratio 0.8 Sodium 135 L (136-145) mmol/L Potassium (3.5-5.1) mmol/L Chloride 96 L (98-107) mmol/L Carbon Dioxide 30 (21-32) mmol/L Anion Gap 9 (3-11) BUN 48 H (6-23) mg/dl Creatinine 1.71 H (0.6-1.2) mg/dl Est Cr Clr Drug Dosing 25.0 ml/min Est GFR ( Amer) 30.7 ml/min Est GFR (Non-Af Amer) 26.5 ml/min BUN/Creatinine Ratio 28.1 H (10-20) Glucose 193 H (70-99(Fasting)) mg/dl Lactate (0.4-2.0) mmol/L Calcium 8.6 (8.5-10.1) mg/dl Total Bilirubin 0.6 (0.2-1.0) mg/dl AST (13-39) U/L ALT 19 (7-52) U/L Alkaline Phosphatase 53 (34-104) U/L B-Natriuretic Peptide (0-100) pg/ml Total Protein 6.4 (6.0-8.3) gm/dl Albumin 3.7 (3.4-5.0) gm/dl Globulin 2.7 (2.5-4.0) gm/dl Albumin/Globulin Ratio 1.4 (0.9-2) TSH (0.300-4.500) uIu/ml SARS-CoV-2, RNA, NAAT (NEGATIVE) 01/22/22 01/22/22 01/22/22 Range/Units 20:50 22:07 22:07 WBC (4.8-10.8) K/uL RBC (4.2-5.4) M/uL Hgb (12.0-16.0) g/dL Hct (37-47) % MCV (80-100) fL MCH (25-34) pg MCHC (32-36) g/dL RDW Std Deviation (36.4-46.3) fL RDW Coeff of Luz (11.5-14.5) % Plt Count (130-400) K/uL MPV (7.4-10.4) fL Immature Gran % (Auto) % Neut % (Auto) % Lymph % (Auto) % Kimble % (Auto) % Eos % (Auto) % Baso % (Auto) % Neut # (Auto) (1.4-6.5) K/uL Lymph # (Auto) (1.2-3.4) K/uL Kimble # (Auto) (0.11-0.59) K/uL Eos # (Auto) (0-0.5) K/uL Baso # (Auto) (0-0.2) K/uL Immature Gran # (Auto) (0.00-0.02) K/uL PT (9.0-12.0) Seconds INR (0.9-1.1) APTT (21.0-31.0) Seconds PTT Ratio Sodium (136-145) mmol/L Potassium (3.5-5.1) mmol/L Chloride (98-107) mmol/L Carbon Dioxide (21-32) mmol/L Anion Gap (3-11) BUN (6-23) mg/dl Creatinine (0.6-1.2) mg/dl Est Cr Clr Drug Dosing ml/min Est GFR ( Amer) ml/min Est GFR (Non-Af Amer) ml/min BUN/Creatinine Ratio (10-20) Glucose (70-99(Fasting)) mg/dl Lactate 1.4 (0.4-2.0) mmol/L Calcium (8.5-10.1) mg/dl Total Bilirubin (0.2-1.0) mg/dl AST (13-39) U/L ALT (7-52) U/L Alkaline Phosphatase (34-104) U/L B-Natriuretic Peptide 375 H (0-100) pg/ml Total Protein (6.0-8.3) gm/dl Albumin (3.4-5.0) gm/dl Globulin (2.5-4.0) gm/dl Albumin/Globulin Ratio (0.9-2) TSH 0.782 (0.300-4.500) uIu/ml SARS-CoV-2, RNA, NAAT (NEGATIVE) 01/22/22 01/22/22 Range/Units 22:07 22:25 WBC (4.8-10.8) K/uL RBC (4.2-5.4) M/uL Hgb (12.0-16.0) g/dL Hct (37-47) % MCV (80-100) fL MCH (25-34) pg MCHC (32-36) g/dL RDW Std Deviation (36.4-46.3) fL RDW Coeff of Luz (11.5-14.5) % Plt Count (130-400) K/uL MPV (7.4-10.4) fL Immature Gran % (Auto) % Neut % (Auto) % Lymph % (Auto) % Kimble % (Auto) % Eos % (Auto) % Baso % (Auto) % Neut # (Auto) (1.4-6.5) K/uL Lymph # (Auto) (1.2-3.4) K/uL Kimble # (Auto) (0.11-0.59) K/uL Eos # (Auto) (0-0.5) K/uL Baso # (Auto) (0-0.2) K/uL Immature Gran # (Auto) (0.00-0.02) K/uL PT (9.0-12.0) Seconds INR (0.9-1.1) APTT (21.0-31.0) Seconds PTT Ratio Sodium (136-145) mmol/L Potassium 3.6 (3.5-5.1) mmol/L Chloride (98-107) mmol/L Carbon Dioxide (21-32) mmol/L Anion Gap (3-11) BUN (6-23) mg/dl Creatinine (0.6-1.2) mg/dl Est Cr Clr Drug Dosing ml/min Est GFR ( Amer) ml/min Est GFR (Non-Af Amer) ml/min BUN/Creatinine Ratio (10-20) Glucose (70-99(Fasting)) mg/dl Lactate (0.4-2.0) mmol/L Calcium (8.5-10.1) mg/dl Total Bilirubin (0.2-1.0) mg/dl AST 16 (13-39) U/L ALT (7-52) U/L Alkaline Phosphatase (34-104) U/L B-Natriuretic Peptide (0-100) pg/ml Total Protein (6.0-8.3) gm/dl Albumin (3.4-5.0) gm/dl Globulin (2.5-4.0) gm/dl Albumin/Globulin Ratio (0.9-2) TSH (0.300-4.500) uIu/ml SARS-CoV-2, RNA, NAAT NEGATIVE (NEGATIVE) Imaging Data Attestation: I personally reviewed and interpreted this imaging study as follows: My Impression: X-ray of the chest- cardiomegaly but no acute infiltrate, failure, pneumothorax seen Radiologist's Impression: Chest X-Ray 01/22/22 21:31 XR chest 1V portable CLINICAL HISTORY: weakness TECHNIQUE: Single frontal radiograph of the chest was obtained. Comparison: Comparison is made to chest radiograph 01/14/2022 FINDINGS: No lines and tubes are seen. Cardiomegaly is noted. The lungs are clear. No evidence of pleural effusion or pneumothorax. IMPRESSION: No acute chest disease. ACT 112: Negative or not required by law. Electronically signed by: Stalin Champion M.D. 01/22/2022 9:[address] 01/22/22 21:31 CT head/brain wo con CLINICAL HISTORY: weakness Technique: Contiguous axial CT images of the head were acquired from the base of the skull to the vertex without intravenous contrast administration. Images were viewed in brain, subdural and bone windows. Automated dose lowering techniques and/or adjustment according to patient size were utilized for this exam. Comparison: Comparison is made to CT head 11/30/2016 Findings: Areas of decreased attenuation are present in the periventricular and subcortical white matter bilaterally consistent with small vessel ischemic disease. Generalized cerebral atrophy with commensurate enlargement of the ventricles, sulci, and cisterns is also present. There is no acute intracranial hemorrhage or evidence of acute territorial infarction. No shift of the midline structures, mass effect, or extra-axial abnormalities are shown. Atherosclerotic calcifications are present in the intracranial segments of the internal carotid arteries. There is focal encephalomalacia at the left parieto- occipital region compatible with old infarct seen on prior exam. No evidence of new infarct. Imaged portions of the paranasal sinuses and mastoid air cells are clear. The orbits appear normal. There are no acute fractures of the calvaria or scalp swelling. Impression: No acute intracranial hemorrhage, no evidence of acute territorial infarction or other acute intracranial disease process. ACT 112: Negative or not required by law. Electronically signed by: Stalin Champion M.D. 01/22/2022 10:06 PM ECG Data Attestation: I personally reviewed and interpreted this ECG as follows: Indication: + weakness Rate (beats per minute): 82 Rhythm: + atrial fibrillation ECG Intervals/blocks: + Normal QRS, + Normal QT and + Normal [place] ECG [place]: + Normal ECG ST segments: + Nonspecific ST abnormalities ECG Findings: no PACs or no PVCs Comparison ECG Date: from (01/15/22) Change: no significant change MDM Narrative This patient comes in as described above. She was placed in room C6. She is here for treatment evaluation of feeling weak. She said she was dizzy but there is no spinning it which is generally weak. She has no focal numbness or weakness. Her blood pressure was in the 100s when I rechecked it was in the 90s is possible she is actually little dry as she is on a diuretic and also has been hyperglycemic lately and urinating a lot. I did give her a very small fluid bolus of 250 cc EKG shows A. fib chest x-ray was obtained as well as head CT and multiple blood testing she was reassessed frequently. She has no fever or white count to suggest infection. Lactic acid is also normal and would go against sepsis. She has nothing clinically to make me think sepsis. Thus far she has nothing to she has a cardiac event. She has no acute neurologic deficits. Her COVID testing was negative. She felt significantly better after receiving some gentle hydration. I suspect that she may have been dehydrated her BUN and creatinine are mildly elevated compared to her baseline. Given her multiple medical problems I do think she should be admitted/observed and have consulted Dr. Teran to see her in the ER for these measures. Continuous cardiac monitoring: Orders placed in EMR for continuous cardiac monitoring. Upon my interpretation the was noted to be in A. fib with a rate of 80 Impression & Plan Weakness, Atrial fibrillation, Chronic diastolic CHF (congestive heart failure), Hyperglycemia, Acute dehydration, Lab test negative for COVID-19 virus Discharge Plan Visit Data Chief Complaint: Dizziness Stated Complaint: DIZZINESS ED Provider: Roni Becerra Discharge Problem: Weakness, Atrial fibrillation, Chronic diastolic CHF (congestive heart failure), Hyperglycemia, Acute dehydration, Lab test negative for COVID-19 virus Forms Stand Alone Forms: My [facility] Prescriptions Prescriptions: No Action potassium chloride 10 mEq Tablet Extended Release 20 meq PO QAM RF: 0 aspirin 81 mg Tablet,Delayed Release (Dr/Ec) 81 mg PO PM RF: 0 albuterol sulfate 90 mcg/actuation Hfa Aerosol Inhaler 2 puff INHALATION Q4H PRN (Reason: Shortness Of Breath Or Wheezing) RF: 0 escitalopram oxalate [Lexapro] 10 mg Tablet 10 mg PO QPM RF: 0 rosuvastatin 40 mg Tablet 40 mg PO QAM RF: 0 Ocuvite Adult 50 Plus 250-5-1 mg Capsule 1 cap PO QAM RF: 0 polyethylene glycol 3350 [Miralax] 17 gram Powder In Packet 17 g PO QAM PRN (Reason: Constipation) RF: 0 acetaminophen [Tylenol Extra Strength] 500 mg Tablet 500 mg PO Q6H PRN (Reason: Pain) RF: 0 azelastine 137 mcg (0.1 %) aerosol,spray 1 spray INTRANASAL BID RF: 0 isosorbide mononitrate 30 mg tablet extended release 24 hr 30 mg PO QAM RF: 0 docusate sodium [Colace] 100 mg Capsule 200 mg PO HS RF: 0 Prolia 60 mg/mL Syringe 60 mg SUBCUT YEARLY RF: 0 furosemide 40 mg tablet 40 mg PO 3XWK RF: 0 Januvia 25 mg tablet 25 mg PO QAM RF: 0 pantoprazole 40 mg tablet,delayed release (DR/EC) 40 mg PO QAM RF: 0 Spiriva Respimat 2.5 mcg/actuation mist 2 puff INHALATION QAM RF: 0 cetirizine 5 mg Tablet 5 mg PO QAM PRN (Reason: Congestion) RF: 0 prednisone 20 mg tablet 20 mg PO QAM RF: 0 nitroglycerin 0.4 mg tablet, sublingual 0.4 mg sublingual UD RF: 0 clopidogrel 75 mg tablet 75 mg PO QAM RF: 0 carvedilol 6.25 mg Tablet 6.25 mg PO BIDM Qty: 60 RF: 1 hydralazine 50 mg Tablet 50 mg PO QID Qty: 0 RF: 0 Referrals Referrals: Josh Kuhn DO [Primary Care Provider] - Discharge Problem: Atrial fibrillation Qualifiers: Atrial fibrillation type: longstanding persistent Qualified Code(s): I48.11 - Longstanding persistent atrial fibrillation
[2022-01-22 21:40] LABS: Basophils # (auto) 0.01 K/uL (0-0.2); Basophils % (auto) 0.1 %; Hematocrit (blood only) 31.9 % (37-47); Hemoglobin 10.2 g/dL (12.0-16.0); Immature Granulocytes # (auto) 0.03 K/uL (0.00-0.02); Immature Granulocytes % (auto) 0.4 %; Lymphocytes # (auto) 1.16 K/uL (1.2-3.4); Mean Corpuscular Hemoglobin 30.1 pg (25-34); Mean Corpuscular Volume 94.1 fL (80-100); Monocytes % (auto) 3.9 %; Neutrophils # (auto) 6.25 K/uL (1.4-6.5); Neutrophils % (auto) 80.6 %; Platelet Count 157 K/uL (130-400); RDW Coefficient of Variation 16.6 % (11.5-14.5); Red Blood Count 3.39 M/uL (4.2-5.4); White Blood Count 7.75 K/uL (4.8-10.8)
--- NOTE | 2022-01-22 21:48 | XRay Report ---
XR chest 1V portable CLINICAL HISTORY: weakness TECHNIQUE: Single frontal radiograph of the chest was obtained. Comparison: Comparison is made to chest radiograph 01/14/2022 FINDINGS: No lines and tubes are seen. Cardiomegaly is noted. The lungs are clear. No evidence of pleural effus ion or pneumothorax. IMPRESSION: No acute chest disease. ACT 112: Negative or not required by law. Electronically signed by: Stalin Champion M.D. 01/22/2022 9:47 PM
[2022-01-22 21:50] LABS: Albumin Globulin Ratio 1.4 (0.9-2); Albumin Level 3.7 gm/dl (3.4-5.0); BUN Creatinine Ratio 28.1 (10-20); Bilirubin,Total 0.6 mg/dl (0.2-1.0); Calcium 8.6 mg/dl (8.5-10.1); Est GFR (African American) 30.7 ml/min; Est GFR (Non-African American) 26.5 ml/min; Globulin 2.7 gm/dl (2.5-4.0); Total Protein 6.4 gm/dl (6.0-8.3)
[2022-01-22 21:55] LABS: INR 1.1 (0.9-1.1); Partial Thromboplastin Ratio 0.8; Partial Thromboplastin Time 22.5 Seconds (21.0-31.0); Prothrombin Time 11.2 Seconds (9.0-12.0)
--- NOTE | 2022-01-22 22:08 | CT Scan Report ---
CT head/brain wo con CLINICAL HISTORY: weakness Technique: Contiguous axial CT images of the head were acquired from the base of the skull to the maggy angie without intravenous contrast administration. Images were viewed in brain, subdural and bone [facility] . Automated dose lowering techniques and/or adjustment according to patient size were utilized for this exam. Comparison: Comparison is made to CT head 11/30/2016 Findings: Areas of decreased attenuation are present in the periventricular and subcortical white matter bilate rally consistent with small vessel ischemic disease. Generalized cerebral atrophy with commensurate e nlargement of the ventricles, sulci, and cisterns is also present. There is no acute intracranial hem orrhage or evidence of acute territorial infarction. No shift of the midline structures, mass effect, or extra-axial abnormalities are shown. Atherosclerotic calcifications are present in the intracran ial segments of the internal carotid arteries. There is focal encephalomalacia at the left parieto-oc cipital region compatible with old infarct seen on prior exam. No evidence of new infarct. Imaged portions of the paranasal sinuses and mastoid air cells are clear. The orbits appear normal. There are no acute fractures of the calvaria or scalp swelling. Impression: No acute intracranial hemorrhage, no evidence of acute territorial infarction or other acute intracra nial disease process. ACT 112: Negative or not required by law. Electronically signed by: Stalin Champion M.D. 01/22/2022 10:06 PM
[2022-01-22 22:32] LABS: Potassium 3.6 mmol/L (3.5-5.1)
[2022-01-23] MEDS ORDERED: ACETAMINOPHEN 325 MG TAB PO PRN (02:53)
[2022-01-23] MEDS ORDERED: POLYETHYLENE (MIRALAX) 17 GM PACK PO PRN ×2 (02:53→05:36)
[2022-01-23] MEDS ORDERED: GLUCOSE 10 TABS/TUBE PO PRN (03:15)
[2022-01-23] MEDS ORDERED: CARBOHYDRATES FOR HYPOGLYCEMIA PO PRN (03:15)
[2022-01-23] MEDS ORDERED: GLUCOSE 40% GEL 15 GM TUBE PO PRN (03:15)
[2022-01-23] MEDS ORDERED: GLUCAGON FOR INJ 1 MG VIAL IM PRN (03:15)
[2022-01-23] MEDS ORDERED: DEXTROSE 50% 50 ML SYRINGE IV PRN (03:15)
[2022-01-23] MEDS: INSULIN ASPART PER UNIT SC SCH ×5 (03:50→20:32)
[2022-01-23] MEDS ORDERED: ALBUTEROL HFA 8 GM INHALER INH PRN (05:36)
[2022-01-23] MEDS ORDERED: CETIRIZINE HCL 10 MG TABLET PO PRN (05:36)
[2022-01-23] MEDS ORDERED: NITROGLYCERIN SL 0.4 MG/TAB TAB SL PRN (05:45)
[2022-01-23 07:11] LABS: Basophils # (auto) 0.01 K/uL (0-0.2); Basophils % (auto) 0.1 %; Eosinophils # (auto) 0.03 K/uL (0-0.5); Eosinophils % (auto) 0.4 %; Hemoglobin 9.5 g/dL (12.0-16.0); Immature Granulocytes # (auto) 0.04 K/uL (0.00-0.02); Immature Granulocytes % (auto) 0.5 %; Lymphocytes # (auto) 1.37 K/uL (1.2-3.4); Lymphocytes % (auto) 16.1 %; Mean Corpuscular Hemoglobin 30.4 pg (25-34); Mean Corpuscular Hgb Conc 31.7 g/dL (32-36); Mean Corpuscular Volume 95.8 fL (80-100); Mean Platelet Volume 9.4 fL (7.4-10.4); Monocytes # (auto) 0.51 K/uL (0.11-0.59); Neutrophils # (auto) 6.56 K/uL (1.4-6.5); Neutrophils % (auto) 76.9 %; Platelet Count 132 K/uL (130-400); RDW Coefficient of Variation 16.4 % (11.5-14.5); RDW Standard Deviation 56.9 fL (36.4-46.3); Red Blood Count 3.13 M/uL (4.2-5.4); White Blood Count 8.52 K/uL (4.8-10.8)
[2022-01-23 07:35] LABS: BUN Creatinine Ratio 29.8 (10-20); Calcium 8.3 mg/dl (8.5-10.1); Creatinine Clr Calc Pharmacy 30.3 ml/min; Est GFR (African American) 38.7 ml/min; Est GFR (Non-African American) 33.4 ml/min; Magnesium 2.5 mg/dl (1.7-2.4)
[2022-01-23 08:18] LABS: Appearance Urine Clear (Clear); Bacteria Urine Automated Negative (Negative); Bilirubin Urine Negative (Negative); Blood Urine Negative (Negative); Color Urine Yellow; Glucose Urine UA Negative (Negative); Ketones Urine Negative (Negative); Leukocyte Esterase Urine Negative (Negative); Nitrite Urine Negative (Negative); Protein Urine 1+ (Negative); RBC Urine Automated 0-4 /hpf (0-4); Specific Gravity Urine 1.012 (1.000-1.030); Urobilinogen Urine Negative (Negative); pH Urine 5.5 (4.5-7.5)
[2022-01-23] MEDS ORDERED: hydrALAZINE TAB 50 MG TAB PO SCH (09:00)
[2022-01-23] MEDS: UMECLIDINIUM BROMIDE 62.5MCG/BLISTER 7 PUFFS/INHALER INH SCH (09:11)
[2022-01-23] MEDS: AZELASTINE HCL 0.1% NASAL 200 SPRAYS/27,400 MCG BTL SCH ×2 (09:11→20:11)
[2022-01-23] MEDS: predniSONE 10 MG TABLET PO SCH (09:12)
[2022-01-23] MEDS: CEROVITE ADV FORMULA TAB PO SCH (09:12)
[2022-01-23] MEDS: carvediloL 6.25 MG TAB PO SCH ×2 (09:12→17:36)
[2022-01-23] MEDS: PANTOprazole 40 MG TAB PO SCH (09:12)
[2022-01-23] MEDS: ISOSORBIDE MONO EXTENDED REL 30 MG TABCR PO SCH (09:12)
[2022-01-23] MEDS: CLOPIDOGREL BISULFATE 75 MG TAB PO SCH (09:12)
[2022-01-23] MEDS: ROSUVASTATIN CALCIUM 20 MG TAB PO SCH (09:13)
--- NOTE | 2022-01-23 11:27 | History and Physical Report ---
DATE OF ADMISSION: 01/23/2022. CHIEF COMPLAINT: Weakness, ambulatory dysfunction. HISTORY OF PRESENT ILLNESS: This is an 86-year-old female with past medical history significant for CAD, hypertension, hyperlipidemia, atrial fibrillation, not on any anticoagulation, history of COPD, nocturnal hypoxia, chronic diastolic CHF, chronic anemia, who was recently in the hospital for acute on chronic diastolic CHF, discharged on additional dose of Lasix. She was treated for UTI with Rocephin, presents with weakness. The patient says she is not able to move or ambulate today and was feeling dizzy, so she was brought into the hospital. Hemodynamically stable. Creatinine is 1.7. BNP 375, currently resting comfortably and hemodynamically stable. Headache is better. She is on prednisone for possible temporal arteritis, she is supposed to get biopsy, not done yet. Vision is okay. No earache, no runny nose, no sore throat, no cough, no dysphagia, eating and drinking okay. No chest pain. Occasionally, gets short of breath. No nausea, no abdominal pain, normal bowel and bladder movements. No swelling in the legs. ALLERGIES: IODINE, SHELLFISH DERIVED CHALO INHIBITORS, HYDROCHLOROTHIAZIDE, LATEX, TRAMADOL, CIPROFLOXACIN. PAST MEDICAL HISTORY: As mentioned above. PAST SURGICAL HISTORY: Arthrocentesis, breast biopsy, EGD, EGD with biopsy, bilateral lens, bilateral cataract surgery, RCA stent, right radial open reduction and internal fixation, cystocele and rectocele, total abdominal hysterectomy with bilateral salpingo-oophorectomy, cholecystectomy. MEDICATIONS: The patient is on Coreg 6.25 mg p.o. b.i.d., Januvia 25 mg p.o. daily, potassium chloride 20 mEq p.o. daily, aspirin 81 mg p.o. daily, albuterol 2 puffs inhalation q. 4 hours p.r.n., Lexapro 10 mg p.o. a.m., rosuvastatin 40 mg p.o. a.m., Ocuvite 1 capsule p.o. a.m., MiraLax 17 g p.o. daily p.r.n., Tylenol 500 mg p.o. 6 hours p.r.n., azelastine 1 spray intranasal b.i.d., isosorbide mononitrate 30 mg p.o. daily, Colace 200 mg p.o. at bedtime, Prolia subcutaneous yearly, Mucinex 600 mg p.o. b.i.d., Protonix 40 mg p.o. daily, Spiriva Respimat 2 puffs inhalation daily, cetirizine 25 mg p.o. daily, prednisone 20 mg p.o. daily, nitroglycerin 0.4 mg sublingual p.r.n., Plavix 75 mg p.o. daily. FAMILY HISTORY: Significant for sister has brain cancer, brother has COPD, diabetes, heart disorder, liver disease; sister has lung cancer and hypertension; mother had stroke, mother had bladder cancer, heart attack; father had heart attack. SOCIAL HISTORY: . No smoking. Alcohol occasional. No drug use. REVIEW OF SYSTEMS: As per HPI. Rest of the review of systems is negative. PHYSICAL EXAMINATION: GENERAL: The patient is of moderate build, not in acute distress. VITAL SIGNS: Temperature 37.2, pulse 76, respiratory rate 17, blood pressure 127/84, oxygen 98% on 2 liters. HEENT: Pupils equal, round and reactive to light. Oral mucosa moist. NECK: No JVD, no neck masses. CARDIOVASCULAR: S1 and S2 heard. Regular rate and rhythm. No murmur, no gallop. RESPIRATORY SYSTEM: Normal AP diameter. No accessory muscle use. No wheezing, no crackles. ABDOMEN: Soft. Bowel sounds are present, nontender, no distention. CENTRAL NERVOUS SYSTEM: Cranial nerves II through XII are grossly intact, nonfocal. EXTREMITIES: No edema, no erythema. LABORATORY: WBC 7.7, hemoglobin 10.2, hematocrit 31.2, platelets 157. PT 11.2, INR 1.1, APTT 22.5. Sodium 135, potassium 3.6, chloride 96, bicarb 20, BUN 14, creatinine 1.7, serum glucose 193. Lactate 1.4, total bilirubin 0.6, AST 60, ALT 90, alkaline phosphatase 56. BNP 375. TSH 0.7. SARS-CoV-[address] of the head without contrast, no acute findings. Chest x-ray, no acute findings. EKG: AFib at rate of 83, nonspecific ST changes. ASSESSMENT AND PLAN: This is an 86-year-old female who presents with dizziness and weakness. 1. Dizziness and weakness. We will check orthostatics, Given fluids in the ER. PT, OT evaluation. Observation in the hospital. 2. History of chronic diastolic congestive heart failure. Continue her home Coreg, home Lasix, hydralazine, Imdur, Aldactone. Monitor for any volume overload. 3. History of atrial fibrillation, on Coreg, not on anticoagulation secondary to GI bleed. Monitor the heart rates. 4. History of acute kidney injury. Creatinine of 1.7. Baseline creatinine 1.3. Avoid nephrotoxic agents. Currently on diuretics. received fluids. Monitor the labs in a.m. if still kidney function is worsening, hold diuretics and give gentle fluids. 5. Temporal arteritis, on prednisone. She is currently on 20 mg. Supposed to get biopsy. Continue to follow as outpatient. 6. Type 2 diabetes mellitus. HbA1c is 6.9 on Januvia, which we will hold. Placed on insulin sliding scale. Follow the blood sugars. 7. Coronary artery disease on aspirin, Plavix, statin, Coreg and Imdur. 8. Hypertension, on Coreg, hydralazine and isosorbide mononitrate. Continue home medications. 9. Chronic anemia, hemoglobin 10, which is around baseline. 10. Chronic obstructive pulmonary disease. Continue home inhalers. 11. Nocturnal hypoxia on 2 liters at bedtime. 12. Deep venous thrombosis prophylaxis: Sequential compression devices for now. DISPOSITION: Observation in medical floor. PT, OT prior to discharge. Social Service to help with discharge planning. Level 1 full code. Job ID: [id number] MTDD
--- NOTE | 2022-01-23 12:25 | Electrocardiogram Report ---
Test Reason : Blood Pressure : / mmHG Vent. Rate : 082 BPM Atrial Rate : 075 BPM P-R Int : 000 ms QRS Dur : 098 ms QT Int : 410 ms P-R-T Axes : 000 009 102 degrees QTc Int : 479 ms Atrial fibrillation Nonspecific ST and T wave abnormality Abnormal ECG When compared with ECG of 15-JAN-2022 06:03, No significant change was found Confirmed by Rasheed Welch ([id number]) on 01/23/2022 12:25:13 PM Referred By: REFERRED SELF Confirmed By:Christofer Welch
[2022-01-23] MEDS ORDERED: MECLIZINE 12.5 MG TAB PO PRN (12:31)
[2022-01-23] MEDS ORDERED: FUROSEMIDE 40 MG TAB PO SCH (14:30)
--- NOTE | 2022-01-23 15:38 | Hospitalist Progress Note ---
Date of Service January 23, 2022 Assessment & Plan (1) Weakness: Plan: Patient is an 86 yr old female who presents with dizziness and weakness. Dizziness and weakness Likely due to antihypertensives H/O Hypertension BP relatively low on presentation CT Head:No acute intracranial hemorrhage, no evidence of acute territorial infarction or other acute intracranial disease process. Normal Orthostatics -- Amlodipine, clonidine decreased last admission. Also hydralazine was decreased to 50 mg QID. Losartan was held due to FANY -- Discontinue hydralazine for now Continue to hold losartan Continue carvedilol, isosorbide with holding parameters Also on diuretics Monitor BP Check cortisol level given prolonged steroid course PT/OT Chronic diastolic congestive heart failure Continue home medications Monitor volume status Resume Aldactone as able Atrial fibrillation Continue carvedilol Not on anticoagulation due to history of GI bleed, chronic anemia Monitor FANY Cr Baseline 1.3 Cr1.7>>1.4 Hold losartan Monitor renal function Avoid nephrotoxic agents as able Temporal arteritis: Currently on prednisone taper course Continue prednisone 30 mg daily for 4 days, 25 mg daily for 4 days, 20 mg daily until further evaluation by speeder operator Follows with Dr. Hawk as outpatient Plan for biopsy in 2 weeks DM II HbA1c is 6.9 on Januvia Hold PO meds Continue ISS Monitor BGs CAD Continue Aspirin, Plavix, statin, Coreg and Imdur Chronic Anemia Hb near baseline monitor COPD Continue home inhalers Nocturnal hypoxia on 2 liters at bedtime DVT Px: SCDs for now Code Status Full Code Disposition PT/OT prior to discharge Admission and Anticipated Discharge Date Admission Date: January 23, 2022 Subjective Patient is seen and examined at bedside Patient states feeling much better this morning Dizziness resolved Offers no other complaints Discussed with patient's daughter over the phone Denies any chest pain, dyspnea, nausea, vomiting, abdominal pain Review of Systems Review of Systems: All systems reviewed & are unremarkable except as noted in Subjective Physical Exam Physical Exam: Physical Exam: Vitals signs as noted above General Appearance:Moderately built and nourished, no apparent distress Head: normocephalic, Atraumatic Eyes: normal inspection, EOMI Neck: supple, Trachea midline Respiratory/Chest: Normal breath sounds, CTA, No accessory muscle use Cardiovascular: Irregularly irregular, No murmur Abdomen/GI:Soft, Non tender, Bowel sounds present Extremities/Musculoskeletal:normal inspection, no edema Neurologic/Psych:AAOX3, grossly no focal neurological deficits Skin: normal color, warm Results & Data Results & Data ([facility]) Vital Signs (Past 12 Hours) Vital Signs Temp Pulse Resp BP Pulse Ox 01/23/22 07:47 36.5 C 88 18 109/76 95 Laboratory Results Short CBC 01/22/22 01/23/22 Range/Units 20:50 06:55 WBC 7.75 8.52 (4.8-10.8) K/uL Hgb 10.2 L 9.5 L (12.0-16.0) g/dL Hct 31.9 L 30.0 L (37-47) % Plt Count 157 132 (130-400) K/uL BMP 01/22/22 01/22/22 01/23/22 20:50 22:07 06:55 Sodium 135 L 138 Potassium 3.6 4.0 Chloride 96 L 101 Carbon Dioxide 30 33 H BUN 48 H 42 H Creatinine 1.71 H 1.41 H D Glucose 193 H 130 H Calcium 8.6 8.3 L Liver Function 01/22/22 01/22/22 Range/Units 20:50 22:07 Total Bilirubin 0.6 (0.2-1.0) mg/dl AST 16 (13-39) U/L ALT 19 (7-52) U/L Alkaline Phosphatase 53 (34-104) U/L Albumin 3.7 (3.4-5.0) gm/dl Urine 01/23/22 Range/Units 07:30 Urine Color Yellow Urine Appearance Clear (Clear) Urine pH 5.5 (4.5-7.5) Ur Specific [place] 1.012 (1.000-1.030) Urine Protein 1+ H (Negative) Urine Glucose (UA) Negative (Negative)
[2022-01-23] MEDS ORDERED: ESCITALOPRAM OXALATE 20 MG TAB PO SCH (21:00)
[2022-01-23] MEDS ORDERED: ASPIRIN 81 MG ECTAB PO SCH (21:00)
[2022-01-23] MEDS ORDERED: DOCUSATE SODIUM 100 MG CAP PO SCH (21:00)
[2022-01-24 07:29] LABS: Estimated Average Glucose 151 mg/dl; Hemoglobin A1C 6.9 % (4.5-5.6)
[2022-01-24] MEDS: ISOSORBIDE MONO EXTENDED REL 30 MG TABCR PO SCH (08:37)
[2022-01-24] MEDS: CLOPIDOGREL BISULFATE 75 MG TAB PO SCH (08:37)
[2022-01-24] MEDS: CEROVITE ADV FORMULA TAB PO SCH (08:37)
[2022-01-24] MEDS: UMECLIDINIUM BROMIDE 62.5MCG/BLISTER 7 PUFFS/INHALER INH SCH (08:38)
[2022-01-24] MEDS: ROSUVASTATIN CALCIUM 20 MG TAB PO SCH (08:38)
[2022-01-24] MEDS: PANTOprazole 40 MG TAB PO SCH (08:38)
[2022-01-24] MEDS: AZELASTINE HCL 0.1% NASAL 200 SPRAYS/27,400 MCG BTL SCH (08:38)
[2022-01-24] MEDS: predniSONE 10 MG TABLET PO SCH (08:38)
[2022-01-24] MEDS: INSULIN ASPART PER UNIT SC SCH ×2 (08:49→12:46)
[2022-01-24] MEDS ORDERED: FUROSEMIDE 40 MG TAB PO SCH (09:00)
[2022-01-24 09:11] LABS: Hematocrit (blood only) 30.6 % (37-47); Hemoglobin 9.6 g/dL (12.0-16.0)
[2022-01-24 09:44] LABS: BUN Creatinine Ratio 23.5 (10-20); Calcium 8.8 mg/dl (8.5-10.1); Creatinine Clr Calc Pharmacy 25.7 ml/min; Est GFR (African American) 31.8 ml/min; Est GFR (Non-African American) 27.4 ml/min; Magnesium 2.4 mg/dl (1.7-2.4); Potassium 3.3 mmol/L (3.5-5.1)
[2022-01-24] MEDS: carvediloL 6.25 MG TAB PO SCH (09:47)
[2022-01-24] MEDS ORDERED: POTASSIUM CHLORIDE CRTAB 20 MEQ TABCR PO ONE (09:54)
--- NOTE | 2022-01-24 13:58 | Hospitalist Progress Note ---
Date of Service January 24, 2022 Assessment & Plan (1) Weakness: Plan: Patient is an 86 yr old female who presents with dizziness and weakness. Dizziness and weakness Likely due to antihypertensives , ? Adrenal insufficiency due to recent decrease in steroid dose H/O Hypertension BP relatively low on presentation CT Head:No acute intracranial hemorrhage, no evidence of acute territorial infarction or other acute intracranial disease process. Normal Orthostatics AM Cortisol 3.5 -- Amlodipine, clonidine decreased last admission. Also hydralazine was decreased to 50 mg QID. Losartan was held due to FANY -- Discontinue hydralazine for now Continue to hold losartan upon discharge as well Continue carvedilol, isosorbide Also on diuretics Monitor BP Increase Prednisone to 30mg daily (Was taking 20mg )--Advised to follow up with Rheumatology for further recommendations PT/OT: Recommend Return Home Chronic diastolic congestive heart failure Continue home medications Monitor volume status Resume Aldactone Atrial fibrillation Continue carvedilol Not on anticoagulation due to history of GI bleed, chronic anemia Monitor FANY Cr Baseline 1.3 Cr1.7>>1.4>1.6 Hold losartan Monitor renal function Avoid nephrotoxic agents as able Temporal arteritis: Currently on prednisone taper course Continue prednisone 30 mg daily as above Follows with Dr. Hawk as outpatient Plan for biopsy in 2 weeks DM II HbA1c is 6.9 on Januvia Hold PO meds Continue ISS Monitor BGs CAD Continue Aspirin, Plavix, statin, Coreg and Imdur Chronic Anemia Hb near baseline monitor COPD Continue home inhalers Nocturnal hypoxia on 2 liters at bedtime DVT Px: SCDs for now Code Status Full Code Disposition Home Admission and Anticipated Discharge Date Admission Date: January 23, 2022 Subjective Patient is seen and examined at bedside Doing well today No complaints No recurrence of dizziness Denies any chest pain, dyspnea, nausea, vomiting, abdominal pain Review of Systems Review of Systems: All systems reviewed & are unremarkable except as noted in Subjective Physical Exam Physical Exam: Physical Exam: Vitals signs as noted above General Appearance:Moderately built and nourished, no apparent distress Head: normocephalic, Atraumatic Eyes: normal inspection, EOMI Neck: supple, Trachea midline Respiratory/Chest: Normal breath sounds, CTA, No accessory muscle use Cardiovascular: Irregularly irregular, No murmur Abdomen/GI:Soft, Non tender, Bowel sounds present Extremities/Musculoskeletal:normal inspection, no edema Neurologic/Psych:AAOX3, grossly no focal neurological deficits Skin: normal color, warm Results & Data Results & Data ([facility]) Vital Signs (Past 12 Hours) Vital Signs Temp Pulse Resp BP Pulse Ox 01/24/22 09:46 87 119/67 01/24/22 07:50 92 H 18 124/67 92 01/24/22 06:25 36.6 C 77 20 136/71 94 Laboratory Results Short CBC 01/24/22 Range/Units 08:01 Hgb 9.6 L (12.0-16.0) g/dL Hct 30.6 L (37-47) % BMP 01/24/22 08:01 Sodium 140 Potassium 3.3 L Chloride 101 Carbon Dioxide 33 H BUN 39 H Creatinine 1.66 H Glucose 87 Calcium 8.8
--- NOTE | 2022-01-24 14:16 | Discharge Summary ---
Date of Service January 24, 2022 Admission HPI Per Admitting Provider CHIEF COMPLAINT: Weakness, ambulatory dysfunction. HISTORY OF PRESENT ILLNESS: This is an 86-year-old female with past medical history significant for CAD, hypertension, hyperlipidemia, atrial fibrillation, not on any anticoagulation, history of COPD, nocturnal hypoxia, chronic diastolic CHF, chronic anemia, who was recently in the hospital for acute on chronic diastolic CHF, discharged on additional dose of Lasix. She was treated for UTI with Rocephin, presents with weakness. The patient says she is not able to move or ambulate today and was feeling dizzy, so she was brought into the hospital. Hemodynamically stable. Creatinine is 1.7. BNP 375, currently resting comfortably and hemodynamically stable. Headache is better. She is on prednisone for possible temporal arteritis, she is supposed to get biopsy, not done yet. Vision is okay. No earache, no runny nose, no sore throat, no cough, no dysphagia, eating and drinking okay. No chest pain. Occasionally, gets short of breath. No nausea, no abdominal pain, normal bowel and bladder movements. No swelling in the legs. Admission Exam Per Admitting Provider PHYSICAL EXAMINATION: GENERAL: The patient is of moderate build, not in acute distress. VITAL SIGNS: Temperature 37.2, pulse 76, respiratory rate 17, blood pressure 127/84, oxygen 98% on 2 liters. HEENT: Pupils equal, round and reactive to light. Oral mucosa moist. NECK: No JVD, no neck masses. CARDIOVASCULAR: S1 and S2 heard. Regular rate and rhythm. No murmur, no gallop. RESPIRATORY SYSTEM: Normal AP diameter. No accessory muscle use. No wheezing, no crackles. ABDOMEN: Soft. Bowel sounds are present, nontender, no distention. CENTRAL NERVOUS SYSTEM: Cranial nerves II through XII are grossly intact, nonfocal. EXTREMITIES: No edema, no erythema. Principal Diagnosis Dizziness and weakness Suspected Adrenal insufficiency Acute Kidney Injury Discharge Data Allergies Allergy/AdvReac Type Severity Reaction Status Date / Time iodine Allergy Intermediate HIVES Verified 01/21/22 09:38 shellfish derived Allergy Intermediate Hives Verified 01/21/22 09:38 CHALO Inhibitors Allergy Mild Cough Verified 01/21/22 09:38 hydrochlorothiazide Allergy Mild gout Verified 01/21/22 09:38 latex Allergy Mild rash Verified 01/21/22 11:14 tramadol Allergy Mild Rash Verified 01/21/22 09:38 ciprofloxacin Allergy Unknown unknown, Verified 01/21/22 09:38 pt can not remember Consultations 01/22/22 22:43 ED Decision to Admit Stat Ordered Studies 01/22/22 21:31 CT head/brain wo con Stat Hospital Course (1) Weakness: Patient is an 86 yr old female who presents with dizziness and weakness. Dizziness and weakness Likely due to antihypertensives , ? Adrenal insufficiency due to recent decrease in steroid dose H/O Hypertension BP relatively low on presentation CT Head:No acute intracranial hemorrhage, no evidence of acute territorial infarction or other acute intracranial disease process. Normal Orthostatics AM Cortisol 3.5 -- Amlodipine, clonidine decreased last admission. Also hydralazine was decreased to 50 mg QID. Losartan was held due to FANY -- Discontinue hydralazine for now Continue to hold losartan upon discharge as well Continue carvedilol, isosorbide Also on diuretics Monitor BP Increase Prednisone to 30mg daily (Was taking 20mg )--Advised to follow up with Rheumatology for further recommendations PT/OT: Recommend Return Home Chronic diastolic congestive heart failure Continue home medications Monitor volume status Resume Aldactone Atrial fibrillation Continue carvedilol Not on anticoagulation due to history of GI bleed, chronic anemia Monitor FANY Cr Baseline 1.3 Cr1.7>>1.4>1.6 Hold losartan Monitor renal function Avoid nephrotoxic agents as able Temporal arteritis: Currently on prednisone taper course Continue prednisone 30 mg daily as above Follows with Dr. Hawk as outpatient Plan for biopsy in 2 weeks DM II HbA1c is 6.9 on Januvia Hold PO meds Continue ISS Monitor BGs CAD Continue Aspirin, Plavix, statin, Coreg and Imdur Chronic Anemia Hb near baseline monitor COPD Continue home inhalers Nocturnal hypoxia on 2 liters at bedtime DVT Px: SCDs for now Code Status Full Code Disposition Home Total Time Total Time Spent Total Time Spent (In Minutes): 43 minutes Discharge Plan Discharge Items Patient Disposition: Home - Self-Care Reason For Visit: WEAKNESS Discharge Diagnosis: Dizziness and weakness Suspected Adrenal insufficiency Acute Kidney Injury Activity: Per Instructions section Exercise/Sports: Gradually increase as tolerated Non-emergency contact: Primary Care Provider, Surgeon, Specialist and Assistant Spa Manager Call non-emergency contact if: you have any medication questions, your symptoms worsen, your pain is concerning for you and you have a fever Follow-up/Referrals: Riccardo Chavira DO [Physician] - (Date & Time 01/25/2022 9:30 AM Provider Riccardo Chavira Jr., DO Department Cardiology, [facility] ) Josh Kuhn DO [Primary Care Provider] - (Date & Time 01/25/2022 11:00 AM Provider Josh Kuhn DO Department Family Practice [facility] ) Diet: Carb Consistent or DM2 and Heart Healthy Addtl Attending Provider Instructions: Follow-up with your primary care physician Dr. Josh Kuhn on 01/25/2022 11:00 AM Follow-up with your soil specialist on 01/25/2022 9:30 AM Follow-up with your rn first assistant as advised. Seek immediate medical attention if your symptoms reoccur or worsen Please take all medications as instructed on discharge list below. Please call if you have any questions or problems. You can reach a [facility] hospitalist on duty at [facility] 24 hours a day by calling [phone] Pending Studies at Discharge: No Stand-Alone Forms: My [facility], Smoking Cessation Medications and DC Order Prescriptions: Continued potassium chloride 10 mEq Tablet Extended Release 20 meq PO QAM RF: 0 aspirin 81 mg Tablet,Delayed Release (Dr/Ec) 81 mg PO PM RF: 0 albuterol sulfate 90 mcg/actuation Hfa Aerosol Inhaler 2 puff INHALATION Q4H PRN (Reason: Shortness Of Breath Or Wheezing) RF: 0 escitalopram oxalate [Lexapro] 10 mg Tablet 20 mg PO QPM RF: 0 rosuvastatin 40 mg Tablet 40 mg PO QAM RF: 0 Ocuvite Adult 50 Plus 250-5-1 mg Capsule 1 cap PO QAM RF: 0 polyethylene glycol 3350 [Miralax] 17 gram Powder In Packet 17 g PO QAM PRN (Reason: Constipation) RF: 0 acetaminophen [Tylenol Extra Strength] 500 mg Tablet 500 mg PO Q6H PRN (Reason: Pain) RF: 0 azelastine 137 mcg (0.1 %) aerosol,spray 1 spray INTRANASAL AMHS RF: 0 isosorbide mononitrate 30 mg tablet extended release 24 hr 30 mg PO QAM RF: 0 docusate sodium [Colace] 100 mg Capsule 200 mg PO HS RF: 0 Prolia 60 mg/mL Syringe 60 mg SUBCUT YEARLY RF: 0 furosemide 40 mg tablet 40 mg PO 3XWK RF: 0 Januvia 25 mg tablet 25 mg PO QAM RF: 0 spironolactone 25 mg tablet 12.5 mg PO QAM RF: 0 tocilizumab 162 mg/0.9 mL Pen Injector 162 mg SUBCUT .EVERY 14 DAYS RF: 0 pantoprazole 40 mg tablet,delayed release (DR/EC) 40 mg PO QAM RF: 0 Spiriva Respimat 2.5 mcg/actuation mist 2 puff INHALATION QAM RF: 0 cetirizine 5 mg Tablet 5 mg PO QAM PRN (Reason: Congestion) RF: 0 nitroglycerin 0.4 mg tablet, sublingual 0.4 mg sublingual UD RF: 0 clopidogrel 75 mg tablet 75 mg PO QAM RF: 0 carvedilol 6.25 mg Tablet 6.25 mg PO BIDM Qty: 60 RF: 1 Changed prednisone 10 mg tablet 30 mg PO DAILY Qty: 0 RF: 0 Discontinued losartan 100 mg Tablet 100 mg PO DAILY RF: 0 hydralazine 50 mg Tablet 50 mg PO QID Qty: 0 RF: 0 Discharge Orders: Discharge Order (Routine); Ordered 01/24/22 Ordered By: Gael Cage/Other Patient Handouts: Hypokalemia Dc Admission Data Admit Date/Time: 01/23/22 02:13 Attending Provider: Gael Matthews Admit Provider: Drew Teran Primary Care Provider: Josh Kuhn Other Providers: Drew Teran
== END 2022-01-24 15:40 | disposition home or self-care (01) ==
LOC: ED 20:36 → 3W 20:36

== ENCOUNTER 2022-10-18 17:57 | Inpatient (IN) ==
[2022-10-18 18:44] LABS: Basophils # (auto) 0.03 K/uL (0-0.2); Basophils % (auto) 0.4 %; Hemoglobin 12.3 g/dl (12.0-16.0); Immature Granulocytes # (auto) 0.02 K/uL (0.01-0.20); Immature Granulocytes % (auto) 0.3 %; Lymphocytes # (auto) 2.03 K/uL (1.2-3.4); Lymphocytes % (auto) 25.4 %; Mean Corpuscular Hemoglobin 31.1 pg (25.0-34.0); Mean Corpuscular Hgb Conc 33.2 g/dL (32.0-36.0); Mean Corpuscular Volume 93.7 fL (80.0-100.0); Mean Platelet Volume 10.4 fL (9.4-12.4); Monocytes # (auto) 0.65 K/uL (0.11-0.59); Monocytes % (auto) 8.1 %; Neutrophils # (auto) 4.86 K/uL (1.40-6.50); Neutrophils % (auto) 60.8 %; Platelet Count 186 K/uL (130-400); RDW Coefficient of Variation 13.8 % (11.5-14.5); RDW Standard Deviation 47.1 fL (36.4-46.3); Red Blood Count 3.95 M/uL (4.20-5.40); White Blood Count 7.99 K/ul (4.8-10.8)
[2022-10-18 19:02] LABS: Albumin Globulin Ratio 1.1 (0.9-2); Albumin Level 4.3 gm/dl (3.4-5.0); Bilirubin,Total 0.5 mg/dl (0.2-1.0); Calcium 9.4 mg/dl (8.5-10.1); Creatinine Clr Calc Pharmacy 29.8 ml/min; Est GFR (African American) 38.8 ml/min; Est GFR (Non-African American) 33.5 ml/min; Globulin 3.8 gm/dl (2.5-4.0); Potassium 3.8 mmol/L (3.5-5.1); Total Protein 8.1 gm/dl (6.0-8.3)
--- NOTE | 2022-10-18 19:27 | Emergency Department Note ---
Impression & Plan Abdominal pain, RLQ, Diverticulitis, Hernia, inguinal, right ED Provider Note Provider: Edwin Cisneros MD DATE OF SERVICE: 10/18/2022 CHIEF COMPLAINT: Right lower quadrant and hip pain HISTORY OF PRESENT ILLNESS: Patient is a 87-year-old female history of hypertension, COPD, CHF, atrial fibrillation on anticoagulation presenting here today reporting over the past several months has had some pain in her right hip. Reports over the last week and a half or so has had increased pain in her right lower quadrant. Pain has been worsening and Tylenol not been helping. Went to her PCP today who completed an outpatient CT scan. Was called by her PCP and referred here for further evaluation given CT findings. Patient denies significant nausea or vomiting. She denies falls. Denies pain radiating down the right leg or pain in the left abdomen or leg. Patient states the pain does radiate little bit to her right low back. Reports she has a known upper ventral hernia and a prior appendectomy, hysterectomy, and cholecystectomy. Pain is worse with certain movements. Denies recent heavy lifting. PAST MEDICAL HISTORY: As noted above MEDICATIONS: Reviewed home medications includes Plavix SOCIAL HISTORY: Non-smoker PHYSICAL EXAM: GENERAL: alert and oriented in no acute distress on stretcher Head: normocephalic and atraumatic EYES: No injection, discharge or icterus. NECK: Trachea midline. Supple. ENT: Mucous membranes pink and moist. LUNGS: Airway patent. No retractions or significant HEART: Regular rate and rhythm. No chest wall tenderness ABDOMEN: Soft with significant tenderness in the right lower quadrant and upper inguinal region. SKIN: Acyanotic, warm, dry, without rashes EXTREMITIES: Without swelling, tenderness or deformity NEUROLOGICAL: No focal deficits. No aphasia. No facial droop or slurred speech. Ambulatory. Patient's laboratory studies and imaging reviewed. Differential includes Appendicitis, infections, diverticulitis, UTI, obstruction, mesenteric ischemia, aortic pathology, inflammatory bowel disease, renal colic, PUD, pancreatitis, biliary pathology, hernia, volvulus, constipation, as well as other pathologies. IMPRESSION/MEDICAL DECISION MAKING: Patient with some chronic right hip issues to hip. Now more increased pain of the past week and a half. Outpatient scan report reviewed from the epic record. Some question of diverticulitis but not really having symptoms consistent with that. Blood work obtained here without significant leukocytosis and stable CKD. Right lower quadrant pain and tenderness does not seem consistent with urinary symptoms or pyelonephritis. No trauma reported. Again reviewed radiology report. Discussed with general surgery. Did press and it felt like I reduced what was likely some right inguinal here but she still having some pain. Did have general surgery evaluate as well. They agreed no apparent hernia at this time which was likely reduced. Some component of diverticulitis contributing to her pain as well. Covered with antibiotics for this. Given some Tylenol for some mild lower abdominal discomfort. Discussed with the hospitalist team. DIAGNOSIS: Right lower quadrant pain, right inguinal hernia, diverticulitis DISPOSITION: Hospitalist will evaluate Patient was agreeable with this plan. Past Med/Surg History Medical History Anemia H&H: 01/2022 Anxiety Atrial fibrillation with RVR--not anticoagulated d/t hx GI bleed, hospitalized 01/14/22 requiring IV Lopressor and diuresis, follows with [facility] cardio CAD (coronary artery disease) "hx PCI stent to RCI cath 2004 - 90% RCA stenosis s/p intervention, 50% LAD stenosis Cath 04/2018 with PCI MATEUSZ to Mid LAD -Dr. Darby Chronic diastolic CHF (congestive heart failure) EF 65-70% on 01/2022 echo; acute exacerbation 01/14/22 in setting of afib with RVR requiring IV Lopressor and diuresis, follows with [facility] cardio CKD (chronic kidney disease), stage III FANY 01/14/22--Cr 1.6 COPD (chronic obstructive pulmonary disease) CVA (cerebral vascular accident) 2015--no deficits Depression Dyslipidemia Exertional dyspnea pt states this is a current diagnosis---inhaler daily and prn GERD (gastroesophageal reflux disease) History of gastric ulcer requiring transfusion-2017 Labile hypertension Nocturnal hypoxia On home oxygen therapy 2L N/C at night Pulmonary HTN 37 mmHg 01/15/22; h/o severe pulmonary HTN-most recently 09/2021 in setting of CHF exacerbation TIA (transient ischemic attack) "1977" Surgical History Cystocele with rectocele "s/p repair" History of breast biopsy History of colonoscopy History of esophagogastroduodenoscopy (EGD) History of hysterectomy ANIL BSO History of open reduction and internal fixation (ORIF) procedure Right radial fx History of tooth extraction all teeth removed S/P cholecystectomy Status post cardiac catheterization (~04/2018) @ [facility] with 1 stent placed Status post coronary artery stent placement 05/04/18 @ [facility] follows with Dr. 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 Beliefs That Will Affect Care: Judaism Judaism Beliefs: Baptist marital status: / Current Living Situation: Alone current occupational status: retired How many Children do You have: 1 Feels Safe at Home: Yes Assistive Devices: Cane and Walker Allergies Allergies Allergy/AdvReac Type Severity Reaction Status Date / Time iodine Allergy Intermediate HIVES Verified 01/21/22 09:38 shellfish derived Allergy Intermediate Hives Verified 01/21/22 09:38 CHALO Inhibitors Allergy Mild Cough Verified 01/21/22 09:38 hydrochlorothiazide Allergy Mild gout Verified 01/21/22 09:38 latex Allergy Mild rash Verified 01/21/22 11:14 tramadol Allergy Mild Rash Verified 01/21/22 09:38 ciprofloxacin Allergy Unknown unknown, Verified 01/21/22 09:38 pt can not remember Home Meds Home Medications Medication Instructions Recorded Confirmed albuterol sulfate 90 mcg/actuation 2 puff inhalation Q4H PRN Wheezing 05/02/18 10/18/22 aerosol inhaler aspirin 81 mg tablet,delayed 81 mg PO PM 05/02/18 10/18/22 release escitalopram oxalate 10 mg tablet 20 mg PO QPM 05/02/18 10/18/22 (Lexapro) rosuvastatin 40 mg tablet 40 mg PO QAM 05/02/18 10/18/22 polyethylene glycol 3350 17 gram 17 g PO QAM PRN Constipation 05/21/18 10/18/22 oral powder packet (Miralax) potassium chloride 10 mEq 20 meq PO QAM 07/10/18 10/18/22 tablet,extended release azelastine 137 mcg (0.1 %) nasal 1 spray intranasal AMHS 10/01/21 10/18/22 spray aerosol denosumab 60 mg/mL subcutaneous 60 mg subcut YEARLY 10/01/21 10/18/22 syringe (Prolia) isosorbide mononitrate 30 mg 30 mg PO QA 10/01/21 10/18/22 tablet,extended release 24 hr cetirizine 5 mg tablet 5 mg PO HS 01/14/22 10/18/22 clopidogrel 75 mg tablet 75 mg PO QAM 01/14/22 10/18/22 nitroglycerin 0.4 mg sublingual 0.4 mg sublingual UD 01/14/22 10/18/22 tablet pantoprazole 40 mg tablet,delayed 40 mg PO QA 01/14/22 10/18/22 release tiotropium bromide 2.5 2 puff inhalation QA 01/14/22 10/18/22 mcg/actuation mist for inhalation (Spiriva Respimat) furosemide 40 mg tablet 40 mg PO DAILY 01/21/22 10/18/22 spironolactone 25 mg tablet 25 mg PO QA 01/23/22 10/18/22 albuterol sulfate 2.5 mg/3 mL 2.5 mg continuous nebulization Q4 10/18/22 10/18/22 (0.083 %) solution for nebulization PRN Wheezing cholecalciferol (vitamin D3) 25 25 mcg PO DAILY 10/18/22 10/18/22 mcg (1,000 unit) tablet (Vitamin D3) dicyclomine 10 mg capsule 10 mg PO DAILY PRN abdominal 10/18/22 10/18/22 cramping metoprolol succinate 50 mg 75 mg PO QAM 10/18/22 10/18/22 tablet,extended release 24 hr nitrofurantoin macrocrystal 50 mg 50 mg PO HS 10/18/22 10/18/22 capsule potassium chloride 10 mEq 10 meq PO DAILY 10/18/22 10/18/22 tablet,extended release solifenacin 5 mg tablet 5 mg PO QAM 10/18/22 10/18/22 tamsulosin 0.4 mg capsule 0.4 mg PO QAM 10/18/22 10/18/22 Results & Data (ED) Vital Signs Vital Signs - 24 hr 10/18/22 18:02 Temperature 36.9 C Temperature Source Temporal Artery Scan Pulse Rate 77 Respiratory Rate 19 Respiratory Effort / Characteristics Non-Labored Spontaneous Respiratory Depth Normal Blood Pressure 108/58 L Blood Pressure Mean 74 Pulse Oximetry 91 Oxygen Delivery Method Room Air Sepsis Recent Fever Within 48 Hours No Sepsis New/Unexplained Change in Mental Status N/A Sepsis Action Taken by Nursing No Action Required Laboratory Data 10/18/22 18:10 10/18/22 18:10 Lab Results 10/18/22 10/18/22 10/18/22 Range/Units 18:10 18:10 20:35 WBC 7.99 (4.8-10.8) K/ul RBC 3.95 L (4.20-5.40) M/uL Hgb 12.3 (12.0-16.0) g/dl Hct 37.0 (37.0-47.0) % MCV 93.7 (80.0-100.0) fL MCH 31.1 (25.0-34.0) pg MCHC 33.2 (32.0-36.0) g/dL RDW Std Deviation 47.1 H (36.4-46.3) fL RDW Coeff of Luz 13.8 (11.5-14.5) % Plt Count 186 (130-400) K/uL MPV 10.4 (9.4-12.4) fL Immature Gran % (Auto) 0.3 % Neut % (Auto) 60.8 % Lymph % (Auto) 25.4 % [place] % (Auto) 8.1 % Eos % (Auto) 5.0 % Baso % (Auto) 0.4 % Neut # (Auto) 4.86 (1.40-6.50) K/uL Lymph # (Auto) 2.03 (1.2-3.4) K/uL [place] # (Auto) 0.65 H (0.11-0.59) K/uL Eos # (Auto) 0.40 (0-0.50) K/uL Baso # (Auto) 0.03 (0-0.2) K/uL Immature Gran # (Auto) 0.02 (0.01-0.20) K/uL Sodium 136 (136-145) mmol/L Potassium 3.8 (3.5-5.1) mmol/L Chloride 99 (98-107) mmol/L Carbon Dioxide 34 H (21-32) mmol/L Anion Gap 3 (3-11) BUN 28 H (6-23) mg/dl Creatinine 1.40 H (0.6-1.2) mg/dl Est Cr Clr Drug Dosing 29.8 ml/min Est GFR ( Amer) 38.8 ml/min Est GFR (Non-Af Amer) 33.5 ml/min BUN/Creatinine Ratio 20.0 (10-20) Glucose 99 (70-99(Fasting)) mg/dl Calcium 9.4 (8.5-10.1) mg/dl Total Bilirubin 0.5 (0.2-1.0) mg/dl AST 17 (13-39) U/L ALT 8 (7-52) U/L Alkaline Phosphatase 81 (34-104) U/L Total Protein 8.1 (6.0-8.3) gm/dl Albumin 4.3 (3.4-5.0) gm/dl Globulin 3.8 (2.5-4.0) gm/dl Albumin/Globulin Ratio 1.1 (0.9-2) Lipase 23 (11-82) U/L SARS-CoV-2, RNA, NAAT NEGATIVE (NEGATIVE) Administered Medications Discontinued Medications Acetaminophen (Acetaminophen 500 Mg Tab) 1,000 mg PO NOW STA Stop: 10/18/22 20:41 Last Admin: 10/18/22 20:47 Dose: 1,000 mg Documented By: MARK Piperacillin Sod/Tazobactam Sod (Zosyn) 4.5 gm in 120 mls @ 240 mls/hr IV NOW ONE Stop: 10/18/22 21:18 Last Admin: 10/18/22 21:39 Dose: 240 mls/hr Documented By: MARK Discharge Plan Visit Data Chief Complaint: Hip Pain Stated Complaint: HERNIA,HIP PAIN AND GROIN,DIFFICULT WALK ED Provider: Edwin Cisneros Discharge Problem: Abdominal pain, RLQ, Diverticulitis, Hernia, inguinal, right Patient Disposition: Being Evaluated by Hospitalist Forms Stand Alone Forms: [facility] Prescriptions Prescriptions: No Action potassium chloride 10 mEq Tablet Extended Release 20 meq PO QAM aspirin 81 mg Tablet,Delayed Release (Dr/Ec) 81 mg PO PM albuterol sulfate 90 mcg/actuation Hfa Aerosol Inhaler 2 puff INHALATION Q4H PRN (Reason: Wheezing) escitalopram oxalate [Lexapro] 10 mg Tablet 20 mg PO QPM Rx Instructions: take with supper rosuvastatin 40 mg Tablet 40 mg PO QAM polyethylene glycol 3350 [Miralax] 17 gram Powder In Packet 17 g PO QAM PRN (Reason: Constipation) azelastine 137 mcg (0.1 %) aerosol,spray 1 spray INTRANASAL AMHS isosorbide mononitrate 30 mg tablet extended release 24 hr 30 mg PO QAM Prolia 60 mg/mL Syringe 60 mg SUBCUT YEARLY furosemide 40 mg tablet 40 mg PO DAILY spironolactone 25 mg tablet 25 mg PO QAM solifenacin 5 mg tablet 5 mg PO QAM nitrofurantoin macrocrystal 50 mg capsule 50 mg PO HS Rx Instructions: take with food albuterol sulfate 2.5 mg /3 mL (0.083 %) solution for nebulization 2.5 mg continuous nebulization Q4 PRN (Reason: Wheezing) tamsulosin 0.4 mg capsule 0.4 mg PO QAM cholecalciferol (vitamin D3) [Vitamin D3] 25 mcg (1,000 unit) Tablet 25 mcg PO DAILY metoprolol succinate 50 mg tablet extended release 24 hr 75 mg PO QAM potassium chloride 10 mEq tablet extended release 10 meq PO DAILY dicyclomine 10 mg capsule 10 mg PO DAILY PRN (Reason: abdominal cramping) pantoprazole 40 mg tablet,delayed release (DR/EC) 40 mg PO QAM Spiriva Respimat 2.5 mcg/actuation mist 2 puff INHALATION QAM cetirizine 5 mg Tablet 5 mg PO HS nitroglycerin 0.4 mg tablet, sublingual 0.4 mg sublingual UD Rx Instructions: 1 tab SL every 5 minutes prn chest pain. up to 3 doses clopidogrel 75 mg tablet 75 mg PO QAM Referrals Referrals: Josh Kuhn DO [Primary Care Provider] -
[2022-10-18] MEDS ORDERED: ACETAMINOPHEN 500 MG TAB PO STA (20:40)
[2022-10-18] MEDS ORDERED: PIPERACILLIN/TAZOBACTAM 4.5 GM/120 ML BAG IV ONE (20:49)
--- NOTE | 2022-10-18 20:57 | Surgery Consultation ---
Date of Consultation October 18, 2022 Assessment & Plan (1) Diverticulitis: source of pain IVF IV abx Present on Admission?: Yes (2) Ventral hernia: reduced in ED will need repair either as inpatient or outpatient previously incarcerated Present on Admission?: Yes History of Present Illness History of Present Illness This is a 87-year-old female history of hypertension, COPD, CHF, atrial fibrillation on anticoagulation who had outpaitent CT showing a right inguinal hernia with SB loops within the hernia without signs of ischemia or obstruction and sigmoid diverticulitis who has had pain for weeks which got worse today. She denies significant nausea,vomiting, fevers or change in bowel habits. She has a known upper ventral hernia and a prior appendectomy, hysterectomy, and cholecystectomy. Pain is worse with movement. The SB loops were reduced by ED physician. Allergies Allergy/AdvReac Type Severity Reaction Status Date / Time iodine Allergy Intermediate HIVES Verified 01/21/22 09:38 shellfish derived Allergy Intermediate Hives Verified 01/21/22 09:38 CHALO Inhibitors Allergy Mild Cough Verified 01/21/22 09:38 hydrochlorothiazide Allergy Mild gout Verified 01/21/22 09:38 latex Allergy Mild rash Verified 01/21/22 11:14 tramadol Allergy Mild Rash Verified 01/21/22 09:38 ciprofloxacin Allergy Unknown unknown, Verified 01/21/22 09:38 pt can not remember Home Medications Medication Instructions Recorded Confirmed Type albuterol sulfate 90 mcg/actuation 2 puff inhalation Q4H PRN Wheezing 05/02/18 10/18/22 History aerosol inhaler aspirin 81 mg tablet,delayed 81 mg PO PM 05/02/18 10/18/22 History release escitalopram oxalate 10 mg tablet 20 mg PO QPM 05/02/18 10/18/22 History (Lexapro) rosuvastatin 40 mg tablet 40 mg PO QAM 05/02/18 10/18/22 History polyethylene glycol 3350 17 gram 17 g PO QAM PRN Constipation 05/21/18 10/18/22 History oral powder packet (Miralax) potassium chloride 10 mEq 20 meq PO QAM 07/10/18 10/18/22 History tablet,extended release azelastine 137 mcg (0.1 %) nasal 1 spray intranasal AMHS 10/01/21 10/18/22 History spray aerosol denosumab 60 mg/mL subcutaneous 60 mg subcut YEARLY 10/01/21 10/18/22 History syringe (Prolia) isosorbide mononitrate 30 mg 30 mg PO QAM 10/01/21 10/18/22 History tablet,extended release 24 hr cetirizine 5 mg tablet 5 mg PO HS 01/14/22 10/18/22 History clopidogrel 75 mg tablet 75 mg PO QAM 01/14/22 10/18/22 History nitroglycerin 0.4 mg sublingual 0.4 mg sublingual UD 01/14/22 10/18/22 History tablet pantoprazole 40 mg tablet,delayed 40 mg PO QAM 01/14/22 10/18/22 History release tiotropium bromide 2.5 2 puff inhalation QAM 01/14/22 10/18/22 History mcg/actuation mist for inhalation (Spiriva Respimat) furosemide 40 mg tablet 40 mg PO DAILY 01/21/22 10/18/22 History spironolactone 25 mg tablet 25 mg PO QAM 01/23/22 10/18/22 History albuterol sulfate 2.5 mg/3 mL 2.5 mg continuous nebulization Q4 10/18/22 10/18/22 History (0.083 %) solution for nebulization PRN Wheezing cholecalciferol (vitamin D3) 25 25 mcg PO DAILY 10/18/22 10/18/22 History mcg (1,000 unit) tablet (Vitamin D3) dicyclomine 10 mg capsule 10 mg PO DAILY PRN abdominal 10/18/22 10/18/22 History cramping metoprolol succinate 50 mg 75 mg PO QAM 10/18/22 10/18/22 History tablet,extended release 24 hr nitrofurantoin macrocrystal 50 mg 50 mg PO HS 10/18/22 10/18/22 History capsule potassium chloride 10 mEq 10 meq PO DAILY 10/18/22 10/18/22 History tablet,extended release solifenacin 5 mg tablet 5 mg PO QAM 10/18/22 10/18/22 History tamsulosin 0.4 mg capsule 0.4 mg PO QAM 10/18/22 10/18/22 History Patient History Medical History Anemia H&H: 01/2022 Anxiety Atrial fibrillation with RVR--not anticoagulated d/t hx GI bleed, hospitalized 01/14/22 requiring IV Lopressor and diuresis, follows with [facility] cardio CAD (coronary artery disease) "hx PCI stent to RCI cath 2004 - 90% RCA stenosis s/p intervention, 50% LAD stenosis Cath 04/2018 with PCI MATEUSZ to Mid LAD -Dr. Darby Chronic diastolic CHF (congestive heart failure) EF 65-70% on 01/2022 echo; acute exacerbation 01/14/22 in setting of afib with RVR requiring IV Lopressor and diuresis, follows with [facility] cardio CKD (chronic kidney disease), stage III FANY 01/14/22--Cr 1.6 COPD (chronic obstructive pulmonary disease) CVA (cerebral vascular accident) 2015--no deficits Depression Dyslipidemia Exertional dyspnea pt states this is a current diagnosis---inhaler daily and prn GERD (gastroesophageal reflux disease) History of gastric ulcer requiring transfusion-2017 Labile hypertension Nocturnal hypoxia On home oxygen therapy 2L N/C at night Pulmonary HTN 37 mmHg 01/15/22; h/o severe pulmonary HTN-most recently 09/2021 in setting of CHF exacerbation TIA (transient ischemic attack) "1977" Surgical History Cystocele with rectocele "s/p repair" History of breast biopsy History of colonoscopy History of esophagogastroduodenoscopy (EGD) History of hysterectomy ANIL BSO History of open reduction and internal fixation (ORIF) procedure Right radial fx History of tooth extraction all teeth removed S/P cholecystectomy Status post cardiac catheterization (~04/2018) @ [facility] with 1 stent placed Status post coronary artery stent placement 05/04/18 @ [facility] follows with Dr. 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 Beliefs That Will Affect Care: Mandaeism Mandaeism Beliefs: Anabaptism marital status: / Current Living Situation: Alone current occupational status: retired How many Children do You have: 1 Feels Safe at Home: Yes Assistive Devices: Cane and Walker Review of Systems Constitutional: no fever, no chills and no anorexia Eyes: no problem reported Ear, Nose, Mouth, Throat: no problem reported Respiratory: no cough and no dyspnea Cardiovascular: no chest pain and no dyspnea Gastrointestinal: + abdominal pain; no nausea, no vomiting and no change in bowel habits Genitourinary: no dysuria Musculoskeletal: + back pain; no neck pain and no joint pain Integumentary: no problem reported Neurologic: no localized weakness and no generalized weakness Psychiatric: no behavioral changes Endocrine: no fatigue Hematologic / Lymphatic: + easy bleeding Physical Exam Constitutional: WD/WN, vitals as above + obese Eyes: PERRL, conjunctivae normal, anicteric sclerae Neck: trachea midline Respiratory: normal respiratory effort, lungs clear to auscultation Cardiovascular: RRR, no murmur, no edema Gastrointestinal (Abdomen): Inspection/Auscultation: abdomen normal to inspection, normal bowel sounds and + abdominal surgical scar; abdomen not distended Percussion/Palpation: + abdomen tender, abdomen soft and + hernia (small ventral hernia to right of midline scar, reducible); no guarding and abdomen not rigid Musculoskeletal: Head/Neck/Chest: normocephalic and head atraumatic Skin: no rashes, warm and dry Psychiatric: Orientation: alert and oriented x 3 Results & Data ([facility]) Vital Signs (Past 12 Hours) Vital Signs Temp Pulse Resp BP Pulse Ox O2 Del Method 10/18/22 18:02 36.9 C 77 19 108/58 L 91 Room Air
[2022-10-19] MEDS ORDERED: POLYETHYLENE (MIRALAX) 17 GM PACK PO PRN (00:41)
[2022-10-19] MEDS ORDERED: NITROGLYCERIN SL 0.4 MG/TAB TAB SL SCH (00:41)
[2022-10-19] MEDS ORDERED: ALBUTEROL 0.083% NEBU SOLN 3 ML VIAL NEB PRN (00:41)
[2022-10-19] MEDS ORDERED: DICYCLOMINE HCL 10 MG CAP PO PRN (00:41)
[2022-10-19] MEDS ORDERED: ALBUTEROL HFA 8 GM INHALER INH PRN (00:41)
[2022-10-19] MEDS ORDERED: MoRPHine SULFATE 2 MG/ML CARP IV PRN (00:41)
[2022-10-19] MEDS: ACETAMINOPHEN 325 MG TAB PO PRN ×2 (01:10→22:34)
--- NOTE | 2022-10-19 01:19 | History and Physical Report ---
DATE OF ADMISSION: 10/18/2022. CHIEF COMPLAINT: Abdominal pain. HISTORY OF PRESENT ILLNESS: An 87-year-old female with past medical history significant for CAD, status post stents, history of atrial fibrillation, not on anticoagulation because of GI bleeding risk greater than benefit as per the Cardiology notes, history of bright red blood per rectum, status post 3 units PRBC in 2018, EGD with gastric ulcer, history of hypertension, mitral regurgitation, diastolic CHF, hyperlipidemia, history of CVA in November 2016, COPD, GERD, gastritis, polyarthritis, chronic back pain, depression, diabetes, currently not on any medications, history of giant cell arteritis, constipation, chronic kidney disease, stage III, presents with ongoing abdominal pain for the last 2 weeks. Went to PCP, CT scan was done, which showed right inguinal hernia and also possible sigmoid diverticulitis . In the ER, inguinal hernia was reduced. Also seen by surgery.. The patient is currently resting comfortably and hemodynamically stable. Denies any fevers, no nausea, no vomiting, no diarrhea or constipation. Normal bladder movements. No swelling in the legs. No chest pain, no shortness of breath, no headache, no blurred visions, no earache, no runny nose, no sore throat. No cough. ALLERGIES: IODINE, SHELLFISH, CHALO INHIBITORS, HYDROCHLOROTHIAZIDE, LATEX, TRAMADOL, CIPROFLOXACIN. PAST MEDICAL HISTORY: As mentioned above. PAST SURGICAL HISTORY: Breast biopsy, bilateral, benign; EGD with biopsy; cataract surgery; ligation and biopsy of temporal artery on the left side; status post cardiac stent placement; cholecystectomy; repair of bladder and vaginal cystocele; total hysterectomy. MEDICATIONS: The patient is on albuterol 2 puffs inhalation q. 4 hours p.r.n., albuterol nebulization q. 4 hours p.r.n., aspirin 81 mg p.o. p.m., azelastine 1 spray intranasal b.i.d., cetirizine 5 mg p.o. at bedtime, vitamin D 25 mcg p.o. daily, Plavix 75 mg p.o. daily, dicyclomine 10 mg p.o. daily p.r.n., Lexapro 20 mg p.o. daily, Lasix 40 mg p.o. daily, isosorbide mononitrate 30 mg p.o. a.m., metoprolol succinate 75 mg p.o. a.m., Macrobid 50 mg p.o. at bedtime, nitroglycerin 0.4 mg sublingual p.r.n., Protonix 40 mg p.o. daily, MiraLax 17 gm p.o. daily p.r.n., potassium chloride 10 mEq p.o. daily, rosuvastatin 40 mg p.o. daily, solifenacin 5 mg p.o. a.m., Spiriva Respimat 2 puffs inhalation a.m., spironolactone 25 mg p.o. a.m., Flomax 0.5 mg p.o. a.m. FAMILY HISTORY: Significant for sister has brain cancer, lung cancer; brother has COPD, diabetes, heart disorder, liver disease, stroke; mother has bladder cancer, heart attack. SOCIAL HISTORY: . No smoking. Alcohol occasional. No drug use. REVIEW OF SYSTEMS: As per HPI. Rest of the review of systems is negative. PHYSICAL EXAMINATION: GENERAL: The patient is of moderate build, not in acute distress. VITAL SIGNS: Temperature 36.9, pulse 76, respiratory rate 18, blood pressure 111/58, oxygen 93% on room air. HEENT: Pupils equal, round and reactive to light. Oral mucosa dry. NECK: No JVD. No neck masses. CARDIOVASCULAR: S1 and S2 heard. Regular rate and rhythm. No murmur, no gallop. RESPIRATORY SYSTEM: Normal AP diameter. No accessory muscle use. No wheezing, no crackles. ABDOMEN: Soft, bowel sounds present. Mild right lower quadrant tenderness. No guarding. No rigidity. No distention. CENTRAL NERVOUS SYSTEM: Cranial nerves II through XII are grossly intact. Nonfocal. EXTREMITIES: No edema, no erythema. LABORATORY DATA: WBC 7.9, hemoglobin 12.3, hematocrit 37, platelets 186. Sodium 136, potassium 3.8, chloride 99, bicarbonate 34, BUN 28, creatinine 1.4, serum glucose 99, calcium 9.4, total bilirubin 0.5, AST 17, ALT 8, alkaline phosphatase 81, lipase 26. SARS-CoV-2 rapid test negative. IMAGING DATA: CT abdomen and pelvis done as outpatient without contrast showed colonic diverticulosis with short segment, mural thickening of the sigmoid colon with mild adjacent inflammatory change. Correlate with clinical evidence of diverticulitis. Small right inguinal hernia containing loops of unobstructed small bowel. ASSESSMENT AND PLAN: This 87-year-old female presents with ongoing right lower quadrant abdominal pain and found to have small right inguinal hernia that seems be nonobstructed. 1. Right upper quadrant abdominal pain with small right inguinal hernia, was reduced in the ER: Pain control, n.p.o., IV fluids. Seen by Surgery. Observation in the hospital. 2. Possible sigmoid diverticulitis: The patient does not have any left lower quadrant tenderness. Currently, empirically on antibiotics with Zosyn. We will monitor . NPO for now. Surgery on board. 3. History of coronary artery disease, status post stent: On statin, aspirin, Plavix, Imdur and metoprolol succinate, currently asymptomatic. 4. Gastroesophageal reflux disease: On Protonix. 5. Chronic diastolic congestive heart failure: On Lasix, spironolactone with potassium supplement and metoprolol succinate and Imdur. Currently getting gentle fluids. Monitor for any volume overload. 6. History of chronic obstructive pulmonary disease: Continue on home inhalers. 7. Hyperlipidemia: On statin. 8. Type 2 diabetes, not on any medication: Follow HbA1c level. Follow the blood sugars. 9. History of cerebrovascular accident: On aspirin, Plavix and statin. 10. History of atrial fibrillation: Rate controlled with metoprolol, not on anticoagulation because history of gastrointestinal bleed 11. history of chronic kidney disease, stage III. Baseline creatinine 1.2-1.3. Currently, creatinine of 1.4. We will follow the labs. Getting fluids. 12. Hypertension: On diuretics, Imdur and metoprolol succinate. We will monitor the blood pressure. 12. Deep venous thrombosis prophylaxis: Sequential compression devices for now. DISPOSITION: Closely monitor in the medical floor. PT/OT prior to discharge. Social service to help with discharge planning. Job ID: [id number] LUCAS
[2022-10-19] MEDS: SODIUM CHLORIDE 0.9% 1000ML 1,000 ML IV SCH ×2 (01:23→16:37)
[2022-10-19] MEDS: PIPERACILLIN/TAZOBACTAM 3.375 GM in DEXTROSE 5% 100 ML IV SCH ×3 (04:46→22:10)
[2022-10-19 06:18] LABS: Appearance Urine Clear (Clear); Bacteria Urine Automated Negative (Negative); Bilirubin Urine Negative (Negative); Blood Urine Trace (Negative); Cast Urine Automated 0 /lpf (0-5); Color Urine Yellow; Glucose Urine UA Negative (Negative); Ketones Urine Negative (Negative); Leukocyte Esterase Urine Trace (Negative); Nitrite Urine Positive (Negative); Protein Urine Trace (Negative); RBC Urine Automated 0-4 /hpf (0-4); Specific Gravity Urine 1.009 (1.000-1.030); Urobilinogen Urine Negative (Negative); pH Urine 5.5 (4.5-7.5)
[2022-10-19 06:21] LABS: Basophils # (auto) 0.03 K/uL (0-0.2); Basophils % (auto) 0.4 %; Eosinophils # (auto) 0.42 K/uL (0-0.50); Eosinophils % (auto) 5.9 %; Hematocrit (blood only) 35.9 % (37.0-47.0); Hemoglobin 11.9 g/dl (12.0-16.0); Immature Granulocytes # (auto) 0.08 K/uL (0.01-0.20); Immature Granulocytes % (auto) 1.1 %; Lymphocytes # (auto) 2.16 K/uL (1.2-3.4); Lymphocytes % (auto) 30.5 %; Mean Corpuscular Hemoglobin 31.3 pg (25.0-34.0); Mean Corpuscular Hgb Conc 33.1 g/dL (32.0-36.0); Mean Corpuscular Volume 94.5 fL (80.0-100.0); Mean Platelet Volume 10.5 fL (9.4-12.4); Monocytes # (auto) 0.56 K/uL (0.11-0.59); Monocytes % (auto) 7.9 %; Neutrophils # (auto) 3.83 K/uL (1.40-6.50); Neutrophils % (auto) 54.2 %; Platelet Count 167 K/uL (130-400); RDW Standard Deviation 48.2 fL (36.4-46.3); White Blood Count 7.08 K/ul (4.8-10.8)
[2022-10-19 06:24] LABS: BUN Creatinine Ratio 20.6 (10-20); Calcium 9.5 mg/dl (8.5-10.1); Creatinine Clr Calc Pharmacy 29.6 ml/min; Est GFR (African American) 40.2 ml/min; Est GFR (Non-African American) 34.7 ml/min; Magnesium 2.1 mg/dl (1.7-2.4); Potassium 3.8 mmol/L (3.5-5.1)
[2022-10-19 08:16] LABS: Estimated Average Glucose 154 mg/dl
[2022-10-19] MEDS: CHOLECALCIFEROL 1,000 UNITS 25 MCG TAB PO SCH (08:44)
[2022-10-19] MEDS: AZELASTINE HCL 0.1% NASAL 200 SPRAYS/27,400 MCG BTL NAE SCH ×2 (08:44→22:09)
[2022-10-19] MEDS: FUROSEMIDE 40 MG TAB PO SCH (08:45)
[2022-10-19] MEDS: CLOPIDOGREL BISULFATE 75 MG TAB PO SCH (08:45)
[2022-10-19] MEDS: METOPROLOL SUCC 25MG EXT REL TAB PO SCH (08:46)
[2022-10-19] MEDS: ISOSORBIDE MONO EXTENDED REL 30 MG TABCR PO SCH (08:46)
[2022-10-19] MEDS: PANTOprazole 40 MG TAB PO SCH (08:47)
[2022-10-19] MEDS: POTASSIUM CHLORIDE 10 MEQ TABCR PO SCH (08:47)
[2022-10-19] MEDS: TAMSULOSIN HCL 0.4 MG CAP PO SCH (08:48)
[2022-10-19] MEDS: ROSUVASTATIN CALCIUM 20 MG TAB PO SCH (08:48)
[2022-10-19] MEDS: SPIRONOLACTONE 25 MG TAB PO SCH (08:48)
[2022-10-19] MEDS: UMECLIDINIUM BROMIDE 62.5MCG/BLISTER 7 PUFFS/INHALER INH SCH (08:49)
--- NOTE | 2022-10-19 11:23 | Ultrasound Report ---
ULTRASOUND RIGHT GROIN NONVASCULAR CLINICAL HISTORY: Right inguinal hernia. COMPARISON STUDY: Pelvic CT dated 04/21/2016. FINDINGS: Real-time grayscale sonography of the right groin is performed to assess for inguinal herni a. There is a fat and bowel containing right inguinal hernia. The defect measures 1.5 cm. This was on ly partially reducible during the examination. IMPRESSION: Partially reducible fat and bowel containing right inguinal hernia. Electronically signed by: Jose Guadalupe Owen M.D. 10/19/2022 11:21 AM
[2022-10-19] MEDS ORDERED: ceFAZolin 2000MG 2,000 MG/15 ML SYR IV ONE (13:41)
--- NOTE | 2022-10-19 13:41 | History & Physical Bridge Note ---
Date of Service October 19, 2022 History & Physical Bridge Note I have examined the patient, reviewed the History & Physical and in the interval since the performance of the History & Physical I have noted the following changes of clinical significance: no changes noted
[2022-10-19] MEDS ORDERED: ONDANSETRON INJ 2 MG/ML 2 ML VIAL ONE (14:01)
[2022-10-19] MEDS ORDERED: DEXAMETHASONE SOD INJ 4 MG/ML VIAL ONE (14:01)
[2022-10-19] MEDS ORDERED: LIDOCAINE 2% MPF LOCAL 5 ML VIAL INFIL ONE (14:01)
[2022-10-19] MEDS ORDERED: PROPOFOL IV EMULSION 10 MG/ML 20 ML VIAL IV ONE (14:01)
[2022-10-19] MEDS ORDERED: fentaNYL citrate 100 MCG/2 ML VIAL ONE (14:01)
[2022-10-19] MEDS ORDERED: ROCURONIUM BROMIDE 10 MG/ML 5 ML VIAL IV ONE ×5 (14:02)
[2022-10-19] MEDS ORDERED: BUPIVACAINE 0.5 % 5 MG/1 ML MPF 30ML VIAL ONE (14:07)
[2022-10-19] MEDS ORDERED: BACITRACIN OINT 15 GM TUBE ONE (14:08)
[2022-10-19] MEDS ORDERED: LIDOCAINE 1% LOCAL 20 ML VIAL ONE (14:08)
--- NOTE | 2022-10-19 14:27 | Hospitalist Progress Note ---
Date of Service October 19, 2022 Assessment & Plan (1) Abdominal pain, RLQ: (2) Diverticulitis: (3) Hernia, inguinal, right: (4) CAD (coronary artery disease): (5) Atrial fibrillation: (6) Chronic diastolic CHF (congestive heart failure): (7) COPD (chronic obstructive pulmonary disease): Plan This is an 87-year-old female who has significant past medical history of chronic diastolic CHF, CAD with history of coronary artery stent placement, PAF not on anticoagulation due to history of GI bleed, history of gastric ulcer, history of CVA with residual expressive aphasia, pulm hypertension, COPD, T2DM, hyperlipidemia, CKD stage III, history of giant cell arteritis and depression who presented to ED secondary to right lower quadrant abdominal pain. Seen and evaluated by PCP. Pain has been ongoing for approximately [address] abdomen pelvis revealed colonic diverticulosis with short segment mural thickening of the sigmoid colon and mild adjacent inflammatory change concerning for possible diverticulitis Small right inguinal hernia containing loops of nonobstructed small bowel were also noted. Right inguinal hernia was reduced in ER and pain significantly improved but was still present. Ultrasound was obtained today which revealed partially reducible fat and bowel containing right inguinal hernia. She was seen and evaluated by Dr. Aguilar and CANELO Eboni Razo and plan is to undergo surgical fixation of hernia w/ Mesh Right lower quadrant abdominal pain Incarcerated right inguinal hernia Status post open repair of right incarcerated inguinal hernia with mesh POD #[address] Aguilar Pain/wound management per surgery EBL 10 mL will add stool softener to prevent straining Acute sigmoid diverticulitis Continue IV Zosyn Will defer diet advancement to general surgery Continue gentle IV CAD chronic D CHF PAF not on OAC 2/2 GIB hx of CVA with residual exp aphasia HTN Continue ASA, Plavix, Lasix, Imdur, metoprolol and statin No chest pain Discussed with general surgery, they will determine if needed to hold Plavix or not COPD no acute exac continue inhalers T2DM Last A1c 7.0, 08/03/[address] on accuchecks and novolog SS CKD-3 baseline cr 1.2-1.3 bun/cr stable avoid nephrotoxic agents DVT ppx: plavix, asa, SCDS Dispo: admit to medical, will need PT/OT eval, will defer diet advancement per surgery FULL CODE PCP: Josh Kuhn A total of 55 minutes was spent with greater than 50% of that time personally viewing all current laboratory work and diagnostic imaging studies obtained in the ED. Additionally, I was able to view the patients past medication reconciliation and history with direct visualization in the patients chart. Included in the time above, a portion of that time was spent assessing the patient while discussing and collaborating with specialists, if necessary, and making medical decision making on treatment plan. All of the above was collaborated with Dr. Matthews. Please see addendum for further details. Admission and Anticipated Discharge Date Admission Date: October 18, 2022 Supervising Physician Co-Signing Physician Notes Patient is seen and examined at bedside. States having persistent abdominal pain. Denies any nausea, vomiting, chest pain, shortness of breath. On exam patient is moderately built and nourished, no apparent distress, normocephalic/atraumatic, clear to auscultation, normal breath sounds, S1-S2, no murmur, no pedal edema, abdomen soft, tender predominantly hypogastric region, normal bowel sounds, alert, awake, oriented, grossly no focal deficits. Patient is admitted for management of incarcerated right inguinal hernia. Plan for inguinal hernia repair. Appreciate surgery input. Pain control. N.p.o. for now. Hold Plavix today. Continue IV antibiotics for diverticulitis. I personally reviewed the record. Patient is interviewed and examined at bedside. Patient's care is coordinated with Sheryl Liao PA-C. Please refer to the d ocumentation above for details of patient's presentation and for discussion of other issues. Subjective Patient was seen and examined in room 375-2. Follow-up acute diverticulitis and concern for incarcerated hernia. Patient complains of right inguinal pain. Pain is much improved after reduction in ED. She is sitting up in bed in no acute distress. She denies fever, chills, chest pain, shortness of breath, nausea, vomiting, abdominal pain. Patient is on aspirin and Plavix due to history of CAD and coronary artery stent placement. She also has history of CVA with residual expressive aphasia. Her medication list was reviewed and reconciled at bedside. Review of Systems Review of Systems: All systems reviewed & are unremarkable except as noted in HPI & below Physical Exam Physical Exam: Gen: WD/WN, NAD, A&O x3 HEENT: Normocephalic, atraumatic, conjunctivae moist, sclerae anicteric, mucous membranes moist. Lung: Clear to Auscultation bilaterally, no wheezes/rales/rhonchi Heart: Regular rate, regular rhythm, no murmurs, rubs, or gallops Abdomen: hypoactive BS, + pain to palp in R inguinal area, Soft,ND Extremities: No edema Skin: Warm, no rash, negative turgor. Results & Data Results & Data ([facility]) Vital Signs (Past 12 Hours) Vital Signs Temp Pulse Resp BP Pulse Ox O2 Del Method O2 Flow Rate 10/19/22 07:51 36.4 C L 72 16 129/76 95 Room Air 10/19/22 07:45 Nasal Cannula 2 Laboratory Results Short CBC 10/18/22 10/19/22 Range/Units 18:10 05:37 WBC 7.99 7.08 (4.8-10.8) K/ul Hgb 12.3 11.9 L (12.0-16.0) g/dl Hct 37.0 35.9 L (37.0-47.0) % Plt Count 186 167 (130-400) K/uL BMP 10/18/22 10/19/22 18:10 05:37 Sodium 136 138 Potassium 3.8 3.8 Chloride 99 101 Carbon Dioxide 34 H 34 H BUN 28 H 28 H Creatinine 1.40 H 1.36 H Glucose 99 131 H Calcium 9.4 9.5 Liver Function 10/18/22 Range/Units 18:10 Total Bilirubin 0.5 (0.2-1.0) mg/dl AST 17 (13-39) U/L ALT 8 (7-52) U/L Alkaline Phosphatase 81 (34-104) U/L Albumin 4.3 (3.4-5.0) gm/dl Urine 10/19/22 Range/Units 05:35 Urine Color Yellow Urine Appearance Clear (Clear) Urine pH 5.5 (4.5-7.5) Ur Specific [place] 1.009 (1.000-1.030) Urine Protein Trace H (Negative) Urine Glucose (UA) Negative (Negative) Diagnostic Findings Abdomen Ultrasound 10/19/22 10:08 ULTRASOUND RIGHT GROIN NONVASCULAR CLINICAL HISTORY: Right inguinal hernia. COMPARISON STUDY: Pelvic CT dated 04/21/2016. FINDINGS: Real-time grayscale sonography of the right groin is performed to assess for inguinal hernia. There is a fat and bowel containing right inguinal hernia. The defect measures 1.5 cm. This was only partially reducible during the examination. IMPRESSION: Partially reducible fat and bowel containing right inguinal hernia. Electronically signed by: Jose Guadalupe Owen M.D. 10/19/2022 11:21 AM Medications Administered Current Inpatient Medications Acetaminophen (Acetaminophen 325 Mg Tab) 650 mg PO Q4H PRN PRN Reason: pain/fever Stop: 11/18/22 00:40 Last Admin: 10/19/22 01:10 Dose: 650 mg Albuterol (Albuterol 0.083% Nebu Soln 3 Ml Vial) 2.5 mg NEB Q4 PRN; Protocol PRN Reason: Wheezing Stop: 11/18/22 00:40 Albuterol (Albuterol Hfa 8 Gm Inhaler) 2 puffs INH Q4H PRN PRN Reason: Wheezing Stop: 11/18/22 00:40 Aspirin (Aspirin 81 Mg Ectab) 81 mg PO PM JEIMY Stop: 11/18/22 20:59 Azelastine HCl (Azelastine Hcl 0.1% Nasal 200 Sprays/27,400 Mcg Btl) 1 sprays [facility] JEIMY Stop: 11/18/22 08:59 Last Admin: 10/19/22 08:44 Dose: 1 sprays Cetirizine HCl (Cetirizine Hcl 10 Mg Tablet) 5 mg PO HS JEIMY Stop: 11/18/22 20:59 Clopidogrel Bisulfate (Clopidogrel Bisulfate 75 Mg Tab) 75 mg PO QAM JEIMY Stop: 11/18/22 08:59 Last Admin: 10/19/22 08:45 Dose: 75 mg Dicyclomine HCl (Dicyclomine Hcl 10 Mg Cap) 10 mg PO DAILY PRN PRN Reason: abdominal cramping Stop: 11/18/22 00:40 Escitalopram Oxalate (Escitalopram Oxalate 20 Mg Tab) 20 mg PO QPM JEIMY Stop: 11/18/22 20:59 Furosemide (Furosemide 40 Mg Tab) 40 mg PO DAILY JEIMY Stop: 11/18/22 08:59 Last Admin: 10/19/22 08:45 Dose: 40 mg Sodium Chloride (Nss 1000ml) 1,000 mls @ 80 mls/hr IV .[id number] [facility] Stop: 11/18/22 00:40 Last Admin: 10/19/22 01:23 Dose: 80 mls/hr Piperacillin Sod/Tazobactam (Sod 3.375 gm/ Dextrose) 115 mls @ 28.75 mls/hr IV Q8H [facility]; Protocol Stop: 10/29/22 03:59 Last Admin: 10/19/22 11:40 Dose: 28.8 mls/hr Isosorbide Mononitrate (Isosorbide [place] Extended Rel 30 Mg Tabcr) [facility] Stop: 11/18/22 08:59 Last Admin: 10/19/22 08:46 Dose: 30 mg Metoprolol Succinate (Metoprolol Succ 25mg Ext Rel Tab) 75 [facility] Stop: 11/18/22 08:59 Last Admin: 10/19/22 08:46 Dose: 75 mg Miscellaneous (Vesicare~Order Awaiting Action) 1 each N/A QS [facility] Stop: 11/18/22 07:59 Last Admin: 10/19/22 08:53 Dose: Not Given Morphine Sulfate (Morphine Sulfate 2 Mg/Ml Carp) 2 mg IV Q4H PRN PRN Reason: Pain Stop: 11/02/22 00:40 Nitrofurantoin Macrocrystals (Nitrofurantoin Macrocrystal 50 Mg Cap) 50 mg PO HS [facility] Stop: 11/18/22 20:59 Nitroglycerin (Nitroglycerin Sl 0.4 Mg/Tab Tab) 0.4 mg SL UD [facility] Stop: 11/18/22 00:40 Pantoprazole Sodium (Pantoprazole 40 Mg Tab) 40 mg PO QAM [facility] Stop: 11/18/22 08:59 Last Admin: 10/19/22 08:47 Dose: 40 mg Polyethylene Glycol (Polyethylene (Miralax) 17 Gm Pack) 17 gm PO QAM PRN PRN Reason: Constipation Stop: 11/18/22 00:40 Potassium Chloride (Potassium Chloride 10 Meq Tabcr) 10 meq PO DAILY [facility] Stop: 11/18/22 08:59 Last Admin: 10/19/22 08:47 Dose: 10 meq Rosuvastatin Calcium (Rosuvastatin Calcium 20 Mg Tab) 40 mg PO QAM [facility] Stop: 11/18/22 08:59 Last Admin: 10/19/22 08:48 Dose: 40 mg Spironolactone (Spironolactone 25 Mg Tab) 25 mg PO QAM [facility] Stop: 11/18/22 08:59 Last Admin: 10/19/22 08:48 Dose: 25 mg Tamsulosin HCl (Tamsulosin Hcl 0.4 Mg Cap) 0.4 mg PO QAM [facility] Stop: 11/18/22 08:59 Last Admin: 10/19/22 08:48 Dose: 0.4 mg Umeclidinium Carmine (Umeclidinium Carmine 62.5mcg/Blister 7 Puffs/Inhaler) 1 puffs INH [facility] Stop: 11/18/22 08:59 Last Admin: 10/19/22 08:49 Dose: 1 puffs Vitamin D (Cholecalciferol 1,000 Units 25 Mcg Tab) 1,000 units PO DAILY [facility] Stop: 11/18/22 08:59 Last Admin: 10/19/22 08:44 Dose: 1,000 units (5) Atrial fibrillation Atrial fibrillation type: longstanding persistent Qualified Code(s): I48.11 - Longstanding persistent atrial fibrillation
[2022-10-19] MEDS ORDERED: MIDAZOLAM HCL 1 MG/ML 2ML VIAL ONE (14:33)
[2022-10-19] MEDS ORDERED: KETAMINE 50 MG/5 ML SYRINGE ONE (14:34)
[2022-10-19] MEDS ORDERED: GLYCOPYRROLATE 0.2 MG/ML VIAL ONE (14:35)
--- NOTE | 2022-10-19 14:40 | Anesthesiology Consultation ---
Date of Service October 19, 2022 Assessment & Plan Chart Review Chart Review: Acceptable Risk for Surgery Consults Requested none History Surgery Operation Date: 10/19/22 11:55 Proposed Procedures p Right Incarcerated Inguinal Hernia Repair - Dexter Aguilar MD Height/Weight Height: 5 ft 5 in Weight: 78.5 kg Allergies Allergy/AdvReac Type Severity Reaction Status Date / Time iodine Allergy Intermediate HIVES Verified 01/21/22 09:38 shellfish derived Allergy Intermediate Hives Verified 01/21/22 09:38 CHALO Inhibitors Allergy Mild Cough Verified 01/21/22 09:38 hydrochlorothiazide Allergy Mild gout Verified 01/21/22 09:38 latex Allergy Mild rash Verified 01/21/22 11:14 tramadol Allergy Mild Rash Verified 01/21/22 09:38 ciprofloxacin Allergy Unknown unknown, Verified 01/21/22 09:38 pt can not remember Medications Home Medications Medication Instructions Recorded Confirmed Last Taken albuterol sulfate 90 mcg/actuation 2 puff inhalation Q4H PRN Wheezing 05/02/18 10/18/22 06/19/18 aerosol inhaler aspirin 81 mg tablet,delayed 81 mg PO PM 05/02/18 10/18/22 01/13/22 release escitalopram oxalate 10 mg tablet 20 mg PO QPM 05/02/18 10/18/22 01/13/22 (Lexapro) rosuvastatin 40 mg tablet 40 mg PO QAM 05/02/18 10/18/22 01/14/22 polyethylene glycol 3350 17 gram 17 g PO QAM PRN Constipation 05/21/18 10/18/22 05/21/18 oral powder packet (Miralax) azelastine 137 mcg (0.1 %) nasal 1 spray intranasal [facility] 10/01/21 10/18/22 Unknown spray aerosol denosumab 60 mg/mL subcutaneous 60 mg subcut YEARLY 10/01/21 10/18/22 Unknown syringe (Prolia) isosorbide mononitrate 30 mg 30 mg PO QAM 10/01/21 10/18/22 01/14/22 tablet,extended release 24 hr cetirizine 5 mg tablet 5 mg PO HS 01/14/22 10/18/22 Unknown clopidogrel 75 mg tablet 75 mg PO QAM 01/14/22 10/18/22 01/14/22 nitroglycerin 0.4 mg sublingual 0.4 mg sublingual UD 01/14/22 10/18/22 Unknown tablet pantoprazole 40 mg tablet,delayed 40 mg PO QA 01/14/22 10/18/22 01/14/22 release tiotropium bromide 2.5 2 puff inhalation QA 01/14/22 10/18/22 01/14/22 mcg/actuation mist for inhalation (Spiriva Respimat) furosemide 40 mg tablet 40 mg PO DAILY 01/21/22 10/18/22 Unknown spironolactone 25 mg tablet 25 mg PO QA 01/23/22 10/18/22 Unknown albuterol sulfate 2.5 mg/3 mL 2.5 mg continuous nebulization Q4 10/18/22 10/18/22 Unknown (0.083 %) solution for nebulization PRN Wheezing cholecalciferol (vitamin D3) 25 25 mcg PO DAILY 10/18/22 10/18/22 Unknown mcg (1,000 unit) tablet (Vitamin D3) dicyclomine 10 mg capsule 10 mg PO DAILY PRN abdominal 10/18/22 10/18/22 Unknown cramping metoprolol succinate 50 mg 75 mg PO QA 10/18/22 10/18/22 Unknown tablet,extended release 24 hr nitrofurantoin macrocrystal 50 mg 50 mg PO HS 10/18/22 10/18/22 Unknown capsule potassium chloride 10 mEq 10 meq PO DAILY 10/18/22 10/18/22 Unknown tablet,extended release solifenacin 5 mg tablet 5 mg PO [facility] 10/18/22 10/18/22 Unknown tamsulosin 0.4 mg capsule 0.4 mg PO [facility] 10/18/22 10/18/22 Unknown docusate sodium 100 mg tablet 100 mg PO DAILY 10/19/22 10/19/22 Unknown Active Medications Generic Name Dose Route Start Last Admin Trade Name Freq PRN Reason Stop Dose Admin Acetaminophen 650 mg 10/19/22 00:41 10/19/22 01:10 Acetaminophen 325 Mg Tab PO 11/18/22 00:40 650 mg Q4H PRN Administration pain/fever Azelastine HCl 1 sprays 10/19/22 09:00 10/19/22 08:44 Azelastine Hcl 0.1% Nasal 200 Sprays/27,400 Mcg Btl MEAGAN 11/18/22 08:59 1 sprays [facility] JEIMY Administration Clopidogrel Bisulfate 75 mg 10/19/22 09:00 10/19/22 08:45 Clopidogrel Bisulfate 75 Mg Tab PO 11/18/22 08:59 75 mg QAM JEIMY Administration Furosemide 40 mg 10/19/22 09:00 10/19/22 08:45 Furosemide 40 Mg Tab PO 11/18/22 08:59 40 mg DAILY JEIMY Administration Sodium Chloride 1,000 mls @ 80 mls/hr 10/19/22 00:41 10/19/22 01:23 Nss 1000ml IV 11/18/22 00:40 80 mls/hr .[id number] JEIMY Administration Piperacillin Sod/Tazobactam 115 mls @ 28.75 mls/hr 10/19/22 04:00 10/19/22 11:40 Sod 3.375 gm/ Dextrose IV 10/29/22 03:59 28.8 mls/hr Q8H JEIMY Administration Protocol Isosorbide Mononitrate 30 mg 10/19/22 09:00 10/19/22 08:46 Isosorbide [place]kes Extended Rel 30 Mg Tabcr PO 11/18/22 08:59 30 mg QAM JEIMY Administration Metoprolol Succinate 75 mg 10/19/22 09:00 10/19/22 08:46 Metoprolol Succ 25mg Ext Rel Tab PO 11/18/22 08:59 75 mg QAM JEIMY Administration Miscellaneous 1 each 10/19/22 08:00 10/19/22 08:53 Vesicare~Order Awaiting Action N/A 11/18/22 07:59 Not Given QS JEIMY Pantoprazole Sodium 40 mg 10/19/22 09:00 10/19/22 08:47 Pantoprazole 40 Mg Tab PO 11/18/22 08:59 40 mg QAM JEIMY Administration Potassium Chloride 10 meq 10/19/22 09:00 10/19/22 08:47 Potassium Chloride 10 Meq Tabcr PO 11/18/22 08:59 10 meq DAILY JEIMY Administration Rosuvastatin Calcium 40 mg 10/19/22 09:00 10/19/22 08:48 Rosuvastatin Calcium 20 Mg Tab PO 11/18/22 08:59 40 mg QAM JEIMY Administration Spironolactone 25 mg 10/19/22 09:00 10/19/22 08:48 Spironolactone 25 Mg Tab PO 11/18/22 08:59 25 mg QAM JEIMY Administration Tamsulosin HCl 0.4 mg 10/19/22 09:00 10/19/22 08:48 Tamsulosin Hcl 0.4 Mg Cap PO 11/18/22 08:59 0.4 mg QAM JEIMY Administration Umeclidinium Ovid 1 puffs 10/19/22 09:00 10/19/22 08:49 Umeclidinium Ovid 62.5mcg/Blister 7 Puffs/Inhaler INH 11/18/22 08:59 1 puffs QAM JEIMY Administration Vitamin D 1,000 units 10/19/22 09:00 10/19/22 08:44 Cholecalciferol 1,000 Units 25 Mcg Tab PO 11/18/22 08:59 1,000 units DAILY JEIMY Administration NPO Date Last Intake of Fluids: 10/18/22 Time Last Intake of Fluids: 23:59 Date Last Intake of Solids: 10/17/22 Past Medical History Medical History Anemia H&H: 01/2022 Anxiety Atrial fibrillation with RVR--not anticoagulated d/t hx GI bleed, hospitalized 01/14/22 requiring IV Lopressor and diuresis, follows with [facility] cardio CAD (coronary artery disease) "hx PCI stent to RCI cath 2004 - 90% RCA stenosis s/p intervention, 50% LAD stenosis Cath 04/2018 with PCI MATEUSZ to Mid LAD -Dr. Darby Chronic diastolic CHF (congestive heart failure) EF 65-70% on 01/2022 echo; acute exacerbation 01/14/22 in setting of afib with RVR requiring IV Lopressor and diuresis, follows with [facility] cardio CKD (chronic kidney disease), stage III FANY 01/14/22--Cr 1.6 COPD (chronic obstructive pulmonary disease) CVA (cerebral vascular accident) 2015--no deficits Depression Dyslipidemia Exertional dyspnea pt states this is a current diagnosis---inhaler daily and prn GERD (gastroesophageal reflux disease) History of gastric ulcer requiring transfusion-2017 Labile hypertension Nocturnal hypoxia On home oxygen therapy 2L N/C at night Pulmonary HTN 37 mmHg 01/15/22; h/o severe pulmonary HTN-most recently 09/2021 in setting of CHF exacerbation TIA (transient ischemic attack) "1978" Past Family History Family History Brother Family history of diabetes mellitus Sister Family history of diabetes mellitus Other No family history of adverse response to anesthesia Past Surgical History Surgical History Cystocele with rectocele "s/p repair" History of breast biopsy History of colonoscopy History of esophagogastroduodenoscopy (EGD) History of hysterectomy ANIL BSO History of open reduction and internal fixation (ORIF) procedure Right radial fx History of tooth extraction all teeth removed S/P cholecystectomy Status post cardiac catheterization (~04/2018) @ [facility] with 1 stent placed Status post coronary artery stent placement 05/04/18 @ [facility] follows with Dr. Johnson Social History Smoking Status: Never smoker Hx Alcohol Use: Yes Alcohol type: wine alcohol intake frequency: a few times a week Hx Substance Use: No substance use type: does not use Physical Exam Vital Signs Last Vital Signs Temp 36.8 C 10/19/22 14:24 Pulse 79 10/19/22 14:24 Resp 20 10/19/22 14:24 BP 137/81 10/19/22 14:24 Pulse Ox 94 10/19/22 14:24 O2 Del Method Room Air 10/19/22 14:24 O2 Flow Rate 2 10/19/22 07:45 Testing Laboratory Results 10/19/22 05:37 10/19/22 05:37 Hemoglobin A1c 7.0 % (4.5-5.6) H 10/19/22 05:37 Urine Color Yellow 10/19/22 05:35 Urine Appearance Clear (Clear) 10/19/22 05:35 Urine pH 5.5 (4.5-7.5) 10/19/22 05:35 Ur Specific [place] 1.009 (1.000-1.030) 10/19/22 05:35 Urine Protein Trace (Negative) H 10/19/22 05:35 Urine Glucose (UA) Negative (Negative) 10/19/22 05:35 Urine Ketones Negative (Negative) 10/19/22 05:35 Urine Nitrite Positive (Negative) A 10/19/22 05:35 Ur Leukocyte Esterase Trace (Negative) H 10/19/22 05:35 Urine WBC (Auto) 1-5 /hpf (0-5) 10/19/22 05:35 Urine RBC (Auto) 0-4 /hpf (0-4) 10/19/22 05:35 U Hyaline Cast (Auto) 0 /lpf (0-5) 10/19/22 05:35 U Epithel Cells (Auto) 5-10 /lpf (0-5) H 10/19/22 05:35 Urine Bacteria (Auto) Negative (Negative) 10/19/22 05:35
[2022-10-19] MEDS ORDERED: PROMETHAZINE HCL 12.5 MG in SODIUM CHLORIDE 0.9% 50 ML IV PRN (14:41)
[2022-10-19] MEDS ORDERED: ONDANSETRON INJ 2 MG/ML 2 ML VIAL IV PRN (14:41)
[2022-10-19] MEDS ORDERED: fentaNYL citrate 100 MCG/2 ML VIAL IV PRN (14:41)
[2022-10-19] MEDS ORDERED: ATROPINE SULFATE 0.1 MG/ML 10ML SYR IV PRN (14:41)
[2022-10-19] MEDS ORDERED: ePHEDrine sulfate 50 MG/ML AMP IV PRN (14:41)
[2022-10-19] MEDS ORDERED: HYDROmorphone INJ 1 MG/ML SYRINGE IV PRN (14:41)
[2022-10-19] MEDS ORDERED: PHENYLEPHRINE 100MCG/ML 5ML SYR ONE (15:03)
--- NOTE | 2022-10-19 15:21 | Post Operative Brief Note ---
Immediate Post Op Note v1 Date of Surgery October 19, 2022 Pre & Post Diagnosis Operation Date: 10/19/22 11:55 Pre-Op Diagnosis: Incarcerated right inguinal hernia. Post-Op Diagnosis: Incarcerated right inguinal hernia. I identified the patient and participated in the time-out.: Yes Procedure Operation Date: 10/19/22 11:55 Actual Procedures open repair Right Incarcerated Inguinal Hernia with mesh(Right) - Dexter Aguilar MD Surgeon Dexter Aguilar MD Billing And Insurance Coordinator DEBBIE Sesay Estimated Blood Loss 10 Findings Consistent with Post-Op Diagnosis incarcerated right inguinal hernia Fluids 400ml Anesthesia Type Local Complications none Disposition Accompanied Patient To Recovery: Yes
[2022-10-19] MEDS ORDERED: FLUMAZENIL 0.1 MG/1 ML 10 ML VIAL IV ONE (15:37)
--- NOTE | 2022-10-19 16:00 | Anesthesiology Progress Note ---
Date of Service October 19, 2022 Anesthesia Post Procedure Vital Signs Vital Signs: Temp Pulse Pulse Pulse Pulse Resp BP 10/19/22 15:38 37.2 C 87 13 10/19/22 14:24 36.8 C 79 20 10/19/22 07:51 36.4 C L 72 16 10/19/22 07:45 10/19/22 00:45 10/19/22 00:45 36.5 C 75 20 10/18/22 23:30 10/19/22 00:16 70 16 10/18/22 23:15 76 18 10/18/22 18:02 36.9 C 77 19 108/58 L BP Pulse Ox O2 Del Method O2 Flow Rate 10/19/22 15:38 91/56 L 99 Oxymask 9 10/19/22 14:24 137/81 94 Room Air 10/19/22 07:51 129/76 95 Room Air 10/19/22 07:45 Nasal Cannula 2 10/19/22 00:45 Nasal Cannula 2 10/19/22 00:45 107/74 95 Nasal Cannula 2 10/18/22 23:30 84 L Room Air 10/19/22 00:16 128/69 95 Nasal Cannula 2 10/18/22 23:15 111/58 L 93 Room Air 10/18/22 18:02 91 Room Air Pain Intensity Abdomen: Pain Intensity: 5 Transfer of Care Handoff Completed per policy Notes Mental Status: alert / awake / arousable and participated in evaluation Patient Amnestic to Procedure: Yes Nausea / Vomiting: adequately controlled Pain: adequately controlled Airway Patency, RR, SpO2: stable & adequate BP & HR: stable & adequate Hydration State: stable & adequate Anesthetic Complications: no major complications apparent
[2022-10-19] MEDS ORDERED: NON-FORMULARY MEDICATION (Denosumab [Prolia] 60 mg/mL Syringe) SQ SCH (16:30)
[2022-10-19] MEDS ORDERED: GLUCOSE 10 TAB/TUBE PO PRN (16:30)
[2022-10-19] MEDS ORDERED: CARBOHYDRATES FOR HYPOGLYCEMIA PO PRN (16:30)
[2022-10-19] MEDS ORDERED: GLUCOSE 40% GEL 15 GM TUBE PO PRN (16:30)
[2022-10-19] MEDS ORDERED: DEXTROSE 50% 50 ML SYRINGE IV PRN (16:30)
[2022-10-19] MEDS ORDERED: GLUCAGON FOR INJ 1 MG VIAL SQ PRN (16:30)
[2022-10-19] MEDS ORDERED: oxyCODONE/ACETAMINOPHEN 5mg/325mg TAB PO PRN (16:30)
[2022-10-19] MEDS: LACTATED RINGER'S 1,000 ML IV SCH (16:34)
[2022-10-19] MEDS: INSULIN ASPART PER UNIT SC SCH ×2 (17:36→19:25)
[2022-10-19] MEDS ORDERED: ESCITALOPRAM OXALATE 20 MG TAB PO SCH (21:00)
[2022-10-19] MEDS ORDERED: nitrofurantoin macrocrystaL 50 MG CAP PO SCH (21:00)
[2022-10-19] MEDS ORDERED: ASPIRIN 81 MG ECTAB PO SCH (21:00)
[2022-10-19] MEDS ORDERED: CETIRIZINE HCL 10 MG TABLET PO SCH (21:00)
--- NOTE | 2022-10-19 21:59 | Operative Report (OR) ---
DATE OF PROCEDURE: 10/19/2022 PREOPERATIVE DIAGNOSIS: Incarcerated right inguinal hernia. POSTOPERATIVE DIAGNOSIS: Incarcerated right inguinal hernia. PROCEDURE: Open repair of right inguinal hernia using mesh. SURGEON: Dexter Aguilar MD. POWER SYSTEM OPERATOR: Elisa Razo PA-C. ANESTHESIA: Conscious sedation plus local. ESTIMATED BLOOD LOSS: About 10 mL. FINDINGS: Incarcerated right inguinal hernia. COMPLICATIONS: None. INDICATIONS FOR THE PROCEDURE: This is an 87-year-old female who was admitted to the hospital for ri ght inguinal pain, and the patient was diagnosed with incarcerated right inguinal hernia. I recommen ded to do open repair of right inguinal hernia with mesh. I did talk to the patient about the benefi t, risk, alternate procedure. I indicated the risks may include, but not limited to, such as bleedin g, infection, hernia recurrence, chronic pain, complications related to mesh, myocardial infarction. The patient understands. She signed informed consent and I answered all questions. DETAILS OF PROCEDURE: After we identified the patient and verified the procedure, we brought the pat ient to the OR, put the patient in the supine position on the OR table. The patient received SCD on bilateral legs to prevent DVT. Also, the patient received 3.375 grams Zosyn IV for prophylactic anti biotic. The patient received conscious sedation by anesthesiology. The patient's abdomen and pelvic area was prepped and draped in routine sterile fashion. After timeout, I injected the local anesthe baltazar by using 1% lidocaine mixed with 0.5% Marcaine on the right inguinal area. Then, I made about a 4 cm incision on the right inguinal area. Dissected the subcutaneous layer, mary ched the external oblique, opened the external oblique and then we found the patient had an indirect inguinal hernia with contents of fat tissue with incarcerated right inguinal hernia. Eventually, we reduced the hernia contents back to the abdominal cavity after we completely mobilized the hernia sac . Then, we chose a large plug to plug the hernia sac. Then, we used 2-0 Prolene, closed the hernia neck interruptedly. Then, we chose a 3 x 5 cm mesh to reinforce the posterior wall, sutured the mesh to the conjoint tendon in continuous running and another 2-0 Prolene suture mesh to right inguinal l igament in continuous running, two Prolene sutures met together and tied. The mesh seated nicely, no tension. Hemostasis obtained. I then closed the external oblique by using 2-0 Vicryl continuous run ashia, closed subcutaneous layer by using 2-0 Vicryl continuous running, closed the skin by using 4-0 Vicryl continuous running. Then we put the dressing on. The patient tolerated the procedure well. All instrument, needle and sponge counts were correct x2 at the end of the case. The patient was tra nsferred to the recovery room in stable condition. After the procedure, I did talk to the patient, the patient's family member about the OR finding and the procedure we did, they understand. The corporate administrative assistant, Elisa, was necessary for this procedure. Her role is retraction and exposure. Job ID: [id number]
[2022-10-20] MEDS: INSULIN ASPART PER UNIT SC SCH ×3 (00:36→12:06)
[2022-10-20] MEDS: LACTATED RINGER'S 1,000 ML IV SCH (04:42)
[2022-10-20] MEDS: PIPERACILLIN/TAZOBACTAM 3.375 GM in DEXTROSE 5% 100 ML IV SCH ×2 (04:45→12:18)
[2022-10-20] MEDS: AZELASTINE HCL 0.1% NASAL 200 SPRAYS/27,400 MCG BTL NAE SCH (08:41)
[2022-10-20] MEDS: FUROSEMIDE 40 MG TAB PO SCH (08:42)
[2022-10-20] MEDS: ISOSORBIDE MONO EXTENDED REL 30 MG TABCR PO SCH (08:43)
[2022-10-20] MEDS: METOPROLOL SUCC 25MG EXT REL TAB PO SCH (08:43)
[2022-10-20] MEDS: PANTOprazole 40 MG TAB PO SCH (08:44)
[2022-10-20] MEDS: SPIRONOLACTONE 25 MG TAB PO SCH (08:45)
[2022-10-20] MEDS: ROSUVASTATIN CALCIUM 20 MG TAB PO SCH (08:45)
[2022-10-20] MEDS: TAMSULOSIN HCL 0.4 MG CAP PO SCH (08:46)
[2022-10-20] MEDS: UMECLIDINIUM BROMIDE 62.5MCG/BLISTER 7 PUFFS/INHALER INH SCH (08:46)
[2022-10-20] MEDS: CLOPIDOGREL BISULFATE 75 MG TAB PO SCH (08:48)
[2022-10-20] MEDS ORDERED: DOCUSATE SODIUM 100 MG CAP PO SCH (09:00)
[2022-10-20] MEDS: POTASSIUM CHLORIDE 10 MEQ TABCR PO SCH (09:50)
[2022-10-20 10:23] LABS: Hemoglobin 11.3 g/dl (12.0-16.0); Mean Corpuscular Hgb Conc 32.3 g/dL (32.0-36.0); Mean Corpuscular Volume 96.2 fL (80.0-100.0); Mean Platelet Volume 10.7 fL (9.4-12.4); Platelet Count 145 K/uL (130-400); RDW Coefficient of Variation 14.2 % (11.5-14.5); RDW Standard Deviation 49.7 fL (36.4-46.3); Red Blood Count 3.64 M/uL (4.20-5.40); White Blood Count 7.45 K/ul (4.8-10.8)
[2022-10-20 10:42] LABS: BUN Creatinine Ratio 16.9 (10-20); Calcium 8.8 mg/dl (8.5-10.1); Creatinine Clr Calc Pharmacy 34.1 ml/min; Est GFR (African American) 47.7 ml/min; Est GFR (Non-African American) 41.1 ml/min; Potassium 3.7 mmol/L (3.5-5.1)
[2022-10-20] MEDS: ACETAMINOPHEN 325 MG TAB PO PRN (10:57)
--- NOTE | 2022-10-20 12:16 | Surgery Progress Note ---
Date of Service October 20, 2022 Assessment & Plan (1) Diverticulitis: Plan: transition to 5 days of Abx on discharge (2) Ventral hernia: Plan: POD # 1 s/p repair of right inguinal hernia with mesh -afebrile, vss - postop pain controlled - no n,v Plan: okay to advance to low fiber diet pain management as needed okay from surgical standpoint for discharge f/u surgery office in [address] bradley has seen patient and agrees with above. Admission and Anticipated Discharge Date Admission Date: October 18, 2022 Subjective feeling good has not had anything other than ice chips preoperative pain resolved postop pain at incision site mild and controlled no n,v no left lower abdominal pain Physical Exam Constitutional: WD/WN, vitals as above cooperative and comfortable; no acute distress and not ill appearing Neck: normal visual inspection and trachea midline Respiratory: normal respiratory effort; no respiratory distress Gastrointestinal (Abdomen): Inspection/Auscultation: abdomen normal to inspection and + abdominal surgical incision (covered with clean/dry/intact d ressing); abdomen not distended Percussion/Palpation: + abdomen tender (at incision site on deep palpation) and abdomen soft; no guarding and abdomen not rigid Skin: no rashes, warm and dry Psychiatric: A+Ox3, euthymic affect Results & Data ([facility]) Vital Signs (Past 12 Hours) Vital Signs Temp Pulse Resp BP Pulse Ox O2 Del Method O2 Flow Rate 10/20/22 11:13 36.7 C 77 16 112/70 91 Room Air 10/20/22 08:22 Room Air 10/20/22 07:49 36.6 C 76 16 120/65 94 Room Air 10/20/22 03:44 36.5 C 74 18 118/67 98 Nasal Cannula 3 Laboratory Results 10/20/22 10/20/22 10/20/22 Range/Units 11:42 09:46 09:46 WBC 7.45 (4.8-10.8) K/ul RBC 3.64 L (4.20-5.40) M/uL Hgb 11.3 L (12.0-16.0) g/dl Hct 35.0 L (37.0-47.0) % MCV 96.2 (80.0-100.0) fL MCH 31.0 (25.0-34.0) pg MCHC 32.3 (32.0-36.0) g/dL RDW Std Deviation 49.7 H (36.4-46.3) fL RDW Coeff of Luz 14.2 (11.5-14.5) % Plt Count 145 (130-400) K/uL MPV 10.7 (9.4-12.4) fL Sodium 139 (136-145) mmol/L Potassium 3.7 (3.5-5.1) mmol/L Chloride 103 (98-107) mmol/L Carbon Dioxide 32 (21-32) mmol/L Anion Gap 4 (3-11) BUN 20 (6-23) mg/dl Creatinine 1.18 (0.6-1.2) mg/dl Est Cr Clr Drug Dosing 34.1 ml/min Est GFR ( Amer) 47.7 ml/min Est GFR (Non-Af Amer) 41.1 ml/min BUN/Creatinine Ratio 16.9 (10-20) Glucose 102 H (70-99(Fasting)) mg/dl POC Glucose 106 H (70-99) mg/dl Calcium 8.8 (8.5-10.1) mg/dl 10/20/22 10/19/22 10/19/22 Range/Units 05:43 23:49 17:12 WBC (4.8-10.8) K/ul RBC (4.20-5.40) M/uL Hgb (12.0-16.0) g/dl Hct (37.0-47.0) % MCV (80.0-100.0) fL MCH (25.0-34.0) pg MCHC (32.0-36.0) g/dL RDW Std Deviation (36.4-46.3) fL RDW Coeff of Luz (11.5-14.5) % Plt Count (130-400) K/uL MPV (9.4-12.4) fL Sodium (136-145) mmol/L Potassium (3.5-5.1) mmol/L Chloride (98-107) mmol/L Carbon Dioxide (21-32) mmol/L Anion Gap (3-11) BUN (6-23) mg/dl Creatinine (0.6-1.2) mg/dl Est Cr Clr Drug Dosing ml/min Est GFR ( Amer) ml/min Est GFR (Non-Af Amer) ml/min BUN/Creatinine Ratio (10-20) Glucose (70-99(Fasting)) mg/dl POC Glucose 97 113 H 90 (70-99) mg/dl Calcium (8.5-10.1) mg/dl
[2022-10-20] MEDS: CHOLECALCIFEROL 1,000 UNITS 25 MCG TAB PO SCH (12:56)
--- NOTE | 2022-10-20 14:48 | Discharge Summary ---
Discharge Summary Date of Service October 20, 2022 Notes For Next Care Provider Admitted for incarcerated right inguinal hernia s/p open repair of right incarcerated inguinal hernia with mesh on 10/19/[address] Aguilar. Diet advanced, f/u in gen surg clinic in 2 weeks. Treated with Po abx for possible sigmoid diverticulitis Medication Changes From Visit Dc on Augmentin BID for 7 day total course of abx Admission HPI Per Admitting Provider This is an 87-year-old female with past medical history significant for CAD, status post stents, history of atrial fibrillation, not on anticoagulation because of GI bleeding risk greater than benefit as per the Cardiology notes, history of bright red blood per rectum, status post 3 units PRBC in 2018, EGD with gastric ulcer, history of hypertension, mitral regurgitation, diastolic CHF, hyperlipidemia, history of CVA in November 2016, COPD, GERD, gastritis, polyarthritis, chronic back pain, depression, diabetes, currently not on any medications, history of giant cell arteritis, constipation, chronic kidney disease, stage III, presents with ongoing abdominal pain for the last 2 weeks. Went to PCP, CT scan was done, which showed right inguinal hernia and also possible sigmoid diverticulitis . In the ER, inguinal hernia was reduced. Also seen by surgery.. The patient is currently resting comfortably and hemod ynamically stable. Denies any fevers, no nausea, no vomiting, no diarrhea or constipation. Normal bladder movements. No swelling in the legs. No chest pain, no shortness of breath, no headache, no blurred visions, no earache, no runny nose, no sore throat. No cough. Admission Exam Per Admitting Provider GENERAL: The patient is of moderate build, not in acute distress. VITAL SIGNS: Temperature 36.9, pulse 76, respiratory rate 18, blood pressure 111/58, oxygen 93% on room air. HEENT: Pupils equal, round and reactive to light. Oral mucosa dry. NECK: No JVD. No neck masses. CARDIOVASCULAR: S1 and S2 heard. Regular rate and rhythm. No murmur, no gallop. RESPIRATORY SYSTEM: Normal AP diameter. No accessory muscle use. No wheezing, no crackles. ABDOMEN: Soft, bowel sounds present. Mild right lower quadrant tenderness. No guarding. No rigidity. No distention. CENTRAL NERVOUS SYSTEM: Cranial nerves II through XII are grossly intact. Nonfocal. EXTREMITIES: No edema, no erythema. Principal Dx & Hospital Course #1 = Principal Diagnosis (1) Abdominal pain, RLQ: (2) Diverticulitis: (3) Hernia, inguinal, right: (4) CAD (coronary artery disease): (5) Atrial fibrillation: (6) Chronic diastolic CHF (congestive heart failure): (7) COPD (chronic obstructive pulmonary disease): Plan This is an 87-year-old female who has significant past medical history of chronic diastolic CHF, CAD with history of coronary artery stent placement, PAF not on anticoagulation due to history of GI bleed, history of gastric ulcer, history of CVA with residual expressive aphasia, pulm hypertension, COPD, T2DM, hyperlipidemia, CKD stage III, history of giant cell arteritis and depression who presented to ED secondary to right lower quadrant abdominal pain and was found to have incarcerated right inguinal hernia s/p open repair of right incarcerated inguinal hernia with mesh on 10/19/[address] Aguilar. Advanced to low fiber diet without issue and patient to follow up in surgery clinic for follow- up in two weeks. On admission, CT abdomen pelvis revealed colonic diverticulosis with short segment mural thickening of the sigmoid colon and mild adjacent inflammatory change concerning for possible diverticulitis. Abdominal pain has improved. Will transition to Augmentin on discharge for a total of 7 days of antibiotic. Patient comfortable and hemodynamically stable at time of discharge. Discharge Exam Gen: WD/WN, NAD, sitting in bedside chair, A&Ox3 HEENT: Normocephalic, atraumatic, conjunctivae moist, sclerae anicteric, mucous membranes moist Lung: Clear to Auscultation bilaterally, no wheezes/rales/rhonchi Heart: Regular rate, regular rhythm, no murmurs, rubs, or gallops Abdomen: Soft, NT, ND +BS x 4. + surgical dressing c/d/i Extremities: no edema Skin: Warm, no rash Updated Medication List Medication Instructions Recorded Confirmed Type albuterol sulfate 90 mcg/actuation 2 puff inhalation Q4H PRN Wheezing 05/02/18 10/18/22 History aerosol inhaler aspirin 81 mg tablet,delayed 81 mg PO PM 05/02/18 10/18/22 History release escitalopram oxalate 10 mg tablet 20 mg PO QPM 05/02/18 10/18/22 History (Lexapro) rosuvastatin 40 mg tablet 40 mg PO QAM 05/02/18 10/18/22 History polyethylene glycol 3350 17 gram 17 g PO QAM PRN Constipation 05/21/18 10/18/22 History oral powder packet (Miralax) azelastine 137 mcg (0.1 %) nasal 1 spray intranasal AMHS 10/01/21 10/18/22 History spray aerosol denosumab 60 mg/mL subcutaneous 60 mg subcut YEARLY 10/01/21 10/18/22 History syringe (Prolia) isosorbide mononitrate 30 mg 30 mg PO QAM 10/01/21 10/18/22 History tablet,extended release 24 hr cetirizine 5 mg tablet 5 mg PO HS 01/14/22 10/18/22 History clopidogrel 75 mg tablet 75 mg PO QAM 01/14/22 10/18/22 History nitroglycerin 0.4 mg sublingual 0.4 mg sublingual UD 01/14/22 10/18/22 History tablet pantoprazole 40 mg tablet,delayed 40 mg PO QAM 01/14/22 10/18/22 History release tiotropium bromide 2.5 2 puff inhalation QAM 01/14/22 10/18/22 History mcg/actuation mist for inhalation (Spiriva Respimat) furosemide 40 mg tablet 40 mg PO DAILY 01/21/22 10/18/22 History spironolactone 25 mg tablet 25 mg PO QAM 01/23/22 10/18/22 History albuterol sulfate 2.5 mg/3 mL 2.5 mg continuous nebulization Q4 10/18/22 10/18/22 History (0.083 %) solution for nebulization PRN Wheezing cholecalciferol (vitamin D3) 25 25 mcg PO DAILY 10/18/22 10/18/22 History mcg (1,000 unit) tablet (Vitamin D3) dicyclomine 10 mg capsule 10 mg PO DAILY PRN abdominal 10/18/22 10/18/22 History cramping metoprolol succinate 50 mg 75 mg PO QAM 10/18/22 10/18/22 History tablet,extended release 24 hr nitrofurantoin macrocrystal 50 mg 50 mg PO HS 10/18/22 10/18/22 History capsule potassium chloride 10 mEq 10 meq PO DAILY 10/18/22 10/18/22 History tablet,extended release solifenacin 5 mg tablet 5 mg PO QAM 10/18/22 10/18/22 History tamsulosin 0.4 mg capsule 0.4 mg PO QAM 10/18/22 10/18/22 History docusate sodium 100 mg tablet 100 mg PO DAILY 10/19/22 10/19/22 History amoxicillin 875 mg-potassium 1 tab PO BID #11 tabs 10/20/22 Rx clavulanate 125 mg tablet Hospital Stay Data Consultations 10/18/22 20:43 ED Decision to Admit Stat Procedures Performed Operation Date: 10/19/22 11:55 Actual Procedures p Right Incarcerated Inguinal Hernia Repair(Right) - Dexter Aguilar MD Diagnostic Imagining Performed 10/19/22 10:08 abdomen ltd hernia Routine Pending Results Patient Have Any Pending Studies at Discharge: No Discharge Instructions Given to Patient (Per Discharging Provider) You were admitted for diverticulitis and ventral hernia. Continue antibiotic until course complete for diverticulitis. Continue low fiber diet. Follow up with PCP. For hernia, please see surgical instructions below and schedule a follow-up appointment with their office in 2 weeks. RECOMMENDATIONS FOR FOLLOW-UP: Follow up with PCP and general surgery as above. OTHER INSTRUCTIONS: Seek medical attention if you have: * temperature above 101 * chest pain or trouble breathing * abdominal pain, nausea, vomiting * diarrhea, dark stools or bloody stools * any unanswered questions or concerns Call 911 if symptoms are severe. Please take good care of yourself. Call if you have any questions or problems. You can reach a [facility] hospitalist on duty at [facility] 24 hours a day by calling [phone]. Total Time Total Time Spent Total Time Spent (In Minutes): 45 Supervising Physician Co-Signing Physician Notes Patient is seen and examined at bedside. Abdominal pain much improved. Tolerating diet.+ Flatus. Discussed with patient's family at bedside. Eager to get discharged. Denies any nausea, vomiting, chest pain, shortness of breath. On exam patient is moderately built and nourished, no apparent distress, normocephalic/atraumatic, clear to auscultation, normal breath sounds, S1-S2, no murmur, no pedal edema, abdomen soft, non tender, normal bowel sounds, alert, awake, oriented, grossly no focal deficits. Patient is admitted for management of incarcerated right inguinal hernia. S/P inguinal hernia repair. Appreciate surgery input. Tolerating regular diet. Resume plavix upon discharge. Continue IV antibiotics for diverticulitis while hospitalized. Plan to transition to p.o. antibiotics upon discharge. Advised to follow-up with PCP, surgery upon discharge. I personally reviewed the record. Patient is interviewed and examined at bedside. Patient's care is coordinated with Piedad Grijalva PA-C. Please refer to the documentation above for details of patient's presentation and for discussion of other issues.
== END 2022-10-20 16:57 | disposition home or self-care (01) | DRG 351 ==
LOC: ED 17:57 → SUATTDRO 23:14 → 3N 23:14